=== PATIENT | male | born 1965 | race Caucasian/White ===

== ENCOUNTER 2017-08-06 21:10 | Emergency (ER) | payer OTHER, SELFPAY ==
[2017-08-06 21:10] VITALS: BP 183/122; PULSE 109; RESP 16; TEMP 36.5; O2SAT 94; BMI 22.8
--- NOTE | 2017-08-06 21:18 | ED.RN ---
NO OLD EKG'S IN MUSE
[2017-08-06 21:22] VITALS: O2SAT 97
--- NOTE | 2017-08-06 21:35 | EKG12_ITS ---
Test Reason : CP/SOB Blood Pressure : / mmHG Vent. Rate : 089 BPM Atrial Rate : 089 BPM P-R Int : 150 ms QRS Dur : 092 ms QT Int : 352 ms P-R-T Axes : 067 034 073 degrees QTc Int : 428 ms Normal sinus rhythm Septal MD, age undetermined, cannot be excluded Confirmed by FIOR BROWNE, BASSEM ([id number]), editor farm journal SHARON SOTO ([id number] on 08/10/2017 2:11:18 PM Referred By: MARY Confirmed By:BASSEM CHILDRESS MD
[2017-08-06] MEDS: Ipratropium/Albuterol Sulfate 3 ML AMPUL.NEB INHALATION (21:42)
[2017-08-06 21:43] VITALS: PULSE 99; RESP 16
[2017-08-06] MEDS: Albuterol 2.5 MG/3 ML VIAL.NEB. INHALATION ×2 (21:43)
[2017-08-06 21:45] LABS: Absolute Lymphocyte Count 2.64 X10^3/ul (0.83-4.51); Absolute Neutrophil Count 4.3 X10^3/uL (2.0-7.7); Basophil# 0.03 X10^3/uL; Basophil% 0.4 % (0-1); Eosinophil# 0.63 X10^3/uL; Eosinophils% 7.5 % (0-5); Hematocrit 47.1 % (40-54); Hemoglobin 16.3 g/dl (13.0-16.5); Lymphocyte # 2.64 X10^3/ul (4.0); Lymphocyte % 31.3 % (19-41); Mean Corp Hgb Conc 34.6 g/gl (32-36); Mean Corpuscular Hgb 32.3 pg (27.0-32.0); Mean Corpuscular Volume 93.5 fL (80-94); Mean Platelet Vol. 8.8 fl (6.2-12.0); Monocyte# 0.84 X10^3/uL; Neutrophil # 4.29 X10^3/uL (2.7-7.7); Neutrophil % 50.7 % (47-70); POSITIVE COUNT NO; POSITIVE DIFFERENTIAL NO; POSITIVE MORPHOLOGY NO; Platelet Count 165 K/mm3 (150-450); RBC Distribution Width CV 12.4 % (11.6-14.6); Red Blood Count 5.04 M/mm3 (4.6-6.2); White Blood Count 8.4 K/mm3 (4.4-11.0)
[2017-08-06 21:47] VITALS: BP 195/124; PULSE 113; RESP 14; O2SAT 98
[2017-08-06] MEDS: MethylPREDNISolone 125 MG/2 ML Vial IV (21:52)
[2017-08-06 21:55] LABS: Anion Gap 8 (5-15); BUN 4 mg/dL (7-18); BUN/Creat Ratio 4.2 RATIO (10-20); Calcium,Total 9.3 mg/dL (8.5-10.1); Chloride 103 mmol/L (98-107); Creatinine, Serum 0.96 mg/dL (0.70-1.30); EST Glomerular Filtration Rate 89 mL/min (>60); Est Glom Filt Rate - Afr Amer 107 mL/min (>60); Estimated Creatinine Clearance 100.33 ml/min; Glucose 85 mg/dL (74-106); Potassium 4.3 mmol/L (3.5-5.1); Sodium Level 136 mmol/L (136-145)
--- NOTE | 2017-08-06 22:20 | RAD_ITS ---
STUDY: X-RAY CHEST REASON FOR EXAM: Male, 51 years old. Difficulty breathing for 3 to 4 days TECHNIQUE: PA and lateral views of the chest. COMPARISON: None. FINDINGS: There is hyperinflation of the lungs consistent with chronic obstructive lung disease (COPD). There is no demonstrated pleural abnormality. Normal size heart. Normal mediastinum and jonny. Normal visualized pulmonary arteries. Normal visualized aortic arch and descending thoracic aorta. There is demineralization of the osseous structures. Normal visualized ribs, clavicles, and shoulders. There is no demonstrated abnormality of the visualized soft tissue structures of the upper abdomen. RAD/Chest PA and Lateral IMPRESSION: No airspace consolidation or pleural effusion. Hyperinflation could suggest chronic obstructive airway disease. Electronically Signed: Rowdy Puente MD at 22:49 EST , Service support ,
--- NOTE | 2017-08-06 23:04 | ED.VISSUMM ---
- ER Visit Summary Date of Service: 08/06/17 Chief Complaint: Shortness of breath History of Present Illness: The patient is a 51 M who presents with shortness of breath. This is been present for about 3-4 days. It is worsened with exertion. He complains of congestion rhinorrhea productive cough and wheezing. No chest pain. No diaphoresis chills sweats vomiting or diarrhea. No sick contacts. Physical Examination: Initial blood pressure 183/122 heart rate 109 respiratory rate 16 pulse ox 94% on 2 L nasal cannula Patient has severely diminished air exchange with inspiratory and expiratory wheezing no rales he is actually able to speak in full sentences he does not have retractions Heart is regular rhythm tachycardia Abdomen soft and nontender Extremities are nontender without edema 2+ bilateral radial pulses Alert Test Results: EKG shows normal sinus rhythm at a rate of 89. Two-view chest x-ray shows hyperinflation but no infiltrate or effusion. CBC and BMP are unremarkable. Emergency Department Course and Treatment: Patient was treated with IV Solu-Medrol and albuterol and Atrovent aerosols. On reevaluation he does have increased air exchange and reports improvement of symptoms. His heart rate at rest ranged from 100-110. With ambulatory pulse ox his heart rate went up to 120s and he did become dyspneic speaking in short sentences but he did not have hypoxia. He did maintain an oxygen saturation of 94%. I do believe given the patient's smoking history hyperinflation changes on chest x-ray wheezing and productive cough that he likely has undiagnosed COPD. I discussed hospital observation for IV steroids and aerosols. The patient does not want to stay. He would rather attempt outpatient management. We did have a discussion of risks and benefits. In regards to his blood pressure the patient states he does have a history of hypertension but is noncompliant with medications and that his blood pressure has been very high in the past. He was on lisinopril HCTZ but does not remember the dose. We will restart him on a low dose for now until he can follow-up with his primary care physician. He is willing to restart medications. He was given clear instructions that if he develops new or worsening symptoms any chest pain dizziness or worsening shortness of breath he should return to the emergency department immediately for reevaluation. All questions answered at bedside. Patient agreeable to plan. Discharged. Treatment Plan: [] Disposition: Discharge Impression: COPD exacerbation Uncontrolled hypertension This note was generated with Animated Speech dictation software. It may contain incorrect words, spelling, and punctuation that were not noted in review of the chart prior to signing ED Disposition - Plan for ED Patient: Chief Complaint: Shortness of Breath Referrals: Feliciano Sanz MD [Primary Care Provider] -
--- NOTE | 2017-08-06 23:05 | ED.RN ---
pt states he has hx of htn but does not take meds. discussed with pt the importance of taking bp meds. pt understands teaching. dr. coyle aware of teaching.
[2017-08-06 23:09] VITALS: BP 193/108; PULSE 111; RESP 20; O2SAT 93
--- NOTE | 2017-08-06 23:11 | ED.DCSUM_ITS ---
- ER Visit Summary Date of Service: 08/06/17 Chief Complaint: Shortness of breath History of Present Illness: The patient is a 51 M who presents with shortness of breath. This is been present for about 3-4 days. It is worsened with exertion. He complains of congestion rhinorrhea productive cough and wheezing. No chest pain. No diaphoresis chills sweats vomiting or diarrhea. No sick contacts. Physical Examination: Initial blood pressure 183/122 heart rate 109 respiratory rate 16 pulse ox 94% on 2 L nasal cannula Patient has severely diminished air exchange with inspiratory and expiratory wheezing no rales he is actually able to speak in full sentences he does not have retractions Heart is regular rhythm tachycardia Abdomen soft and nontender Extremities are nontender without edema 2+ bilateral radial pulses Alert Test Results: EKG shows normal sinus rhythm at a rate of 89. Two-view chest x- ray shows hyperinflation but no infiltrate or effusion. CBC and BMP are unremarkable. Emergency Department Course and Treatment: Patient was treated with IV Solu- Medrol and albuterol and Atrovent aerosols. On reevaluation he does have increased air exchange and reports improvement of symptoms. His heart rate at rest ranged from 100-110. With ambulatory pulse ox his heart rate went up to 120s and he did become dyspneic speaking in short sentences but he did not have hypoxia. He did maintain an oxygen saturation of 94%. I do believe given the patient's smoking history hyperinflation changes on chest x-ray wheezing and productive cough that he likely has undiagnosed COPD. I discussed hospital observation for IV steroids and aerosols. The patient does not want to stay. He would rather attempt outpatient management. We did have a discussion of risks and benefits. In regards to his blood pressure the patient states he does have a history of hypertension but is noncompliant with medications and that his blood pressure has been very high in the past. He was on lisinopril HCTZ but does not remember the dose. We will restart him on a low dose for now until he can follow-up with his primary care physician. He is willing to restart medications. He was given clear instructions that if he develops new or worsening symptoms any chest pain dizziness or worsening shortness of breath he should return to the emergency department immediately for reevaluation. All questions answered at bedside. Patient agreeable to plan. Discharged. Treatment Plan: [] Disposition: Discharge Impression: COPD exacerbation Uncontrolled hypertension This note was generated with Disconnect dictation software. It may contain incorrect words, spelling, and punctuation that were not noted in review of the chart prior to signing ED Disposition - Plan for ED Patient: Chief Complaint: Shortness of Breath Referrals: Feliciano Sanz MD [Primary Care Provider] -
--- NOTE | 2017-08-06 23:11 | ED.DEP ---
ED Disposition - Plan for ED Patient: Chief Complaint: Shortness of Breath Instructions: ED COPD Flare, ED Hypertension Conf Out Of Control Prescriptions: Albuterol Inhaler [Ventolin Hfa] 1 - 2 puff INHALATION Q4H PRN PRN #1 inhaler PRN Reason: Wheezing Azithromycin [Zithromax Z-Gilson] 250 mg PO UD #1 box Lisinopril/Hydrochlorothiazide [Zestoretic 10/12.5 Tablet] 1 tab PO DAILY #30 tab Prednisone [Deltasone] 60 mg PO DAILY #15 tab Referrals: Feliciano Sanz MD [Primary Care Provider] -
[2017-08-06 23:35] VITALS: RESP 20
== END 2017-08-06 23:25 | disposition home or self-care (01) ==
PROVIDERS: Emergency Provider Emergency Medicine; Family Provider Family Medicine; PCP Family Medicine
DX: J44.1 Chronic obstructive pulmonary disease with (acute) exacerbation (principal); I10 Essential (primary) hypertension; Z72.0 Tobacco use; Z91.14 Patient's other noncompliance with medication regimen
CPT/HCPCS: 71046; 80048; 85025; 93005; 94640; 99284; A4216

== ENCOUNTER → 2018-06-06 10:53 | Outpatient (CLI) | payer OTHER, SELFPAY ==
--- NOTE | 2018-06-06 11:00 | RAD_ITS ---
Left femur. CLINICAL HISTORY: Pain. PROCEDURE: 4 view. FINDINGS: There are no fractures, dislocations or any bone or joint disease. The surrounding soft tissues are normal Electronically Signed: Santana Naik MD at 4:46 EST Tel , Service support , RAD/Femur Min 2 Views
--- NOTE | 2018-06-06 11:00 | RAD_ITS ---
STUDY: X-RAY - LUMBAR SPINE REASON FOR EXAM: Male, 52 years old. Left leg pain TECHNIQUE: 5 view(s) of the lumbar spine were obtained. COMPARISON: None FINDINGS: Normal lumbar lordosis. There is no substantial scoliosis. There is a normal alignment of the vertebrae. Normal vertebral bodies and endplates. Normal disc space heights. Calcific atherosclerotic changes of aorta RAD/L/S Spine Min 4 Views IMPRESSION: Normal x-ray examination of the lumbar spine. No fractures. No disc disease. Calcific atherosclerotic changes of aorta Electronically Signed: Santana Naik MD at 4:45 EST Tel , Service support ,
[2018-06-06 12:13] LABS: Erythrocyte Sedimentation Rate 17 mm/hr (0-20)
[2018-06-06 12:15] LABS: Absolute Lymphocyte Count 1.64 X10^3/ul (0.83-4.51); Absolute Neutrophil Count 1.9 X10^3/uL (2.0-7.7); Basophil# 0.02 X10^3/uL; Basophil% 0.5 % (0-1); Eosinophil# 0.31 X10^3/uL; Eosinophils% 7.2 % (0-5); Hematocrit 40.5 % (40-54); Hemoglobin 13.7 g/dl (13.0-16.5); Lymphocyte # 1.64 X10^3/ul (4.0); Lymphocyte % 38.2 % (19-41); Mean Corp Hgb Conc 33.8 g/gl (32-36); Mean Corpuscular Hgb 32.1 pg (27.0-32.0); Mean Corpuscular Volume 94.8 fL (80-94); Mean Platelet Vol. 8.9 fl (6.2-12.0); Monocyte# 0.43 X10^3/uL; Neutrophil # 1.87 X10^3/uL (2.7-7.7); Neutrophil % 43.6 % (47-70); Platelet Count 211 K/mm3 (150-450); RBC Distribution Width CV 11.9 % (11.6-14.6); RBC Distribution Width SD 40.6 fl (35.1-43.9); Red Blood Count 4.27 M/mm3 (4.6-6.2); White Blood Count 4.3 K/mm3 (4.4-11.0)
[2018-06-06 12:16] LABS: POSITIVE COUNT NO; POSITIVE DIFFERENTIAL NO; POSITIVE MORPHOLOGY NO
--- OUTSIDE RECORDS SUMMARY | 2018-09-07 19:25 | XMS RPT_ITS ---
:1965 Author Organization OHIP Care Team Providers Name Role Phone Demario Sanz Attending Unavailable Demario Sanz Referring Unavailable Demario Sanz Primary Care Unavailable Demario Sanz Primary Care Unavailable Cezar Calderon Attending Unavailable PROBLEMS PROBLEMS DATE TYPE CONDITION / CODE ATTENDING STATUS SOURCE 06/06/2018 Unknown R29.898 - Other [place]ov[place], Active [place] [facility] involving the [facility] musculoskeletal Repository system / R29.898(ICD-10) 10/23/2017 Unknown R06.02 - Shortness Cezar Calderon Active [place] of breath / Community R06.02(ICD-10) Hospital Repository PROCEDURES PROCEDURES No Procedure Records FoundRESULTS RESULTS ERYTHROCYTE SED RATE Collected: 06/06/2018 Status: F Source: [place] 11:03 AM [facility] REPOSITORY TYPE CODE TESTS RESULT OUT OF RANGE REFERENCE UNITS LAB L102.0000 0-20 mm/hr Normal SED RATE 17 Performed By: #### L101.9900, L100.0100 #### [facility] [address] [place], [place], [address] CBC W/DIFF, AUTOMATED Collected: 06/06/2018 Status: F Source: [place] 11:03 AM [facility] REPOSITORY TYPE CODE TESTS RESULT OUT OF RANGE REFERENCE UNITS LAB L100.1000 4.4-11.0 K/mm3 Low WBC 4.3 LAB L100.1200 4.6-6.2 M/mm3 Low RBC 4.27 LAB L100.1300 13.0-16.5 g/dl Normal HGB 13.7 LAB L100.1400 40-54 % Normal HCT 40.5 LAB L100.1500 80-94 fL High MCV 94.8 LAB L100.1600 27.0-32.0 pg High MCH 32.1 LAB L100.1700 32-36 g/gl Normal MCHC 33.8 LAB L100.1810 11.6-14.6 % Normal RDW CV 11.9 LAB L100.1820 35.1-43.9 fl Normal RDW SD 40.6 LAB L100.1900 150-450 K/mm3 Normal PLT 211 LAB L100.2000 6.2-12.0 fl Normal MPV 8.9 LAB L100.2100 47-70 % Low NEUT% 43.6 LAB L100.2200 19-41 % Normal LY% 38.2 LAB L100.2300 0-10 % Normal MONO% 10.0 LAB L100.2400 0-5 % High EO% 7.2 LAB L100.2500 0-1 % Normal BASO% 0.5 LAB L100.2550 0.0-0.9 % Normal IM GRAN % 0.500 Result Comment: IG% - Immature Granulocytes (promyelocytes, myelocytes and metamyelocytes) > 1% indicates that a LEFT SHIFT is Present. LAB L100.2620 2.0-7.7 X10 3/uL Low Absolute Neut 1.9 LAB L100.2720 0.83-4.51 X10 3/ul Normal Absolute Lymph 1.64 Performed By: #### L101.9900, L100.0100 #### [facility] [address] [facility] [place], [address] L/S SPINE MIN 4 Observed: 06/06/2018 Status: F Source: [place] VIEWS 11:01 AM [facility] REPOSITORY [facility] Imaging Services [address] [place] [address] L/S Spine Min 4 Views MR#: [id number] Acct: [id number] Name: JAX ROGERS Rep #: [id number] : 1965 M 52 From: Santana Naik MD PCP: Demario Sanz MD Status: REG CLI Study: L/S Spine Min 4 Views Date of Exam: 06/06/18 Exam# [id number] Ordering Dr: Feliciano Sanz MD STUDY: X-RAY - LUMBAR SPINE REASON FOR EXAM: Male, 52 years old. Left leg pain TECHNIQUE: 5 view(s) of the lumbar spine were obtained. COMPARISON: None FINDINGS: Normal lumbar lordosis. There is no substantial scoliosis. There is a normal alignment of the vertebrae. Normal vertebral bodies and endplates. Normal disc space heights. Calcific atherosclerotic changes of aorta RAD/L/S Spine Min 4 Views IMPRESSION: Normal x-ray examination of the lumbar spine. No fractures. No disc disease. Calcific atherosclerotic changes of aorta Electronically Signed: Santana Naik MD at 4:45 EST Tel , Service support , CC: Demario Sanz MD Adoption Specialist: Signed FEMUR MIN 2 VIEWS Observed: 06/06/2018 Status: F Source: [place] 11:01 AM [facility] Imaging Services [address] [place] [address] Femur Min 2 Views MR#: [id number] Acct: [id number] Name: JAX ROGERS Rep #: [id number] : 1965 M 52 From: Santana Naik MD PCP: Demario Sanz MD Status: REG CLI Study: Femur Min 2 Views Date of Exam: 06/06/18 Exam# [id number] Ordering Dr: Feliciano Sanz MD Left femur. CLINICAL HISTORY: Pain. PROCEDURE: 4 view. FINDINGS: There are no fractures, dislocations or any bone or joint disease. The surrounding soft tissues are normal Electronically Signed: Santana Naik MD at 4:46 EST Tel , Service support , RAD/Femur Min 2 Views CC: Demario Sanz MD Adoption Specialist: Signed 12 LEAD ELECTROCARDIOGRAM Observed: 08/10/2017 Status: F Source: [place] 2:11 PM [facility] REPOSITORY [facility] Cardiovascular Services [address] [place] [address] 12 Lead EKG 08/06/174 MR#: [id number] Acct: [id number] Name: JAX ROGERS Rep #: [id number] : 1965 51 From: Evan Childress MD Attending Dr: Status: DEP ER Ordering Dr: Cezar Calderon MD Date: 08/06/17 Location: ED Sex: M C Admitted: Test Reason : CP/SOB Blood Pressure : / mmHG Vent. Rate : 089 BPM Atrial Rate : 089 BPM P-R Int : 150 ms QRS Dur : 092 ms QT Int : 352 ms P-R-T Axes : 067 034 073 degrees QTc Int : 428 ms Normal sinus rhythm Septal NE, age undetermined, cannot be excluded Confirmed by FIOR BROWNE, EVAN ([id number]), technical writer and editor SHARON SOTO ([id number]) on 08/10/2017 2:11:18 PM Referred By: MARY Confirmed By:EVAN CHILDRESS MD 08/10/17 1411 Date Evan Childress MD CC: Demario Sanz MD; Cezar Calderon MD Signed DISCHARGE INSTRUCTION Observed: 08/06/2017 Status: F Source: [place] 11:13 PM [facility] REPOSITORY [facility] Medical Records Department [address] [place] [address] Discharge Instruction 08/06/17 2311 MR#: [id number] Acct: [id number] Name: JAX ROGERS Rep #: [id number] : 1965 51 From: Cezar Calderon MD PCP: Demario Sanz MD Status: REG ER ED Disposition - Plan for ED Patient: Chief Complaint: Shortness of Breath Instructions: ED COPD Flare, ED Hypertension Conf Out Of Control Prescriptions: Albuterol Inhaler [Ventolin Hfa] 1 - 2 puff INHALATION Q4H PRN PRN #1 inhaler PRN Reason: Wheezing Azithromycin [Zithromax Z-Gilson] 250 mg PO UD #1 box Lisinopril/Hydrochlorothiazide [Zestoretic 10/12.5 Tablet] 1 tab PO DAILY #30 tab Prednisone [Deltasone] 60 mg PO DAILY #15 tab Referrals: Feliciano Sanz MD [Primary Care Provider] - What to do if you have Problems For any increased pain, shortness of breath, bleeding, nausea or vomiting, chest pain, or any unexpected problems, contact your Primary Care Provider. Call [facility] ([phone]) or report to the closest Emergency Room. Call 911 if necessary. 08/06/17 2313 <Electronically signed by Cezar Caldeorn MD> Date Cezar Calderon MD Cosigner Signature (If Indicated): Date CC: Demario Sanz MD EMERGENCY DEPARTMENT Observed: 08/06/2017 Status: F Source: [place] SUMMARY 11:11 PM [facility] REPOSITORY [facility] Medical Records Department [address] [place] [address] Emergency Department Summary 08/06/17 2304 MR#: [id number] Acct: [id number] Name: JAX ROGERS Rep #: [id number] : 1965 51 From: Cezar Calderon MD PCP: Demario Sanz MD Status: REG ER - ER Visit Summary Date of Service: 08/06/17 Chief Complaint: Shortness of breath History of Present Illness: The patient is a 51 M who presents with shortness of breath. This is been present for about 3-4 days. It is worsened with exertion. He complains of congestion rhinorrhea productive cough and wheezing. No chest pain. No diaphoresis chills sweats vomiting or diarrhea. No sick contacts. Physical Examination: Initial blood pressure 183/122 heart rate 109 respiratory rate 16 pulse ox 94% on 2 L nasal cannula Patient has severely diminished air exchange with inspiratory and expiratory wheezing no rales he is actually able to speak in full sentences he does not have retractions Heart is regular rhythm tachycardia Abdomen soft and nontender Extremities are nontender without edema 2+ bilateral radial pulses Alert Test Results: EKG shows normal sinus rhythm at a rate of 89. Two-view chest x-ray shows hyperinflation but no infiltrate or effusion. CBC and BMP are unremarkable. Emergency Department Course and Treatment: Patient was treated with IV Solu-Medrol and albuterol and Atrovent aerosols. On reevaluation he does have increased air exchange and reports improvement of symptoms. His heart rate at rest ranged from 100-110. With ambulatory pulse ox his heart rate went up to 120s and he did become dyspneic speaking in short sentences but he did not have hypoxia. He did maintain an oxygen saturation of 94%. I do believe given the patient's smoking history hyperinflation changes on chest x-ray wheezing and productive cough that he likely has undiagnosed COPD. I discussed hospital observation for IV steroids and aerosols. The patient does not want to stay. He would rather attempt outpatient management. We did have a discussion of risks and benefits. In regards to his blood pressure the patient states he does have a history of hypertension but is noncompliant with medications and that his blood pressure has been very high in the past. He was on lisinopril HCTZ but does not remember the dose. We will restart him on a low dose for now until he can follow-up with his primary care physician. He is willing to restart medications. He was given clear instructions that if he develops new or worsening symptoms any chest pain dizziness or worsening shortness of breath he should return to the emergency department immediately for reevaluation. All questions answered at bedside. Patient agreeable to plan. Discharged. Treatment Plan: [] Disposition: Discharge Impression: COPD exacerbation Uncontrolled hypertension This note was generated with [employer] software. It may contain incorrect words, spelling, and punctuation that were not noted in review of the chart prior to signing ED Disposition - Plan for ED Patient: Chief Complaint: Shortness of Breath Referrals: Feliciano Sanz MD [Primary Care Provider] - What to do if you have Problems For any increased pain, shortness of breath, bleeding, nausea or vomiting, chest pain, or any unexpected problems, contact your Primary Care Provider. Call [facility] ([phone]) or report to the closest Emergency Room. Call 911 if necessary. 08/06/17 2311 <Electronically signed by Cezar Calderon MD> Date Cezar Calderon MD Cosigner Signature (If Indicated): Date CC: Demario Sanz MD CHEST PA AND LATERAL Observed: 08/06/2017 Status: F Source: [place] 9:37 PM [facility] REPOSITORY [facility] Imaging Services [address] [place] [address] Chest PA and Lateral MR#: [id number] Acct: [id number] Name: JAX ROGERS Rep #: [id number] : 1965 M 51 From: Rowdy Puente MD PCP: Demario Sanz MD Status: REG ER Study: Chest PA and Lateral Date of Exam: 08/06/17 Exam# [id number] Ordering Dr: Cezar Calderon MD STUDY: X-RAY CHEST REASON FOR EXAM: Male, 51 years old. Difficulty breathing for 3 to 4 days TECHNIQUE: PA and lateral views of the chest. COMPARISON: None. FINDINGS: There is hyperinflation of the lungs consistent with chronic obstructive lung disease (COPD). There is no demonstrated pleural abnormality. Normal size heart. Normal mediastinum and jonny. Normal visualized pulmonary arteries. Normal visualized aortic arch and descending thoracic aorta. There is demineralization of the osseous structures. Normal visualized ribs, clavicles, and shoulders. There is no demonstrated abnormality of the visualized soft tissue structures of the upper abdomen. RAD/Chest PA and Lateral IMPRESSION: No airspace consolidation or pleural effusion. Hyperinflation could suggest chronic obstructive airway disease. Electronically Signed: Rowdy Puente MD at 22:49 EST , Service support , CC: Demario Sanz MD; Cezar Calderon MD Adoption Specialist: Signed CBC W/DIFF, AUTOMATED Collected: 08/06/2017 Status: F Source: [place] 9:25 PM [facility] REPOSITORY TYPE CODE TESTS RESULT OUT OF RANGE REFERENCE UNITS LAB L100.1000 4.4-11.0 K/mm3 Normal WBC 8.4 LAB L100.1200 4.6-6.2 M/mm3 Normal RBC 5.04 LAB L100.1300 13.0-16.5 g/dl Normal HGB 16.3 LAB L100.1400 40-54 % Normal HCT 47.1 LAB L100.1500 80-94 fL Normal MCV 93.5 LAB L100.1600 27.0-32.0 pg High MCH 32.3 LAB L100.1700 32-36 g/gl Normal MCHC 34.6 LAB L100.1810 11.6-14.6 % Normal RDW CV 12.4 LAB L100.1820 35.1-43.9 fl Normal RDW SD 42.0 LAB L100.1900 150-450 K/mm3 Normal PLT 165 LAB L100.2000 6.2-12.0 fl Normal MPV 8.8 LAB L100.2100 47-70 % Normal NEUT% 50.7 LAB L100.2200 19-41 % Normal LY% 31.3 LAB L100.2300 0-10 % Normal MONO% 10.0 LAB L100.2400 0-5 % High EO% 7.5 LAB L100.2500 0-1 % Normal BASO% 0.4 LAB L100.2550 0.0-0.9 % Normal IM GRAN % 0.100 Result Comment: IG% - Immature Granulocytes (promyelocytes, myelocytes and metamyelocytes) > 1% indicates that a LEFT SHIFT is Present. LAB L100.2620 2.0-7.7 X10 3/uL Normal Absolute Neut 4.3 LAB L100.2720 0.83-4.51 X10 3/ul Normal Absolute Lymph 2.64 Performed By: #### L100.0100 #### [facility] [address] [place], [place], [address] BASIC METABOLIC Collected: 08/06/2017 Status: F Source: [place] PROFILE ([facility]) 9:25 PM [facility] REPOSITORY TYPE CODE TESTS RESULT OUT OF RANGE REFERENCE UNITS LAB L501.0100 74-106 mg/dL Normal GLU 85 Result Comment: Please note revised GLUCOSE reference range effective 2017. LAB L501.1000 7-18 mg/dL Low BUN 4 LAB L501.1100 0.70-1.30 mg/dL Normal CREAT,SERUM 0.96 Result Comment: The validity of the calculated GFR AND GFRAA in patients over 70 years has not been determined. Clinical correlation is essential. LAB L501.1110 >60 mL/min Normal EST GFR 89 Result Comment: Non- GFR Calc LAB L501.1115 >60 mL/min Normal EST GFR - AA 107 Result Comment: GFR Calc LAB L501.1255 ml/min Normal Estimated CRCL 100.33 LAB L501.1300 10-20 RATIO Low BUN/CRE 4.2 LAB L501.2200 8.5-10 mg/dL .1 CA Normal 9.3 LAB L501.5300 136-14 mmol/L 5 NA Normal 136 LAB L501.5600 3.5-5. mmol/L 1 K Normal 4.3 LAB L501.5900 98-107 mmol/L CL Normal 103 LAB L501.6100 21.0-3 mmol/L 2.0 CO2 Normal 25.0 LAB L501.6200 5-15 GAP Normal 8 Performed By: #### L500.2500 #### [facility] [address] [place], [address] ALLERGIES ALLERGIES DATE TYPE / CODE NAME / CODE REACTION SEVERITY SOURCE 08/06/2017 Drug No Known Unknown [place] [facility] Allergy/4160 Allergies/F00 Hospital 39716(SNOMED [id number](RXNOR Repository CT) M) ENCOUNTERS ENCOUNTERS ADMIT/DISCHARGE ACCOUNT ADMITTING ENCOUNTER LOCATION SOURCE NUMBER CLASS 06/06/2018 [id number] Amb[place] [facility] ing:MTLAB Repository 08/06/2017/ [id number] Emergency [place] [facility] ing:ED Repository PAYERS PAYERS ENCOUNTER GUARANTOR PAYER SUBSCRIBER SOURCE 06/06/2018 JAX Simon Primary JAX Simon [place] [id number] MIMI Insurance:[employer] BEBOUTDOB: [place], [place] [facility] Number: [id number] Hospital 22842Rso: 330 [id number] Repository [phone] () Date:[id number] [address] [address]EX: 06/06/2018 Secondary Kelsie [place] Insurance:BE BeboutDOB: [facility] [id number] Hospital Number: Repository [id number] Date:2018-06-[address] [place] [address]VT: 06/06/2018 Tertiary NOT GIVENUNK [place] Insurance:SELF PAY [facility] Number: Effective Repository Date:2018-06-06 08/06/2017 JAX [id number] Primary JAX BEBOUTDOB: [place] MIMI RDWEST Insurance:[employer] [id number] [place] CAREPolicy Number: Hospital [address]Yqn: 330 [id number] Repository [phone] (HP) Date:[id number] [address] [address]EV: 08/06/2017 Secondary Kelsie [place] Insurance:BE BeboutDOB[facility] [id number] Hospital Number: Repository [id number] Date:2017-08-06 [address] [place] [address]EN: 08/06/2017 Tertiary NOT GIVENUNK [place] Insurance:SELF PAY [facility]: Effective Repository Date:2017-08-06
== END ==
PROVIDERS: Family Provider Family Medicine; PCP Family Medicine; Referring Provider Family Medicine; Visit Provider Family Medicine
DX: R29.898 Other symptoms and signs involving the musculoskeletal system (principal)
CPT/HCPCS: 36415; 72110; 73552; 85025; 85652

== ENCOUNTER → 2018-10-14 07:58 | Outpatient (CLI) | payer OTHER, SELFPAY ==
--- NOTE | 2018-10-14 08:30 | MRI_ITS ---
STUDY: MRI LUMBAR SPINE WITHOUT CONTRAST REASON FOR EXAM: Male, 52 years old. Left lateral radiculopathy for 6 months TECHNIQUE: Standardized fat and water weighted pulse sequences were obtained in the sagittal and axial planes. COMPARISON: None FINDINGS: There is normal alignment and curvature of the lumbosacral spine with no acute fractures or dislocations and no abnormal marrow infiltrative processes. The disc spaces are normal height and signal intensity in the conus medullaris terminates at L1 T12-L1: Normal endplates. Normal disc height, hydration and morphology. Normal bilateral facet joints. Normal central canal and bilateral lateral recesses. Normal bilateral intervertebral neural foramina. L1-2: Normal endplates. Normal disc height, hydration and morphology. Normal bilateral facet joints. Normal central canal and bilateral lateral recesses. Normal bilateral intervertebral neural foramina. L2-3: Normal endplates. Normal disc height, hydration and morphology. Normal bilateral facet joints. Normal central canal and bilateral lateral recesses. Normal bilateral intervertebral neural foramina. L3-4: Normal endplates. Normal disc height, hydration and morphology. Normal bilateral facet joints. Normal central canal and bilateral lateral recesses. Normal bilateral intervertebral neural foramina. L4-5: Normal endplates. Normal disc height, hydration and morphology. Normal bilateral facet joints. Normal central canal and bilateral lateral recesses. Normal bilateral intervertebral neural foramina. L5-S1: Normal endplates. Normal disc height, hydration and morphology. Normal bilateral facet joints. Normal central canal and bilateral lateral recesses. Normal bilateral intervertebral neural foramina. The aorta is normal. The visualized portions of kidneys are normal. MRI/Spine Lumbar (Routine) IMPRESSION: Normal unenhanced MR examination of the lumbar spine. No focal disc protrusion or extrusion and no central canal stenosis. Electronically Signed: Santana Naik MD at 7:41 EDT Tel , Service support ,
== END ==
PROVIDERS: Family Provider Family Medicine; PCP Family Medicine; Referring Provider Family Medicine; Visit Provider Family Medicine
DX: M54.10 Radiculopathy, site unspecified (principal)
CPT/HCPCS: 72148

== ENCOUNTER → 2018-11-08 06:20 | Outpatient (CLI) | payer OTHER, SELFPAY ==
--- NOTE | 2018-11-08 14:57 | NEURO ---
NCS and/or EMG Patient Report Ordering Doctor: Feliciano Sanz DATE OF SERVICE: 11/08/18 Gregor Nunez is a 52 year old male who presents with complaints of left lower extremity pain. Is most significant in the left hip and occasionally radiating down the left leg. Electrodiagnostic findings: Left peroneal motor nerve demonstrates normal distal latency, amplitude and conduction velocity. Normal left tibial motor response. Prolonged left tibial F wave is noted. Prolonged H reflex noted bilaterally. Prolonged left sural latency and left superficial peroneal latency. On needle EMG, all muscles tested in the left lower limb as well as the left lumbar paraspinal showed no evidence of denervation with normal motor unit action potentials. Electrodiagnostic impression: This is an abnormal study in the left lower limb. 1. There is a prolonged distal latency in both the left sural and super superficial peroneal sensory nerves. This is likely suggestive of a mild sensory neuropathy or possibly an early sensory polyneuropathy. However, it does not appear to correlate clinically with his main complaints. 2. No electrodiagnostic evidence noted for lumbosacral radiculopathy. If there are any further questions, please do not hesitate to contact me.
== END ==
PROVIDERS: Family Provider Family Medicine; PCP Family Medicine; Referring Provider Family Medicine; Visit Provider Family Medicine
DX: M54.10 Radiculopathy, site unspecified (principal)
CPT/HCPCS: 95886; 95910

== ENCOUNTER → 2018-12-27 09:42 | Outpatient (CLI) | payer OTHER, SELFPAY ==
--- NOTE | 2018-12-27 09:45 | RAD_ITS ---
STUDY: X-RAY - PELVIS AND LEFT HIP REASON FOR EXAM: Male, 53 years old. Pain TECHNIQUE: 3 views of the pelvis and hip. COMPARISON: None. FINDINGS: There is a non-specific bowel gas pattern. Normal visualized soft tissue structures. Normal bilateral iliac wings, sacroiliac joints and visualized sacrum. Normal bilateral superior and inferior pubic rami. Normal pubic symphysis. Normal bilateral ischial tuberosities. Mild subchondral cystic changes.. Normal acetabulum. Normal hip joint. RAD/HIP, UNI W/ Pelvis 2-3 Views IMPRESSION: Mild arthritic changes. No acute fracture or other significant bony pathology Electronically Signed: Nestor Denton MD at 20:27 EDT , Service support ,
== END ==
PROVIDERS: Family Provider Family Medicine; PCP Family Medicine; Referring Provider Family Medicine; Visit Provider Family Medicine
DX: M79.605 Pain in left leg (principal)
CPT/HCPCS: 73502

== ENCOUNTER → 2019-03-15 10:55 | Outpatient (CLI) | payer OTHER, SELFPAY ==
--- NOTE | 2019-03-15 11:33 | MRI_ITS ---
STUDY: MRI LEFT HIP REASON FOR EXAM: Left leg pain for 6 months. TECHNIQUE: Standardized fat and water weighted pulse sequences were obtained in all 3 orthogonal planes. COMPARISON: Radiographs 12/27/2018. FINDINGS: There is mild left hip arthrosis with mild chondral thinning (proton density sagittal image 9). There is a small left hip joint effusion (proton density sagittal images 7, 8). There is mild subchondral bone edema of the left supra-acetabular bone (inversion recovery coronal images 18-20), a stress phenomenon. There is a suspected occult tear of the left labrum with a paralabral cyst (inversion recovery coronal image 17). There is avascular necrosis of the left femoral head (T1 coronal images 18-22) with mild associated bone edema. Normal femoral neck and intratrochanteric region. There is avascular necrosis of the contralateral right femoral head (T1 coronal images 15-21. Normal gluteus minimus, medius and iliopsoas tendons and distal insertions. There is no trochanteric, iliopsoas or iliopectineal bursitis. Normal superior and inferior pubic rami. Normal pubic symphysis. Normal ischial tuberosity. Normal origin of the hamstring tendons. Normal visualized iliac wing, sacroiliac joint, and sacral ala. Normal visualized soft tissue structures of the pelvis. MRI/Lower Ext Joint Only (Routine) IMPRESSION: Avascular necrosis of the femoral heads bilaterally. Mild bone edema in the left supra-acetabular bone, a stress phenomenon. Mild left hip arthrosis. Left paralabral cyst and therefore suspected occult labral tear. Small left hip joint effusion. No demonstrated greater trochanteric bursitis. Electronically Signed: William Coffman MD at 13:07 EDT Tel , Service support ,
== END ==
PROVIDERS: Family Provider Family Medicine; PCP Family Medicine; Referring Provider Physician Assistant; Visit Provider Physician Assistant
DX: M70.62 Trochanteric bursitis, left hip (principal)
CPT/HCPCS: 73721

== ENCOUNTER 2019-04-01 18:02 | Emergency (ER) | payer OTHER, SELFPAY ==
[2019-04-01 18:03] VITALS: BP 149/105; PULSE 116; RESP 23; TEMP 36.6; O2SAT 100
[2019-04-01 18:05] VITALS: PULSE 122; RESP 12; RESP 24; O2SAT 100
[2019-04-01 18:10] VITALS: O2SAT 100
--- NOTE | 2019-04-01 18:39 | EKG12_ITS ---
Test Reason : DYSRHYTHMIA Blood Pressure : / mmHG Vent. Rate : 119 BPM Atrial Rate : 119 BPM P-R Int : 152 ms QRS Dur : 092 ms QT Int : 322 ms P-R-T Axes : 080 013 079 degrees QTc Int : 452 ms Sinus tachycardia Right atrial enlargement Inferior infarct , age undetermined Possible Anterolateral infarct , age undetermined Abnormal ECG Confirmed by FIOR BROWNE, BASSEM ([id number]), editor city SHARON SOTO ([id number]) on 04/04/2019 8:38:49 AM Referred By: ROSENDO Confirmed By:BASSEM CHILDRESS MD
--- NOTE | 2019-04-01 18:39 | RAD_ITS ---
STUDY: X-RAY CHEST REASON FOR EXAM: Male, 53 years old. COPD. Shortness of breath. TECHNIQUE: PA and lateral views of the chest. COMPARISON: August 06, 2017. FINDINGS: Cardiac silhouette unremarkable. Pulmonary vascularity unremarkable. Aorta minimally calcified. No new focal patchy airspace opacities. No pleural effusions. Hyperaeration. COPD/emphysema. Upper abdomen unremarkable. Osseous structures intact. No pneumothorax. RAD/Chest PA and Lateral IMPRESSION: No acute cardiopulmonary findings COPD/emphysema Electronically Signed: Krish Carreno DO at 19:06 EDT Tel , Service support ,
[2019-04-01] MEDS: predniSONE 20 MG Tablet 60 MG PO (18:56)
[2019-04-01 19:00] VITALS: PULSE 108; RESP 15
[2019-04-01] MEDS: Ipratropium/Albuterol Sulfate 3 ML AMPUL.NEB INHALATION (19:00)
[2019-04-01 19:08] LABS: Anion Gap 8 (5-15); BUN 5 mg/dL (7-18); BUN/Creat Ratio 4.7 RATIO (10-20); Calcium,Total 9.1 mg/dL (8.5-10.1); Chloride 92 mmol/L (98-107); Creatinine, Serum 1.06 mg/dL (0.70-1.30); EST Glomerular Filtration Rate 78 mL/min (>60); Est Glom Filt Rate - Afr Amer 95 mL/min (>60); Estimated Creatinine Clearance 78.01 ml/min; Glucose 126 mg/dL (74-106); Potassium 4.1 mmol/L (3.5-5.1); Sodium Level 129 mmol/L (136-145)
[2019-04-01 19:20] LABS: Allen Test POS; Base Excess -2 mmol/L (-2 to +2); Blood Gas Specimen Type ART; O2 Delivery Device Nasal Can; PO2 67 mmHG (75-100); SITE R Radial; SO2 94 % (95-99); Time Given 1905; Total Carbon Dioxide 23 mmol/L; pCO2 33.6 mmHg (35-45); pH 7.43 (7.35-7.45)
[2019-04-01 19:25] LABS: Absolute Lymphocyte Count 1.06 X10^3/uL (0.83-4.51); Absolute Neutrophil Count 10.5 X10^3/uL (2.0-7.7); Basophil# 0.04 X10^3/uL; Basophil% 0.3 % (0-1); Eosinophil# 0.66 X10^3/uL; Eosinophils% 5.2 % (0-5); Hemoglobin 13.3 g/dL (13.0-16.5); Lymphocyte # 1.06 X10^3/ul (4.0); Lymphocyte % 8.3 % (19-41); Mean Corpuscular Hgb 32.9 pg (27.0-32.0); Mean Corpuscular Volume 94.1 fL (80-94); Monocyte# 0.49 X10^3/uL; Monocyte% 3.8 % (0-10); NRBC Flagged by Analyzer 0 % (0-5); Neutrophil # 10.47 X10^3/uL (2.7-7.7); Neutrophil % 81.8 % (47-70); Platelet Count 146 K/mm3 (150-450); RBC Distribution Width CV 12.2 % (11.6-14.6); RBC Distribution Width SD 42.3 fl (35.1-43.9); Red Blood Count 4.04 M/mm3 (4.6-6.2); White Blood Count 12.8 K/mm3 (4.4-11.0)
[2019-04-01 20:27] VITALS: BP 117/91; PULSE 106; RESP 14; O2SAT 99
[2019-04-01 21:16] VITALS: BP 145/93; PULSE 113; RESP 19; O2SAT 98
--- NOTE | 2019-04-01 21:30 | ED.DCSUM_ITS ---
- ER Visit Summary Date of Service: 04/01/19 Chief Complaint: Shortness of breath History of Present Illness: The patient is a 53 M who presents with shortness of breath that is been getting worse over the past 3 days. Patient states it is worse with changes in weather. Patient states she is coughing up some jean sputum. Patient also admits to some runny nose. Patient denies any chest pain. Patient denies any fevers or chills. Patient does have a history of COPD and states this feels similar to prior exacerbations. Patient does admit to some vomiting after coughing. Patient denies any abdominal pain. Physical Examination: Vital signs are stable except for tachycardia of 116 and a mild tachypnea of 23. Patient is afebrile. Patient is in no acute distress. Oral mucosa is pink and moist. Neck is supple. Trachea is midline. There is no JVD noted. Heart was regular rate and rhythm. Lungs were diminished bilaterally. There are few scattered rhonchi. There is good respiratory effort noted. There are no retractions noted. Abdomen is soft and nontender. Cranial nerves II through XII are intact. There are no focal motor or sensory deficits noted. Test Results: EKG shows sinus tachycardia with a rate of 119. There is some right atrial enlargement. There is an old inferior infarct. This was unchanged compared to previous EKG dated 08/06/2017. Arterial blood gas showed a pH of 7.425 with a PCO2 of 36, PO2 of 67, bicarb of 22, and oxygen saturation of 94% on 2 L nasal cannula. Chest x-ray shows COPD but no acute process. CBC showed a mild leukocytosis of 12.8. Sodium was slightly low at 129 and chloride was 92. Troponin was less than 0.015. Emergency Department Course and Treatment: Patient initially was on CPAP here in the emergency department. Patient was improving after this. Patient was weaned to 2 L nasal cannula. Patient was given DuoNeb aerosol here. Patient was given prednisone. Patient was weaned off of his oxygen. Patient was resting comfortably on room air. Patient had a room air pulse oximeter of 95% on reevaluation. Patient states he feels better and wants to go home. Patient was given a prescription for prednisone. Patient was also given a prescription for albuterol nebulizer aerosols. Patient was instructed to follow-up with his primary care physician in 3 to 5 days. Patient was instructed return if worse in any way. Patient understood and was agreeable with the plan. All questions were answered. Disposition: Discharge home Impression: COPD exacerbation This note was generated with [employer] dictation software. It may contain incorrect words, spelling, and punctuation that were not noted in review of the chart prior to signing ED Disposition - Plan for ED Patient: Disposition: Home or Assisted Living Diagnosis: COPD exacerbation Instructions: Copd Flare Prescriptions: predniSONE tablet 60 mg PO DAILY #15 tab Prescription Printed Albuterol Aerosols [Ventolin Aerosols] 2.5 mg INHALATION Q4H PRN #25 vial Prescription Printed Referrals: Feliciano Sanz MD [Primary Care Provider] - 3-5 Days
[2019-04-01 22:44] LABS: Reflex Lactate? Y
== END 2019-04-01 21:48 | disposition home or self-care (01) ==
PROVIDERS: Emergency Provider Emergency Medicine; Family Provider Family Medicine; PCP Family Medicine
DX: J44.1 Chronic obstructive pulmonary disease with (acute) exacerbation (principal); I25.2 Old myocardial infarction; Z79.899 Other long term (current) drug therapy
CPT/HCPCS: 36600; 71046; 80048; 82803; 83605; 84484; 85025; 93005; 94002; 94640; 99285; A4216

== ENCOUNTER → 2019-04-10 08:22 | Outpatient (CLI) | payer OTHER, SELFPAY ==
[2019-04-10 09:08] LABS: Absolute Lymphocyte Count 1.24 X10^3/uL (0.83-4.51); Absolute Neutrophil Count 8.1 X10^3/uL (2.0-7.7); Basophil# 0.01 X10^3/uL; Basophil% 0.1 % (0-1); Eosinophil# 0.45 X10^3/uL; Eosinophils% 4.3 % (0-5); Hematocrit 35.9 % (40-54); Hemoglobin 12.2 g/dL (13.0-16.5); Lymphocyte # 1.24 X10^3/ul (4.0); Lymphocyte % 11.7 % (19-41); Mean Corpuscular Hgb 31.9 pg (27.0-32.0); Mean Corpuscular Volume 93.7 fL (80-94); Monocyte# 0.75 X10^3/uL; Monocyte% 7.1 % (0-10); NRBC Flagged by Analyzer 0 % (0-5); Neutrophil # 8.06 X10^3/uL (2.7-7.7); Neutrophil % 76.1 % (47-70); Platelet Count 178 K/mm3 (150-450); RBC Distribution Width CV 12.5 % (11.6-14.6); RBC Distribution Width SD 43.1 fl (35.1-43.9); Red Blood Count 3.83 M/mm3 (4.6-6.2); White Blood Count 10.6 K/mm3 (4.4-11.0)
== END ==
PROVIDERS: Family Provider Family Medicine; PCP Family Medicine; Referring Provider Specialist; Visit Provider Specialist
DX: M87.052 Idiopathic aseptic necrosis of left femur (principal)
CPT/HCPCS: 36415; 85025

== ENCOUNTER 2019-05-09 06:09 | Inpatient (IN) | payer OTHER, SELFPAY ==
--- NOTE | 2019-04-23 09:12 | HP.PCM_ITS ---
History and Physical History and Physical Patient Name: Gregor Nunez Jr : 1965 From: MARANDA ROWAN PA-C DATE OF SURGERY: 05/09/2019 SCHEDULED PROCEDURE: left total hip arthroplasty HISTORY OF PRESENT ILLNESS: Preoperative history and physical exam was performed on April 23, 2019. This is a 53-year-old male who has been having ongoing pain in his left hip for over one year. Patient states the pain can reach as high as a 10/10 with activity. Patient does have start up pain. Patient's pain is being constant, aching, sharp, sore. Pain is increased with going up and down stairs and bending over. Pain is in the left groin. Pain does wake him at night. He has difficult time with activities of daily living including bathing/showering and getting dressed. He has difficulty with putting on socks and shoes. Patient has tried conservative measures consisting of rest, heat, previous lateral corticosteroid injection into the hip with no relief in symptoms. He has been through physical therapy with no relief in symptoms. Patient has a medical history pertinent for alcohol use, hypertension, and asthma. Patient denies chest pain, shortness of breath, fevers chills, recent infections. We are obtaining surgical clearance from his primary care physician Dr. Briseno. After failing conservative measures and discussing treatment options with Dr. Chilo George, the patient does wish to proceed with a left total hip arthroplasty. REVIEW OF SYSTEMS: ROS: Const: Denies anorexia, anxiety, change in appetite, fever and weight change,hard of hearing, and vision problems. ENMT: Reports hearing loss. CV: Denies chest pain, heart murmur, irregular heartbeat and peripheral vascular disease. Resp: Denies asthma, cough, pneumonia, sleep apnea, shortness of breath, tuberculosis and wheezing. GI: Denies constipation, diarrhea, heartburn, nausea, bloody stools and vomiting, and difficulty swallowing. : Denies incontinence. Musculo: Reports leg swelling, trouble walking and weakness and limp. Skin: Denies Raynaud's, history of shingles and tattoo. Neuro: Reports numbness/tingling but denies ambulatory dysfunction, dizziness and tremor. Psych: Denies anxiety, depression, insomnia, mental illness and stress. Mathew/Lymph: Denies anemia, bleeding/bruising tendency and past transfusion. Reviewed, no changes. PAST MEDICAL HISTORY: Advance Care Plan: No Advance Directives Effective Date: 01/02/2019 PMH: Medical Problems: High Blood Pressure, Psoriasis, Asthma Accidents: Fracture - LEFT ANKLE Surgical Hx: LT Knee Arthroscopy Anesthesia Complications: None Assistive Devices: None Reviewed, no changes. 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 Personal Habits: Smoking: Patient is a current smoker, smokes every day.Cigarette Use: Currently smokes - 1 PACK/DAY FOR 20 YEARS.Smokeless Tobacco: Never Used Smokeless Tobacco.E-Cigarette Use: Never used.Alcohol: Currently consumes alcohol.Drug Use: Denies Use.Enjoy Exercising: Never Exercises. Reviewed, no changes. VITALS: Ht: 72 Wt: 145lb Wt k.772 BMI: 19.7 BP: 100/72 Pulse: 68 Resp: 16 T: 98.2 T: 36.8C ALLERGIES: No Known Drug Allergy MEDICATIONS: Albuterol Sulfate HFA 108 (90 Base) mcg/Act inhale two puffs four times daily as needed, Spiriva Respimat 2.5 mcg/Act inhale TWO PUFFS EVERY DAY, Lisinopril- Hydrochlorothiazide 20-25 mg take one tablet by mouth every day, Aleve 220 mg daily PRE-OP EXAM: General appearance:NORMAL Other: Eyes: Conjunctivae and lids: NORMAL Pupils: ERR Ears, Nose, Mouth, and Throat: NORMAL Other: Inspection of lips, teeth and gums: NORMAL Other: Neck: Examination of neck: no masses noted. Respiratory: Assessment of respiratory effort: NORMAL Other: Auscultation of lungs: clear to auscultation no wheezes, rhonchi or rales. Cardiovascular: Auscultation of heart: regular rate and rhythm, no murmurs, gallops or rubs. Gastrointestinal: Exam of abdomen: soft, nontender, nondistended bowel sounds present. PHYSICAL EXAMINATION: Patient does walk with an antalgic gait. Patient has tenderness to palpation along the lateral left hip. Range of motion: Flexion 90, internal rotation neutral, external rotation 30. Resisted range of motion: 4/5 left hip secondary to pain. Sensation intact to light touch. Neurovascularly intact. IMAGING STUDIES: X-rays were obtained at [facility] on April 23, 2019 including AP pelvis and AP left hip reveals severe avascular necrosis with subchondral collapse resulting in joint space narrowing with severe osteoarthritis and osteonecrosis of the left hip. No acute findings for fracture or dislocation. No lytic or blastic lesions. Previous MRI also reveals bilateral osteonecrosis with collapse on the left. IMPRESSION: 1. Left hip osteoarthritis with avascular necrosis 2. Chronic alcohol use 3. Hypertension 4. Asthma 5. Psoriasis PLAN: Dr. Chilo George did discuss and review with the patient all treatment options including surgical versus nonsurgical options. Patient does wish to proceed with the above-stated procedure. Potential risks, benefits, and complications of the procedure were discussed in detail including but not limited to , infection, nerve and blood vessel damage, persistent pain, numbness, tingling, paresthesias, blood clot, pulmonary embolism, and requirement for possible further surgery. The patient expressed full understanding and has no further questions for the doctor. Patient does agree to proceed with the above-stated procedure and has signed the surgery consent form. This dictation was created using voice recognition software. Phonetic and/or grammatical errors may exist. ___ I have re-examined the patient. There are no clinical changes since date of exam. ___ See progress notes for changes. ___ Dictated on admission Date: Time: Signature:
[2019-04-23 15:15] VITALS: BP 121/72; PULSE 109; RESP 18; TEMP 37; O2SAT 96
--- NOTE | 2019-04-23 15:44 | SDCEKG_ITS ---
Test Reason : Blood Pressure : / mmHG Vent. Rate : 100 BPM Atrial Rate : 100 BPM P-R Int : 148 ms QRS Dur : 090 ms QT Int : 352 ms P-R-T Axes : 076 052 079 degrees QTc Int : 454 ms Normal sinus rhythm Inferior infarct , age undetermined Cannot rule out Anteroseptal infarct , age undetermined Abnormal ECG Confirmed by WERNER BROWNE, LINNEA ([id number]), health editor SHARON SOTO ([id number]) on 04/24/2019 8:42:14 AM Referred By: Chilo George Confirmed By:LINNEA CALDERA MD
[2019-04-23 17:56] LABS: Prothrombin Time (Protime)PT. 13.3 SECONDS (11.7-14.9)
[2019-04-23 18:05] LABS: AST(SGOT) 13 U/L (15-37); Alanine Aminotransfer ALT/SGPT 12 U/L (16-61); Albumin, Serum 3.4 g/dL (3.2-5.0); Alkaline Phosphatase 80 U/L (45-117); Anion Gap 9 (5-15); BUN 6 mg/dL (7-18); BUN/Creat Ratio 6.7 RATIO (10-20); Bilirubin, Direct 0.13 mg/dL (0.00-0.30); Calcium,Total 9.5 mg/dL (8.5-10.1); Chloride 91 mmol/L (98-107); Creatinine, Serum 0.89 mg/dL (0.70-1.30); EST Glomerular Filtration Rate 95 mL/min (>60); Est Glom Filt Rate - Afr Amer 115 mL/min (>60); Estimated Creatinine Clearance 93.06 ml/min; Globulin 4.4 g/dL (2.2-4.2); Glucose 94 mg/dL (74-106); Potassium 3.4 mmol/L (3.5-5.1); Protein, Total 7.8 g/dL (6.4-8.2); Sodium Level 129 mmol/L (136-145)
[2019-04-30 12:04] LABS: Albumin, Serum 3.4 g/dL (3.2-5.0)
[2019-05-09] VITALS (15 sets, daily range): BP systolic 101–125; BP diastolic 76–97; PULSE 75–96; RESP 15–18; TEMP 36.1–37; O2SAT 98–100; BMI 19.8
--- NOTE | 2019-05-09 06:54 | RAD_ITS ---
STUDY: X-RAY - PELVIS AND LEFT HIP REASON FOR EXAM: Male, 53 years old. Left hip replacement. TECHNIQUE: 2 views of the pelvis and hip. COMPARISON: None. FINDINGS: The patient is status post left hip replacement. There is good alignment. Postoperative soft tissue changes. RAD/Hip Min 2 Views (Portable) IMPRESSION: Status post left hip replacement. There is good alignment. Postoperative soft tissue changes. Electronically Signed: Spencer Heck, at 10:36 EST , Service support ,
[2019-05-09] MEDS: Scopolamine 1mg/72hr Patch 1 PATCH TD (07:00)
[2019-05-09 07:16] LABS: Bedside Glucose 90 mg/dL (70-110)
[2019-05-09] MEDS: Gabapentin 600 MG Tablet PO (07:24)
[2019-05-09] MEDS: Celecoxib 200 MG Capsule 400 MG PO (07:24)
[2019-05-09] MEDS: Acetaminophen 500 MG Tablet 1000 MG PO (07:24)
[2019-05-09] MEDS: Magnesium Sulfate 4gm/100mL 4 GM/100 ML IV.SOLN. IV (07:24)
[2019-05-09] MEDS: Lactated Ringers 1,000 ML 999 ML IV (07:24)
[2019-05-09] MEDS: 0.9% Normal Saline 1,000 ML 999 ML IV (07:54)
[2019-05-09] MEDS: Cefazolin 2 GM in 0.9% Normal Saline 100 ML IV (07:58)
[2019-05-09 08:04] LABS: Potassium 3.7 mmol/L (3.5-5.1); Sodium Level 133 mmol/L (136-145)
--- NOTE | 2019-05-09 08:15 | HIP_PTH ---
PATIENT: JAX ROGERS Jr. LOC: MS3 U#:[id number] AGE/SX: 53/M ROOM: [facility] [place] RE05/09/[address]: Dr. Chilo George MD : 1965 BED: 1 DIS: 05/10/2019 SPEC #: [id number] RECD: 05/09/19 16:08 STATUS: ABDULLAHI REQ #: [id number] RODRIGO: 05/09/19 08:[address]: Chilo George DEPT: SURGICAL PATHOLOGY RECD BY: James Almanza ENTERED: 05/10/19 11:25 SP TYPE: TOTAL HIP OTHR DR: Dr. Demario Sanz MD Tissues: Hip, NOS Procedures: Decalcification bone/plaque Surgery Specimen Level IV HEADER OPERATION: ERAS, total hip anterior approach PRE-OP DIAGNOSIS: Left hip osteoarthritis with avascular necrosis TISSUE SUBMITTED: Left femoral head MICROSCOPIC DIAGNOSIS Left femoral head, total hip replacement/resection: Femoral head with a focal area of avascular necrosis and chronic inflammation. A piece of dense fibroconnective tissue and reactive synovial tissue. LEVI:koby 05/16/19 MICROSCOPIC DESCRIPTION Slides are reviewed. GROSS DESCRIPTION Received is one container designated left femoral head. The specimen consists of a land femoral head with portion of femoral neck. The femoral head measures 5.5 x 5.5 x 4.5 cm. Portion of femoral neck is not identified. The articular surface is smooth and shows focal areas of depression. Sections reveal a land-yellow wedge-shaped area underneath the cartilage measuring 3 x 1 cm, consistent with avascular necrosis. There is a piece of soft tissue attached to the resection margin of the femoral head which measures 3.5 x 1.5 x 0.4 cm. [employer] sections are submitted in two cassettes as follows: 1 - entire soft tissue, 2 & 3??femoral head after decalcification. / LEVI:koby 05/10/19 TC:5 CPT: 59039, 13430
--- NOTE | 2019-05-09 09:00 | RAD_ITS ---
HISTORY: Total anterior hip replacement. 3 views of the left hip. No comparison imaging. Findings: Left anterior hip prosthesis is present. It is a press-fit prosthesis. Alignment is anatomic.. No radiologist was in attendance. RAD/Hip 1 view with Pelvis IMPRESSION: Total hip prosthesis in near anatomic alignment. at 0316 Reported and signed by: Rigo Warren MD Electronically Signed: Rigo Warren MD at 3:15 EST Tel , Service support ,
--- NOTE | 2019-05-09 09:21 | OP.PCM_ITS ---
Report of Operation Date of Procedure: 05/09/19 Pre-Operative Diagnosis: Left hip avascular necrosis, secondary to chronic alcohol use Post-Operative Diagnosis: Left hip avascular necrosis, secondary to chronic alcohol use Surgery/Procedure Performed:: Left direct anterior total hip replacement, minimally invasive Description of Surgical Findings:: Stable hip with equal leg lengths, noted collapse of femoral head wind science and planning: Portia Castro Type of Anesthesia:: Spinal Anesthesiologist: Krish Sanders Special Medications: 2 g Ancef, 1 g TXA at incision, 1 g TXA closure, 10 mg Decadron, joint cocktail (5 mg Duramorph, 30 mL of 0.5% Ropivicaine, 1000 units of epinephrine, 30 mg of Toradol) Specimen's removed: Femoral head was sent for pathology Estimated Blood Loss (mL): 100 Fluids Replaced: 1500 mL crystalloid Description of Procedure: Components used: 1. Accolade 2 [place] femoral stem size 9 132? 2. [place] trident 2 acetabular shell size 56 mm 3. Steph X3 polyethylene F 4. [place] Biolox delta 36mm, -5mm femoral head Brief history operative indications: 53 yo M who failed conservative measures for their hip avascular necrosis. X- rays were consistent with osteoarthritis including joint space narrowing, and femoral head collapse. Total hip replacement was discussed with the patient with risks and benefits including but not limited to blood loss, DVTs, PEs, neurovascular damage, dislocation, general risks of anesthesia including loss of life. Patient demonstrated an understanding medical clearance is obtained the patient was consented for surgery. We also discussed the risk of alcohol use after surgery in conjunction with narcotics need for pain medications as well as concerns for Tylenol and liver cirrhosis with continued alcohol use. Procedure: On the date of procedure the patient's L hip was marked in the preoperative area. Patient was then taken back to the operating room where anesthesia assumed control of the C-spine and airway and administered anesthetic. Patient was transferred to the operating table and placed in the supine position. The hips were placed at the break of the bed and a sacral bump was placed. The L lower extremity was then prepped out in a sterile fashion using chlorhexidine while the surgeon scrubbed. The PA was vital in the positioning of the patient. Upon reentering the room the L lower extremity was draped in the standard orthopedic fashion and the incision was marked. A timeout was called and everyone agreed upon the side, the site, the procedure be performed, antibody given, and patient's identity. At this time incision was made through skin, subcutaneous tissue, and fat down to fascia. The fascia was then incised and the TFL was retracted laterally. A retractor was placed on the lateral border of the femoral neck. Attention was directed to the inferior portion of the approach and all crossing vessels were identified and appropriately coagulated. A retractor was then placed on the medial portion of the femoral neck. The anterior capsule was then cleared of all soft tissue and then H shaped capsulotomy was made. The retractors were then placed inside the capsule. The femoral neck was identified and a cleanup cut was made. At this time a power corkscrew was used to remove the femoral head. Attention was then turned toward the acetabulum where the soft tissues were appropriately retracted and the acetabulum was sequentially reamed to 56 mm. A 56 mm cup was then selected and impacted into place. Acetabular liner was impacted into place and locking mechanism was verified. The position of the acetabular cup was then verified under live fluoroscopy. Attention was then turned to the femur. Soft tissue releases on the medial and lateral femoral neck were appropriately done, the leg was externally rotated and lateralized. A Park retractor was placed medially and proximally to the greater trochanter this allowed appropriate visualization and exposure of the femoral canal. Rongeour was then used to remove excess lateral bone. A canal finder and entry broach were used to open the proximal canal. Once we verified we were down the femoral canal we subsequently broached up to a size 9 femur. The appropriate neck was placed in the previously selected head was trialed with a -5 mm neck. Traction was pulled and the hip was reduced with internal rotation. Once it was appropriately reduced and stability was checked. There was minimal shuck, equal leg lengths and appropriate stability with hyperextension and external rotation as well as with 90? flexion and internal rotation. Fluoroscopy was then also used to verify the position of the components and leg lengths using the contralateral side for comparison. The trial components were then dislocated the proximal femur was again exposed and the components were removed from the wound. The final components were verified and opened. The wound was copiously irrigated out with normal saline. The acetabulum was checked for any residual debris. The final components were placed and impacted. Traction and internal rotation were again used to reduce the hip. After adequate reduction the hip remained stable with appropriate leg lengths. The final components were once again checked with live fluoroscopy and were found to be satisfactory. The wound was then copiously irrigated with normal saline once more, and hemostasis was obtained. Closure was then done using #1 Vicryl runner to close the fascia. A 2-0 vicryl interuppted sutures were used to close the subcutaneous skin. A 3-0 Monocryl and Steri-Strips were used for final skin closure. A Silverlon dressing was placed. Patient was awakened by anesthesia and transferred to [facility]. Patient was then transferred to the PACU for recovery. Postoperative plan: Patient will get 24 hours postop antibiotics. Aspirin 81 mg twice daily for DVT prophylaxis. Patient will get in-house physical therapy and will be weight-bear as tolerated. Patient will follow up in office in 2 weeks for a wound check and x-rays. Grafts/Implants Used: [place] - Complications No intraoperative complications - Admit VTE Documentation VTE Present on Admission: No VTE Mechan Device Prophylaxis: SCD's, Thigh High LATOYA Hose VTE Pharm Prophylaxis ordered?: Yes
[2019-05-09] MEDS: Lactated Ringers 1,000 ML 125 ML IV ×2 (11:45→16:26)
[2019-05-09] MEDS: traMADol 50 MG Tablet PO ×2 (14:06→20:34)
[2019-05-09] MEDS: Famotidine 20 MG Tablet PO (14:06)
[2019-05-09] MEDS: Senna/Docusate Sodium 1 Tablet 2 TABLET PO ×2 (14:06→20:41)
[2019-05-09] MEDS: Escitalopram Oxalate 10 MG Tablet PO (14:07)
[2019-05-09] MEDS: Ensure Surgery 237 ML LIQUID PO ×2 (14:07→16:28)
[2019-05-09] MEDS: Aspirin 81 MG TAB.CHEW PO (16:21)
[2019-05-09] MEDS: Morphine 2 MG/ML Syringe IV ×2 (16:22→22:15)
[2019-05-09] MEDS: 0.9% Saline Lock 10 ML Syringe IV (16:22)
[2019-05-09] MEDS: Cefazolin 1 GM/50 ML BAG IV ×2 (16:22→23:52)
[2019-05-09] MEDS: Ipratropium 0.5 MG/2.5 ML SOLUTION INHALATION (18:33)
[2019-05-10 02:29] VITALS: BP 140/93; PULSE 85; RESP 18; TEMP 36.6; O2SAT 95
[2019-05-10 06:09] LABS: Hematocrit 28.5 % (40-54); Hemoglobin 9.7 g/dL (13.0-16.5); Mean Corpuscular Volume 91.1 fL (80-94); Platelet Count 222 K/mm3 (150-450); RBC Distribution Width CV 11.9 % (11.6-14.6); RBC Distribution Width SD 39.7 fl (35.1-43.9); Red Blood Count 3.13 M/mm3 (4.6-6.2)
[2019-05-10 06:28] LABS: Anion Gap 8 (5-15); BUN 15 mg/dL (7-18); BUN/Creat Ratio 15.8 RATIO (10-20); Calcium,Total 8.8 mg/dL (8.5-10.1); Chloride 100 mmol/L (98-107); Creatinine, Serum 0.95 mg/dL (0.70-1.30); EST Glomerular Filtration Rate 89 mL/min (>60); Est Glom Filt Rate - Afr Amer 107 mL/min (>60); Estimated Creatinine Clearance 86.01 ml/min; Glucose 101 mg/dL (74-106); Potassium 4.1 mmol/L (3.5-5.1); Sodium Level 131 mmol/L (136-145)
[2019-05-10] MEDS: traMADol 50 MG Tablet PO (07:13)
[2019-05-10] MEDS: Senna/Docusate Sodium 1 Tablet 2 TABLET PO (07:14)
[2019-05-10] MEDS: Aspirin 81 MG TAB.CHEW PO (07:14)
[2019-05-10] MEDS: hydroCHLOROthiazide 25 MG Tablet PO (07:15)
[2019-05-10] MEDS: Escitalopram Oxalate 10 MG Tablet PO (07:16)
[2019-05-10] MEDS: Famotidine 20 MG Tablet PO (07:17)
[2019-05-10] MEDS: Lisinopril 20 MG Tablet PO (07:17)
[2019-05-10 07:20] VITALS: BP 128/74; PULSE 84; RESP 16; TEMP 36.8; O2SAT 98
[2019-05-10] MEDS: Ensure Surgery 237 ML LIQUID PO ×2 (07:20→12:02)
--- NOTE | 2019-05-10 08:53 | PN.ORTHO_ITS ---
Subjective: The patient was sitting in bedside chair upon examination. Patient denies any chest pain, shortness of breath, dizziness, lightheadedness, nausea or vomiting, or calf pain. Pain is controlled on medications. No adverse overnight events. Overall patient is doing very well and wishes to go home today. Objective: Vital signs stable and afebrile. Patient is able to plantarflex and dorsiflex actively. Sensation is intact to light touch to saphenous, sural, superficial and deep peroneal, and tibial distribution. Dressing is clean dry and intact. Negative Homans bilaterally, negative signs and symptoms of DVT. - Physical Exam Vitals/I&O's: Vital Signs Temp Pulse Resp BP Pulse Ox 98.2 F 84 16 128/74 H 98 05/10/19 07:20 05/10/19 07:20 05/10/19 07:20 05/10/19 07:20 05/10/19 07:20 Oxygen Flow Rate (L/min) 2 Oxygen Delivery Method Room Air Weight: 66.1 kg Body Mass Index (BMI) 19.8 Intake and Output for Last 24 Hours 05/08/19 05/09/19 05/10/19 23:59 23:59 23:59 Intake Total 5074.59 / 6574.59 2550 / 2550 Output Total 0 / 500 1200 / 1200 Balance 5074.59 / 6074.59 1350 / 1350 General: Alert, Oriented x3, Cooperative, No apparent distress Laboratory Results 05/10/19 05:20: WBC 19.0 H, RBC 3.13 L, Hgb 9.7 L, Hct 28.5 L, MCV 91.1, MCH 31.0, MCHC 34.0, RDW Std Deviation 39.7, RDW Coeff of Jazzmine 11.9, Plt Count 222, MPV 9.0 05/10/19 05:20: Sodium 131 L, Potassium 4.1, Chloride 100, Carbon Dioxide 23.0, Anion Gap 8, BUN 15, Creatinine 0.95, Estim Creat Clear Calc 86.01, Est GFR (MDRD) Af Amer 107, Est GFR (MDRD) Non-Af 89, BUN/Creatinine Ratio 15.8, Glucose 101, Calcium 8.8 Current Medications Albuterol Sulfate (Ventolin Aerosols) 2.5 mg INHALATION Q4H PRN PRN PRN Reason: SOB &/OR WHEEZING [facility]ir[facility] ([facility], Baby) [facility] Last Admin: 05/10/19 07:14 Dose: 81 mg Documented by: Enteral Nutritional Formula (Ensure Surgery) 237 ml PO TIDCM [facility] Last Admin: 05/10/19 07:20 Dose: 237 ml Documented by: Escitalopram Oxalate (Lexapro) 10 mg PO DAILY [facility] Last Admin: 05/10/19 07:16 Dose: 10 mg Documented by: Famotidine (Pepcid) 20 mg PO DAILY [facility] Last Admin: 05/10/19 07:17 Dose: 20 mg Documented by: Hydrochlorothiazide (Hctz) 25 mg PO DAILY [facility] Last Admin: 05/10/19 07:15 Dose: 25 mg Documented by: Hydroxyzine Pamoate (Vistaril Pamoate Capsule) 25 mg PO DAILY PRN PRN PRN Reason: ANXIETY Insulin Human Lispro (Humalog Kwikpen (Bkc)) 1 - 6 unit SC Q4H PRN PRN; Protocol PRN Reason: BG>/= 180, SEE PROTOCOL Ipratropium Seneca (Atrovent) 0.5 mg INHALATION Q6HWA.RT [facility] Last Admin: 05/10/19 07:33 Dose: Not Given Documented by: Ketorolac Tromethamine (Toradol) 15 mg IV Q6H PRN PRN PRN Reason: Pain Score 1-5/10 Stop: 05/11/19 06:55 Lisinopril (Zestril) 20 mg PO DAILY [facility] Last Admin: 05/10/19 07:17 Dose: 20 mg Documented by: Meloxicam (Mobic) 7.5 mg PO BID [facility] Morphine Sulfate () 2 - 4 mg IV Q2H PRN PRN PRN Reason: Pain Score 4-10/10 Last Admin: 05/09/19 22:15 Dose: 4 mg Documented by: Morphine Sulfate () 2 - 4 mg IV Q2H PRN PRN PRN Reason: Pain Score 4-10/10 Ondansetron HCl (Zofran) 4 mg IV Q8H PRN PRN PRN Reason: NAUSEA Promethazine HCl (Phenergan) 12.5 mg IM Q6H PRN PRN; Protocol PRN Reason: NAUSEA/VOMITING Senna/Docusate Sodium (Senokot-S, Angela-Colace) 2 tablet PO BID [facility] Last Admin: 05/10/19 07:14 Dose: 2 tablet Documented by: Sodium Chloride () 10 - 40 ml IV UD PRN PRN Reason: SALINE FLUSH Last Admin: 05/09/19 16:22 Dose: 10 ml Documented by: Tramadol HCl (Ultram) 50 - 100 mg PO Q6H PRN PRN PRN Reason: Pain Score 4-10/10 Last Admin: 05/10/19 07:13 Dose: 100 mg Documented by: Medical Necessity - Tobacco Use Smoking Status: Former smoker Tobacco Use: Cigarettes Assessment/Plan All Active Problems Crush injury (Acute) Open fracture of tuft of distal phalanx of finger (Acute) 1. S/P left direct anterior total hip arthroplasty POD #1 2. Continue Pain Medications: Tylenol and tramadol 3. DVT Prophylaxis: Aspirin 81 mg twice daily for 4 weeks postoperatively 4. PT/OT: Weightbearing as tolerated 5. H & H: 9.7/28.5, asymptomatic 6. Reactive leukocytosis: Currently 19.0, afebrile. No acute signs of infection. Patient did receive Decadron intraoperatively 7. Encouraged Incentive Spirometry 8. Disposition: Orthopedically stable, plan will be for discharge home this afternoon after physical therapy. Prescriptions will be E scribed to [facility] pharmacy. Patient will follow-up per postop instructions. Patient does have outpatient physical therapy established.
--- NOTE | 2019-05-10 09:20 | PCM.DC.THR ---
Discharge Diet: No Restrictions Discharge Activity: May Not Drive - while taking narcotic pain medications. May shower in (days): 1 - Okay to shower if dressing is intact to skin. Turn dressing away from water Ice area for (Minutes): 20 - Every 1-2 hours while awake Weight Bearing Status: Weight bearing as tolerated Additional Activity Instructions:: Wear elastic stockings for 2 weeks. DO NOT use alcohol with narcotic pain medication. DO NOT make important decisions while taking narcotic medication. If you have problems with taking your medication (rash, itching, nausea, etc.) call the office at once. Call your doctor if your incision/area has: Increased Pain/ Swelling, Increased Redness, Foul Smelling Discharge Call your doctor if you observe: Fever of 101 or Higher Remove Dressing in (days):: 4 - Okay to remove dressing on May 14, 2019 Additional Instructions: Refer to orthopedic postop instructions Allergies/Adverse Reactions: Allergies No Known Allergies Allergy (Verified 05/09/19 07:15) Medications to take at Discharge Albuterol Aerosols [Ventolin Aerosols] 2.5 mg INHALATION Q4H PRN PRN 04/01/19 Escitalopram Oxalate 10 mg PO DAILY 04/01/19 Hydroxyzine HCl 25 mg PO DAILY PRN PRN 04/01/19 Albuterol IH (ProAir) [Proair Hfa] 2 puff INHALATION Q6H PRN PRN 04/23/19 Lisinopril/Hydrochlorothiazide [Lisinopril-Hctz 20-25 mg Tab] 1 ea PO DAILY 04/23/19 Umeclidinium Brm/Vilanterol Tr [Anoro Ellipta 62.5-25 Mcg INH] 1 spray PO DAILY 05/09/19 Aspirin [Aspirin, Baby] 81 mg PO BIDCM 30 Days #60 tab.chew 05/10/19 Famotidine [Pepcid] 20 mg PO DAILY #30 tab 05/10/19 Meloxicam [Mobic] 7.5 mg PO BID #60 tab 05/10/19 Senna/Docusate Sodium [Senokot-S] 2 tab PO BID #10 tab 05/10/19 traMADol [Ultram] 50 - 100 mg PO Q6H PRN PRN 7 Days #56 tablet 05/10/19 The following prescriptions were given: Aspirin [Aspirin, Baby] 81 mg PO BIDCM 30 Days #60 tab.chew Transmission Status: Pending to [facility] Meloxicam [Mobic] 7.5 mg PO BID #60 tab Transmission Status: Pending to [facility] Famotidine [Pepcid] 20 mg PO DAILY #30 tab Transmission Status: Pending to [facility] Senna/Docusate Sodium [Senokot-S] 2 tab PO BID #10 tab Transmission Status: Pending to [facility] traMADol [Ultram] 50 - 100 mg PO Q6H PRN PRN 7 Days #56 tablet PRN Reason: Pain Score 4-10/10 Transmission Status: Sent to [facility] Primary Care Physician: Feliciano Sanz MD [Primary Care Provider] - Test Results: Test results from this visit will be discussed in further detail at your follow-up appointment, if applicable. Please Follow Up With: [facility] When: 05/14/19 Please Follow Up With: Zachary Strong PA-C When: 05/23/19 @ 10:30
[2019-05-10] MEDS: Ketorolac 15 MG/ML Vial IV (10:49)
[2019-05-10] MEDS: 0.9% Saline Lock 10 ML Syringe IV (10:49)
--- NOTE | 2019-05-10 10:55 | CASEMGMT ---
RN CM Face to Face with patient for initial transition planning/care coordination assessment. RN CM introduced self and role at [facility]. Patient sitting, alert and oriented. Patient willing to participate in assessment and is able to answer all questions appropriately. Care providers, pharmacy, and demographics verified. Patient wishes to discharge home and is setup with [facility] for outpatient therapy. Patient states he has no further needs or concerns at this time. CM to follow for discharge planning needs that may arise. PCP: Yvon Specialists: Angie George Pharmacy: [facility] Insurance: [facility] [place] Prescription Benefit: yes Living Will/HPOA: none LNOK: Living Arrangements: Patient lives with in 1 story home with 5 steps and railing to enter the home. Patient is independent at home prior to surgery Transportation: DME/HHC: Patient has shower chair, raised toilet, cane, walker, grab bars, and nebulizer Disposition Plan: Patient to discharge home with outpatient therapy, family support, and follow-up plans in place. Socorro JASMINEN, RN, CM
[2019-05-10 11:16] VITALS: BP 118/74; PULSE 76; RESP 16; TEMP 36.4; O2SAT 98
== END 2019-05-10 13:30 | disposition home or self-care (01) | DRG 470 ==
LOC: ACINP 06:11 → MS3 05-10 08:06
PROVIDERS: Anesthesiology; Admitting Provider Specialist; Family Provider Family Medicine; PCP Family Medicine; Referring Provider Specialist; Visit Provider Specialist
PROC: 0SRB04A Replacement of Left Hip Joint with Ceramic on Polyethylene Synthetic Substitute, Uncemented, Open Approach (ICD-10-PCS; CPT 27284; principal; 2019-05-09 07:50)
DX: M87.852 Other osteonecrosis, left femur (principal); Z72.89 Other problems related to lifestyle; J45.909 Unspecified asthma, uncomplicated; I10 Essential (primary) hypertension; F17.210 Nicotine dependence, cigarettes, uncomplicated; L40.9 Psoriasis, unspecified; M16.12 Unilateral primary osteoarthritis, left hip
CPT/HCPCS: 36415; 73501; 73502; 76000; 80048; 80076; 82040; 82962; 84132; 84295; 85027; 85610; 85730; 87081; 88305; 88311; 93005; 94640; 97110; 97162; 97166; 97530; 97535; 99251; 99406; C1776; J7030; J7120; A4216; G0463

== ENCOUNTER 2019-05-31 14:00 | Outpatient (RCR) | payer OTHER, SELFPAY ==
[2019-05-09 12:11] VITALS: BMI 19.8
--- NOTE | 2019-06-05 08:06 | HP.PTEVAL_ITS ---
Patient's Visit Information JAX ROGERS Jr. is a 53 year old M referred to Physical Therapy by Zachary Strong PA-C with a diagnosis of Osteonecrosis of L femur. Date of Evaluation: 05/14/19 Physical Therapist: Marito Conner DPT - Visit Plan Frequency: 2-3x /Week Duration: 4-6 Weeks Plan: Start with ROM, isometrics. Progress gait and functional strengthening as tolerated. - Subjective Findings: Pt. is here today for his initial evaluation with diagnosis of L hip arthorplasty with anterior approach. Pt. was diagnosed with L femur avascular necrosis ultimately resulting in need for surgery. 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 Pt. arrives today with FWW and reports being in higher levels of pain. Pt. denies N/T in either LE. DOS 05/09/19. Pt. reports walking at home as tolerated, but not doing any exercises. PT. has been icing as prescribed. Pt. reports having 6/10 pain currently, taking pain medication as prescribed. Pt. is to follow up with physician in a few days. Pt. reports no fever, no chills, no breathing difficulies. pt. is hopeful to get back to work and has no pain with all work and recreational activities. - Pain L hip Pain Intensity (Out of 10): 6 Pain Intensity Range: 3, 8 - Objective POSTURE: Pt. has decent posture, slight increase in R sided wt. shift, sligth flexed posture in stance. PALPATION: Pt. has bandage over incision, but no redness around incision. Pt. is tender in this region, no pitting edema noted. NEURO: normal throughout BLEs. ROM: RLE- normal throughout. LLE- ankle normal througout, normal knee ROM, hip- flexion 100deg, abd 40deg, ext 5 deg, ER/IR not tested. MMT: RLE- 5/5 throughout; LLE- ankle/knee- 5/5 throughout; hip- flexion 3/5, abd 3/5, ext not testing, ER/IR not tested. GAIT: pt. ambulates with FWW with heavy use of uEs. Pt. reports increased tenderness during L stance phase and decreased hip extension during pre swing phase. STAIRS: step to pattern noted. with laoding RLE only. - Goals Goal 1:: Pt. to be I with HEP. Goal Time Frame: 4-6 Weeks Goal 2:: Pt. be have full ROM of L hip without increase in symptoms. Goal Time Frame: 4-6 Weeks Goal 3:: Pt. to have increased strength of LLE by 1/2 of all effected musculature. Goal Time Frame: 4-6 Weeks Goal 4:: Pt. to ambulate without AD withotu increase in symptoms, with normal pattern. Goal Time Frame: 4-6 Weeks Goal 5:: Pt. to resume all work and recreational activities without limitations. Goal Time Frame: 4-6 Weeks - Rehabilitation Potential Physical Therapy Diagnosis: Osteonecrosis of L femur with subsequent L DUNCAN. Pt. had a L DUNCAN with anterior apprioach. PT. is doing well, but has marked weakness, hypombility and difficulty with gait. Pt. would benefit from PT to address above limitations progressing back to all work and recreational activities without limitations. Rehabilitation Potential: Excellent - Anticipated Interventions Patient/Client Instruction: Educate patient on: Condition, Plan of Care, Risk Factors, Benefits of Fitness Program For the Purpose of:: To facilitate caregiver knowledge, To improve self management, To prevent re-injury, To improve ability to perform tasks related to life management, To improve tolerance to ADL's Therapeutic Exercise to Include: Strength training, Power training, Endurance training, Balance training, Coordination, Agility training, Body mechanics, Postural training, Flexibilty training, Gait and locomotor training, Passive ROM, Active ROM, Dynamic Lumbar Stabilization For the Purpose of:: To decrease pain, To decrease swelling/inflammation, To increase ROM, To improve nutrient delivery to tissue, To increase oxygenation perfusion, To improve muscle performance and motor function, To improve ability to perform ADL's, To improve gait and locomotor functions, To improve health of tissue, To decrease soft tissue restriction, To increase flexibility/ROM, To improve endurance Thank you for the opportunity to evaluate your patient. For Medicare and Medicare HMO plans, please review the plan of care and approve it. It will need to be FAXED BACK to us at [phone] for Medicare purposes. For Medicare only, by signing this I certify the plan of care. Please let me know if there are questions or concerns regarding this plan of care. Physician Signature: Date:
--- NOTE | 2019-10-09 09:47 | HP.PT.NRP ---
JAX ROGERS Jr. was seen in my office for initial evaluation on 05/14/19. The following Plan of Care was established for this patient: Initial Frequency: 2-3x /Week Initial Duration: 4-6 Weeks Patient/Client Instruction: Educate patient on: Condition, Plan of Care, Risk Factors, Benefits of Fitness Program For the Purpose of:: To facilitate caregiver knowledge, To improve self management, To prevent re-injury, To improve ability to perform tasks related to life management, To improve tolerance to ADL's Therapeutic Exercise to Include: Strength training, Power training, Endurance training, Balance training, Coordination, Agility training, Body mechanics, Postural training, Flexibilty training, Gait and locomotor training, Passive ROM, Active ROM, Dynamic Lumbar Stabilization For the Purpose of:: To decrease pain, To decrease swelling/inflammation, To increase ROM, To improve nutrient delivery to tissue, To increase oxygenation perfusion, To improve muscle performance and motor function, To improve ability to perform ADL's, To improve gait and locomotor functions, To improve health of tissue, To decrease soft tissue restriction, To increase flexibility/ROM, To improve endurance This patient was last seen in our office 05/31/19. Pertinent comments regarding their Physical therapy will appear below: Pt. was seen for 3 visits for his TKA. Pt. has not been back to PT, he was doing well, but has still not returned. Pt. will be DC from PT at this point in time. At this point I will be discontinuing this patient from physical therapy. I would be happy to see this patient again in the future if found appropriate by the physician. Thank you! Marito Conner, STEPAN
== END 2019-05-31 19:00 | disposition home or self-care (01) ==
LOC: PT 14:00
PROVIDERS: Family Provider Family Medicine; PCP Family Medicine; Referring Provider Physician Assistant Surgical; Visit Provider Physician Assistant Surgical
DX: M87.352 Other secondary osteonecrosis, left femur (principal)
CPT/HCPCS: 97110; 97161

== ENCOUNTER 2019-06-12 15:25 | Emergency (ER) | payer OTHER, SELFPAY ==
[2019-05-09 12:11] VITALS: BMI 19.8
[2019-06-12 15:27] VITALS: BP 168/101; PULSE 132; RESP 32; TEMP 36.6; O2SAT 93
--- NOTE | 2019-06-12 15:34 | EKG12_ITS ---
Test Reason : SOB Blood Pressure : / mmHG Vent. Rate : 109 BPM Atrial Rate : 109 BPM P-R Int : 168 ms QRS Dur : 098 ms QT Int : 342 ms P-R-T Axes : 084 075 087 degrees QTc Int : 460 ms Sinus tachycardia Right atrial enlargement Possible Anterolateral infarct , age undetermined Abnormal ECG Confirmed by VINEET BROWNE, MARILEE ([id number]), associate entertainment editor SHARON SOTO ([id number]) on 06/15/2019 10:23:51 AM Referred By: KRISTEN Confirmed By:IRENE MANLEY MD
--- NOTE | 2019-06-12 15:36 | ED.DCSUM_ITS ---
History of Present Illness Chief Complaint: Shortness of Breath Informant: Patient Onset: Yesterday Context: Gradual Onset Timing: Continuous Current Severity: Moderate Maximum Severity: Severe Narrative: The patient is a 53-year-old male with history of COPD who presents to the emergency department shortness of breath. Patient states yesterday, symptoms began gradually. He felt like he was having tightness with his breathing. He began to have cough with scant sputum. He states today, despite his treatments, he was still dyspneic. He denies any fevers or chills. He denies any chest pain. He states the last time he had to be on steroids for his breathing was greater than 3 months ago. He denies orthopnea or weight gain. He is not on oxygen at home. Prior similar symptoms: Yes Recent Illness/Hospitalization: No Past Medical History - Allergies and Home Meds Allergies/Adverse Reactions: Allergies No Known Allergies Allergy (Verified 06/12/19 15:30) Primary Care Physician: Feliciano Sanz MD [Primary Care Provider] - Prior records reviewed: Yes Past Medical History: - - COPD Surgical History: total knee arthroplasty Lives: With Family Smoking Status: Former smoker Review of Systems General: Denies: Chills, Fever, Sweats Eyes: Denies: Visual changes - bilaterally, Diplopia ENT: Denies: Rhinorrhea, Sore throat Cardiovascular: Denies: Chest pain, Palpitations Respiratory: Reports: Dyspnea, Cough. Denies: Dyspnea on exertion Gastrointestinal: Denies: Abdominal pain, Nausea, Vomiting, Diarrhea, Melena, Hematochezia Genitourinary: Denies: Dysuria, Hematuria, Frequency Musculoskeletal: Denies: Back pain, Extremity Pain Skin: Denies: Rash, Wounds Neurological: Denies: Headache, Weakness, Numbness Physical Exam Vital Signs/Narrative: Vital Signs Temp Pulse Resp BP Pulse Ox 06/12/19 15:27 98 F 132 H 32 H 168/101 H 93 Inital Vital Signs reviewed: Yes General: Well nourished, Well developed, No Acute Distress Head: Normocephalic, Atraumatic Eyes: Perrl, EOMI ENT: Moist mucous membranes, No rhinorrhea Neck: Supple, Nontender Cardiovascular: Regular rate, Regular rhythm, No murmurs Respiratory: No distress, Chest nontender, Wheezing, Diminished Abdomen: Soft, Nontender, Nondistended, Normal bowel sounds Back: Nontender, Normal Inspection Extremities: Nontender, No edema Skin: Normal color, No rash Neurological: Alert, Oriented x3, Cranial nerves II-XII grossly intact, Normal Strength, Normal Sensation Psychological: Normal affect, Normal Mood Diagnostic/Tx/Re-eval Chest X-Ray - ED: 2 View, Read by ED Physician, Normal, Heart, Lungs, Mediastinum - Medical Decision Making Clinical Impression(s) from Imaging Studies Chest X-Ray 06/12/19 16:08 IMPRESSION: Emphysema without pneumonia or atelectasis Electronically Signed: Gabriel Moreno MD at 16:22 EST Tel , Service support , Abnormal Lab Results 06/12/19 06/12/19 15:54 15:54 WBC 8.8 RBC 4.14 L Hgb 12.7 L Hct 37.7 L MCV 91.1 MCH 30.7 MCHC 33.7 RDW Std Deviation 46.2 H RDW Coeff of Jazzmine 13.7 Plt Count 198 MPV 8.4 Immature Gran % (Auto) 0.300 Neut % (Auto) 65.7 Lymph % (Auto) 16.8 L [place] % (Auto) 8.7 Eos % (Auto) 8.0 H Baso % (Auto) 0.5 Absolute Neuts (auto) 5.8 Absolute Lymphs (auto) 1.48 Nucleated RBC % 0 Sodium 133 L Potassium 4.0 Chloride 101 Carbon Dioxide 27.0 Anion Gap 5 BUN 9 Creatinine 1.04 Estim Creat Clear Calc 79.79 Est GFR (MDRD) Af Amer 97 Est GFR (MDRD) Non-Af 80 BUN/Creatinine Ratio 8.7 L Glucose 112 H Calcium 9.9 Troponin I < 0.015 The patient presents with cough, wheezing, and shortness of breath. He was mildly tachycardic on arrival. He was given steroids, nebulized breathing treatments, and fluids. He was quickly able to be weaned off of oxygen. He had marked improvement of his aeration and resolution of his tachypnea. Chest x-ray does not show focal infiltrative process. Labs are otherwise unremarkable. The patient is able to ambulate without tachypnea or hypoxia. At this point, I do feel that he is safe outpatient therapy. Impression 1. COPD exacerbation ED Disposition - Plan for ED Patient: Instructions: Copd Flare Prescriptions: Prednisone [Deltasone] 40 mg PO DAILY #10 tab Prescription Printed Doxycycline 100 mg PO BID #20 cap Prescription Printed Referrals: Feliciano Sanz MD [Primary Care Provider] -
[2019-06-12 15:40] VITALS: PULSE 115; RESP 20; O2SAT 98
[2019-06-12] MEDS: Ipratropium/Albuterol Sulfate 3 ML AMPUL.NEB INHALATION (15:40)
[2019-06-12 15:44] VITALS: BP 135/87; PULSE 117; RESP 14; O2SAT 97
[2019-06-12] MEDS: Albuterol 2.5 MG/3 ML VIAL.NEB. INHALATION ×2 (15:48)
[2019-06-12] MEDS: 0.9% Normal Saline 1,000 ML 150 ML IV (15:52)
[2019-06-12 15:55] VITALS: RESP 18; O2SAT 99
[2019-06-12 16:00] LABS: Absolute Lymphocyte Count 1.48 X10^3/uL (0.83-4.51); Absolute Neutrophil Count 5.8 X10^3/uL (2.0-7.7); Basophil# 0.04 X10^3/uL; Basophil% 0.5 % (0-1); Eosinophil# 0.71 X10^3/uL; Hematocrit 37.7 % (40-54); Hemoglobin 12.7 g/dL (13.0-16.5); Lymphocyte # 1.48 X10^3/ul (4.0); Lymphocyte % 16.8 % (19-41); Mean Corp Hgb Conc 33.7 g/dL (32-36); Mean Corpuscular Hgb 30.7 pg (27.0-32.0); Mean Corpuscular Volume 91.1 fL (80-94); Mean Platelet Vol. 8.4 fl (6.2-12.0); Monocyte# 0.77 X10^3/uL; Monocyte% 8.7 % (0-10); NRBC Flagged by Analyzer 0 % (0-5); Neutrophil % 65.7 % (47-70); Platelet Count 198 K/mm3 (150-450); RBC Distribution Width CV 13.7 % (11.6-14.6); RBC Distribution Width SD 46.2 fl (35.1-43.9); Red Blood Count 4.14 M/mm3 (4.6-6.2); White Blood Count 8.8 K/mm3 (4.4-11.0)
[2019-06-12] MEDS: MethylPREDNISolone 125 MG/2 ML Vial IV (16:00)
--- NOTE | 2019-06-12 16:08 | RAD_ITS ---
STUDY: X-RAY CHEST REASON FOR EXAM: Male, 53 years old. COPD flare up, SOB TECHNIQUE: PA and lateral views of the chest. COMPARISON: 04/01/2019 FINDINGS: There is hyperinflation of the lungs consistent with chronic obstructive lung disease (COPD). There is no demonstrated pleural abnormality. Normal size heart. Normal mediastinum and jonny. Normal visualized pulmonary arteries. Normal visualized aortic arch and descending thoracic aorta. Normal visualized thoracic spine. Normal visualized ribs, clavicles, and shoulders. There is no demonstrated abnormality of the visualized soft tissue structures of the upper abdomen. RAD/Chest PA and Lateral IMPRESSION: Emphysema without pneumonia or atelectasis Electronically Signed: Gabriel Moreno MD at 16:22 EST Tel , Service support ,
[2019-06-12 16:19] LABS: Anion Gap 5 (5-15); BUN 9 mg/dL (7-18); BUN/Creat Ratio 8.7 RATIO (10-20); Calcium,Total 9.9 mg/dL (8.5-10.1); Chloride 101 mmol/L (98-107); Creatinine, Serum 1.04 mg/dL (0.70-1.30); EST Glomerular Filtration Rate 80 mL/min (>60); Est Glom Filt Rate - Afr Amer 97 mL/min (>60); Estimated Creatinine Clearance 79.79 ml/min; Glucose 112 mg/dL (74-106); Sodium Level 133 mmol/L (136-145)
[2019-06-12 16:33] VITALS: BP 141/97; PULSE 98; RESP 22; O2SAT 96
[2019-06-12 16:55] VITALS: BP 127/87; PULSE 95; RESP 16; O2SAT 99
== END 2019-06-12 16:57 | disposition home or self-care (01) ==
LOC: ED 16:10
PROVIDERS: Emergency Provider Emergency Medicine; Family Provider Family Medicine; PCP Family Medicine
DX: J44.1 Chronic obstructive pulmonary disease with (acute) exacerbation (principal); Z87.891 Personal history of nicotine dependence
CPT/HCPCS: 71046; 80048; 84484; 85025; 93005; 94640; 96361; 96374; 99251; 99284; J7030; G0463

== ENCOUNTER 2019-09-07 17:50 | Emergency (ER) | payer OTHER, SELFPAY ==
[2019-09-07] VITALS (7 sets, daily range): BP systolic 126–162; BP diastolic 72–111; PULSE 89–122; RESP 20–25; TEMP 36.2–36.4; O2SAT 95–97; BMI 20.3
--- NOTE | 2019-09-07 18:11 | EKG12_ITS ---
Test Reason : SOB Blood Pressure : / mmHG Vent. Rate : 106 BPM Atrial Rate : 106 BPM P-R Int : 158 ms QRS Dur : 094 ms QT Int : 348 ms P-R-T Axes : 081 -49 082 degrees QTc Int : 462 ms Sinus tachycardia Possible Left atrial enlargement Low voltage QRS Left anterior fascicular block Inferior infarct , age undetermined Possible Anterolateral infarct , age undetermined Abnormal ECG Confirmed by WERNER BROWNE, LINNEA ([id number]), film and video editor SHARON SOTO ([id number]) on 09/10/2019 1:07:15 PM Referred By: MALGORZATA Confirmed By:LINNEA CALDERA MD
--- NOTE | 2019-09-07 18:12 | ED.VISSUMM ---
- ER Visit Summary Date of Service: 09/07/19 Chief Complaint: Shortness of breath History of Present Illness: The patient is a 53 M with a history of COPD who presents with shortness of breath that began earlier this morning. Patient states he has been using his home nebulizer machine and inhalers with minimal relief. Patient states he has never been admitted to the hospital for his COPD. Patient admits to a cough with some clear sputum. Patient denies any rhinorrhea or sore throat. Patient denies any fevers or chills. Patient denies any chest pain. Patient denies any nausea or vomiting. Patient denies any sick contacts. Patient denies any recent travel. Physical Examination: Vital signs are stable except for tachycardia of 122 and a tachypnea of 24. Patient is afebrile. Patient is in no acute distress. Oral mucosa is pink and moist. Neck is supple. Trachea is midline. There is no JVD. Heart was regular and tachycardic. Lungs showed diffuse expiratory and inspiratory wheezing. There is adequate respiratory effort. Abdomen is soft. Bowel sounds are normal. There is no tenderness. Cranial nerves II through XII are intact. There are no focal motor or sensory deficits noted. Extremities are intact. There is no calf tenderness or edema. Test Results: EKG showed sinus tachycardia with a rate of 106. There are nonspecific ST-T wave changes noted. This was unchanged compared to previous EKG dated 06/12/2019. PA and lateral chest x-ray was obtained. There are chronic changes but no acute infiltrate. This was interpreted by the radiologist and myself. CBC showed a mild leukocytosis of 12.6. Basic metabolic profile was essentially within normal limits. Troponin was normal. Lactate was normal. Flu swab was negative. Emergency Department Course and Treatment: Patient was given a DuoNeb aerosol here. Patient was started on prednisone. Patient is feeling better on reevaluation. Patient wants to go home. Patient was given a prescription for prednisone. Smoking cessation was discussed. Patient was instructed to follow-up with his primary care physician in 3 to 5 days. Patient understood and was agreeable with the plan. All questions were answered. Disposition: Discharge home Impression: COPD exacerbation This note was generated with [facility] dictation software. It may contain incorrect words, spelling, and punctuation that were not noted in review of the chart prior to signing ED Disposition - Plan for ED Patient: Disposition: Home or Assisted Living Diagnosis: COPD exacerbation Instructions: Copd Flare Prescriptions: Prednisone [Deltasone] 60 mg PO DAILY #12 tab Prescription Printed Referrals: Feliciano Sanz MD [Primary Care Provider] - 3-5 Days
[2019-09-07] MEDS: predniSONE 20 MG Tablet 60 MG PO (18:18)
[2019-09-07 18:34] LABS: Absolute Lymphocyte Count 2.47 X10^3/uL (0.83-4.51); Basophil# 0.06 X10^3/uL; Basophil% 0.5 % (0-1); Eosinophil# 0.99 X10^3/uL; Eosinophils% 7.9 % (0-5); Hemoglobin 14.7 g/dL (13.0-16.5); Lymphocyte # 2.47 X10^3/ul (4.0); Lymphocyte % 19.6 % (19-41); Mean Corp Hgb Conc 34.2 g/dL (32-36); Mean Corpuscular Volume 87.8 fL (80-94); Mean Platelet Vol. 8.5 fl (6.2-12.0); Monocyte# 0.99 X10^3/uL; Monocyte% 7.9 % (0-10); NRBC Flagged by Analyzer 0 % (0-5); Neutrophil # 8.01 X10^3/uL (2.7-7.7); Neutrophil % 63.6 % (47-70); Platelet Count 254 K/mm3 (150-450); RBC Distribution Width CV 12.1 % (11.6-14.6); RBC Distribution Width SD 38.9 fl (35.1-43.9); White Blood Count 12.6 K/mm3 (4.4-11.0)
[2019-09-07] MEDS: Ipratropium/Albuterol Sulfate 3 ML AMPUL.NEB INHALATION (18:45)
[2019-09-07 18:51] LABS: Anion Gap 4 (5-15); BUN 11 mg/dL (7-18); BUN/Creat Ratio 8.9 RATIO (10-20); Calcium,Total 9.7 mg/dL (8.5-10.1); Chloride 97 mmol/L (98-107); Creatinine, Serum 1.23 mg/dL (0.70-1.30); EST Glomerular Filtration Rate 66 mL/min (>60); Est Glom Filt Rate - Afr Amer 80 mL/min (>60); Estimated Creatinine Clearance 68.38 ml/min; Glucose 105 mg/dL (74-106); Potassium 4.1 mmol/L (3.5-5.1); Sodium Level 134 mmol/L (136-145)
[2019-09-07 18:52] LABS: Lactic Acid 1.4 mmol/L (0.4-1.9)
--- NOTE | 2019-09-07 19:05 | RAD_ITS ---
STUDY: X-RAY CHEST REASON FOR EXAM: Male, 53 years old. dry cough, dyspnea, Hx COPD TECHNIQUE: PA and lateral COMPARISON: June 12, 2019 FINDINGS: Lungs are hyperinflated and there is diffuse interstitial thickening with emphysematous changes.. There is blunting of the costophrenic angles possibly representing tiny effusions or pleural thickening. Normal size heart. Normal mediastinum and jonny. Normal visualized pulmonary arteries. Normal visualized aortic arch and descending thoracic aorta. Dorsal spine demonstrates degenerative change. Normal visualized ribs, clavicles, and shoulders. There is no demonstrated abnormality of the visualized soft tissue structures of the upper abdomen. No significant changes since prior study. RAD/Chest PA and Lateral IMPRESSION: COPD with bilateral pleural thickening although cannot exclude tiny pleural effusions Electronically Signed: Nestor Denton MD at 19:15 EDT , Service support ,
== END 2019-09-07 20:13 | disposition home or self-care (01) ==
PROVIDERS: Emergency Provider Emergency Medicine; PCP Family Medicine
DX: J44.1 Chronic obstructive pulmonary disease with (acute) exacerbation (principal); I10 Essential (primary) hypertension; F41.9 Anxiety disorder, unspecified; F17.210 Nicotine dependence, cigarettes, uncomplicated
CPT/HCPCS: 36415; 71046; 80048; 83605; 84484; 85025; 87040; 87804; 93005; 94640; 99285

== ENCOUNTER → 2019-12-03 12:46 | Outpatient (CLI) | payer OTHER, SELFPAY ==
[2019-11-06 10:04] VITALS: BMI 21.7
--- NOTE | 2019-12-04 13:12 | PFT ---
INTRODUCTION: The patient is a 53-year-old male that presents for pulmonary function studies secondary to a diagnosis of COPD. Respiratory therapy reports good patient effort. Bronchodilators were used during testing. INTERPRETATION: Forced expiration spirometry demonstrates the presence of a very severe large airways obstructive ventilatory defect. There was a significant response to aerosolized bronchodilators noted. Spirograms are of good quality and do not plateau indicating slow emptying of the lungs. Body plethysmography was performed and revealed an elevated TLC and RV, indicative of underlying hyperinflation and air trapping. Diffusing capacity by single breath CO is reduced at 60% of predicted. IMPRESSION: Partially reversible very severe large airways obstructive ventilatory defect with associated hyperinflation, air trapping and reduction in diffusing capacity.
== END ==
PROVIDERS: PCP Family Medicine; Referring Provider Internal Medicine Critical Care Medicine; Visit Provider Internal Medicine Critical Care Medicine
DX: J44.9 Chronic obstructive pulmonary disease, unspecified (principal); F17.210 Nicotine dependence, cigarettes, uncomplicated
CPT/HCPCS: 94060; 94726; 94729

== ENCOUNTER → 2019-12-05 13:46 | Outpatient (CLI) | payer OTHER, SELFPAY ==
[2019-11-06 10:04] VITALS: BMI 21.7
[2019-12-05 14:17] VITALS: PULSE 84; PULSE 86; PULSE 87; PULSE 89; PULSE 92; PULSE 97; PULSE 98; PULSE 99; O2SAT 94; O2SAT 95; O2SAT 96; O2SAT 97
--- NOTE | 2019-12-06 10:35 | PCM.PSN.6M ---
PSN 6 Minute Walk Test - 6 Minute Walk Test 6 Minute Walk Test: 6 Minute Walk Test PSN:6-Minute Walk Test Start: 12/05/19 14:17 Freq: Status: Active Protocol: RESP.6MINW Document 12/05/19 14:17 ANAYA (Rec: 12/05/19 14:19 ANAYA [id number]) 6 Minute Walk Test Date Performed 12/05/19 Time Performed 14:00 Height 6 ft Weight: 150 lb Weight in Pounds 150.[address]: Maxwell Jordan Assistive device used: None Pre-test Oxygen Delivery Method Room Air Pulse Ox (%) 96 Pulse Rate (60-100 beats/min) 84 Dyspnea Corry Scale (0-10) 0 Exertion Corry Scale (6-20) 6 1st minute Oxygen Delivery Method Room Air Pulse Ox (%) 97 Pulse Rate (60-100 beats/min) 87 2nd minute Oxygen Delivery Method Room Air Pulse Ox (%) 96 Pulse Rate (60-100 beats/min) 97 3rd minute Oxygen Delivery Method Room Air Pulse Ox (%) 95 Pulse Rate (60-100 beats/min) 89 4th minute Oxygen Delivery Method Room Air Pulse Ox (%) 94 Pulse Rate (60-100 beats/min) 99 5th minute Oxygen Delivery Method Room Air Pulse Ox (%) 94 Pulse Rate (60-100 beats/min) 98 6th minute Oxygen Delivery Method Room Air Pulse Ox (%) 97 Pulse Rate (60-100 beats/min) 92 Dyspnea Corry Scale (0-10) 1 Exertion Corry Scale (6-20) 11 Post-test Oxygen Delivery Method Room Air Pulse Ox (%) 96 Pulse Rate (60-100 beats/min) 86 Full Laps Walked 20 Partial Lap, Number of Tiles Walked 5 Total Distance Walked (ft) 1185 - Interpretation Interpretation: The patient ambulated 1185 feet over the course of 6 minutes beginning on room air without assistive devices or breaks. Pretesting oxygen saturation was noted to be 96% on room air. With ambulation, the amadeo oxygen saturation was 94%. There was no significant exertional oxygen desaturation. - Recommendations Recommendations: There is no indication for the use of supplemental oxygen at this time.
== END ==
PROVIDERS: PCP Family Medicine; Referring Provider Internal Medicine Critical Care Medicine; Visit Provider Internal Medicine Critical Care Medicine
DX: J44.9 Chronic obstructive pulmonary disease, unspecified (principal); F17.210 Nicotine dependence, cigarettes, uncomplicated
CPT/HCPCS: 94618

== ENCOUNTER 2020-02-22 19:06 | Emergency (ER) | payer OTHER, SELFPAY ==
[2020-01-14 13:47] VITALS: BMI 21.7
[2020-02-22 19:07] VITALS: BP 146/103; PULSE 117; RESP 20; RESP 26; TEMP 36.6; O2SAT 93; O2SAT 94; BMI 29.0
[2020-02-22 19:10] VITALS: BP 146/103; PULSE 117; RESP 20; TEMP 36.6; O2SAT 93
--- NOTE | 2020-02-22 19:18 | EKG12_ITS ---
Test Reason : SOB Blood Pressure : / mmHG Vent. Rate : 097 BPM Atrial Rate : 097 BPM P-R Int : 168 ms QRS Dur : 090 ms QT Int : 352 ms P-R-T Axes : 078 009 073 degrees QTc Int : 447 ms Normal sinus rhythm Inferior infarct (cited on or before 01-APR-2019) Cannot rule out Anteroseptal infarct (cited on or before 01-APR-2019) Abnormal ECG Confirmed by FIOR BROWNE, BASSEM ([id number]), technical writer and editor LUKASZ NICOLE ([id number]) on 02/27/2020 10:08:52 AM Referred By: KELLY Confirmed By:BASSEM CHILDRESS MD
[2020-02-22 19:19] VITALS: O2SAT 95
--- NOTE | 2020-02-22 19:19 | ED.DCSUM_ITS ---
History of Present Illness Chief Complaint: Shortness of Breath Detail of Chief Complaint: COPD flare Informant: Patient Onset: Days - 3 days Current Severity: Moderate Maximum Severity: Moderate Narrative: Patient presents secondary to COPD flare. He reports increasing shortness of breath of the last 3 days, but became much worse in the past 1 hour. He has been using his inhalers more than normal. He denies chest pain. He denies fever or chills. He has had very minimal cough. - Past Medical History (1) Anxiety Status: Chronic (2) COPD (chronic obstructive pulmonary disease) Status: Chronic (3) Hypertension Status: Chronic (4) H/O knee surgery Status: Resolved (5) H/O total hip arthroplasty Status: Resolved Past Medical History - Allergies and Home Meds Allergies/Adverse Reactions: Allergies No Known Allergies Allergy (Verified 02/22/20 19:17) Primary Care Physician: Feliciano Sanz MD [Primary Care Provider] - Prior records reviewed: Yes Surgical History: total knee arthroplasty Smoking Status: Current every day smoker Review of Systems General: Denies: Chills, Fever Eyes: Denies: Visual changes - bilaterally ENT: Denies: Bilateral ear pain Cardiovascular: Denies: Chest pain Respiratory: Reports: Dyspnea, Cough - Minimal cough Gastrointestinal: Denies: Abdominal pain, Nausea, Vomiting, Diarrhea Musculoskeletal: Denies: Extremity Pain Skin: Denies: Rash Neurological: Denies: Headache Hematologic: Denies: Easy bruising, Easy bleeding Allergy: Denies: Uticaria Physical Exam Vital Signs/Narrative: Vital Signs Temp Pulse Resp BP Pulse Ox 02/22/20 19:10 97.8 F 117 H 20 H 146/103 H 93 02/22/20 19:07 97.8 F 117 H 20 H 146/103 H 93 Inital Vital Signs reviewed: Yes General: Well nourished, Well developed ENT: Moist mucous membranes Neck: Supple Cardiovascular: Regular rate, Regular rhythm Respiratory: Wheezing - Expiratory wheezes throughout Abdomen: Soft, Nontender Back: Nontender Extremities: Nontender Skin: Normal color Neurological: Alert, Oriented x3 Psychological: Normal affect Diagnostic/Tx/Re-eval Chest X-Ray - ED: 1 View, Read by ED Physician, Chronic Changes - Hyperinflation. No infiltrate noted. 02/22/20 20:09 Chest 1 View (Portable) [RAD] Stat Laboratory Results 02/22/20 02/22/20 19:12 19:12 WBC 8.5 RBC 4.59 L Hgb 15.6 Hct 44.2 MCV 96.3 H MCH 34.0 H MCHC 35.3 RDW Std Deviation 45.4 H RDW Coeff of Jazzmine 12.9 Plt Count 235 MPV 8.6 Immature Gran % (Auto) 0.200 Neut % (Auto) 56.3 Lymph % (Auto) 24.3 [place] % (Auto) 10.3 H Eos % (Auto) 8.4 H Baso % (Auto) 0.5 Absolute Neuts (auto) 4.8 Absolute Lymphs (auto) 2.05 Nucleated RBC % 0 Sodium 138 Potassium 3.4 L Chloride 98 Carbon Dioxide 33.0 H Anion Gap 7 BUN 7 Creatinine 1.25 Estim Creat Clear Calc 75.88 Est GFR (MDRD) Af Amer 78 Est GFR (MDRD) Non-Af 64 BUN/Creatinine Ratio 5.6 L Glucose 97 Calcium 9.6 Troponin I < 0.015 - EKG Initial EKG Interpretation: Sinus Rhythm - Sinus at 97 with no acute ischemia. - Medical Decision Making Patient was given Solu-Medrol along with DuoNeb treatment followed by albuterol. On repeat evaluation he feels significantly improved. Lung sounds show minimal wheezing. Respiratory rate is normal. Patient's O2 sat on room air is 96%. Patient will be treated with prednisone as well as Zithromax at home. He will follow-up with his primary care physician or his office services associate, Dr. Jordan. He is given return instructions. ED Disposition - Plan for ED Patient: Disposition: Home or Assisted Living Diagnosis: COPD exacerbation Instructions: ED COPD Flare Prescriptions: Prednisone [Deltasone] 40 mg PO DAILY #10 tab Transmission Status: Pending to [facility] Azithromycin [Zithromax] 250 mg PO DAILY #4 tab Transmission Status: Pending to [facility] Referrals: Feliciano Sanz MD [Primary Care Provider] - 1 Week if not improving
[2020-02-22] MEDS: Ipratropium/Albuterol Sulfate 3 ML AMPUL.NEB INHALATION (19:24)
[2020-02-22] MEDS: MethylPREDNISolone 125 MG/2 ML Vial IV (19:24)
[2020-02-22] MEDS: Albuterol 2.5 MG/3 ML VIAL.NEB. INHALATION ×2 (19:24)
[2020-02-22 19:25] VITALS: PULSE 102; RESP 15
[2020-02-22 19:30] LABS: Absolute Lymphocyte Count 2.05 X10^3/uL (0.83-4.51); Absolute Neutrophil Count 4.8 X10^3/uL (2.0-7.7); Basophil# 0.04 X10^3/uL; Basophil% 0.5 % (0-1); Eosinophil# 0.71 X10^3/uL; Eosinophils% 8.4 % (0-5); Hematocrit 44.2 % (40-54); Hemoglobin 15.6 g/dL (13.0-16.5); Lymphocyte # 2.05 X10^3/ul (4.0); Lymphocyte % 24.3 % (19-41); Mean Corp Hgb Conc 35.3 g/dL (32-36); Mean Corpuscular Volume 96.3 fL (80-94); Mean Platelet Vol. 8.6 fl (6.2-12.0); Monocyte# 0.87 X10^3/uL; Monocyte% 10.3 % (0-10); NRBC Flagged by Analyzer 0 % (0-5); Neutrophil # 4.76 X10^3/uL (2.7-7.7); Neutrophil % 56.3 % (47-70); Platelet Count 235 K/mm3 (150-450); RBC Distribution Width CV 12.9 % (11.6-14.6); RBC Distribution Width SD 45.4 fl (35.1-43.9); Red Blood Count 4.59 M/mm3 (4.6-6.2); White Blood Count 8.5 K/mm3 (4.4-11.0)
[2020-02-22 19:45] LABS: Anion Gap 7 (5-15); BUN 7 mg/dL (7-18); BUN/Creat Ratio 5.6 RATIO (10-20); Calcium,Total 9.6 mg/dL (8.5-10.1); Chloride 98 mmol/L (98-107); Creatinine, Serum 1.25 mg/dL (0.70-1.30); EST Glomerular Filtration Rate 64 mL/min (>60); Est Glom Filt Rate - Afr Amer 78 mL/min (>60); Estimated Creatinine Clearance 75.88 ml/min; Glucose 97 mg/dL (74-106); Potassium 3.4 mmol/L (3.5-5.1); Sodium Level 138 mmol/L (136-145)
[2020-02-22 19:54] VITALS: BP 140/101; PULSE 104; RESP 18; TEMP 36.3; O2SAT 96
--- NOTE | 2020-02-22 20:09 | RAD_ITS ---
STUDY: X-RAY CHEST REASON FOR EXAM: Male, 54 years old. Shortness of breath TECHNIQUE: Frontal view of the chest COMPARISON: 09/07/19 FINDINGS: The lungs are hyperinflated, but clear. There are no pleural effusions. There is no pneumothorax. The heart is normal in size. The visualized osseous structures are within normal limits. RAD/Chest 1 View (Portable) IMPRESSION: No acute thoracic pathology. Electronically Signed: Chilo Chan, at 20:26 EDT Tel , Service support ,
[2020-02-22] MEDS: Azithromycin 250 MG Tablet 500 MG PO (20:36)
[2020-02-22 20:38] VITALS: BP 153/100; PULSE 99; RESP 17; O2SAT 96
== END 2020-02-22 20:39 | disposition home or self-care (01) ==
PROVIDERS: Emergency Provider Emergency Medicine; PCP Family Medicine
DX: J44.1 Chronic obstructive pulmonary disease with (acute) exacerbation (principal); F41.9 Anxiety disorder, unspecified; I10 Essential (primary) hypertension; F17.200 Nicotine dependence, unspecified, uncomplicated
CPT/HCPCS: 71045; 80048; 84484; 85025; 93005; 94640; 96374; 99285; A4216

== ENCOUNTER 2020-03-05 23:19 | Emergency (ER) | payer OTHER, SELFPAY ==
[2020-03-05 23:20] VITALS: BP 169/105; PULSE 121; RESP 26; TEMP 36.6; O2SAT 96; BMI 21.6
[2020-03-05 23:34] VITALS: O2SAT 96
[2020-03-05 23:37] VITALS: BP 142/100; PULSE 108; RESP 20; O2SAT 97
--- NOTE | 2020-03-05 23:37 | EKG12_ITS ---
Test Reason : SOB Blood Pressure : / mmHG Vent. Rate : 107 BPM Atrial Rate : 107 BPM P-R Int : 148 ms QRS Dur : 090 ms QT Int : 350 ms P-R-T Axes : 077 050 080 degrees QTc Int : 467 ms Sinus tachycardia Inferior infarct , age undetermined Cannot rule out Anterior infarct , age undetermined Abnormal ECG Confirmed by WERNER BROWNE, LINNEA ([id number]), editor farm journal RONALD POND ([id number]) on 03/10/2020 1:29:23 PM Referred By: RAMIRO Confirmed By:LINNEA CALDERA MD
--- NOTE | 2020-03-05 23:38 | ED.VIS.GEN ---
History of Present Illness Chief Complaint: Shortness of Breath Narrative: Patient is a 54-year-old male who presents with chief complaint of COPD flare. He has a history of COPD and is a smoker. He was recently seen in the emergency department and treated for COPD exacerbation with steroids and oral antibiotics. He did improve. He became acutely short of breath again about 3 hours ago. He states his chest feels tight. He denies recent illness otherwise such as fevers increased cough sore throat congestion rhinorrhea. No vomiting. No diarrhea. He denies history of coronary artery disease. Past Medical History - Allergies and Home Meds Allergies/Adverse Reactions: Allergies No Known Allergies Allergy (Verified 03/05/20 23:37) Primary Care Physician: Feliciano Sanz MD [Primary Care Provider] - Past Medical History: - - Hypertension, COPD Surgical History: total knee arthroplasty Smoking Status: Current every day smoker Review of Systems All systems negative except as indicated General: Denies: Fever Eyes: Denies: Visual changes - bilaterally ENT: Denies: Bilateral ear pain Cardiovascular: Denies: Chest pain Respiratory: Reports: Dyspnea, Cough. Denies: Sputum Gastrointestinal: Denies: Nausea, Vomiting Musculoskeletal: Denies: Myalgias, Arthralgias Skin: Denies: Rash Neurological: Denies: Headache Hematologic: Denies: Easy bruising Allergy: Denies: Uticaria Physical Exam Vital Signs/Narrative: Vital Signs Temp Pulse Resp BP Pulse Ox 03/05/20 23:37 108 H 20 H 142/100 H 97 03/05/20 23:20 97.9 F 121 H 26 H 169/105 H 96 General: Well nourished Head: Normocephalic Eyes: EOMI ENT: Moist mucous membranes Neck: Supple Cardiovascular: Regular rhythm, Tachycardia Respiratory: Wheezing, Diminished. Negative for: Rales Abdomen: Soft Skin: Normal color Neurological: Alert Psychological: Normal affect Diagnostic/Tx/Re-eval Impressions Chest X-Ray 03/06/20 00:00 IMPRESSION: Nonspecific hyperinflation of the lungs. Stable chest no visualized acute focal infiltrate. Electronically Signed: Shalonda Sadler MD at 0:44 EDT Tel , Service support , 03/06/20 00:00 Chest 1 View (Portable) [RAD] Stat Laboratory Results 03/05/20 03/05/20 23:42 23:42 WBC 14.1 H RBC 4.38 L Hgb 14.9 Hct 42.5 MCV 97.0 H MCH 34.0 H MCHC 35.1 RDW Std Deviation 44.4 H RDW Coeff of Jazzmine 12.3 Plt Count 163 MPV 8.2 Immature Gran % (Auto) 0.400 Neut % (Auto) 75.4 H Lymph % (Auto) 13.4 L [place] % (Auto) 5.8 Eos % (Auto) 4.8 Baso % (Auto) 0.2 Absolute Neuts (auto) 10.6 H Absolute Lymphs (auto) 1.88 Nucleated RBC % 0 Sodium 137 Potassium 3.4 L Chloride 101 Carbon Dioxide 29.0 Anion Gap 7 BUN 11 Creatinine 1.37 H Estim Creat Clear Calc 64.50 Est GFR (MDRD) Af Amer 70 Est GFR (MDRD) Non-Af 58 L BUN/Creatinine Ratio 8.0 L Glucose 112 H Calcium 9.2 - Medical Decision Making Labs and x-rays as above unremarkable. Patient does have a mild leukocytosis but was recently on steroids. He has no focal infiltrate. He was treated with IV Solu-Medrol as well as albuterol and Atrovent aerosols and is significantly improved on reevaluation. Heart rate is normal. He is in no distress. He does still have some scattered expiratory wheezing. We will treat with a steroid taper. Patient advised to follow-up with his ct scan tech. He understands to return for new or worsening symptoms. ED Disposition - Plan for ED Patient: Disposition: Home or Assisted Living Diagnosis: COPD exacerbation Instructions: ED COPD Flare Prescriptions: Prednisone 10 mg PO UD #33 tab Prescription Printed Referrals: Feliciano Sanz MD [Primary Care Provider] -
[2020-03-05] MEDS: Albuterol 2.5 MG/3 ML VIAL.NEB. INHALATION ×2 (23:45)
[2020-03-05] MEDS: Ipratropium/Albuterol Sulfate 3 ML AMPUL.NEB INHALATION (23:45)
[2020-03-05] MEDS: MethylPREDNISolone 125 MG/2 ML Vial IV (23:45)
[2020-03-05 23:49] VITALS: PULSE 118; RESP 20
[2020-03-05 23:55] LABS: Absolute Lymphocyte Count 1.88 X10^3/uL (0.83-4.51); Absolute Neutrophil Count 10.6 X10^3/uL (2.0-7.7); Basophil# 0.03 X10^3/uL; Basophil% 0.2 % (0-1); Eosinophil# 0.67 X10^3/uL; Eosinophils% 4.8 % (0-5); Hematocrit 42.5 % (40-54); Hemoglobin 14.9 g/dL (13.0-16.5); Lymphocyte # 1.88 X10^3/ul (4.0); Lymphocyte % 13.4 % (19-41); Mean Corp Hgb Conc 35.1 g/dL (32-36); Mean Platelet Vol. 8.2 fl (6.2-12.0); Monocyte# 0.82 X10^3/uL; Monocyte% 5.8 % (0-10); NRBC Flagged by Analyzer 0 % (0-5); Neutrophil # 10.62 X10^3/uL (2.7-7.7); Neutrophil % 75.4 % (47-70); Platelet Count 163 K/mm3 (150-450); RBC Distribution Width CV 12.3 % (11.6-14.6); RBC Distribution Width SD 44.4 fl (35.1-43.9); Red Blood Count 4.38 M/mm3 (4.6-6.2); White Blood Count 14.1 K/mm3 (4.4-11.0)
--- NOTE | 2020-03-06 | RAD_ITS ---
STUDY: X-RAY CHEST REASON FOR EXAM: Male, 54 years old. COPD FLARE UP PER PATIENT TECHNIQUE: Single AP portable view x2 of the chest. COMPARISON: February 22, 2020 chest x-ray FINDINGS: The lungs are hyperinflated. There is no visualized focal infiltrate. The lungs are clear and expanded. There is no demonstrated pleural abnormality. Normal size heart. Normal mediastinum and jonny. Normal visualized pulmonary arteries. Normal visualized aortic arch and descending thoracic aorta. Normal visualized thoracic spine. Normal visualized ribs, clavicles, and shoulders. There is no demonstrated abnormality of the visualized soft tissue structures of the upper abdomen. RAD/Chest 1 View (Portable) IMPRESSION: Nonspecific hyperinflation of the lungs. Stable chest no visualized acute focal infiltrate. Electronically Signed: Shalonda Sadler MD at 0:44 EDT Tel , Service support ,
[2020-03-06 00:19] LABS: Anion Gap 7 (5-15); BUN 11 mg/dL (7-18); Calcium,Total 9.2 mg/dL (8.5-10.1); Chloride 101 mmol/L (98-107); Creatinine, Serum 1.37 mg/dL (0.70-1.30); EST Glomerular Filtration Rate 58 mL/min (>60); Est Glom Filt Rate - Afr Amer 70 mL/min (>60); Glucose 112 mg/dL (74-106); Potassium 3.4 mmol/L (3.5-5.1); Sodium Level 137 mmol/L (136-145)
[2020-03-06 00:33] VITALS: PULSE 101; RESP 20; O2SAT 96
== END 2020-03-06 01:05 | disposition home or self-care (01) ==
PROVIDERS: Emergency Provider Emergency Medicine; PCP Family Medicine
DX: J44.1 Chronic obstructive pulmonary disease with (acute) exacerbation (principal); I10 Essential (primary) hypertension; F17.200 Nicotine dependence, unspecified, uncomplicated
CPT/HCPCS: 71045; 80048; 85025; 93005; 94640; 96374; 99283; A4216

== ENCOUNTER 2020-04-09 20:14 | Emergency (ER) | payer OTHER, SELFPAY ==
[2020-04-09 20:14] VITALS: BP 170/115; PULSE 131; RESP 20; TEMP 36.4; O2SAT 99; BMI 22.4
--- NOTE | 2020-04-09 20:38 | EKG12_ITS ---
Test Reason : SOB Blood Pressure : / mmHG Vent. Rate : 100 BPM Atrial Rate : 100 BPM P-R Int : 168 ms QRS Dur : 090 ms QT Int : 348 ms P-R-T Axes : 084 053 081 degrees QTc Int : 448 ms Normal sinus rhythm Biatrial enlargement Possible Inferior infarct , age undetermined Anteriolateral infarct, age undetermined Abnormal ECG Confirmed by FIOR BROWNE, BASSEM ([id number]), industrial editor RONALD POND ([id number]) on 04/14/2020 12:29:51 PM Referred By: TIP Confirmed By:BASSEM CHILDRESS MD
[2020-04-09] MEDS: Ipratropium/Albuterol Sulfate 3 ML AMPUL.NEB INHALATION (20:48)
[2020-04-09 20:49] LABS: Absolute Lymphocyte Count 1.78 X10^3/uL (0.83-4.51); Absolute Neutrophil Count 8.2 X10^3/uL (2.0-7.7); Basophil# 0.01 X10^3/uL; Basophil% 0.1 % (0-1); Eosinophil# 0.49 X10^3/uL; Eosinophils% 4.4 % (0-5); Lymphocyte # 1.78 X10^3/ul (4.0); Lymphocyte % 15.9 % (19-41); Mean Corp Hgb Conc 34.1 g/dL (32-36); Mean Corpuscular Hgb 33.3 pg (27.0-32.0); Mean Corpuscular Volume 97.6 fL (80-94); Mean Platelet Vol. 8.3 fl (6.2-12.0); Monocyte# 0.71 X10^3/uL; Monocyte% 6.3 % (0-10); NRBC Flagged by Analyzer 0 % (0-5); Neutrophil # 8.16 X10^3/uL (2.7-7.7); Neutrophil % 72.9 % (47-70); Platelet Count 155 K/mm3 (150-450); RBC Distribution Width CV 12.8 % (11.6-14.6); RBC Distribution Width SD 45.3 fl (35.1-43.9); White Blood Count 11.2 K/mm3 (4.4-11.0)
[2020-04-09 20:50] VITALS: PULSE 135; RESP 20
[2020-04-09 20:54] VITALS: BP 170/115; PULSE 131; RESP 20; TEMP 36.4; O2SAT 99
[2020-04-09 21:02] LABS: Anion Gap 8 (5-15); BUN 11 mg/dL (7-18); BUN/Creat Ratio 8.7 RATIO (10-20); Calcium,Total 9.4 mg/dL (8.5-10.1); Chloride 105 mmol/L (98-107); Creatinine, Serum 1.26 mg/dL (0.70-1.30); EST Glomerular Filtration Rate 64 mL/min (>60); Est Glom Filt Rate - Afr Amer 77 mL/min (>60); Estimated Creatinine Clearance 72.75 ml/min; Glucose 92 mg/dL (74-106); Potassium 3.6 mmol/L (3.5-5.1); Sodium Level 137 mmol/L (136-145)
--- NOTE | 2020-04-09 21:14 | RAD_ITS ---
STUDY: X-RAY CHEST REASON FOR EXAM: Male, 54 years old. SOB; HX OF COPD TECHNIQUE: 2 frontal views of the chest. COMPARISON: 03/06/2020 FINDINGS: Cardiac silhouette unremarkable. Pulmonary vascularity unremarkable. Aorta unremarkable. No focal airspace opacities. Possible small left effusion. Nodular density in the left perihilar lung likely represents a vessel seen on end. Upper abdomen unremarkable. Osseous structures intact. No pneumothorax. RAD/Chest 1 View (Portable) IMPRESSION: Possible small left effusion. No focal consolidation identified. Electronically Signed: Markus Harding, at 21:51 EDT Tel , Service support ,
[2020-04-09 21:17] LABS: BNP,B-Type NATRIURETIC PEPTIDE 13.5 pg/mL (0-100)
[2020-04-09] MEDS: MethylPREDNISolone 125 MG/2 ML Vial IV (21:19)
--- NOTE | 2020-04-09 21:38 | ED.VIS.GEN ---
History of Present Illness Chief Complaint: Shortness of Breath Narrative: Patient has a history of COPD, he presents with acute onset of shortness of breath over the past day. He has no cough or sputum production he has no fever or chills his symptoms are consistent to prior COPD. He has no abdominal pain or back pain no tearing sensation and no chest pain. No pleuritic component no lower extremity edema. Past Medical History - Allergies and Home Meds Allergies/Adverse Reactions: Allergies No Known Allergies Allergy (Verified 03/05/20 23:37) Primary Care Physician: Feliciano Sanz MD [Primary Care Provider] - Past Medical History: - - COPD Surgical History: total knee arthroplasty Smoking Status: Current every day smoker Review of Systems General: Denies: Fever ENT: Denies: Rhinorrhea, Sore throat Cardiovascular: Denies: Chest pain Respiratory: Reports: Dyspnea. Denies: Cough, Sputum Gastrointestinal: Denies: Abdominal pain, Nausea, Vomiting Genitourinary: Denies: Dysuria Musculoskeletal: Denies: Myalgias Skin: Denies: Rash, Abscess Neurological: Denies: Headache, Weakness Psych: Denies: Depression Physical Exam Vital Signs/Narrative: Vital Signs Temp Pulse Resp BP Pulse Ox 04/09/20 20:54 97.5 F L 131 H 20 H 170/115 H 99 04/09/20 20:50 135 H 20 H 04/09/20 20:14 97.5 F L 131 H 20 H 170/115 H 99 General: - - Patient appears relatively comfortable he does not appear in significant distress. ENT: Moist mucous membranes Neck: Supple Cardiovascular: Regular rate, Regular rhythm Respiratory: - - He does not have significant respiratory distress. He speaks in full sentences he has bilateral wheezing and somewhat prolonged expirations. Initially he was slightly tachypneic. Abdomen: Soft, Nontender Back: Nontender, Normal Inspection Extremities: Nontender Skin: Normal color Neurological: Alert, Normal Strength, Normal Sensation Diagnostic/Tx/Re-eval Chest X-Ray - ED: 1 View, Read by ED Physician, Normal, Heart, - - Hyperinflation consistent with COPD - Medical Decision Making Patient significantly improved after DuoNeb and Solu-Medrol. I will discharge him with prednisone for home. He is not hypoxic, his vitals have significantly improved although he is mildly tachycardic this is likely secondary to the nebulizer. ED Disposition - Plan for ED Patient: Disposition: Home or Assisted Living Diagnosis: COPD (chronic obstructive pulmonary disease) Instructions: ED COPD Flare Prescriptions: Prednisone [Deltasone] 60 mg PO DAILY #15 tab Prescription Printed Referrals: Feliciano Sanz MD [Primary Care Provider] - 3-5 Days
[2020-04-09 22:12] VITALS: BP 145/90; PULSE 111; RESP 20; O2SAT 95
== END 2020-04-09 22:12 | disposition home or self-care (01) ==
LOC: ED 21:56
PROVIDERS: Emergency Provider Emergency Medicine; PCP Family Medicine
DX: J44.9 Chronic obstructive pulmonary disease, unspecified (principal); F17.200 Nicotine dependence, unspecified, uncomplicated
CPT/HCPCS: 71045; 80048; 83880; 85025; 87635; 93005; 94640; 96374; 99284; A4216; U0003

== ENCOUNTER 2020-08-13 12:22 | Observation (INO) | payer OTHER, SELFPAY ==
[2020-07-28 15:38] LABS: Absolute Lymphocyte Count 1.94 X10^3/uL (0.83-4.51); Absolute Neutrophil Count 3.4 X10^3/uL (2.0-7.7); Basophil# 0.03 X10^3/uL; Basophil% 0.4 % (0-1); Eosinophil# 0.65 X10^3/uL; Eosinophils% 9.7 % (0-5); Hematocrit 40.3 % (40-54); Hemoglobin 13.3 g/dL (13.0-16.5); Lymphocyte # 1.94 X10^3/ul (4.0); Lymphocyte % 28.9 % (19-41); Mean Corpuscular Hgb 30.5 pg (27.0-32.0); Mean Corpuscular Volume 92.4 fL (80-94); Mean Platelet Vol. 9.6 fl (6.2-12.0); Monocyte# 0.69 X10^3/uL; Monocyte% 10.3 % (0-10); NRBC Flagged by Analyzer 0 % (0-5); Neutrophil # 3.38 X10^3/uL (2.7-7.7); Neutrophil % 50.4 % (47-70); Platelet Count 216 K/mm3 (150-450); RBC Distribution Width CV 12.3 % (11.6-14.6); RBC Distribution Width SD 41.9 fl (35.1-43.9); Red Blood Count 4.36 M/mm3 (4.6-6.2); White Blood Count 6.7 K/mm3 (4.4-11.0)
[2020-07-28 15:50] LABS: International Normalized Ratio 0.9; Partial Thromboplast Time 32.5 Seconds (24.1-36.2); Prothrombin Time (Protime)PT. 11.8 SECONDS (11.7-14.9)
[2020-07-28 16:07] LABS: Anion Gap 4 (5-15); BUN 19 mg/dL (7-18); BUN/Creat Ratio 17.9 RATIO (10-20); Calcium,Total 9.4 mg/dL (8.5-10.1); Chloride 107 mmol/L (98-107); Creatinine, Serum 1.06 mg/dL (0.70-1.30); EST Glomerular Filtration Rate 78 mL/min (>60); Est Glom Filt Rate - Afr Amer 94 mL/min (>60); Glucose 97 mg/dL (74-106); Potassium 4.2 mmol/L (3.5-5.1); Sodium Level 137 mmol/L (136-145)
--- NOTE | 2020-07-28 21:46 | PCM.HP.BLA ---
History and Physical History and Physical [facility] Patient Name: Gregor Nunez Jr : 1965 From: MARANDA ROWAN PA-C DATE OF SURGERY: 08/13/2020 SCHEDULED PROCEDURE: right total hip arthroplasty HISTORY OF PRESENT ILLNESS: Preoperative history and physical exam was performed on July 28, 2020. This is a 54-year-old male who has had ongoing pain in the right hip for over 6 months. Pain rates 7/10 with activities. Patient previously underwent a left total hip arthroplasty on May 09, 2019 and is doing well postoperatively. He states the left hip has been given him some trouble as he has been compensating. Pain is located in the right groin. Pain has been constant, aching, sharp, sore. Pain is increased with going up and down stairs, sitting. Patient has difficulty with bathing/showering, getting dressed, and shopping due to the hip pain. Patient has been using a cane and walker for ambulatory assistance. His pain progressively been getting worse. We are currently obtaining surgical clearance from her primary care physician. Primary care physician stated that he must see the muck operator. Patient states he sees pulmonology and which she has diagnosis per patient as as much as and COPD. He also has history of hypertension. Patient currently denies any chest pain, shortness of breath, fevers chills, or recent infections. After failing conservative measures and discussing treatment options with Dr. Chilo George, the patient does wish to proceed with a right total hip arthroplasty. REVIEW OF SYSTEMS: ROS: Const: Denies anorexia, anxiety, change in appetite, fever and weight change,hard of hearing, and vision problems. ENMT: Reports hearing loss. CV: Denies chest pain, heart murmur, irregular heartbeat and peripheral vascular disease. Resp: Denies asthma, cough, pneumonia, sleep apnea, shortness of breath, tuberculosis and wheezing. GI: Denies constipation, diarrhea, heartburn, nausea, bloody stools and vomiting, and difficulty swallowing. : Denies incontinence. Musculo: Reports leg swelling, trouble walking and weakness and limp. Skin: Denies Raynaud's, history of shingles and tattoo. Neuro: Reports numbness/tingling but denies ambulatory dysfunction, dizziness and tremor. Psych: Denies anxiety, depression, insomnia, mental illness and stress. Mathew/Lymph: Denies anemia, bleeding/bruising tendency and past transfusion. Reviewed, no changes. PAST MEDICAL HISTORY: Advance Care Plan: No Advance Directives Effective Date: 01/02/2019 PMH: Medical Problems: High Blood Pressure, Psoriasis, Asthma, Chornic Obstructive Pulmonary Disease (COPD) Accidents: Fracture - LEFT ANKLE Surgical Hx: LT Knee Arthroscopy LT THR - (05/09/2019) SAW @ [facility] Anesthesia Complications: None Assistive Devices: None Reviewed and updated. 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 Personal Habits: Tobacco Use: Patient is a current smoker, smokes every day.Cigarette Use: Currently smokes - 1 PACK/DAY FOR 20 YEARS.Smokeless Tobacco: Never Used Smokeless Tobacco.E-Cigarette Use: Never used.Alcohol: Currently consumes alcohol.Drug Use: Denies Use.Enjoy Exercising: Never Exercises. Reviewed, no changes. VITALS: Ht: 73 Wt: 164lb Wt k.390 BMI: 21.6 BP: 116/62 Pulse: 70 Resp: 16 T: 97.4 T: 36.3C ALLERGIES: No Known Drug Allergy MEDICATIONS: Albuterol Sulfate HFA 108 (90 Base) mcg/Act inhale two puffs four times daily as needed, Lisinopril-Hydrochlorothiazide 20-25 mg take one tablet by mouth every day, Amlodipine Besylate 5 mg 1po qday, Escitalopram Oxalate 10 mg 1po qday, Trelegy Ellipta 100-62.5-25 mcg/Inh prn, Hydroxyzine HCL 25 mg prn PRE-OP EXAM: General appearance:NORMAL Other: Eyes: Conjunctivae and lids: NORMAL Pupils: ERR Ears, Nose, Mouth, and Throat: NORMAL Other: Inspection of lips, teeth and gums: NORMAL Other: Neck: Examination of neck: no masses noted. Respiratory: Assessment of respiratory effort: NORMAL Other: Auscultation of lungs: clear to auscultation no wheezes, rhonchi or rales. Cardiovascular: Auscultation of heart: regular rate and rhythm, no murmurs, gallops or rubs. Exam of carotid arteries: NORMAL Other: Gastrointestinal: Exam of abdomen: soft, nontender, nondistended bowel sounds present. PHYSICAL EXAMINATION: Patient walks with a significant antalgic gait. Currently using a cane. Patient has tenderness to palpation along the right lateral hip. Range of motion: Flexion 90, internal rotation neutral, external rotation 20. Patient does have obligatory external rotation with flexion. Pain is increased with range of motion. Patient has 5 mm shorter right leg when compared to left leg. Sensation intact to light touch. IMAGING STUDIES: Previous x-rays of the right hip reveal joint space narrowing with subchondral fracturing and collapse consistent with avascular necrosis and associated osteoarthritis. IMPRESSION: 1. Right hip osteoarthritis with avascular necrosis 2. Presence of left total hip arthroplasty 3. Chronic obstructive pulmonary disease 4. Hypertension 5. Asthma 6. Alcohol use PLAN: Dr. Chilo George did discuss and review with the patient all treatment options including surgical versus nonsurgical options. Patient does wish to proceed with the above-stated procedure. Potential risks, benefits, and complications of the procedure were discussed in detail including but not limited to , infection, nerve and blood vessel damage, persistent pain, numbness, tingling, paresthesias, blood clot, pulmonary embolism, and requirement for possible further surgery. The patient expressed full understanding and has no further questions for the doctor. Patient does agree to proceed with the above-stated procedure and has signed the surgery consent form. We discussed the current risks associated with COVID 19. This does include the risk of exposure while in the hospital. Patient was reassured local hospitals have low infection rates and are taking all necessary precautions to avoid exposure to patients. In addition, we discussed strategies that can be used to help limit exposure including those that limit the patient's time in the hospital. Also using strategies to limit the patient's need for continued inpatient services after being discharged from the hospital. Patient was notified that we will need to comply with any screening or testing the hospital wishes to perform or that surgery may be delayed for any positive results. This dictation was created using voice recognition software. Phonetic and/or grammatical errors may exist. ___ I have re-examined the patient. There are no clinical changes since date of exam. ___ See progress notes for changes. ___ Dictated on admission Date: Time: Signature:
[2020-07-30 14:42] LABS: Magnesium 2.2 mg/dL (1.6-2.6)
[2020-07-31 08:42] VITALS: BMI 22.8
[2020-08-13] VITALS (16 sets, daily range): BP systolic 111–143; BP diastolic 64–99; PULSE 69–101; RESP 16–20; TEMP 36.8–37.3; O2SAT 94–100; BMI 22.0
--- NOTE | 2020-08-13 | HIP_PTH ---
PATIENT: JAX ROGERS Jr. LOC: 3 U#:[id number] AGE/SX: 54/M [place] [facility] [place]: Dr. Trinidad Arredondo MD : 1965 BED: 1 DIS: 08/14/2020 SPEC #: [id number] RECD: 08/13/20 14:39 STATUS: ABDULLAHI REQ #: [id number] RODRIGO: 08/13/20 00:[address]: Chilo George DEPT: SURGICAL PATHOLOGY RECD BY: Valeriy Palafox ENTERED: 08/14/20 07:32 SP TYPE: TOTAL HIP OTHR DR: MD Dr. aTno Camacho MD Dr. Nana Yaa Koram, MD Dr. Steven Widmer, MD Raymond Eshenaur, PA-C Tissues: Hip, NOS Procedures: Decalcification bone/plaque Surgery Specimen Level IV Comments: @ Ordering doctor for DEC edited from to DR.SWIDME Idris TUBBS at 08/14/20920 @ Ordering doctor for SUIV edited from to DR.SWIDME Steinberg by SULY at 08/14/20920 @ Submitting doctor edited from to DR.SWIDME Idris TUBBS at 08/14/20920 HEADER OPERATION: ERAS, total hip anterior approach PRE-OP DIAGNOSIS: Right hip osteoarthritis with avascular necrosis TISSUE SUBMITTED: Femoral head MICROSCOPIC DIAGNOSIS Femoral head, total hip replacement/resection: Femoral head with focal changes consistent with avascular necrosis. A fragment of fibroconnective tissue with mild chronic inflammation. LEVI:koby 08/20/2020 MICROSCOPIC DESCRIPTION Slides are reviewed. GROSS DESCRIPTION Received is one container labeled with the patient's name and designated femoral head. The specimen consists of a femoral head measuring 4.5 x 5 x 5 cm. The portion of femoral neck is not seen. A portion of soft tissue attached at the resection margin of the femoral head measures 3 x 2 x 0.5 cm. The articular surface is partially detached from the underlying bone. Sections reveal a wedge shaped land-light yellow area underneath the articular cartilage, consistent with avascular necrosis measuring 3 x 2 cm. Landscape Drafter sections are submitted in three cassettes as follows: 1 - soft tissue, 2 & 3 - bone after decalcification. / LEVI:koby 08/14/20 TC:5 CPT: 14036, 10364
[2020-08-13] MEDS: Lactated Ringers 1,000 ML 999 ML IV ×2 (10:56→13:45)
[2020-08-13] MEDS: Acetaminophen 500 MG Tablet 1000 MG PO ×2 (11:02→20:49)
[2020-08-13] MEDS: Gabapentin 600 MG Tablet PO (11:02)
[2020-08-13] MEDS: Celecoxib 200 MG Capsule 400 MG PO (11:02)
[2020-08-13] MEDS: Scopolamine 1mg/72hr Patch 1 PATCH TD (11:03)
[2020-08-13 11:31] LABS: Bedside Glucose 143 mg/dL (70-110)
[2020-08-13] MEDS: Lactated Ringers 1,000 ML 75 ML IV (11:54)
[2020-08-13] MEDS: Cefazolin 2 GM in 0.9% Normal Saline 100 ML IV (12:21)
--- NOTE | 2020-08-13 12:26 | OP.PCM_ITS ---
Report of Operation Date of Procedure: 08/13/20 Pre-Operative Diagnosis: Right hip avascular necrosis with secondary osteo arthritis Post-Operative Diagnosis: Right hip avascular necrosis with secondary osteoarthritis Surgery/Procedure Performed:: Right minimally invasive direct anterior hip replacement Description of Surgical Findings:: Stable hip with equal leg lengths stretch machine operator: Primitivo Strong Type of Anesthesia:: Spinal Anesthesiologist: Heladio Garcia Special Medications: 2 g Ancef, 1 g TXA at incision, 1 g TXA closure, 10 mg Deca dron, joint cocktail (5 mg Duramorph, 30 mL of 0.5% Ropivicaine, 1000 units of epinephrine, 30 mg of Toradol) Specimen's removed: Bony cuts Estimated Blood Loss (mL): 250 Fluids Replaced: 1000 mL crystalloid Description of Procedure: Components used: 1. Accolade 2 Steph femoral stem size 9 127? 2. [place] trident 2 acetabular shell size 56 mm 3. [place] X3 polyethylene F 4. Steph Biolox delta 36mm, -2.5 mm femoral head Brief history operative indications: 54 yo m who failed conservative measures for their hip osteoarthritis. X-rays were consistent with osteoarthritis including joint space narrowing, osteophyte formation and subchondral cysts. Total hip replacement was discussed with the patient with risks and benefits including but not limited to blood loss, DVTs, PEs, neurovascular damage, dislocation, general risks of anesthesia including loss of life. Patient demonstrated an understanding medical clearance is obtained the patient was consented for surgery. Procedure: On the date of procedure the patient's R hip was marked in the preoperative area. Patient was then taken back to the operating room where anesthesia assumed control of the C-spine and airway and administered anesthetic. Patient was transferred to the operating table and placed in the supine position. The hips were placed at the break of the bed and a sacral bump was placed. The R lower extremity was then prepped out in a sterile fashion using chlorhexidine while the surgeon scrubbed. The PA was vital in the positioning of the patient. Upon reentering the room the R lower extremity was draped in the standard orthopedic fashion and the incision was marked. A timeout was called and everyo ne agreed upon the side, the site, the procedure be performed, antibody given, and patient's identity. At this time incision was made through skin, subcutaneous tissue, and fat down to fascia. The fascia was then incised and the TFL was retracted laterally. A retractor was placed on the lateral border of the femoral neck. Attention was directed to the inferior portion of the approach and all crossing vessels were identified and appropriately coagulated. A retractor was then placed on the medial portion of the femoral neck. The anterior capsule was then cleared of all soft tissue and then H shaped capsulotomy was made. The retractors were then placed inside the capsule. The femoral neck was identified and a cleanup cut was made. At this time a power corkscrew was used to remove the femoral head. Attention was then turned toward the acetabulum where the soft tissues were appropriately retracted and the acetabulum was sequentially reamed to 56 mm. A 56 mm cup was then selected and impacted into place. Acetabular liner was impacted into place and locking mechanism was verified. The position of the acetabular cup was then verified under live fluoroscopy. Attention was then turned to the femur. Soft tissue releases on the medial and lateral femoral neck were appropriately done, the leg was externally rotated and lateralized. A Park retractor was placed medially and proximally to the greater trochanter this allowed appropriate visualization and exposure of the femoral canal. Rongeour was then used to remove excess lateral bone. A canal finder and entry broach were used to open the proximal canal. Once we verified we were down the femoral canal we subsequently broached up to a size 9 femur. The appropriate neck was placed in the previously selected head was trialed with a -2.5 mm neck. Traction was pulled and the hip was reduced with internal rotation. Once it was appropriately reduced and stability was checked. There was minimal shuck, equal leg lengths and appropriate stability with hyperextension and external rotation as well as with 90? flexion and internal rotation. Fluoroscopy was then also used to verify the position of the components and leg lengths using the contralateral side for comparison. The trial components were then dislocated the proximal femur was again exposed and the components were removed from the wound. The final components were verified and opened. The wound was copiously irrigated out with normal saline. The acetabulum was checked for any residual debris. The final components were placed and impacted. Traction and internal rotation were again used to reduce the hip. After adequate reduction the hip remained stable with appropriate leg lengths. The final components were once again checked with live fluoroscopy and were found to be satisfactory. The wound was then copiously irrigated with normal saline once more, and hemostasis was obtained. Closure was then done using #1 Vicryl runner to close the fascia. A 2-0 vicryl interuppted sutures were used to close the subcutaneous skin. A 3-0 Monocryl and Steri-Strips were used for final skin closure. A Silverlon dressing was placed. Patient was awakened by anesthesia and transferred to the [place] [facility]. Patient was then transferred to the PACU for recovery. Postoperative plan: Patient will get 24 hours postop antibiotics. Patient will get in-house physical therapy and will be weight-bear as tolerated. Patient will follow up in office in 2 weeks for a wound check and x-rays. Aspirin 81 mg twice daily. During the course of the procedure the physician rail project engineer (PE) played a vital role. Their intimate knowledge of my steps in the procedure aided in safe and expedient completion of the procedure. The PE played a vital rolls in posit ioning particularly in obtaining the appropriate positioning of the sacral bump. The PE was also vital in the retraction of soft tissues during the exposure and especially the femoral work as this is a vital part of the procedure to prevent complications and fractures. The PE was also vital and protecting soft tissues during times of bony cuts and reaming. He also played a vital role in closure with my direct supervision. The PE was also important during reduction and dislocation of the joint and trials intraoperatively. - Complications No intraoperative complications - Admit VTE Documentation VTE Present on Admission: No VTE Mechan Device Prophylaxis: SCD's, Thigh High LATOYA Hose VTE Pharm Prophylaxis ordered?: Yes
[2020-08-13] MEDS: dexAMETHasone 10 MG/ML Vial IV (12:45)
--- NOTE | 2020-08-13 13:09 | RAD_ITS ---
STUDY: X-RAY - PELVIS AND RIGHT HIP REASON FOR EXAM: Male, 54 years old. PAIN TECHNIQUE: 5 intraoperative views of the pelvis and hip. COMPARISON: None. FINDINGS: The initial image demonstrates bilateral hip prostheses. Subsequent images demonstrate a right total hip. The prosthetic components articulate normally with each other. There is no loosening of the underlying bone or evidence of osseous fracture. RAD/Hip 1 view with Pelvis IMPRESSION: Intraoperative images of a right hip replacement. Electronically Signed: Viraj Gilbert DO at 21:58 EST Tel [phone], Service support ,
--- NOTE | 2020-08-13 14:16 | RAD_ITS ---
STUDY: X-RAY - PELVIS AND RIGHT HIP REASON FOR EXAM: Postop right hip arthroplasty. TECHNIQUE: 2 views of the pelvis and hip. COMPARISON: Radiographs 05/09/2019. FINDINGS: There is postoperative gas in the soft tissues. There is vascular calcification. Normal bilateral superior and inferior pubic rami. Normal pubic symphysis. Normal bilateral ischial tuberosities. There is a right hip arthroplasty without evidence of complication. RAD/Hip Min 2 Views (Portable) IMPRESSION: Uncomplicated right hip arthroplasty. Electronically Signed: William Coffman MD at 15:04 EST Tel , Service support ,
[2020-08-13] MEDS: Lactated Ringers 1,000 ML 125 ML IV (14:59)
[2020-08-13] MEDS: oxyCODONE 5 MG Tablet PO ×2 (16:48→20:49)
[2020-08-13] MEDS: Ensure Surgery 237 ML LIQUID PO (18:08)
--- NOTE | 2020-08-13 19:32 | PCM.CONS.GEN ---
Problem List (1) Status post right hip replacement Status: Acute (2) Depression Status: Chronic (3) Smoking greater than 25 pack years Status: Chronic (4) Hypertension Status: Chronic (5) COPD (chronic obstructive pulmonary disease) Status: Chronic Qualifiers: COPD type: unspecified COPD Qualified Code(s): J44.9 - Chronic obstructive pulmonary disease, unspecified Reason for Consult Date of Consultation: 08/13/20 Reason for Consultation: Postoperative medical management. History of Present Illness: The patient is a 54 year old M with past medical history as mentioned above underwent elective right hip replacement today and I am seeing this patient in consultation for postoperative medical management. Currently, patient complained of right hip pain, around 4-5 out of 10 in severity, getting better, not radiating and no aggravating or relieving factors. He denies any other complaints. He had a history of hypertension which has been under control on lisinopril/HCTZ. He had a history of COPD, never been on home oxygen, has been on inhalers and he still smokes. He had a history of depression and he has been on escitalopram. Preoperative routine blood work that was done on July 28, 2020 reviewed and was unremarkable. Currently, patient is on IV cefazolin for perioperative prophylaxis, on IV morphine and OxyIR as needed for pain. Past Medical History Past Medical History (Chronic Problems): Chronic Problems (Last Updated 08/13/20 @ 19:[address] Tano Jacobo MD) Depression (Chronic) Smoking greater than 25 pack years (Chronic) H/O total hip arthroplasty (Chronic) Hypertension (Chronic) COPD (chronic obstructive pulmonary disease) (Chronic) Medical History: Medical History (Last Updated 08/13/20 @ 19:[address] Tano Jacobo MD) Hypertension (Chronic) I10 COPD (chronic obstructive pulmonary disease) (Chronic) J44.9 Erectile dysfunction (Inactive) N52.9 Allergies No Known Allergies Allergy (Verified 08/04/20 11:25) Home Medications: Ambulatory Orders Medication Instructions Recorded Escitalopram Oxalate 10 mg PO DAILY 04/01/19 Hydroxyzine HCl 25 mg PO DAILY PRN PRN 04/01/19 Albuterol IH (ProAir) [Proair Hfa] 2 puff INHALATION Q6H PRN PRN 04/23/19 Lisinopril/Hydrochlorothiazide 1 tab PO DAILY 04/23/19 [Lisinopril-Hctz 20-25 mg Tab] fluticasone fur. 100 mcg-umeclid 1 inh INHALATION DAILY #60 ea 06/25/20 62.5 mcg-vilant 25 mcg inhalat.powder albuterol sulfate 2.5 mg INHALATION Q4H PRN PRN #180 07/15/20 ml Surgical History: Surgical History (Last Updated 08/13/20 @ 19:[address] Tano Jacobo MD) H/O total hip arthroplasty (Chronic) Z96.649 H/O knee surgery (Inactive) Z98.890 Surgical History: total knee arthroplasty Psychiatric History: Depression Lives: Spouse/ Significant Other Smoking Status: Current every day smoker Tobacco Use: Cigarettes Alcohol: None Drugs: None - *Family History Maternal History Items: No pertinent history Paternal History Items: No pertinent history Review of Systems Constitutional: Denies: Anorexia, Chills, Fever, Weakness Eyes: Denies: Blurred vision, Double vision, Drainage, Redness HEENT: Denies: Difficulty Hearing, Ear Pain, Eye Pain, Nasal Congestion, Post Nasal Drip, Sore Throat Cardiovascular: Denies: Chest Pain, Chest Pressure, Edema, Heaviness, Light Headedness, Palpitations, Syncope Respiratory: Denies: Cough, Pleuritic Pain, Shortness of Breath, Sputum production, Wheezing Gastrointestinal: Denies: Abdominal Pain, Constipation, Diarrhea, Nausea, Vomiting Genitourinary: Denies: Dysuria, Frequency, Hematuria Musculoskeletal: Reports: Joint Pain. Denies: Arm Pain, Back Pain, Foot Pain Skin: Denies: Dryness, Rash Neurological: Denies: Balance problems, Double vision, Change in Speech, Slurred speech, Confusion, Headaches, Numbness Psychiatric: Reports: Depression. Denies: Anxiety Endocrine: Denies: Change in Body Habitus, Polydipsia, Polyuria - Physical Exam Vitals/I&O's: Vital Signs Temp Pulse Resp BP Pulse Ox 98.3 F 74 18 128/64 H 98 08/13/20 17:55 08/13/20 17:55 08/13/20 17:55 08/13/20 17:55 08/13/20 17:55 Oxygen Flow Rate (L/min) 6 Oxygen Delivery Method Room Air Weight: 162 lb 7.691 oz Body Mass Index (BMI) 22.0 Intake and Output for Last 24 Hours 08/11/20 08/12/20 08/13/20 23:59 23:59 23:59 Intake Total 4084.5 / 4084.5 Balance 4084.5 / 4084.5 General: Alert, Oriented x3, Cooperative, No apparent distress HEENT: Atraumatic, PERRLA, EOMI, Normocephalic Oral: Moist Mucosa, No Gingival or Mucosal Lesions/ Ulcerations Neck: Supple, No JVD, Negative Carotid Bruits, Trachea Midline, Thyroid Normal Size and Texture Lungs: Clear to auscultation, Normal air movement, No rhonchi, No wheeze, No rales Cardiovascular: Regular rate, Regular Rhythm, Normal S1, Normal S2, PMI Normal Abdomen: Bowel Sounds Present, Soft, Non Tender, Non-Distended, No Hepato-splenomegaly Extremities: No clubbing, No cyanosis, No edema Skin: No rashes, No breakdown Lymphatic: No Cervical, Supraclavicular, or Inguinal Adenopathy Neurological: Cranial nerves II-XII grossly intact, Motor Exam 5/5 strength throughout Psych/Mental Status: Normal Affect, Appropriate, Alert and oriented to time, place, person, mood and affect Microbiology Past 72 Hours 08/12/20 11:05 Interface Orders SARS-CoV-2 Antigen (Rapid) - Final Laboratory Results 08/13/20 10:40: POC Glucose 143 H Clinical Impression(s) from Imaging Studies Hip X-Ray 08/13/20 14:16 IMPRESSION: Uncomplicated right hip arthroplasty. Electronically Signed: William Coffman MD at 15:04 EST Tel , Service support , Current Medications Acetaminophen (Acetaminophen 500 Mg Tablet) 1,000 mg PO Q8 [facility] Last Admin: 08/13/20 16:45 Dose: Not Given Documented by: Albuterol Sulfate (Albuterol 2.5 Mg/3 Ml Vial.Neb.) 2.5 mg INHALATION Q2H PRN PRN PRN Reason: SOB &/OR WHEEZING Aspirin (Aspirin 81 Mg Tab.Chew) 81 mg PO BIDCM [facility] Enteral Nutritional Formula (Ensure Surgery 237 Ml Liquid) 237 ml PO TIDCM [facility] Last Admin: 08/13/20 18:08 Dose: 237 ml Documented by: Famotidine (Famotidine 20 Mg Tablet) 20 mg PO DAILY [facility] Lactated Ringer's () 1,000 mls @ 125 mls/hr IV .Q8H [facility] Stop: 08/13/20 22:29 Last Admin: 08/13/20 14:59 Dose: 125 mls/hr Documented by: Lactated Ringer's () 1,000 mls @ 125 mls/hr IV .Q8H [facility] Cefazolin Sodium () 1 gm in 50 mls @ 150 mls/hr IV Q8H [facility] Stop: 08/14/20 04:49 Ketorolac Tromethamine (Ketorolac 15 Mg/Ml Vial) 15 mg IV Q6H PRN PRN PRN Reason: Pain Score 1-5 Stop: 08/15/20 12:23 Meloxicam (Meloxicam 7.5 Mg Tablet) 7.5 mg PO BID [facility] Morphine Sulfate (Morphine 2 Mg/Ml Syringe) 2 - 4 mg IV Q2H PRN PRN PRN Reason: Pain Score 4-10 Morphine Sulfate (Morphine 4 Mg/Ml Syringe) 2 - 4 mg IV Q2H PRN PRN PRN Reason: Pain Score 4-10 Ondansetron HCl (Ondansetron 4 Mg/2 Ml Vial) 4 mg IV Q8H PRN PRN PRN Reason: NAUSEA Oxycodone HCl (Oxycodone 5 Mg Tablet) 5 - 10 mg PO Q4H PRN PRN PRN Reason: Pain Score 4-10 Last Admin: 08/13/20 16:48 Dose: 10 mg Documented by: Promethazine HCl (Promethazine 25 Mg/Ml Syringe) 12.5 mg IM Q6H PRN PRN; Protocol PRN Reason: NAUSEA/VOMITING Senna/Docusate Sodium (Senna/Docusate Sodium 1 Tablet) 2 tablet PO BID [facility] Sodium Chloride (0.9% Saline Lock 10 Ml Syringe) 10 - 40 ml IV UD PRN PRN Reason: SALINE FLUSH Assessment/Plan All Active Problems (Last Updated 08/13/20 @ 19:[address] 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 Currently, patient is complaining of right hip pain but manageable. He is on IV morphine and OxyIR as needed for pain. Preop routine blood work reviewed, was unremarkable. He is on IV cefazolin for perioperative prophylaxis. Orthopedic surgery on the case. Plan to continue same treatment, CBC and BMP ordered for tomorrow. #2 hypertension: Blood pressure stable, resume HCTZ/lisinopril. #3 COPD: Currently, he is on room air, pulse ox is maintained. No complaints. Plan for albuterol as needed, DuoNeb every 6 hours. #4 depression: Continue escitalopram. #5 DVT prophylaxis: SCDs. This note was generated with [employer] dictation software. It may contain incorrect words, spelling, and punctuation that were not noted in checking the note before signing. Inpatient E&M: 29618 Init Hosp L2
[2020-08-13] MEDS: Cefazolin 1 GM/50 ML BAG IV (20:44)
[2020-08-13] MEDS: Senna/Docusate Sodium 1 Tablet 2 TABLET PO (20:49)
[2020-08-13] MEDS: Aspirin 81 MG TAB.CHEW PO (20:49)
[2020-08-13] MEDS: Lactated Ringers 1,000 ML 100 ML IV (21:04)
[2020-08-13] MEDS: Ipratropium/Albuterol Sulfate 3 ML AMPUL.NEB INHALATION (23:29)
[2020-08-14 03:02] VITALS: BP 129/85; PULSE 75; RESP 16; TEMP 36.6; O2SAT 94
[2020-08-14] MEDS: oxyCODONE 5 MG Tablet PO ×3 (03:02→12:31)
[2020-08-14] MEDS: Cefazolin 1 GM/50 ML BAG IV (05:05)
[2020-08-14] MEDS: Acetaminophen 500 MG Tablet 1000 MG PO (05:05)
[2020-08-14 05:19] LABS: Hematocrit 31.8 % (40-54); Hemoglobin 10.6 g/dL (13.0-16.5); Mean Corp Hgb Conc 33.3 g/dL (32-36); Mean Corpuscular Hgb 30.1 pg (27.0-32.0); Mean Corpuscular Volume 90.3 fL (80-94); Mean Platelet Vol. 9.7 fl (6.2-12.0); Platelet Count 178 K/mm3 (150-450); RBC Distribution Width CV 12.2 % (11.6-14.6); RBC Distribution Width SD 40.1 fl (35.1-43.9); Red Blood Count 3.52 M/mm3 (4.6-6.2); White Blood Count 16.3 K/mm3 (4.4-11.0)
[2020-08-14 05:38] LABS: Anion Gap 5 (5-15); BUN 21 mg/dL (7-18); BUN/Creat Ratio 17.9 RATIO (10-20); Calcium,Total 8.9 mg/dL (8.5-10.1); Chloride 103 mmol/L (98-107); Creatinine, Serum 1.17 mg/dL (0.70-1.30); EST Glomerular Filtration Rate 69 mL/min (>60); Est Glom Filt Rate - Afr Amer 84 mL/min (>60); Estimated Creatinine Clearance 76.99 ml/min; Glucose 123 mg/dL (74-106); Potassium 4.3 mmol/L (3.5-5.1); Sodium Level 133 mmol/L (136-145)
[2020-08-14] MEDS: 0.9% Saline Lock 10 ML Syringe IV (05:51)
--- NOTE | 2020-08-14 06:33 | PCM.PN.ORT ---
Patient Problems: Active and Suspected Problems (Last Updated 08/13/20 @ 19:[address] Tano Jacobo MD) Status post right hip replacement (Acute) Subjective: The patient was sitting in bed upon examination. Patient denies any chest pain, shortness of breath, dizziness, lightheadedness, nausea or vomiting, or calf pain. Pain is controlled on medications. No adverse overnight events. Overall patient states he is doing very well and the pain is significantly improved from prior to surgery. He has been up walking the halls and to the bathroom tolerating the right hip very well. Patient does wish to go home today. Objective: Vital signs stable and afebrile. Patient is able to plantarflex and dorsiflex actively. Sensation is intact to light touch to saphenous, sural, superficial and deep peroneal, and tibial distribution. Dressing is clean dry and intact. Negative Homans bilaterally, negative signs and symptoms of DVT. - Physical Exam Vitals/I&O's: Vital Signs Temp Pulse Resp BP Pulse Ox 97.9 F 75 16 129/85 H 94 08/14/20 03:02 08/14/20 03:02 08/14/20 03:02 08/14/20 03:02 08/14/20 03:02 Oxygen Flow Rate (L/min) 6 Oxygen Delivery Method Room Air Weight: 73.7 kg Body Mass Index (BMI) 22.0 Intake and Output for Last 24 Hours 08/12/20 08/13/20 08/14/20 23:59 23:59 23:59 Intake Total 5013.25 / 5013.25 1646.25 / 1646.25 Balance 5013.25 / 5013.25 1646.25 / 1646.25 General: Alert, Oriented x3, Cooperative, No apparent distress Microbiology Past 72 Hours 08/12/20 11:05 Interface Orders SARS-CoV-2 Antigen (Rapid) - Final Laboratory Results 08/13/20 10:40: POC Glucose 143 H 08/14/20 05:04: WBC 16.3 H, RBC 3.52 L, Hgb 10.6 L, Hct 31.8 L, MCV 90.3, MCH 30.1, MCHC 33.3, RDW Std Deviation 40.1, RDW Coeff of Jazzmine 12.2, Plt Count 178, MPV 9.7 08/14/20 05:04: Sodium 133 L, Potassium 4.3, Chloride 103, Carbon Dioxide 25.0, Anion Gap 5, BUN 21 H, Creatinine 1.17, Estim Creat Clear Calc 76.99, Est GFR (MDRD) Af Amer 84, Est GFR (MDRD) Non-Af 69, BUN/Creatinine Ratio 17.9, Glucose 123 H, Calcium 8.9 Current Medications Acetaminophen (Acetaminophen 500 Mg Tablet) 1,000 mg PO Q8 [facility] Last Admin: 08/14/20 05:05 Dose: 1,000 mg Documented by: Albuterol Sulfate (Albuterol 2.5 Mg/3 Ml Vial.Neb.) 2.5 mg INHALATION Q4H PRN PRN PRN Reason: SOB &/OR WHEEZING Albuterol/Ipratropium (Ipratropium/Albuterol Sulfate 3 Ml Ampul.Neb) 3 ml INHALATION Q6H.RT [facility] Last Admin: 08/13/20 23:29 Dose: 3 ml Documented by: Aspirin (Aspirin 81 Mg Tab.Chew) 81 mg PO BIDCM [facility] Last Admin: 08/13/20 20:49 Dose: 81 mg Documented by: Enteral Nutritional Formula (Ensure Surgery 237 Ml Liquid) 237 ml PO TIDCM [facility] Last Admin: 08/13/20 18:08 Dose: 237 ml Documented by: Escitalopram Oxalate (Escitalopram Oxalate 10 Mg Tablet) 10 mg PO DAILY [facility] Famotidine (Famotidine 20 Mg Tablet) 20 mg PO DAILY [facility] Hydrochlorothiazide (Hydrochlorothiazide 25 Mg Tablet) 25 mg PO DAILY [facility] Ketorolac Tromethamine (Ketorolac 15 Mg/Ml Vial) 15 mg IV Q6H PRN PRN PRN Reason: Pain Score 1-5 Stop: 08/15/20 12:23 Lisinopril (Lisinopril 20 Mg Tablet) 20 mg PO DAILY [facility] Meloxicam (Meloxicam 7.5 Mg Tablet) 7.5 mg PO BID [facility] Morphine Sulfate (Morphine 2 Mg/Ml Syringe) 2 - 4 mg IV Q2H PRN PRN PRN Reason: Pain Score 4-10 Morphine Sulfate (Morphine 4 Mg/Ml Syringe) 2 - 4 mg IV Q2H PRN PRN PRN Reason: Pain Score 4-10 Ondansetron HCl (Ondansetron 4 Mg/2 Ml Vial) 4 mg IV Q8H PRN PRN PRN Reason: NAUSEA Oxycodone HCl (Oxycodone 5 Mg Tablet) 5 - 10 mg PO Q4H PRN PRN PRN Reason: Pain Score 4-10 Last Admin: 08/14/20 03:02 Dose: 10 mg Documented by: Promethazine HCl (Promethazine 25 Mg/Ml Syringe) 12.5 mg IM Q6H PRN PRN; Protocol PRN Reason: NAUSEA/VOMITING Senna/Docusate Sodium (Senna/Docusate Sodium 1 Tablet) 2 tablet PO BID [facility] Last Admin: 08/13/20 20:49 Dose: 2 tablet Documented by: Sodium Chloride (0.9% Saline Lock 10 Ml Syringe) 10 - 40 ml IV UD PRN PRN Reason: SALINE FLUSH Last Admin: 08/14/20 05:51 Dose: 10 ml Documented by: Medical Necessity - Tobacco Use Smoking Status: Current every day smoker Tobacco Use: Cigarettes Assessment/Plan All Active Problems (Last Updated 08/13/20 @ 19:[address] Tano Jacobo MD) Status post right hip replacement (Acute) 1. S/P right direct anterior total hip arthroplasty POD #1 2. Continue Pain Medications: Tylenol, meloxicam, oxycodone. I did discuss with the patient potential for serotonin syndrome with his antidepressant. He did voice understanding and will monitor for any of those symptoms. We also discussed no alcohol with Tylenol and oxycodone 3. DVT Prophylaxis: Take 81 mg aspirin twice daily for 4 weeks postoperatively for DVT prophylaxis 4. PT/OT: Weightbearing as tolerated 5. H & H: 10.6/31.8, asymptomatic. Postoperative anemia secondary to acute blood loss from surgery without any intra operative complications. 6. Reactive leukocytosis: Currently 16.3, afebrile. Patient did receive Decadron intraoperatively 7. Continue postoperative medical management per medicine 8. Encouraged Incentive Spirometry 9. Disposition: Plan will be for probable discharge home today as long as patient tolerates therapy and pain is controlled. Prescriptions will be E scribed to [facility]. Patient will follow-up per postop instructions. Patient does have outpatient physical therapy established. Also discussed driving restrictions for 6 weeks postoperatively. I have reviewed the [place] Automated Rx Reporting System (OARRS) report for this patient for refill pattern and other prescriber involvement as part of the appropriate surveillance for the provision of acute and chronic controlled medications. The report was requested and reviewed on the date of this entry and was considered in the prescribing process.
--- NOTE | 2020-08-14 06:39 | DCINST_ITS ---
Discharge Diet: No Restrictions Discharge Activity: May Not Drive - while taking narcotic pain medications. May shower in (days): 1 - Dressing must be intact to skin. Turn dressing away from water Ice area for (Minutes): 20 - Every 1-2 hours while awake Weight Bearing Status: Weight bearing as tolerated Elevate: Operative Extremity Additional Activity Instructions:: Wear elastic stockings for 2 weeks. DO NOT use alcohol with narcotic pain medication. DO NOT make important decisions while taking narcotic medication. If you have problems with taking your medication (rash, itching, nausea, etc.) call the office at once. Call your doctor if your incision/area has: Increased Pain/ Swelling, Increased Redness, Foul Smelling Discharge Call your doctor if you observe: Fever of 101 or Higher Remove Dressing in (days):: 4 - Okay to remove dressing on August 18, 2020 Additional Instructions: Follow [facility] Post-op Instructions. Once postoperative dressing has been removed only use gentle soap and water over the incision. Do not use any ointments, Neosporin, salves, alcohol pads over the incision for 6 weeks postoperatively. Do not submerge underwater for 6 weeks postoperatively. No driving until 6 weeks postoperatively and must be off all narcotics and able to walk 100 feet without the use of cane or walker. When taking oxycodone and your escitalopram, look out for symptoms for serotonin syndrome including: Confusion, hallucinations, seizures, extreme changes in blood pressure, increased heart rate, fevers, excessive sweating, muscle spasms or stiffness, tremors, incoordination, nausea/vomiting, or diarrhea. If experiencing these please contact our office or your primary care office immediately. Must avoid alcohol use with Tylenol and oxycodone. Allergies/Adverse Reactions: Allergies No Known Allergies Allergy (Verified 08/04/20 11:25) Medications to take at Discharge Escitalopram Oxalate 10 mg PO DAILY 04/01/19 Hydroxyzine HCl 25 mg PO DAILY PRN PRN 04/01/19 Albuterol IH (ProAir) [Proair Hfa] 2 puff INHALATION Q6H PRN PRN 04/23/19 Lisinopril/Hydrochlorothiazide [Lisinopril-Hctz 20-25 mg Tab] 1 tab PO DAILY 04/23/19 fluticasone fur. 100 mcg-umeclid 62.5 mcg-vilant 25 mcg inhalat.powder 1 inh INHALATION DAILY #60 ea 06/25/20 albuterol sulfate 2.5 mg INHALATION Q4H PRN PRN #180 ml 07/15/20 Acetaminophen [Tylenol] 1,000 mg PO Q8 #100 tab 08/14/20 Aspirin [Aspirin, Baby] 81 mg PO BIDCM #60 tab 08/14/20 Famotidine [Pepcid] 20 mg PO DAILY #30 tab 08/14/20 Meloxicam [Mobic] 7.5 mg PO BID #60 tab 08/14/20 Oxycodone [Oxyir] 5 - 10 mg PO Q4H PRN PRN 5 Days #60 tablet 08/14/20 Senna/Docusate Sodium [Senokot-S] 2 tab PO BID #14 tab 08/14/20 The following prescriptions were given: Aspirin [Aspirin, Baby] 81 mg PO BIDCM #60 tab Transmission Status: Pending to [facility] Meloxicam [Mobic] 7.5 mg PO BID #60 tab Transmission Status: Pending to [facility] Oxycodone [Oxyir] 5 - 10 mg PO Q4H PRN PRN 5 Days #60 tablet PRN Reason: Pain Score 4-10 Transmission Status: Sent to [facility] Famotidine [Pepcid] 20 mg PO DAILY #30 tab Transmission Status: Pending to [facility] Senna/Docusate Sodium [Senokot-S] 2 tab PO BID #14 tab Transmission Status: Pending to [facility] Acetaminophen [Tylenol] 1,000 mg PO Q8 #100 tab Transmission Status: Pending to [facility] Primary Care Physician: Feliciano Sanz MD [Primary Care Provider] - Test Results: Test results from this visit will be discussed in further detail at your follow- up appointment, if applicable. Please Follow Up With: Physical Therapy @ [facility] When: 08/18/20 @ 2:00 pm Please Follow Up With: Primitivo Strong PA-C When: 08/27/20 @ 10:00 am
[2020-08-14 07:12] VITALS: PULSE 82; RESP 20
[2020-08-14] MEDS: Ipratropium/Albuterol Sulfate 3 ML AMPUL.NEB INHALATION (07:12)
[2020-08-14 08:00] VITALS: BP 100/65; PULSE 76; RESP 18; TEMP 36.7; O2SAT 95
[2020-08-14] MEDS: Ensure Surgery 237 ML LIQUID PO (08:10)
[2020-08-14] MEDS: Aspirin 81 MG TAB.CHEW PO (08:11)
[2020-08-14] MEDS: Senna/Docusate Sodium 1 Tablet 2 TABLET PO (08:11)
[2020-08-14] MEDS: Famotidine 20 MG Tablet PO (08:11)
[2020-08-14] MEDS: Escitalopram Oxalate 10 MG Tablet PO (08:16)
--- NOTE | 2020-08-14 09:40 | CASEMGMT ---
LUNA MILIAN Face to Face with patient for initial transition planning/care coordination assessment. RN MAICOL introduced self and role at [facility]. Patient sitting up in the chair, alert and oriented. Patient willing to participate in assessment and is able to answer all questions appropriately. Care providers, pharmacy, and demographics verified. Patient wishes to discharge home, denies need for home health at this time. Patient states he has no further needs or concerns at this time. CM to follow for discharge planning needs that may arise. PCP: Yvon Specialists: robin George Pharmacy: [facility] Retail Insurance: [facility] [employer] Prescription Benefit: yes Living Will/HPOA: no, no LNOK: Living Arrangements: Patient liveswith in a single story home with 4 steps to enter with rail. Patient reports he was independent at home. Transportation: DME/HHC: Patient states he has a raised toilet seat, walker, carpet cutter and a garden tub with a seat. Denies further DME. He has not previously had HHC. Disposition Plan: Patient to [place] home with outpatient therapy at [facility], family support and follow up plans in place.
[2020-08-14] MEDS: hydroCHLOROthiazide 25 MG Tablet PO (10:16)
[2020-08-14] MEDS: Lisinopril 20 MG Tablet PO (10:17)
--- NOTE | 2020-08-14 11:21 | PCM.PN.HOSP ---
Patient Problems: Active and Suspected Problems (Last Updated 08/13/20 @ 19:[address] Tano Jacobo MD) Status post right hip replacement (Acute) Subjective: Patient seen and examined. He has no complaints today and pain is well controlled. Hospitalist service was consulted for medical management. Today's postop day 1 for right hip replacement. He has remained hemodynamically stable Vitals/I&O's: Vital Signs Temp Pulse Resp BP Pulse Ox 98.1 F 76 18 100/65 95 08/14/20 08:00 08/14/20 08:00 08/14/20 08:00 08/14/20 08:00 08/14/20 08:00 Oxygen Flow Rate (L/min) 6 Oxygen Delivery Method Room Air Weight: 162 lb 7.691 oz Body Mass Index (BMI) 22.0 Intake and Output for Last 24 Hours 08/12/20 08/13/20 08/14/20 23:59 23:59 23:59 Intake Total 5013.25 / 5013.25 1646.25 / 1646.25 Balance 5013.25 / 5013.25 1646.25 / 1646.25 General: Alert, Oriented x3, Cooperative, No apparent distress HEENT: Atraumatic, PERRLA, EOMI, Normocephalic Oral: Moist Mucosa Neck: Supple, No JVD, Negative Carotid Bruits Lungs: Clear to auscultation, Normal air movement, No rhonchi, No wheeze, No rales Cardiovascular: Regular rate, Regular Rhythm, Normal S1, Normal S2, No murmurs Abdomen: Bowel Sounds Present, Soft, Non Tender Extremities: No edema, Capillary Refill Less than 3 Seconds Skin: No rashes, No breakdown Musculoskeletal: No Tenderness to Palpation of Joints or Extremities Lymphatic: No Cervical, Supraclavicular, or Inguinal Adenopathy Neurological: Cranial nerves II-XII grossly intact, Neuro grossly intact, Motor Exam 5/5 strength throughout Psych/Mental Status: Normal Affect, Appropriate, Alert and oriented to time, place, person, mood and affect Microbiology Past 72 Hours 08/12/20 11:05 Interface Orders SARS-CoV-2 Antigen (Rapid) - Final Laboratory Results 08/13/20 10:40: POC Glucose 143 H 08/14/20 05:04: WBC 16.3 H, RBC 3.52 L, Hgb 10.6 L, Hct 31.8 L, MCV 90.3, MCH 30.1, MCHC 33.3, RDW Std Deviation 40.1, RDW Coeff of Jazzmine 12.2, Plt Count 178, MPV 9.7 08/14/20 05:04: Sodium 133 L, Potassium 4.3, Chloride 103, Carbon Dioxide 25.0, Anion Gap 5, BUN 21 H, Creatinine 1.17, Estim Creat Clear Calc 76.99, Est GFR (MDRD) Af Amer 84, Est GFR (MDRD) Non-Af 69, BUN/Creatinine Ratio 17.9, Glucose 123 H, Calcium 8.9 Diagnostic Data Hip/Pelvis X-Ray 08/13/20 13:09 IMPRESSION: Intraoperative images of a right hip replacement. Electronically Signed: Viraj Gilbert DO at 21:58 EST Tel [phone], Service support , Hip X-Ray 08/13/20 14:16 IMPRESSION: Uncomplicated right hip arthroplasty. Electronically Signed: William Coffman MD at 15:04 EST Tel , Service support , Current Medications Acetaminophen (Acetaminophen 500 Mg Tablet) 1,000 mg PO Q8 [facility] Last Admin: 08/14/20 05:05 Dose: 1,000 mg Documented by: Albuterol Sulfate (Albuterol 2.5 Mg/3 Ml Vial.Neb.) 2.5 mg INHALATION Q4H PRN PRN PRN Reason: SOB &/OR WHEEZING Albuterol/Ipratropium (Ipratropium/Albuterol Sulfate 3 Ml Ampul.Neb) 3 ml INHALATION Q6H.RT [facility] Last Admin: 08/14/20 07:12 Dose: 3 ml Documented by: Aspirin (Aspirin 81 Mg Tab.Chew) 81 mg PO BIDCM [facility] Last Admin: 08/14/20 08:11 Dose: 81 mg Documented by: Enteral Nutritional Formula (Ensure Surgery 237 Ml Liquid) 237 ml PO TIDCM [facility] Last Admin: 08/14/20 08:10 Dose: 237 ml Documented by: Escitalopram Oxalate (Escitalopram Oxalate 10 Mg Tablet) 10 mg PO DAILY [facility] Last Admin: 08/14/20 08:16 Dose: 10 mg Documented by: Famotidine (Famotidine 20 Mg Tablet) 20 mg PO DAILY [facility] Last Admin: 08/14/20 08:11 Dose: 20 mg Documented by: Hydrochlorothiazide (Hydrochlorothiazide 25 Mg Tablet) 25 mg PO DAILY [facility] Last Admin: 08/14/20 10:16 Dose: 25 mg Documented by: Ketorolac Tromethamine (Ketorolac 15 Mg/Ml Vial) 15 mg IV Q6H PRN PRN PRN Reason: Pain Score 1-5 Stop: 08/15/20 12:23 Lisinopril (Lisinopril 20 Mg Tablet) 20 mg PO DAILY [facility] Last Admin: 08/14/20 10:17 Dose: 20 mg Documented by: Meloxicam (Meloxicam 7.5 Mg Tablet) 7.5 mg PO BID [facility] Morphine Sulfate (Morphine 2 Mg/Ml Syringe) 2 - 4 mg IV Q2H PRN PRN PRN Reason: Pain Score 4-10 Morphine Sulfate (Morphine 4 Mg/Ml Syringe) 2 - 4 mg IV Q2H PRN PRN PRN Reason: Pain Score 4-10 Ondansetron HCl (Ondansetron 4 Mg/2 Ml Vial) 4 mg IV Q8H PRN PRN PRN Reason: NAUSEA Oxycodone HCl (Oxycodone 5 Mg Tablet) 5 - 10 mg PO Q4H PRN PRN PRN Reason: Pain Score 4-10 Last Admin: 08/14/20 08:10 Dose: 10 mg Documented by: Promethazine HCl (Promethazine 25 Mg/Ml Syringe) 12.5 mg IM Q6H PRN PRN; Protocol PRN Reason: NAUSEA/VOMITING Senna/Docusate Sodium (Senna/Docusate Sodium 1 Tablet) 2 tablet PO BID [facility] Last Admin: 08/14/20 08:11 Dose: 2 tablet Documented by: Sodium Chloride (0.9% Saline Lock 10 Ml Syringe) 10 - 40 ml IV UD PRN PRN Reason: SALINE FLUSH Last Admin: 08/14/20 05:51 Dose: 10 ml Documented by: STROKE Vital Signs/Narrative: Vital Signs Temp Pulse Resp BP Pulse Ox 08/14/20 08:00 98.1 F 76 18 100/65 95 Medical Necessity - Tobacco Use Smoking Status: Current every day smoker Tobacco Use: Cigarettes Assessment/Plan All Active Problems (Last Updated 08/13/20 @ 19:[address] Tano Jacobo MD) Status post right hip replacement (Acute) #Right hip avascular necrosis and osteoarthritis s/p right anterior hip replacement today is POD 1 pain is well controlled. on IV cefazolin for prophylaxis orthopedic surgery on board incentive spirometry pain meds as per orthopedics #Hypertension: on HCTZ and lisinopril #COPD: not in exacerbation. On room air. Breathing treatment prn #Depression: on escitalopram DVT prophylaxis: as per orthopedics primary team OBSV E&M: [id number] Subsequent observation care L2
--- NOTE | 2020-08-14 12:00 | PHA.DC.MC ---
Pharmacy Service has performed discharge medication reconciliation and counseling for this patient. The patient was counseled on the following discharge medications and changes in medications for homegoing were reviewed. 1. TYLENOL 2. ASPIRIN 3. PEPCID 4. MOBIC 5. OXYCODONE 2. SENNA/DOCUSATE The Reason for Use, instructions for use, and potential side effects were reviewed for all new medications. The patient's questions regarding all of their medications were answered. The patient was able to verbally demonstrate an understanding of their discharge medications. Home Medications Escitalopram Oxalate 10 mg PO DAILY 04/01/19 Hydroxyzine HCl 25 mg PO DAILY PRN PRN 04/01/19 Albuterol IH (ProAir) [Proair Hfa] 2 puff INHALATION Q6H PRN PRN 04/23/19 Lisinopril/Hydrochlorothiazide [Lisinopril-Hctz 20-25 mg Tab] 1 tab PO DAILY 04/23/19 fluticasone fur. 100 mcg-umeclid 62.5 mcg-vilant 25 mcg inhalat.powder 1 inh INHALATION DAILY #60 ea 06/25/20 albuterol sulfate 2.5 mg INHALATION Q4H PRN PRN #180 ml 07/15/20 Acetaminophen [Tylenol] 1,000 mg PO Q8 #100 tab 08/14/20 Aspirin [Aspirin, Baby] 81 mg PO BIDCM #60 tab 08/14/20 Famotidine [Pepcid] 20 mg PO DAILY #30 tab 08/14/20 Meloxicam [Mobic] 7.5 mg PO BID #60 tab 08/14/20 Oxycodone [Oxyir] 5 - 10 mg PO Q4H PRN PRN 5 Days #60 tab 08/14/20 Senna/Docusate Sodium [Senokot-S] 2 tab PO BID #14 tab 08/14/20 The patient's discharge medication list was reviewed for discrepancies and discrepancies were resolved.
[2020-08-14 12:45] VITALS: BP 118/71; PULSE 64; RESP 18; TEMP 36.7; O2SAT 95
== END 2020-08-14 13:40 | disposition home or self-care (01) ==
LOC: SDC 15:03 → MS3 15:03
PROVIDERS: Anesthesiology; Admitting Provider Specialist; PCP Family Medicine; Referring Provider Specialist; Visit Provider Student in an Organized Health Care Education/Training Program
PROC: (CPT 27284; principal; 2020-08-13 12:00)
DX: M87.88 Other osteonecrosis, other site (principal); M16.7 Other unilateral secondary osteoarthritis of hip; Z20.828 Contact with and (suspected) exposure to other viral communicable diseases; J44.9 Chronic obstructive pulmonary disease, unspecified; I10 Essential (primary) hypertension; F17.210 Nicotine dependence, cigarettes, uncomplicated; Z79.899 Other long term (current) drug therapy; F41.9 Anxiety disorder, unspecified; F32.9 Major depressive disorder, single episode, unspecified
CPT/HCPCS: 01214; 27130; 36415; 73501; 73502; 76000; 80048; 82962; 83735; 85025; 85027; 85610; 85730; 87081; 87426; 88305; 88311; 94640; 96361; 96365; 96366; 97110; 97162; 97166; 97530; 97535; 99218; 99251; C1776; C9803; J7120; A4216; G0378; G0379; G0463; J2405

== ENCOUNTER 2020-09-09 12:30 | Outpatient (RCR) | payer OTHER, SELFPAY ==
[2020-08-13 11:08] VITALS: BMI 22.0
--- NOTE | 2020-08-19 09:15 | HP.PTEVAL ---
Patient's Visit Information JAX ROGERS Jr. is a 54 year old M referred to Physical Therapy by Zachary Strong PA-C with a diagnosis of R DUNCAN with anterior approach DOS: 08/13/20. Date of Evaluation: 08/18/20 Physical Therapist: Marito Conner DPT - Visit Plan Frequency: 2-3x /Week Duration: 4-6 Weeks Plan: Start with ROM, gait progression, progressing to functional strengthening as tolerated. May use ice and vaso if needed. - Subjective Pt. is here today for his initial evaluation with diagnosis of R DUNCAN with anterior approach. Pt. reports having avascular necrosis and had to have both hips replaced. He had is L hip replaced last year. DOS: 08/13/20. Pt. reports being sore, but overall doing well. He reports decreased pain with walking, difficulty with sitting and sit<>standing. He reports some soreness with sleeping as well. He denies N/T. He does have bandage on his R hip still, he was unaware of when to remove. 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 He has been doing light exercises at home including heel slides and ankle pumps. He is walking frequently in his house as well. He is hopeful to reduce his pain, increase ROM and get back to work without limitations. - Pain R hip Pain Intensity (Out of 10): 7 Pain Intensity Range: 5, 9 - Objective POSTURE: Pt. uses walker for stability and to off load R LE. Pt. has slight reduced WBing through RLE. Slight flexed posture noted. PALPATION: Pt. has aquacel bandage in place. Redness noted, but expected. NO signs of infection. Marked swelling in hip and thigh, non pitting. NEURO: Pt. has normal 2+ DTR of R achilles and patella. Pt. is able to rise on heels and toes without issues. ROM: LLE: knee and ankle full without issues. Hip- flexion 110deg, abd 45deg, ext 15deg, ER/IR not testing. RLE- ankle and knee full motion no pain. Active hip flexion (heel slide)- 75deg, passive flexion 80deg (soreness noted), abd 15deg, extension/ER/IR not testing. MMT: LLE- 5/5 throughout. RLE- ankle 5/5 througout; knee- 5/5 throughout; hip- fleixon 3/5, abd 3-/5, ext 3-/5. GAIT: Pt. ambulates with FWW with heavy use during R stance phase. He has limited R hip extension during R pre swing. Pt. has trunk rotation and slight circumduiction during swing phase. Methodical with his motion. STAIRS: Step to pattern with loading LLE only 2 HR. - Goals Goal 1:: LTG: Pt. to be I with HEP for LE strengthening and stability exercises. Goal Time Frame: 4-6 Weeks Goal 2:: STG: Pt. to sleep throughout the night with decreased symptoms allowing for improved quality of life. Goal Time Frame: 2-4 Weeks Goal 3:: LTG: Pt. to have increased AROM of R hip to 90-100deg of flexion, 40deg of abd, ext to 10deg. Goal Time Frame: 4-6 Weeks Goal 4:: LTG: Pt. to have increased RLE strength to 4+/5 throughout. Goal Time Frame: 4-6 Weeks Goal 5:: LTG: Pt. to ambulate with out AD unlimited distances with 0-2/10 pain in R hip. Goal Time Frame: 4-6 Weeks Goal 6:: LTG: Pt. to negotiate 1 flight of steps with 1 HR with reciprocal pattern with 0-2/10 pain in R hip. Goal Time Frame: 4-6 Weeks - Rehabilitation Potential Physical Therapy Diagnosis: Pt. has signs and symptoms consistent with R DUNCAN with anterior approach. He has subsequent hypomobility, weakness, difficulty with gait/stairs and increased pain. Pt. would benefit from PT to address above limiations progressing back to all work and recreational activities without limitations. Rehabilitation Potential: Excellent - Anticipated Interventions Patient/Client Instruction: Educate patient on: Condition, Plan of Care, Risk Factors, Benefits of Fitness Program For the Purpose of:: To facilitate caregiver knowledge, To improve self management, To prevent re-injury, To improve ability to perform tasks related to life management, To improve tolerance to ADL's Therapeutic Exercise to Include: Strength training, Power training, Endurance training, Body mechanics, Postural training, Flexibilty training, Gait and locomotor training, Passive ROM, Active ROM For the Purpose of:: To decrease pain, To decrease swelling/inflammation, To increase ROM, To improve nutrient delivery to tissue, To improve muscle performance and motor function, To improve gait and locomotor functions, To improve health of tissue, To decrease soft tissue restriction, To increase flexibility/ROM, To improve balance Manual Therapy Techniques to Include: Passive ROM, Soft tissue mobilization For the Purpose of:: To decrease pain, To decrease swelling/inflammation, To increase ROM, To improve nutrient delivery to tissue, To increase oxygenation perfusion, To improve muscle performance and motor function, To improve gait and locomotor functions, To improve health of tissue, To decrease soft tissue restriction, To increase flexibility/ROM IF ES: Yes Cryotherapy (ice pack, ice massage): Yes Vasopneumatic device: Yes For the Purpose of:: To decrease pain, To decrease swelling/inflammation, To increase ROM, To improve health of tissue, To decrease soft tissue restriction Thank you for the opportunity to evaluate your patient. For Medicare and Medicare HMO plans, please review the plan of care and approve it. It will need to be FAXED BACK to us at [phone] for Medicare purposes. For Medicare only, by signing this I certify the plan of care. Please let me know if there are questions or concerns regarding this plan of care. Physician Signature: Date:
--- NOTE | 2020-11-24 14:27 | HP.PT.NRP ---
JAX Aurora ROGERS Jr. was seen in my office for initial evaluation on 08/18/20. The following Plan of Care was established for this patient: Initial Frequency: 2-3x /Week Initial Duration: 4-6 Weeks Patient/Client Instruction: Educate patient on: Condition, Plan of Care, Risk Factors, Benefits of Fitness Program For the Purpose of:: To facilitate caregiver knowledge, To improve self management, To prevent re-injury, To improve ability to perform tasks related to life management, To improve tolerance to ADL's Therapeutic Exercise to Include: Strength training, Power training, Endurance training, Body mechanics, Postural training, Flexibilty training, Gait and locomotor training, Passive ROM, Active ROM For the Purpose of:: To decrease pain, To decrease swelling/inflammation, To increase ROM, To improve nutrient delivery to tissue, To improve muscle performance and motor function, To improve gait and locomotor functions, To improve health of tissue, To decrease soft tissue restriction, To increase flexibility/ROM, To improve balance Manual Therapy Techniques to Include: Passive ROM, Soft tissue mobilization For the Purpose of:: To decrease pain, To decrease swelling/inflammation, To increase ROM, To improve nutrient delivery to tissue, To increase oxygenation perfusion, To improve muscle performance and motor function, To improve gait and locomotor functions, To improve health of tissue, To decrease soft tissue restriction, To increase flexibility/ROM IF ES: Yes Cryotherapy (ice pack, ice massage): Yes Vasopneumatic device: Yes For the Purpose of:: To decrease pain, To decrease swelling/inflammation, To increase ROM, To improve health of tissue, To decrease soft tissue restriction This patient was last seen in our office 09/09/20. Pertinent comments regarding their Physical therapy will appear below: Pt. was seen in PT for his L hip arthroplasty. He was improving, but called to cancel all of his appointments and reported he was returning to work. Pt. was not been seen in several months and will be formally DC at this point in time. At this point I will be discontinuing this patient from physical therapy. I would be happy to see this patient again in the future if found appropriate by the physician. Thank you! Marito Conner, STEPAN
== END 2020-09-09 19:00 | disposition home or self-care (01) ==
LOC: PT 12:30
PROVIDERS: PCP Family Medicine; Referring Provider Physician Assistant Surgical; Visit Provider Physician Assistant Surgical
DX: M16.7 Other unilateral secondary osteoarthritis of hip (principal)
CPT/HCPCS: 97110; 97161

== ENCOUNTER 2020-09-10 21:36 | Emergency (ER) | payer OTHER, SELFPAY ==
[2020-08-13 11:08] VITALS: BMI 22.0
[2020-09-10 21:36] VITALS: BP 155/96; PULSE 113; RESP 24; TEMP 36.9; O2SAT 96; BMI 21.5
--- NOTE | 2020-09-10 21:45 | EKG12_ITS ---
Test Reason : DYSRHYTHMIA Blood Pressure : / mmHG Vent. Rate : 100 BPM Atrial Rate : 100 BPM P-R Int : 152 ms QRS Dur : 092 ms QT Int : 348 ms P-R-T Axes : 061 062 080 degrees QTc Int : 448 ms Normal sinus rhythm Normal ECG Confirmed by VINEET BROWNE, MARILEE ([id number]), make up editor RONALD POND ([id number]) on 09/12/2020 9:30:59 AM Referred By: ROSENDO Confirmed By:IRENE MANLEY MD
--- NOTE | 2020-09-10 21:46 | ED.VISSUMM ---
- ER Visit Summary Date of Service: 09/10/20 Chief Complaint: [Shortness of breath] History of Present Illness: The patient is a 54 M [presents to the emergency department with complaint of shortness of breath that started about an hour and a half ago. Patient states that he feels like his COPD is flared up again. Patient states this happens about every 3 months. Patient denies any recent illness leading up to this. He denies fever or cough. He denies chest pain. Patient states that he did have a right hip surgery 4 weeks ago. Patient has history of hypertension, depression, and COPD.] Patient states that he used his inhaler at home but did not get much relief. Physical Examination: [HEENT-PERRLA, EOMI. Cranial nerves II through XII grossly intact. TMs clear. Mucous membranes moist. No adenopathy. Cardiovascular-regular rate and rhythm without murmur or ectopy Lungs-good aeration bilaterally. Patient does have expiratory wheezes noted bilaterally. Mild tachypnea. No accessory muscle use or retractions. Abdomen-normoactive bowel sounds, soft, nontender, no rebound or rigidity, no peritoneal signs. Extremities-intact ?4, normal range of motion, normal pulses, atraumatic. No edema] Test Results: [EKG obtained on arrival shows sinus rhythm with a ventricular rate of 100 bpm with no acute ST segment changes noted. CBC with differential showed a white count of 11.3, hemoglobin 11.9, hematocrit 36, platelet 205. Chemistries normal. Troponin was less than 0.015. Chest x-ray 1 view obtained interpreted by myself as hyperinflation consistent with COPD without evidence of infiltrate or any other acute disease process. Radiology in agreement. D-dimer ordered and pending] Emergency Department Course and Treatment: [IV line established on arrival. Patient placed on a environmental monitoring technician. Patient given Solu-Medrol 125 mg IV. Patient was given DuoNeb aerosol as well as albuterol aerosols. Repeat examination reveals that he has significantly diminished wheezing and he is breathing easily and unlabored tachypnea is resolved.] Treatment Plan: [Care of patient turned over to evening physician awaiting D-dimer result in which case if negative can be discharged to home with prescription for prednisone. If D-dimer is elevated will need CTA to rule out PE given his recent surgery.] Disposition: [Pending] Impression: [COPD exacerbation] This note was generated with [employer] dictation software. It may contain incorrect words, spelling, and punctuation that were not noted in review of the chart prior to signing ED Disposition - Plan for ED Patient: Referrals: Feliciano Sanz MD [Primary Care Provider] -
[2020-09-10 21:56] VITALS: PULSE 109; RESP 16; O2SAT 96
[2020-09-10] MEDS: Albuterol 2.5 MG/3 ML VIAL.NEB. INHALATION ×3 (21:56)
[2020-09-10] MEDS: Ipratropium/Albuterol Sulfate 3 ML AMPUL.NEB INHALATION (21:56)
[2020-09-10] MEDS: 0.9% Normal Saline 1,000 ML 150 ML IV (22:27)
[2020-09-10] MEDS: MethylPREDNISolone 125 MG/2 ML Vial IV (22:27)
[2020-09-10 22:38] LABS: Absolute Lymphocyte Count 2.63 X10^3/uL (0.83-4.51); Absolute Neutrophil Count 6.9 X10^3/uL (2.0-7.7); Basophil# 0.05 X10^3/uL; Basophil% 0.4 % (0-1); Eosinophil# 0.89 X10^3/uL; Eosinophils% 7.9 % (0-5); Hematocrit 35.7 % (40-54); Hemoglobin 11.9 g/dL (13.0-16.5); Lymphocyte # 2.63 X10^3/ul (4.0); Lymphocyte % 23.3 % (19-41); Mean Corp Hgb Conc 33.3 g/dL (32-36); Mean Corpuscular Volume 87.1 fL (80-94); Mean Platelet Vol. 9.1 fl (6.2-12.0); Monocyte# 0.84 X10^3/uL; Monocyte% 7.4 % (0-10); NRBC Flagged by Analyzer 0 % (0-5); Neutrophil # 6.86 X10^3/uL (2.7-7.7); Neutrophil % 60.8 % (47-70); Platelet Count 205 K/mm3 (150-450); RBC Distribution Width CV 13.1 % (11.6-14.6); RBC Distribution Width SD 41.1 fl (35.1-43.9); White Blood Count 11.3 K/mm3 (4.4-11.0)
--- NOTE | 2020-09-10 22:41 | CPS ---
x3 Albuterol given to pt. in ER as well
--- NOTE | 2020-09-10 22:55 | RAD_ITS ---
STUDY: X-RAY CHEST REASON FOR EXAM: Male, 54 years old. dyspnea TECHNIQUE: AP portable chest. COMPARISON: April 09, 2020. September 07, 2019. FINDINGS: Lungs are hyperinflated. No focal infiltrates or effusions. No pneumothorax. Normal size heart. Normal mediastinum and jonny. Normal visualized pulmonary arteries. Normal visualized aortic arch and descending thoracic aorta. Normal visualized thoracic spine. Normal visualized ribs, clavicles, and shoulders. There is no demonstrated abnormality of the visualized soft tissue structures of the upper abdomen. RAD/Chest 1 View (Portable) IMPRESSION: Stable chest, no acute cardiopulmonary disease. COPD. Electronically Signed: Ashish Valenzuela MD at 23:14 EDT , Service support ,
[2020-09-10 22:58] LABS: Anion Gap 4 (5-15); BUN 11 mg/dL (7-18); BUN/Creat Ratio 10.3 RATIO (10-20); Calcium,Total 9.4 mg/dL (8.5-10.1); Chloride 104 mmol/L (98-107); Creatinine, Serum 1.07 mg/dL (0.70-1.30); EST Glomerular Filtration Rate 77 mL/min (>60); Est Glom Filt Rate - Afr Amer 93 mL/min (>60); Estimated Creatinine Clearance 82.24 ml/min; Glucose 94 mg/dL (74-106); Potassium 3.6 mmol/L (3.5-5.1); Sodium Level 136 mmol/L (136-145)
--- NOTE | 2020-09-10 23:21 | DCINST.ED_ITS ---
ED Disposition - Plan for ED Patient: Instructions: ED COPD Flare Prescriptions: Prednisone [Deltasone] 20 mg PO BID #10 tablet Transmission Status: Pending to [facility] Referrals: Feliciano Sanz MD [Primary Care Provider] - 3-5 Days
[2020-09-10 23:54] LABS: D-Dimer Quantitative (DVT/PE) 1.51 FEU/ug/m (0.27-0.49)
--- NOTE | 2020-09-11 00:05 | CT_ITS ---
STUDY: CTA CHEST REASON FOR EXAM: Male, 54 years old. elevated d dimer RADIATION DOSAGE (If Supplied By Facility): CTDIvol = ( 7.97 ) mGy, DLP = ( 324.31 ) mGycm TECHNIQUE: The examination was performed with the intravenous administration of IV 75mL Isovue-370. Post-processing of the angiographic images was performed, with multiplanar reformation and 3D reconstruction. Individualized dose optimization techniques were used for this CT. COMPARISON: Chest x-ray September 10, 2020. FINDINGS: Normal enhancement of the main pulmonary artery and right and left pulmonary arteries. Normal enhancement of the bilateral peripheral pulmonary arteries. There is no demonstrated pulmonary embolism. Normal thoracic aorta and visualized great vessels. There is no demonstrated aortic dissection. Normal heart and pericardium. Normal mediastinum. Normal hilar regions. Normal visualized trachea and bronchi. The lungs are hyperinflated with emphysematous changes. No focal infiltrates or effusions. No pneumothorax. Normal chest wall structures. Normal osseous structures. Normal visualized upper abdomen. CT/CTA Chest W/WO Contrast IMPRESSION: No pulmonary embolus or thoracic aortic dissection. COPD. Electronically Signed: Ashish Valenzuela MD at 1:23 EDT , Service support ,
[2020-09-11 00:44] VITALS: BP 114/73; PULSE 108; RESP 18; O2SAT 97
== END 2020-09-11 01:52 | disposition home or self-care (01) ==
LOC: ED 23:13
PROVIDERS: Emergency Provider Emergency Medicine; PCP Family Medicine
DX: J44.1 Chronic obstructive pulmonary disease with (acute) exacerbation (principal); I10 Essential (primary) hypertension; F32.9 Major depressive disorder, single episode, unspecified
CPT/HCPCS: 71045; 71275; 80048; 84484; 85025; 85379; 93005; 94640; 96361; 96374; 99251; 99284; J7030; Q9967; A4216; G0463

== ENCOUNTER → 2020-09-15 11:34 | Outpatient (CLI) | payer OTHER, SELFPAY ==
[2020-09-10 21:36] VITALS: BMI 21.5
[2020-09-15 14:56] LABS: Absolute Lymphocyte Count 3.44 X10^3/uL (0.83-4.51); Absolute Neutrophil Count 8.7 X10^3/uL (2.0-7.7); Basophil# 0.03 X10^3/uL; Basophil% 0.2 % (0-1); Eosinophil# 0.26 X10^3/uL; Eosinophils% 1.9 % (0-5); Hematocrit 40.1 % (40-54); Hemoglobin 12.6 g/dL (13.0-16.5); Lymphocyte # 3.44 X10^3/ul (4.0); Lymphocyte % 25.3 % (19-41); Mean Corp Hgb Conc 31.4 g/dL (32-36); Mean Corpuscular Volume 92.2 fL (80-94); Mean Platelet Vol. 9.6 fl (6.2-12.0); Monocyte# 1.02 X10^3/uL; Monocyte% 7.5 % (0-10); NRBC Flagged by Analyzer 0 % (0-5); Neutrophil # 8.74 X10^3/uL (2.7-7.7); Neutrophil % 64.2 % (47-70); Platelet Count 244 K/mm3 (150-450); RBC Distribution Width CV 13.2 % (11.6-14.6); RBC Distribution Width SD 44.7 fl (35.1-43.9); Red Blood Count 4.35 M/mm3 (4.6-6.2); White Blood Count 13.6 K/mm3 (4.4-11.0)
[2020-09-15 15:35] LABS: ALB/GLOB Ratio 1.1 RATIO (0.9-2.4); AST(SGOT) 8 U/L (15-37); Alanine Aminotransfer ALT/SGPT 15 U/L (16-61); Albumin, Serum 3.9 g/dL (3.2-5.0); Alkaline Phosphatase 87 U/L (45-117); Anion Gap 8 (5-15); BUN 15 mg/dL (7-18); BUN/Creat Ratio 14.3 RATIO (10-20); Calcium,Total 9.2 mg/dL (8.5-10.1); Chloride 105 mmol/L (98-107); Creatinine, Serum 1.05 mg/dL (0.70-1.30); EST Glomerular Filtration Rate 79 mL/min (>60); Est Glom Filt Rate - Afr Amer 95 mL/min (>60); Globulin 3.5 g/dL (2.2-4.2); Glucose 88 mg/dL (74-106); Potassium 3.5 mmol/L (3.5-5.1); Protein, Total 7.4 g/dL (6.4-8.2); Sodium Level 137 mmol/L (136-145)
[2020-09-20 03:07] LABS: HEPATITIS B SURFACE AG Negative (Negative); Hepatitis A AB, Total Negative (Negative); Hepatitis A IgM Antibody Negative (Negative); Hepatitis B Core AB IgM Negative (Negative); Hepatitis B Core Ab Total Negative (Negative); Hepatitis C Ab <0.1 s/co ratio (0.0-0.9); QNTFERON TB Mitogen Value > 10.00 IU/mL (.); QNTFERON TB Nil Value 0.01 IU/mL (.); QNTFERON TB1+ Ag Value 0.01 IU/mL (.); QNTFERON TB2+ Ag Value 0 IU/mL (.)
[2020-09-20 07:50] LABS: Hep B Surface Antibodies Non Reactive (.); QNTIFERON TB Positive Criteria Negative (Negative)
== END ==
PROVIDERS: PCP Family Medicine; Referring Provider Family Medicine; Visit Provider Dermatology Pediatric Dermatology
DX: L40.0 Psoriasis vulgaris (principal); L40.8 Other psoriasis
CPT/HCPCS: 36415; 80053; 85025; 86480; 86704; 86705; 86706; 86708; 86709; 86803; 87340

== ENCOUNTER 2020-10-11 23:01 | Emergency (ER) | payer OTHER, SELFPAY ==
[2020-09-30 14:13] VITALS: BMI 21.4
[2020-10-11 23:02] VITALS: BP 160/100; PULSE 89; RESP 22; TEMP 36.4; O2SAT 98; BMI 22.0
--- NOTE | 2020-10-11 23:02 | RAD_ITS ---
STUDY: X-RAY CHEST REASON FOR EXAM: Male, 54 years old. sob TECHNIQUE: Single AP portable view of the chest. COMPARISON: 09/10/2020. FINDINGS: There is hyperinflation of the lungs consistent with chronic obstructive lung disease (COPD). No infiltrates or effusions. There is no demonstrated pleural abnormality. Normal size heart. Normal mediastinum and jonny. Normal visualized pulmonary arteries. Normal visualized aortic arch and descending thoracic aorta. Normal visualized thoracic spine. Normal visualized ribs, clavicles, and shoulders. There is no demonstrated abnormality of the visualized soft tissue structures of the upper abdomen. RAD/Chest 1 View (Portable) IMPRESSION: There are findings consistent with COPD. There is no evidence of acute chest disease. Electronically Signed: Arnie Rios MD at 23:37 EDT , Service support ,
--- NOTE | 2020-10-11 23:02 | EKG12_ITS ---
Test Reason : SOB Blood Pressure : / mmHG Vent. Rate : 083 BPM Atrial Rate : 083 BPM P-R Int : 168 ms QRS Dur : 096 ms QT Int : 390 ms P-R-T Axes : 074 075 076 degrees QTc Int : 458 ms Normal sinus rhythm Poor R wave progression Anteroseptal AR, age undetermined, cannot be excluded Confirmed by FIOR BROWNE, BASSEM ([id number]), editor continuity and script RONALD POND ([id number]) on 10/15/2020 8:47:57 AM Referred By: KRISTEN Confirmed By:BASSEM CHILDRESS MD
--- NOTE | 2020-10-11 23:05 | ED.DCSUM_ITS ---
History of Present Illness Chief Complaint: Shortness of Breath Informant: Patient Onset: Days Context: Gradual Onset Timing: Intermittent Current Severity: Moderate Maximum Severity: Moderate Narrative: Patient is a 54-year-old male with medical history significant for COPD not on oxygen at home who presents to the emergency department cough and shortness of breath. Patient states over the past 3 days, he had worsening shortness of breath. He states that he has been coughing with some scant sputum. He denies any chest pain. He states tonight, he was having a significant flare and felt like he cannot catch his breath. He tried 5 nebulizer treatments with little improvement. Squad was called. On squad arrival, the patient was 89% on room air. He was placed on 10 L nonrebreather. IV was established. He was given 125 of Solu-Medrol. On arrival here, he states that he is actually starting to feel improved. He denies any chest pain. He denies orthopnea. He denies any fevers or chills. Prior similar symptoms: No Recent Illness/Hospitalization: No Past Medical History - Allergies and Home Meds Allergies/Adverse Reactions: Allergies No Known Allergies Allergy (Verified 10/11/20 23:05) Primary Care Physician: Feliciano Sanz MD [Primary Care Provider] - Prior records reviewed: Yes Past Medical History: - - COPD, hypertension Surgical History: total knee arthroplasty Smoking Status: Current every day smoker - Family History Maternal Family History: Reports: No pertinent history Paternal Family History: Reports: No pertinent history Review of Systems General: Denies: Chills, Fever, Sweats Eyes: Denies: Visual changes - bilaterally, Diplopia ENT: Denies: Rhinorrhea, Sore throat Cardiovascular: Denies: Chest pain, Palpitations Respiratory: Reports: Dyspnea, Cough. Denies: Dyspnea on exertion Gastrointestinal: Denies: Abdominal pain, Nausea, Vomiting, Diarrhea, Melena, Hematochezia Genitourinary: Denies: Dysuria, Hematuria, Frequency Musculoskeletal: Denies: Back pain, Extremity Pain Skin: Denies: Rash, Wounds Neurological: Denies: Headache, Weakness, Numbness Physical Exam Vital Signs/Narrative: Vital Signs Temp Pulse Resp BP Pulse Ox 10/11/20 23:02 97.6 F L 89 22 H 160/100 H 98 Inital Vital Signs reviewed: Yes General: Well nourished, Well developed, No Acute Distress Head: Normocephalic, Atraumatic Eyes: Perrl, EOMI ENT: Moist mucous membranes, No rhinorrhea Neck: Supple, Nontender Cardiovascular: Regular rate, Regular rhythm, No murmurs Respiratory: No distress, Chest nontender, Wheezing, Diminished, Decreased Air Movement Abdomen: Soft, Nontender, Nondistended, Normal bowel sounds Back: Nontender, Normal Inspection Extremities: Nontender, No edema Skin: Normal color, No rash Neurological: Alert, Oriented x3, Cranial nerves II-XII grossly intact, Normal Strength, Normal Sensation Psychological: Normal affect, Normal Mood Diagnostic/Tx/Re-eval Chest X-Ray - ED: 1 View, Read by ED Physician, Normal, Heart, Mediastinum, Bony Structures, Chronic Changes Clinical Impression(s) from Imaging Studies Chest X-Ray 10/11/20 23:02 IMPRESSION: There are findings consistent with COPD. There is no evidence of acute chest disease. Electronically Signed: Arnie Rios MD at 23:37 EDT , Service support , Abnormal Lab Results 10/11/20 10/11/20 10/11/20 23:06 23:06 23:06 WBC 12.4 H RBC 4.74 Hgb 13.0 Hct 41.8 MCV 88.2 MCH 27.4 MCHC 31.1 L RDW Std Deviation 43.8 RDW Coeff of Jazzmine 13.5 Plt Count 255 MPV 9.1 Immature Gran % (Auto) 0.900 Neut % (Auto) 67.1 Lymph % (Auto) 22.0 Nuckolls % (Auto) 5.9 Eos % (Auto) 3.8 Baso % (Auto) 0.3 Absolute Neuts (auto) 8.3 H Absolute Lymphs (auto) 2.73 Nucleated RBC % 0 Sodium 140 Potassium 3.8 Chloride 107 Carbon Dioxide 29.0 Anion Gap 4 L BUN 12 Creatinine 1.20 Estim Creat Clear Calc 75.06 Est GFR (MDRD) Af Amer 82 Est GFR (MDRD) Non-Af 67 BUN/Creatinine Ratio 10.0 Glucose 103 Calcium 9.3 Troponin I < 0.015 B-Natriuretic Peptide 16.0 COVID-19 (AMBIKA) 04/24/21 23:10 WBC RBC Hgb Hct MCV MCH MCHC RDW Std Deviation RDW Coeff of Jazzmine Plt Count MPV Immature Gran % (Auto) Neut % (Auto) Lymph % (Auto) Nuckolls % (Auto) Eos % (Auto) Baso % (Auto) Absolute Neuts (auto) Absolute Lymphs (auto) Nucleated RBC % Sodium Potassium Chloride Carbon Dioxide Anion Gap BUN Creatinine Estim Creat Clear Calc Est GFR (MDRD) Af Amer Est GFR (MDRD) Non-Af BUN/Creatinine Ratio Glucose Calcium Troponin I B-Natriuretic Peptide COVID-19 (AMBIKA) Cancelled - Rhythm Strip Rhythm Strip: Sinus Rhythm Rate: 80 Ectopy: None - EKG Initial EKG Interpretation: Sinus Rhythm, No Acute Injury Pattern Prior: Unchanged - Medical Decision Making Patient presents with cough and shortness of breath. He does have significant history of COPD but is not on oxygen at home. He does continue to smoke. He did receive treatments in route along with IV steroids. On evaluation, he is feeling improved. The patient was transitioned from nonrebreather down to 2 L. He was given a DuoNeb treatment and is resting comfortably. Chest x-ray reviewed by myself and the radiologist demonstrates findings consistent with COPD. There is no focal infiltrative process. There is no evidence of volume overload. Screening labs are unremarkable. EKG was obtained which was sinus rhythm without evidence of acute ischemia. After an hour, the patient was totally off oxygen. He was able to ambulate through the emergency department without tachypnea or hypoxia. At this point, I do feel it is safe for outpatient therapy. He will be continued on steroids and doxycycline. He will be discharged home. Impression 1. COPD exacerbation ED Disposition - Plan for ED Patient: Instructions: ED COPD Flare Prescriptions: Prednisone [Deltasone] 60 mg PO DAILY #15 tablet Prescription Printed Doxycycline 100 mg PO BID #20 capsule Prescription Printed Referrals: Feliciano Sanz MD [Primary Care Provider] -
[2020-10-11 23:08] VITALS: O2SAT 97
[2020-10-11] MEDS: 0.9% Normal Saline 1,000 ML 150 ML IV (23:11)
[2020-10-11] MEDS: Ipratropium/Albuterol Sulfate 3 ML AMPUL.NEB INHALATION (23:11)
[2020-10-11 23:13] VITALS: PULSE 92; RESP 14
[2020-10-11 23:26] LABS: Absolute Lymphocyte Count 2.73 X10^3/uL (0.83-4.51); Absolute Neutrophil Count 8.3 X10^3/uL (2.0-7.7); Basophil# 0.04 X10^3/uL; Basophil% 0.3 % (0-1); Eosinophil# 0.47 X10^3/uL; Eosinophils% 3.8 % (0-5); Hematocrit 41.8 % (40-54); Lymphocyte # 2.73 X10^3/ul (0.83-4.51); Mean Corp Hgb Conc 31.1 g/dL (32-36); Mean Corpuscular Hgb 27.4 pg (27.0-32.0); Mean Corpuscular Volume 88.2 fL (80-94); Mean Platelet Vol. 9.1 fl (6.2-12.0); Monocyte# 0.73 X10^3/uL; Monocyte% 5.9 % (0-10); NRBC Flagged by Analyzer 0 % (0-5); Neutrophil # 8.32 X10^3/uL (2.7-7.7); Neutrophil % 67.1 % (47-70); Platelet Count 255 K/mm3 (150-450); RBC Distribution Width CV 13.5 % (11.6-14.6); RBC Distribution Width SD 43.8 fl (35.1-43.9); Red Blood Count 4.74 M/mm3 (4.6-6.2); White Blood Count 12.4 K/mm3 (4.4-11.0)
[2020-10-11 23:34] LABS: Anion Gap 4 (5-15); BUN 12 mg/dL (7-18); Calcium,Total 9.3 mg/dL (8.5-10.1); Chloride 107 mmol/L (98-107); EST Glomerular Filtration Rate 67 mL/min (>60); Est Glom Filt Rate - Afr Amer 82 mL/min (>60); Estimated Creatinine Clearance 75.06 ml/min; Glucose 103 mg/dL (74-106); Potassium 3.8 mmol/L (3.5-5.1); Sodium Level 140 mmol/L (136-145)
[2020-10-11 23:58] VITALS: BP 144/94; PULSE 92; RESP 18; O2SAT 95; O2SAT 97
[2020-10-12] MEDS: Doxycycline 100 MG CAPSULE PO (00:06)
== END 2020-10-12 00:09 | disposition home or self-care (01) ==
LOC: ED 23:22
PROVIDERS: Emergency Provider Emergency Medicine; PCP Family Medicine
DX: J44.1 Chronic obstructive pulmonary disease with (acute) exacerbation (principal); I10 Essential (primary) hypertension; F17.200 Nicotine dependence, unspecified, uncomplicated
CPT/HCPCS: 71045; 80048; 83880; 84484; 85025; 87426; 87635; 93005; 94640; 96360; 99285; J7030; A4216; U0002

== ENCOUNTER 2020-11-10 22:32 | Emergency (ER) | payer OTHER, SELFPAY ==
[2020-11-10 22:32] VITALS: O2SAT 95
[2020-11-10 22:33] VITALS: TEMP 36.6; O2SAT 85; BMI 25.8
[2020-11-10 22:37] VITALS: O2SAT 95
[2020-11-10 22:43] VITALS: O2SAT 92; O2SAT 93
--- NOTE | 2020-11-10 22:43 | EKG12_ITS ---
Test Reason : SOB Blood Pressure : / mmHG Vent. Rate : 084 BPM Atrial Rate : 084 BPM P-R Int : 166 ms QRS Dur : 096 ms QT Int : 378 ms P-R-T Axes : 076 065 073 degrees QTc Int : 446 ms Normal sinus rhythm Septal AR, age undetermined, cannot be excluded Confirmed by FIOR BROWNE, BASSEM ([id number]), film and video editor RONALD POND ([id number]) on 11/12/2020 9:45:16 AM Referred By: TIP Confirmed By:BASSEM CHILDRESS MD
[2020-11-10 23:03] VITALS: PULSE 95; RESP 19
[2020-11-10] MEDS: MethylPREDNISolone 125 MG/2 ML Vial IV (23:03)
[2020-11-10] MEDS: Ipratropium/Albuterol Sulfate 3 ML AMPUL.NEB INHALATION (23:03)
[2020-11-10] MEDS: Albuterol 2.5 MG/3 ML VIAL.NEB. INHALATION ×3 (23:07)
--- NOTE | 2020-11-10 23:17 | EDS_ITS ---
HPI History of Present Illness Chief Complaint: Shortness of Breath Narrative Narrative: Patient presents to the emergency department with shortness of breath. He has a history of COPD and he feels like it is acting up. He has no fever chills cough or congestion. He has no chest pain. He has no back pain or tearing sensation he has no lower extremity edema or calf pain he has no DVT or PE risk factors. He has a cough which is mildly productive. [facility] Medical History (Updated 11/10/20 @ 23:[address] Evan Rivers MD) COPD (chronic obstructive pulmonary disease) Erectile dysfunction Hypertension Home Medications escitalopram oxalate 10 mg PO DAILY 04/01/19 [History Last Taken 06/12/19] albuterol sulfate 2 puff INHALATION Q6H PRN PRN 04/23/19 [History Last Taken 06/12/19] acetaminophen 1,000 mg PO Q8 #100 tab 08/14/20 [Rx Last Taken Unknown] albuterol sulfate 2.5 mg INHALATION Q4H PRN PRN #180 ml 09/30/20 [Rx Last Taken Unknown] fluticasone fur. 100 mcg-umeclid 62.5 mcg-vilant 25 mcg inhalat.powder 1 inh INHALATION DAILY #60 ea 09/30/20 [Rx Last Taken Unknown] amlodipine 10 mg PO DAILY 11/10/20 [History Last Taken Unknown] lisinopril 20 mg PO DAILY 11/10/20 [History Last Taken Unknown] Allergy/AdvReac Type Severity Reaction Status Date / Time No Known Allergies Allergy Verified 10/11/20 23:05 Surgical History H/O knee surgery H/O total hip arthroplasty Social History (Updated 10/01/20 @ 05:[address] Maxwell Jordan, DO) Smoking Status: Current every day smoker tobacco type: cigarettes Tobacco: How many years used: 30 ROS ROS ED ROS Narrative Past medical history: Reviewed, includes COPD, depression, history of total hip arthroplasty Medications: Reviewed Social history: Noncontributory Review of systems: All systems negative except as indicated General: No fever Eyes: No visual changes ENT: No upper airway congestion, normal voice Neck: No neck pain Cardiovascular: No chest pain Respiratory: Shortness of breath as in HPI Gastrointestinal: No abdominal pain, nausea vomiting or diarrhea Genitourinary: No dysuria Musculoskeletal: Denies myalgias no difficulty with ambulation Skin: No rash Neurological: No memory loss, confusion or any focal weakness Psych: No recent behavioral changes Hematologic: No easy bleeding or easy bruising EXAM Physical Exam Narrative Exam Narrative: Physical exam General: Patient is tachypneic appears in some distress he appears chronically ill Head: Normocephalic, Atraumatic Eyes: Conjunctiva not pale ENT: Moist mucous membranes Neck: Supple, Nontender, No lymphadenopathy Cardiovascular: Regular rate, Regular rhythm Respiratory: Diminished breath sounds, he is speaking in 3-4 word sentences he is on a 2 L nasal cannula. He was 85% on room air but now is 95% on nasal cannula. Abdomen: Soft, Nontender, Nondistended Back: Nontender, Normal Inspection. Negative for: CVA tenderness Extremities: Nontender, No edema Skin: Normal color, No rash Neurological: Alert, Normal Strength, Normal Sensation Psychological: Normal affect Const Vital Signs: 11/10/20 22:32 11/10/20 22:33 11/10/20 22:37 Temperature 97.8 F Temperature Source Temporal Pulse Rate Respiratory Rate Respiratory Effort Short of Breath Respiratory Pattern Tachypnea Blood Pressure Blood Pressure Mean Pulse Ox 95 85 Oxygen Delivery Method Nasal Cannula Room Air Nasal Cannula Oxygen Flow Rate (L/min) 2 2 11/10/20 22:43 11/10/20 23:03 11/10/20 23:32 Temperature Temperature Source Pulse Rate 95 105 H Respiratory Rate 19 H 18 Respiratory Effort Respiratory Pattern Tachypnea Blood Pressure 148/94 H Blood Pressure Mean 112 Pulse Ox 93 99 Oxygen Delivery Method Nasal Cannula Nasal Cannula Oxygen Flow Rate (L/min) 2 2 [facility] Lab Data Lab results narrative: Patient tells me he did improve but he is still short of breath as I am walking into the room and tachypneic. He wanted to go home so I ambulated him around the emergency department he felt quite short of breath and now wants to be admitted. He was hypoxic at room air at 85%. I did place him on oxygen. Because of his cough that has changed I will put him on antibiotics. Labs: Laboratory Results - last 24 hr 11/10/20 11/10/20 23:05 23:05 WBC 9.3 RBC 4.67 Hgb 12.9 L Hct 39.2 L MCV 83.9 MCH 27.6 MCHC 32.9 RDW Std Deviation 40.8 RDW Coeff of Jazzmine 13.3 Plt Count 247 MPV 9.1 Immature Gran % (Auto) 1.100 H Neut % (Auto) 66.8 Lymph % (Auto) 20.7 Elbert % (Auto) 6.7 Eos % (Auto) 4.4 Baso % (Auto) 0.3 Absolute Neuts (auto) 6.2 Absolute Lymphs (auto) 1.93 Nucleated RBC % 0 Sodium 137 Potassium 3.6 Chloride 108 H Carbon Dioxide 23.0 Anion Gap 6 BUN 11 Creatinine 1.11 Estim Creat Clear Calc 77.85 Est GFR (MDRD) Af Amer 89 Est GFR (MDRD) Non-Af 74 BUN/Creatinine Ratio 9.9 L Glucose 121 H Calcium 9.2 Total Bilirubin 0.30 AST 10 L ALT 13 L Alkaline Phosphatase 89 Troponin I < 0.015 Total Protein 7.6 Albumin 3.7 Globulin 3.9 Albumin/Globulin Ratio 0.9 Discharge Plan Triage Chief Complaint: Shortness of Breath ED Provider: Evan Rivers Dx/Rx/DC Orders Clinical Impression: COPD (chronic obstructive pulmonary disease) Prescriptions: No Action mxhbznytjpg-sfyixdoke-oqygrcva 100-62.5-25 mcg blister with device 1 inh INHALATION DAILY Qty: 60 RF: 6 albuterol sulfate 2.5 mg /3 mL (0.083 %) solution for nebulization 2.5 mg INHALATION Q4H PRN PRN (Reason: Sob &/Or Wheezing) Qty: 180 RF: 3 escitalopram oxalate 10 MG tablet 10 mg PO DAILY RF: 0 albuterol sulfate 1 PUFF inhaler 2 puff INHALATION Q6H PRN PRN (Reason: copd) RF: 0 acetaminophen 500 MG tablet 1,000 mg PO Q8 Qty: 100 RF: 0 lisinopril 20 mg Tablet 20 mg PO DAILY RF: 0 amlodipine 10 mg Tablet 10 mg PO DAILY RF: 0 Primary Care Provider: Feliciano Sanz Referrals: Feliciano Sanz MD [Primary Care Provider] - Disposition Disposition: Acute Care [facility]
--- NOTE | 2020-11-10 23:21 | RAD_ITS ---
HISTORY: sob EXAMINATION/TECHNIQUE: XR Chest 1 View: 1 view COMPARISON: 10/11/20 FINDINGS: LINES/DEVICES: None. LUNGS: Minimal blunting of the left costophrenic angle. No consolidations or infiltrates. MEDIASTINUM AND CARDIOVASCULAR STRUCTURES: Cardiac silhouette not enlarged. Prominence of the central pulmonary arteries again noted. BONES AND SOFT TISSUES: No acute bony abnormalities. RAD/Chest 1 View (Portable) IMPRESSION: Pleural thickening versus small left pleural effusion. No acute consolidative process. COPD. at 0007 Reported and signed by: Ashish Wheeler MD Electronically Signed: Ashish Wheeler MD at 0:06 EDT Tel , Service support ,
[2020-11-10 23:32] VITALS: BP 148/94; PULSE 105; RESP 18; O2SAT 99
[2020-11-10 23:33] LABS: Absolute Lymphocyte Count 1.93 X10^3/uL (0.83-4.51); Absolute Neutrophil Count 6.2 X10^3/uL (2.0-7.7); Basophil# 0.03 X10^3/uL; Basophil% 0.3 % (0-1); Eosinophil# 0.41 X10^3/uL; Eosinophils% 4.4 % (0-5); Hematocrit 39.2 % (40-54); Hemoglobin 12.9 g/dL (13.0-16.5); Lymphocyte # 1.93 X10^3/ul (0.83-4.51); Lymphocyte % 20.7 % (19-41); Mean Corp Hgb Conc 32.9 g/dL (32-36); Mean Corpuscular Hgb 27.6 pg (27.0-32.0); Mean Corpuscular Volume 83.9 fL (80-94); Mean Platelet Vol. 9.1 fl (6.2-12.0); Monocyte# 0.63 X10^3/uL; Monocyte% 6.7 % (0-10); NRBC Flagged by Analyzer 0 % (0-5); Neutrophil # 6.24 X10^3/uL (2.7-7.7); Neutrophil % 66.8 % (47-70); Platelet Count 247 K/mm3 (150-450); RBC Distribution Width CV 13.3 % (11.6-14.6); RBC Distribution Width SD 40.8 fl (35.1-43.9); Red Blood Count 4.67 M/mm3 (4.6-6.2); White Blood Count 9.3 K/mm3 (4.4-11.0)
[2020-11-10 23:44] LABS: ALB/GLOB Ratio 0.9 RATIO (0.9-2.4); AST(SGOT) 10 U/L (15-37); Alanine Aminotransfer ALT/SGPT 13 U/L (16-61); Albumin, Serum 3.7 g/dL (3.2-5.0); Alkaline Phosphatase 89 U/L (45-117); Anion Gap 6 (5-15); BUN 11 mg/dL (7-18); BUN/Creat Ratio 9.9 RATIO (10-20); Calcium,Total 9.2 mg/dL (8.5-10.1); Chloride 108 mmol/L (98-107); Creatinine, Serum 1.11 mg/dL (0.70-1.30); EST Glomerular Filtration Rate 74 mL/min (>60); Est Glom Filt Rate - Afr Amer 89 mL/min (>60); Estimated Creatinine Clearance 77.85 ml/min; Globulin 3.9 g/dL (2.2-4.2); Glucose 121 mg/dL (74-106); Potassium 3.6 mmol/L (3.5-5.1); Protein, Total 7.6 g/dL (6.4-8.2); Sodium Level 137 mmol/L (136-145)
[2020-11-10] MEDS: Ceftriaxone 1 GM/50 ML BAG IV (23:52)
[2020-11-11] VITALS: BP 184/88; PULSE 93; RESP 18; O2SAT 95
[2020-11-11 00:02] LABS: BNP,B-Type NATRIURETIC PEPTIDE 15.9 pg/mL (0-100)
[2020-11-11] MEDS: predniSONE 20 MG Tablet 40 MG PO (00:14)
--- NOTE | 2020-11-11 00:29 | ED.RN ---
spoke with [facility], they are not able to set up home o2 at this time unless the patient is covid positive
--- NOTE | 2020-11-11 00:48 | ED.RN ---
[facility] called they will set up home oxygen upon discharge
[2020-11-11 01:00] VITALS: BP 153/87; PULSE 97; RESP 18; O2SAT 96
[2020-11-11 02:12] VITALS: BP 175/100; PULSE 108; RESP 20; O2SAT 98
== END 2020-11-11 02:13 | disposition home or self-care (01) ==
PROVIDERS: Emergency Provider Emergency Medicine; PCP Family Medicine
DX: J44.9 Chronic obstructive pulmonary disease, unspecified (principal); F17.210 Nicotine dependence, cigarettes, uncomplicated; I10 Essential (primary) hypertension; Z79.899 Other long term (current) drug therapy
CPT/HCPCS: 71045; 80053; 83880; 84484; 85025; 87426; 93005; 94640; 96365; 96367; 96375; 99283; J7050; A4216

== ENCOUNTER 2020-11-30 13:40 | Observation (INO) | payer OTHER, SELFPAY ==
[2020-11-30] VITALS (11 sets, daily range): BP systolic 128–184; BP diastolic 75–119; PULSE 81–107; RESP 12–28; TEMP 36.6–37.2; O2SAT 89–99; BMI 21.7; BMI 21.2
--- NOTE | 2020-11-30 13:48 | EKG12_ITS ---
Test Reason : SOB Blood Pressure : / mmHG Vent. Rate : 086 BPM Atrial Rate : 086 BPM P-R Int : 160 ms QRS Dur : 088 ms QT Int : 370 ms P-R-T Axes : 070 045 078 degrees QTc Int : 442 ms Normal sinus rhythm Septal infarct , age undetermined Abnormal ECG Confirmed by WERNER BROWNE, LINNEA ([id number]), proposal editor RONALD POND ([id number]) on 12/04/2020 9:29:34 AM Referred By: JAMAAL Confirmed By:LINNEA CALDERA MD
--- NOTE | 2020-11-30 13:49 | ED.VIS.DYS ---
HPI History of Present Illness Chief Complaint: Shortness of Breath Informant: patient Onset/Context/Timing Onset: Days Context: gradual Timing: Continuous Quality: Positive for Dyspnea on exertion and Wheezing; Negative for Orthopnea and PND Current Severity: Moderate Maximum Severity: Severe Worsened by: Exertion and Coughing Relieved by: Nothing Associated Symptoms cough; Negative for rhinorrhea, post nasal drip, ear pain, fever, sore throat, subjective, chills, sweats, clear sputum, white sputum, yellow sputum, green sputum or other Chest Pain: Positive for None Narrative Narrative: Patient is a 54-year-old male who presents with shortness of breath and wheezing the past couple of days. He has minimal cough. He states he occasionally will cough something up. The cough and occasional sputum production is not abnormal. He continues to smoke. He denies fever or chills. Denies headache. He denies visual, ocular auditory symptoms. He denies rhinorrhea, congestion or postnasal drainage. No sore throat. He denies loss of taste or smell. He denies chest pain. He states he is only able to walk 5 feet before having significant difficulty. He states normally he can walk without difficulty. He denies history of VTE. Denies leg pain, swelling discoloration. He has been on prednisone the last 3 to 6 months. He denies GI symptoms. He denies history of diabetes. PE Risk Factors: Negative for Cancer, OCP + Smoking + > 35, Prior DVT or PE, Recent immobilization and Recent travel Prior similar symptoms: Yes (COPD exacerbation) Recent Illness/Hospitalization: No [facility] Medical History (Updated 11/30/20 @ 15:[address] Pablo Capps MD) COPD (chronic obstructive pulmonary disease) Erectile dysfunction Hypertension Home Medications escitalopram oxalate 10 mg PO DAILY 04/01/19 [History Last Taken 06/12/19] albuterol sulfate 2 puff INHALATION Q6H PRN PRN 04/23/19 [History Last Taken 06/12/19] albuterol sulfate 2.5 mg INHALATION Q4H PRN PRN #180 ml 09/30/20 [Rx Last Taken Unknown] fluticasone fur. 100 mcg-umeclid 62.5 mcg-vilant 25 mcg inhalat.powder 1 inh INHALATION DAILY #60 ea 09/30/20 [Rx Last Taken Unknown] amlodipine 5 mg PO DAILY 11/10/20 [History Last Taken Unknown] lisinopril 25 mg PO DAILY 11/10/20 [History Last Taken Unknown] Allergy/AdvReac Type Severity Reaction Status Date / Time No Known Allergies Allergy Verified 11/30/20 13:41 Surgical History H/O knee surgery H/O total hip arthroplasty Social History (Updated 11/30/20 @ 13:[address] Pablo Capps MD) household members: spouse Smoking Status: Current every day smoker tobacco type: cigarettes Tobacco: How many years used: 30 alcohol intake: former substance use type: does not use ROS ROS ED Constitutional Constitutional ED: Denies chills, fever(s), sweats or weight loss Eyes Eyes: Denies blurry vision or change in vision ENT ENT ED: Denies ear pain, rhinorrhea or sore throat Cardiovascular Cardiovascular: Denies chest pain, orthopnea, palpitations, paroxysmal nocturnal dyspnea or racing heartbeat Respiratory/Chest Respiratory/Chest: Reports cough, dyspnea and dyspnea on exertion; Denies orthopnea or paroxysmal nocturnal dyspnea Gastrointestinal Gastrointestinal: Denies abdominal pain, constipation, diarrhea, melena, nausea or vomiting Genitourinary Genitourinary ED: Denies dysuria, hematuria or urinary frequency Musculoskeletal Musculoskeletal: Denies arthralgias, back pain, myalgias or neck pain Integumentary Denies rash Neurologic Neurologic: Denies headache(s) or weakness Endocrine Endocrinology: Denies polydipsia, polyphagia or polyuria Hematologic/Lymphatic Hematologic/Lymphatic: Denies easy bleeding or easy bruising EXAM Physical Exam Const Vital Signs: 11/30/20 13:42 11/30/20 13:43 11/30/20 13:46 Temperature 98.9 F 98.9 F Temperature Source Temporal Temporal Pulse Rate 100 100 Respiratory Rate 22 H 12 Respiratory Effort Non-Labored Short of Breath Accessory Muscle Use Respiratory Depth Deep Blood Pressure 143/89 H 140/92 H Blood Pressure Mean 107 108 Pulse Ox 89 96 Oxygen Delivery Method Room Air Nasal Cannula Nasal Cannula Oxygen Flow Rate (L/min) 4 4 11/30/20 14:29 11/30/20 14:43 Temperature 98.7 F Temperature Source Temporal Pulse Rate 93 90 Respiratory Rate 18 20 H Respiratory Effort Respiratory Depth Blood Pressure 140/87 H Blood Pressure Mean 104 Pulse Ox 99 Oxygen Delivery Method Nasal Cannula Oxygen Flow Rate (L/min) Positive well nourished and well developed General Appearance ED: well developed and other Patient appears in mild respiratory distress. HEENT Reports TM's clear and moist mucous membranes HEENT Narrative: Ears normal. Nares patent. Posterior pharynx unremarkable. Tympanic Membrane ED: Yes TM's clear Eyes PERRL and EOMs intact bilaterally General Eye ED: Negative for pale conjunctiva or scleral icterus Neck no lymphadenopathy, supple, no meningeal signs and no JVD Neck Narrative: Trachea is midline. There is no inspiratory or expiratory stridor. Resp No normal respiratory effort and No clear to auscultation bilaterally Auscultation: wheezes expiratory wheezes, inspiratory wheezes and throughout and diminished lung sounds Cardio regular rhythm, S1 normal heart sound, S2 normal heart sound and no murmurs Rate: tachycardic GI non-tender, non-distended and no masses Auscultation: normoactive bowel sounds Palpation: soft Back/Spine normal to inspection Extremity normal to inspection Extremity Narrative: There is no asymmetry, swelling, discoloration, leg vein distention, palpable cords or tenderness along the distribution of the deep venous system. General Extremety ED: Negative for edema or tenderness General Extremity: Negative for edema Neuro oriented x3 and CN's II-XII intact bilaterally Sensorium / Orientation: alert Motor Exam: strength 5/5 throughout Psych mental status grossly normal Skin no wounds Lesions: no lesions Rashes: no rashes MDM MDM MDM Narrative Medical decision making narrative: Patient's vitals are remarkable for hypoxia, tachycardia and apnea. Since patient was on prednisone the last 3 to 6 months he received 125 mg Solu-Medrol. He also was treated with DuoNeb and albuterol aerosol treatments. Chest x-ray was obtained to evaluate for infiltrate/pneumonia. EKG G was obtained since monitor reveals a wide-complex tachycardia. This may represent a bundle branch block. Patient was reassessed at 1545. He still has expiratory wheezing. He is presently on 4 L of oxygen by nasal cannula. Since he is still wheezing and requiring oxygen hospitalist has been paged for admission. Lab Data Labs: Laboratory Results - last 24 hr 11/30/20 11/30/20 14:00 14:00 WBC 6.4 RBC 4.92 Hgb 13.6 Hct 40.7 MCV 82.7 MCH 27.6 MCHC 33.4 RDW Std Deviation 40.4 RDW Coeff of Jazzmine 13.5 Plt Count 254 MPV 8.5 Immature Gran % (Auto) 0.200 Neut % (Auto) 66.9 Lymph % (Auto) 19.1 [place] % (Auto) 7.7 Eos % (Auto) 5.8 H Baso % (Auto) 0.3 Absolute Neuts (auto) 4.3 Absolute Lymphs (auto) 1.21 Nucleated RBC % 0 Sodium 137 Potassium 3.7 Chloride 104 Carbon Dioxide 26.0 Anion Gap 7 BUN 15 Creatinine 1.17 Estim Creat Clear Calc 75.74 Est GFR (MDRD) Af Amer 84 Est GFR (MDRD) Non-Af 69 BUN/Creatinine Ratio 12.8 Glucose 104 Calcium 9.4 Radiography Chest X-Ray - ED: 1 View, Read by ED Physician (X-ray interpreted by me at 1543.), Heart, Mediastinum, Bony Structures, No Acute Disease and Chronic Changes (Hyper aeration with flattening of the diaphragm. There is no evidence of infiltrate or pneumothorax.) Discharge Plan Dx/Rx/DC Orders Clinical Impression: COPD (chronic obstructive pulmonary disease), Hypoxia Disposition Disposition: Acute Care Hospital [facility]
[2020-11-30] MEDS: MethylPREDNISolone 125 MG/2 ML Vial IV (14:02)
[2020-11-30 14:11] LABS: Absolute Lymphocyte Count 1.21 X10^3/uL (0.83-4.51); Absolute Neutrophil Count 4.3 X10^3/uL (2.0-7.7); Basophil# 0.02 X10^3/uL; Basophil% 0.3 % (0-1); Eosinophil# 0.37 X10^3/uL; Eosinophils% 5.8 % (0-5); Hematocrit 40.7 % (40-54); Hemoglobin 13.6 g/dL (13.0-16.5); Lymphocyte # 1.21 X10^3/ul (0.83-4.51); Lymphocyte % 19.1 % (19-41); Mean Corp Hgb Conc 33.4 g/dL (32-36); Mean Corpuscular Hgb 27.6 pg (27.0-32.0); Mean Corpuscular Volume 82.7 fL (80-94); Mean Platelet Vol. 8.5 fl (6.2-12.0); Monocyte# 0.49 X10^3/uL; Monocyte% 7.7 % (0-10); NRBC Flagged by Analyzer 0 % (0-5); Neutrophil # 4.25 X10^3/uL (2.7-7.7); Neutrophil % 66.9 % (47-70); Platelet Count 254 K/mm3 (150-450); RBC Distribution Width CV 13.5 % (11.6-14.6); RBC Distribution Width SD 40.4 fl (35.1-43.9); Red Blood Count 4.92 M/mm3 (4.6-6.2); White Blood Count 6.4 K/mm3 (4.4-11.0)
[2020-11-30 14:24] LABS: Anion Gap 7 (5-15); BUN 15 mg/dL (7-18); BUN/Creat Ratio 12.8 RATIO (10-20); Calcium,Total 9.4 mg/dL (8.5-10.1); Chloride 104 mmol/L (98-107); Creatinine, Serum 1.17 mg/dL (0.70-1.30); EST Glomerular Filtration Rate 69 mL/min (>60); Est Glom Filt Rate - Afr Amer 84 mL/min (>60); Estimated Creatinine Clearance 75.74 ml/min; Glucose 104 mg/dL (74-106); Potassium 3.7 mmol/L (3.5-5.1); Sodium Level 137 mmol/L (136-145)
[2020-11-30] MEDS: Ipratropium/Albuterol Sulfate 3 ML AMPUL.NEB INHALATION ×2 (14:29→23:44)
[2020-11-30] MEDS: Albuterol 2.5 MG/3 ML VIAL.NEB. INHALATION ×3 (14:29)
--- NOTE | 2020-11-30 15:35 | RAD_ITS ---
STUDY: X-RAY CHEST REASON FOR EXAM: Male, 54 years old. Dyspnea, wheezing, hypoxia TECHNIQUE: 1 view COMPARISON: 11/10/2020 and 10/11/2020 FINDINGS: Cardiomediastinal silhouette is unremarkable. Chronic pleuroparenchymal changes are noted at the costophrenic angles. Lungs are hyperinflated but otherwise clear The trachea is midline. There is no pneumothorax. The bones are grossly intact. RAD/Chest 1 View (Portable) IMPRESSION: COPD. No acute cardiopulmonary process. Electronically Signed: Harshad Ram MD at 16:08 EDT Tel , Service support ,
--- NOTE | 2020-11-30 16:34 | PCM.HP.STD ---
Documented by User: Barry MOYER 11/30/20 16:56 HPI - General General Date of Admission: 11/30/20 HPI Narrative Patient is a 54-year-old male who presents to the ED at [facility] on 11/30/2020 with a chief complaint of shortness of breath secondary to COPD exacerbation. Patient reports that this morning he awoke and was short of breath, and now is consistently short of breath with and without exertion. Patient is on 2 L of oxygen at home, as well as albuterol aerosols and Trelegy Ellipta, to which his shortness of breath is not amenable. Patient endorses his normal amount of clear white sputum. Patient denies any chest pain, palpitations, hemoptysis, purulent sputum production, lower extremity swelling or pain, fevers, chills, nausea vomiting diarrhea. Denies any urinary symptoms or problems with defecation. Patient reports that he is fully vaccinated for COVID-19, received an unknown 2 dose series. Patient endorses a an ongoing [id number] history of smoking. Denies drinking or any other prescription drug abuse. Lives with his at home and identifies no concerns in regards to his activities of daily living. Past medical history is significant for chronic obstructive pulmonary disease, tobacco abuse as above and HTN. Vital signs are stable and patient is afebrile. Currently satting 98% on 4 L via nasal cannula. Chest x-ray obtained in the ED demonstrated chronic emphysematous changes of the lungs to include bilaterally enlarged lungs, no acute cardiopulmonary process noted. EKG obtained in the ED was normal sinus rhythm with no ST or T wave abnormalities. CBC and BMP are unremarkable. In the ED patient was treated with Ventolin, DuoNeb and methylprednisolone. Patient will be placed on MS 3 for medical observation. [facility] Medical History (Updated 11/30/20 @ 16:51 by Barry MOYER) COPD (chronic obstructive pulmonary disease) Erectile dysfunction Hypertension Home Medications escitalopram oxalate 10 mg PO DAILY 04/01/19 [History Last Taken 06/12/19] albuterol sulfate 2 puff INHALATION Q6H PRN PRN 04/23/19 [History Last Taken 06/12/19] albuterol sulfate 2.5 mg INHALATION Q4H PRN PRN #180 ml 09/30/20 [Rx Last Taken Unknown] fluticasone fur. 100 mcg-umeclid 62.5 mcg-vilant 25 mcg inhalat.powder 1 inh INHALATION DAILY #60 ea 09/30/20 [Rx Last Taken Unknown] amlodipine 5 mg PO DAILY 11/10/20 [History Last Taken Unknown] hydroxyzine pamoate 25 mg PO BID PRN 11/30/20 [History Last Taken Unknown] lisinopril-hydrochlorothiazide 1 tab PO DAILY 11/30/20 [History Last Taken Unknown] Allergy/AdvReac Type Severity Reaction Status Date / Time No Known Allergies Allergy Verified 11/30/20 13:41 Surgical History H/O knee surgery H/O total hip arthroplasty Social History (Updated 11/30/20 @ 13:[address] Pablo Capps MD) household members: spouse Smoking Status: Current every day smoker tobacco type: cigarettes Tobacco: How many years used: 30 alcohol intake: former substance use type: does not use ROS Constitutional Constitutional: Denies anorexia, change in weight, chills, fatigue, fever(s), malaise, night sweats, weakness or other Eyes Eyes: Denies blurry vision, change in eye color, change in vision, discharge from eye(s), double vision, erythema, eye pain, loss of vision or other ENT HEENT: Denies abnormal hearing, dysphagia, ear pain, epistaxis, headache(s), hearing loss, nasal congestion, nasal discharge, post nasal drip, sinus pressure, sore throat or other Cardiovascular Cardiovascular: Denies chest pain, claudication, dyspnea on exertion, edema, lightheadedness, orthopnea, palpitations, paroxysmal nocturnal dyspnea, rapid heart rate, syncope or other Respiratory/Chest Respiratory/Chest: Reports dyspnea, shortness of breath at rest and shortness of breath with exertion; Denies cough, excessive phlegm production, hemoptysis, productive cough, wheezing or other Gastrointestinal Gastrointestinal: Denies abdominal pain, coffee ground emesis, constipation, diarrhea, dyspepsia, hematemesis, hematochezia, loose stools, melena, nausea, vomiting or other Genitourinary Genitourinary: Denies burning urination, difficulty urinating, dysuria, hematuria, nocturia, urinary frequency, urinary hesitancy, urinary incontinence, urinary urgency or other Musculoskeletal Musculoskeletal: Denies arthralgias, back pain, joint pain, joint stiffness, joint swelling, myalgias, neck pain or other Neurologic Neurologic: Denies abnormal gait, abnormal speech, confusion, disequilibrium, dizziness, focal weakness, headache(s), numbness, paresthesias, seizure-like activity, seizures, syncope, tingling, tremor(s) or other Psychiatric Psychiatric: Denies anxiety, depression, homicidal ideation, suicidal ideation or other Endocrine Endocrinology: Denies change in body appearance, cold intolerance, excessive sweating, heat intolerance, polydipsia, polyuria or other Hematologic/Lymphatic Hematologic/Lymphatic: Denies anemia, easy bleeding, easy bruising, lymphadenopathy or other Allergic/Immunologic Allergic/Immunologic: Denies rhinitis, hives, eczemia, asthma or other Vital Signs Vital Signs Vital Signs: 11/30/20 13:42 11/30/20 13:43 11/30/20 13:46 Temperature 98.9 F 98.9 F Temperature Source Temporal Temporal Pulse Rate 100 100 Respiratory Rate 22 H 12 Respiratory Effort Non-Labored Short of Breath Accessory Muscle Use Respiratory Depth Deep Blood Pressure 143/89 H 140/92 H Blood Pressure Mean 107 108 Pulse Ox 89 96 Oxygen Delivery Method Room Air Nasal Cannula Nasal Cannula Oxygen Flow Rate (L/min) 4 4 11/30/20 14:29 11/30/20 14:43 11/30/20 16:12 Temperature 98.7 F Temperature Source Temporal Pulse Rate 93 90 100 Respiratory Rate 18 20 H 15 Respiratory Effort Respiratory Depth Blood Pressure 140/87 H 144/82 H Blood Pressure Mean 104 102 Pulse Ox 99 98 Oxygen Delivery Method Nasal Cannula Nasal Cannula Oxygen Flow Rate (L/min) 11/30/20 16:15 Temperature 97.9 F Temperature Source Oral Pulse Rate 100 Respiratory Rate 15 Respiratory Effort Respiratory Depth Blood Pressure 144/82 H Blood Pressure Mean 102 Pulse Ox 98 Oxygen Delivery Method Nasal Cannula Oxygen Flow Rate (L/min) 4 Weight Weight: 159 lb 13.362 oz Body Mass Index (BMI) 21.7 Physical Exam Const alert and oriented x3 General Appearance: cooperative HEENT normocephalic, head/scalp atraumatic and hearing grossly normal bilaterally Eyes PERRL, EOMs intact bilaterally and conjunctivae normal Neck no lymphadenopathy, supple and no JVD Resp normal respiratory effort and no retractions Auscultation: wheezes and diminished lung sounds Cardio regular rate, regular rhythm, no murmurs and no JVD GI normal to inspection, nondistended, normoactive bowel sounds, soft to palpation and non-tender Extremity normal to inspection, full ROM and no clubbing, cyanosis or edema Skin no rashes or lesions noted, no wounds and skin turgor normal Neuro CN's II-XII intact bilaterally Psych affect normal Results Lab / Micro Data Result Diagrams: 11/30/20 14:00 11/30/20 14:00 Labs: Laboratory Results - last 24 hr 11/30/20 11/30/20 14:00 14:00 WBC 6.4 RBC 4.92 Hgb 13.6 Hct 40.7 MCV 82.7 MCH 27.6 MCHC 33.4 RDW Std Deviation 40.4 RDW Coeff of Jazzmine 13.5 Plt Count 254 MPV 8.5 Immature Gran % (Auto) 0.200 Neut % (Auto) 66.9 Lymph % (Auto) 19.1 [place] % (Auto) 7.7 Eos % (Auto) 5.8 H Baso % (Auto) 0.3 Absolute Neuts (auto) 4.3 Absolute Lymphs (auto) 1.21 Nucleated RBC % 0 Sodium 137 Potassium 3.7 Chloride 104 Carbon Dioxide 26.0 Anion Gap 7 BUN 15 Creatinine 1.17 Estim Creat Clear Calc 75.74 Est GFR (MDRD) Af Amer 84 Est GFR (MDRD) Non-Af 69 BUN/Creatinine Ratio 12.8 Glucose 104 Calcium 9.4 Radiology Impression Chest X-Ray 11/30/20 15:35 IMPRESSION: COPD. No acute cardiopulmonary process. Electronically Signed: Harshad Ram MD at 16:08 EDT Tel , Service support , Assessment & Plan Assessment/Plan (1) COPD (chronic obstructive pulmonary disease): QUALIFIERS: COPD type: unspecified COPD Qualified Code(s): J44.9 - Chronic obstructive pulmonary disease, unspecified (2) Hypertension: (3) Smoking greater than 25 pack years: (4) Depression: (5) COPD exacerbation: (6) Shortness of breath: PLAN: Patient is a 54-year-old male who presents to the ED at [facility] on 11/30/2020 with a chief complaint of nonexertional shortness of breath. Patient will be placed on 2 MS 3 for medical observation stabilization due to shortness of breath secondary to COPD exacerbation. 1) Shortness of breath secondary to COPD exacerbation Patient endorses a 1 day history of shortness of breath that began this morning and is nonexertional. Patient has had several COPD exacerbations in the past and feels that this is consistent with previous episodes. Chest x-ray demonstrates emphysematous changes to include bilaterally enlarged lungs, no acute cardiopulmonary process noted. Vital signs stable and patient is afebrile. Currently satting 98% on 4 L via nasal cannula. Goal of observation is to return patient to baseline level of function with appropriate oxygen saturations on home oxygen prescription. Patient is fully vaccinated for COVID-19. We will not initiate antibiotics, as there is a low suspicion for infection at this time. Plan; placed on MS 3 for medical observation, Ventolin aerosols ordered, duo nebs ordered, continue Trelegy Ellipta, methylprednisolone initiated, O2 per protocol. 2) Tobacco abuse Patient endorses a 30-year pack history of smoking cigarettes. Plan; cessation counseled, NicoDerm patch ordered. 3) Hypertension Stable, continue amlodipine and lisinopril 4) depression Continue Lexapro. DVT prophylaxis -low risk, not indicated Patient seen by Barry Barboza PA-C, under the supervision of Dr. Florence Documented by User: Dr. Paula Florence DO 11/30/20 17:53 HPI - General General Date of Admission: 11/30/20 HPI Narrative The patient was seen with JOÃO Toledo. I agree with the above and the following is representation of my independent history and physical examination. Mr. Solange Nunez is a 54-year-old male with a significant history of COPD who presented to the emergency department at [facility] on 11/30/2020 complaining of increased shortness of breath. Upon presentation he states that it feels exactly like all his COPD flares feel and he usually does well with nebulizers and steroids. The emergency department he was given nebulizers and given 125 mg of IV Solu-Medrol x1 dose. Upon my evaluation he states that he is already feeling somewhat better. He has been wearing 2 L of nasal cannula at home that was initiated approximately 3 weeks ago. He does have frequent admissions/ED visits for COPD exacerbations. He is still a smoker. Initially in the emergency department he required 2 L nasal cannula but his sats did improved to 98 to 99% with this. His vital signs were otherwise normal. His CBC is unremarkable. A D-dimer was obtained and was elevated at 3.78. A CTA of his chest is pending. A BMP was performed and was unremarkable as well. His EKG showed no acute ST-T wave changes consistent with ischemia. A chest x-ray showed no acute pulmonary processes. He will be admitted for COPD exacerbation. [facility] Medical History (Updated 11/30/20 @ 16:51 by Barry MOYER) COPD (chronic obstructive pulmonary disease) Erectile dysfunction Hypertension Home Medications escitalopram oxalate 10 mg PO DAILY 04/01/19 [History Last Taken 06/12/19] albuterol sulfate 2 puff INHALATION Q6H PRN PRN 04/23/19 [History Last Taken 06/12/19] albuterol sulfate 2.5 mg INHALATION Q4H PRN PRN #180 ml 09/30/20 [Rx Last Taken Unknown] fluticasone fur. 100 mcg-umeclid 62.5 mcg-vilant 25 mcg inhalat.powder 1 inh INHALATION DAILY #60 ea 09/30/20 [Rx Last Taken Unknown] amlodipine 5 mg PO DAILY 11/10/20 [History Last Taken Unknown] hydroxyzine pamoate 25 mg PO BID PRN 11/30/20 [History Last Taken Unknown] lisinopril-hydrochlorothiazide 1 tab PO DAILY 11/30/20 [History Last Taken Unknown] Allergy/AdvReac Type Severity Reaction Status Date / Time No Known Allergies Allergy Verified 11/30/20 13:41 Surgical History H/O knee surgery H/O total hip arthroplasty Social History (Updated 11/30/20 @ 13:[address] Pablo Capps MD) household members: spouse Smoking Status: Current every day smoker tobacco type: cigarettes Tobacco: How many years used: 30 alcohol intake: former substance use type: does not use Physical Exam Const alert, oriented x3, no apparent distress, average body habitus and well nourished; Negative for healthy appearing Constitutional Narrative: Middle-aged white male who appears older than stated age, sitting up in bed, appears comfortable, no signs of acute respiratory distress General Appearance: cooperative; Negative for uncooperative Orientation / Consciousness: Negative for confused, disoriented or lethargic HEENT normocephalic, head/scalp atraumatic, hearing grossly normal bilaterally, moist oral mucous membranes and oropharynx normal HEENT Narrative: Mallampati 2, fair dentition, no thrush Mouth: oral and palatal mucosa normal Eyes PERRL, EOMs intact bilaterally and conjunctivae normal Neck no lymphadenopathy, supple, no JVD and no carotid bruits Resp normal respiratory effort, no retractions and no use of accessory muscles Resp Narrative: Diffusely diminished, few scattered wheezes Auscultation: wheezes; Negative for crackles, rales or rhonchi Cardio regular rate, regular rhythm, S1 normal heart sound, S2 normal heart sound, no murmurs, no rub, no gallops and no clicks GI normal to inspection, nondistended, normoactive bowel sounds, non-tender and non-distended; Negative for hepatosplenomegaly Auscultation: Negative for hyperactive bowel sounds or hypoactive bowel sounds Palpation: Negative for tender, guarding or hernia Extremity normal to inspection, full ROM and no clubbing, cyanosis or edema Peripheral Pulses: Yes pulses 2+ throughout Skin no rashes or lesions noted, no wounds, skin turgor normal, no jaundice, no petechiae and no mottling Neuro oriented x3, CN's II-XII intact bilaterally, moves all extremities and no focal motor deficits Sensorium / Orientation: awake, alert, oriented to person, oriented to place and oriented to time Speech: speech normal Psych affect normal Psych Narrative: Very pleasant, calm Results Lab / Micro Data Attestation: I reviewed the patient's lab results. Result Diagrams: 11/30/20 14:00 11/30/20 14:00 Assessment & Plan Assessment/Plan (1) COPD exacerbation: PLAN: Assessment: Acute on chronic hypoxic respiratory insufficiency secondary to acute exacerbation of COPD D-dimer elevation Hypertension Depression Right hip avascular necrosis Tobacco abuse-ongoing Plan: -CTA chest to rule out PE -If positive start Eliquis 10 mg twice daily x7 days then 5 mg twice daily indefinitely -Scheduled Solu-Medrol -Pulmonary toilet -Continue home medications for blood pressure -Continue home medications for depression -Encouraged tobacco cessation -Patient is currently dependent on 2 L nasal cannula at home at baseline Charges/Coding Visit Charges Inpatient E&M: 66334 Init Hosp L3
[2020-11-30 17:26] LABS: D-Dimer Quantitative (DVT/PE) 3.78 FEU/ug/m (0.27-0.49)
--- NOTE | 2020-11-30 17:27 | ED.RN ---
lab called with d-dimer 3.78. Dr. Baird informed of same. order for d-dimer is admission order.
--- NOTE | 2020-11-30 17:44 | CT_ITS ---
STUDY: CTA CHEST REASON FOR EXAM: Male, 54 years old. hypoxia RADIATION DOSAGE (If Supplied By Facility): CTDIvol = ( 4.87 ) mGy, DLP = ( 212.59 ) mGycm TECHNIQUE: The examination was performed with the intravenous administration of IV 100mL Isovue-370. Post-processing of the angiographic images was performed, with multiplanar reformation and 3D reconstruction. Individualized dose optimization techniques were used for this CT. COMPARISON: CTA 09/11/2020 FINDINGS: Normal enhancement of the main pulmonary artery and right and left pulmonary arteries. Normal enhancement of the bilateral peripheral pulmonary arteries. There is no demonstrated pulmonary embolism. Normal thoracic aorta and visualized great vessels. There is no demonstrated aortic dissection. Normal heart and pericardium. Normal mediastinum. Normal hilar regions. Central, cylindrical bronchiectasis. There are multiple areas of bronchial opacification involving the bilateral upper lobes and lower lobe with mild degree of bronchial wall thickening. Mild subpleural/parenchymal fibrotic changes of the upper lungs. No airspace consolidation. Normal pleura. Normal chest wall structures. Normal osseous structures. Normal visualized upper abdomen. CT/CTA Chest W/WO Contrast IMPRESSION: 1. No central or segmental pulmonary embolism. 2. Bronchiectasis with bilateral upper lobe and lower lobe bronchial wall thickening endobronchial fluid/secretions (new) suggesting bronchitis. Electronically Signed: Rowdy Puente MD ([place]) at 18:57 EDT , Service support ,
--- NOTE | 2020-11-30 17:45 | NURSING ---
dwight sent to ER charge nurse asking if there will be an order for CT chest with Ddimer results.
[2020-11-30] MEDS: hydrOXYzine PAM 25 MG Capsule PO (20:00)
[2020-11-30] MEDS: 0.9% Saline Lock 10 ML Syringe IV (22:26)
[2020-12-01] VITALS (8 sets, daily range): BP systolic 126–128; BP diastolic 74–88; PULSE 74–95; RESP 16–20; TEMP 36.4–37; O2SAT 93–96
[2020-12-01] MEDS: Ipratropium/Albuterol Sulfate 3 ML AMPUL.NEB INHALATION ×2 (03:21→07:17)
[2020-12-01 05:28] LABS: Absolute Lymphocyte Count 0.39 X10^3/uL (0.83-4.51); Hemoglobin 12.5 g/dL (13.0-16.5); Lymphocyte # 0.39 X10^3/ul (0.83-4.51); Mean Corp Hgb Conc 33.8 g/dL (32-36); Mean Corpuscular Hgb 27.7 pg (27.0-32.0); Mean Platelet Vol. 8.9 fl (6.2-12.0); Monocyte% 2.8 % (0-10); NRBC Flagged by Analyzer 0 % (0-5); Neutrophil # 3.04 X10^3/uL (2.7-7.7); Neutrophil % 85.9 % (47-70); POSITIVE DIFFERENTIAL YES; Platelet Count 236 K/mm3 (150-450); RBC Distribution Width CV 13.7 % (11.6-14.6); RBC Distribution Width SD 40.6 fl (35.1-43.9); Red Blood Count 4.51 M/mm3 (4.6-6.2); White Blood Count 3.5 K/mm3 (4.4-11.0)
[2020-12-01 05:33] LABS: Differential Indicated SCAN CRITERIA MET
[2020-12-01 05:51] LABS: Anion Gap 8 (5-15); BUN 20 mg/dL (7-18); BUN/Creat Ratio 18.9 RATIO (10-20); Calcium,Total 9.4 mg/dL (8.5-10.1); Chloride 104 mmol/L (98-107); Creatinine, Serum 1.06 mg/dL (0.70-1.30); EST Glomerular Filtration Rate 78 mL/min (>60); Est Glom Filt Rate - Afr Amer 94 mL/min (>60); Estimated Creatinine Clearance 81.87 ml/min; Glucose 140 mg/dL (74-106); Potassium 4.1 mmol/L (3.5-5.1); Sodium Level 135 mmol/L (136-145)
--- NOTE | 2020-12-01 07:47 | PN.HOSP_ITS ---
Objective Data Objective Data Vital Signs: Vital Signs Temp Pulse Resp BP Pulse Ox 97.9 F 92 20 H 128/74 H 94 12/01/20 03:39 12/01/20 03:39 12/01/20 03:39 12/01/20 03:39 12/01/20 03:39 Oxygen Flow Rate (L/min) 3 Oxygen Delivery Method Nasal Cannula Weight: 71 kg Body Mass Index (BMI) 21.2 Lab / Micro Data Result Diagrams: 12/01/20 05:10 12/01/20 05:10 Labs: Laboratory Results - last 24 hr 11/30/20 11/30/20 11/30/20 14:00 14:00 17:05 WBC 6.4 RBC 4.92 Hgb 13.6 Hct 40.7 MCV 82.7 MCH 27.6 MCHC 33.4 RDW Std Deviation 40.4 RDW Coeff of Jazzmine 13.5 Plt Count 254 MPV 8.5 Immature Gran % (Auto) 0.200 Neut % (Auto) 66.9 Lymph % (Auto) 19.1 [place] % (Auto) 7.7 Eos % (Auto) 5.8 H Baso % (Auto) 0.3 Absolute Neuts (auto) 4.3 Absolute Lymphs (auto) 1.21 Nucleated RBC % 0 Diff Path Review D-Dimer Quant (PE/DVT) 3.78 H* Sodium 137 Potassium 3.7 Chloride 104 Carbon Dioxide 26.0 Anion Gap 7 BUN 15 Creatinine 1.17 Estim Creat Clear Calc 75.74 Est GFR (MDRD) Af Amer 84 Est GFR (MDRD) Non-Af 69 BUN/Creatinine Ratio 12.8 Glucose 104 Calcium 9.4 12/01/20 12/01/20 05:10 05:10 WBC 3.5 L RBC 4.51 L Hgb 12.5 L Hct 37.0 L MCV 82.0 MCH 27.7 MCHC 33.8 RDW Std Deviation 40.6 RDW Coeff of Jazzmine 13.7 Plt Count 236 MPV 8.9 Immature Gran % (Auto) 0.300 Neut % (Auto) 85.9 H Lymph % (Auto) 11.0 L [place] % (Auto) 2.8 Eos % (Auto) 0.0 Baso % (Auto) 0.0 Absolute Neuts (auto) 3.0 Absolute Lymphs (auto) 0.39 L Nucleated RBC % 0 Diff Path Review May foll D-Dimer Quant (PE/DVT) Sodium 135 L Potassium 4.1 Chloride 104 Carbon Dioxide 23.0 Anion Gap 8 BUN 20 H Creatinine 1.06 Estim Creat Clear Calc 81.87 Est GFR (MDRD) Af Amer 94 Est GFR (MDRD) Non-Af 78 BUN/Creatinine Ratio 18.9 Glucose 140 H Calcium 9.4 Micro: Microbiology 11/30/20 16:16 Mucosa - Nasopharyngeal SARS-CoV-2 Antigen (Rapid) - Final Radiography Diagnostic Testing: Radiology Impression Chest X-Ray 11/30/20 15:35 IMPRESSION: COPD. No acute cardiopulmonary process. Electronically Signed: Harshad Ram MD at 16:08 EDT Tel , Service support , Chest CTA 11/30/20 17:44 IMPRESSION: 1. No central or segmental pulmonary embolism. 2. Bronchiectasis with bilateral upper lobe and lower lobe bronchial wall thickening endobronchial fluid/secretions (new) suggesting bronchitis. Electronically Signed: Rowdy Puente MD ([place]) at 18:57 EDT , Service support , Physical Exam Narrative GENERAL: cooperative HEENT: Atraumatic; EYES; Anicteric, Normal Conjunctiva NECK; supple, normal thyroid, RESPIRATORY: Diminished to auscultation CARDIOVASCULAR: Regular S1 S2, GI: soft, normoactive bowel sounds, : No Renal angle tenderness; EXTREMITIES: No edema, no clubbing, MUSCULOSKELETAL: no muscle waisting NEURO: Awake; no lateralizing signs. SKIN: No Rash PSYCH; Flat affect Assessment & Plan Assessment/Plan (1) COPD exacerbation: PLAN: Assessment: Acute on chronic hypoxic respiratory insufficiency secondary to acute exacerbation of COPD D-dimer elevation Hypertension Depression Right hip avascular necrosis Tobacco abuse-ongoing Plan: -CTA chest to rule out PE -If positive start Eliquis 10 mg twice daily x7 days then 5 mg twice daily indefinitely -Scheduled Solu-Medrol -Pulmonary toilet -Continue home medications for blood pressure -Continue home medications for depression -Encouraged tobacco cessation -Patient is currently dependent on 2 L nasal cannula at home at baseline
--- NOTE | 2020-12-01 08:31 | PCM.DC.SUM ---
Providers Date of Admission: 11/30/20 Primary Care Physician: Dr. Feliciano Sanz MD Reason For Visit: COPD EXACERBATION Diagnosis Discharge Diagnosis (1) COPD exacerbation: Status: Chronic Code(s): J44.1 - Chronic obstructive pulmonary disease with (acute) exacerbation Medications at Discharge Home Medications escitalopram oxalate 10 mg PO DAILY 04/01/19 albuterol sulfate 2 puff INHALATION Q6H PRN PRN 04/23/19 albuterol sulfate 2.5 mg INHALATION Q4H PRN PRN #180 ml 09/30/20 fluticasone fur. 100 mcg-umeclid 62.5 mcg-vilant 25 mcg inhalat.powder 1 inh INHALATION DAILY #60 ea 09/30/20 amlodipine 5 mg PO DAILY 11/10/20 hydroxyzine pamoate 25 mg PO BID PRN 11/30/20 lisinopril-hydrochlorothiazide 1 tab PO DAILY 11/30/20 azithromycin [Zithromax TRI-ANISH] 500 mg PO DAILY #3 tab 12/01/20 prednisone 20 mg PO BID #10 tab 12/01/20 Hospital Course Summary of Care Provided Minutes Spent on Discharge: 35 Hospital Course: Patient is a 54-year-old gentleman with history of COPD admitted with progressive shortness of breath COPD with acute exacerbation ?Admitted to a monitored bed managed with bronchodilator treatment systemic steroid. Patient condition did improve discharged home the day after his admission Hypertension - Blood pressure controlled, home medications continued with dose adjustment as needed Tobacco dependence - Counseled on cessation, offered nicotine patch for tobacco cravings Physical Exam Narrative GENERAL: cooperative HEENT: Atraumatic; EYES; Anicteric, Normal Conjunctiva NECK; supple, normal thyroid, RESPIRATORY: Diminished to auscultation CARDIOVASCULAR: Regular S1 S2, GI: soft, normoactive bowel sounds, : No Renal angle tenderness; EXTREMITIES: No edema, no clubbing, MUSCULOSKELETAL: no muscle waisting NEURO: Awake; no lateralizing signs. SKIN: No Rash PSYCH; Flat affect Weight / BMI Weight Weight: 71 kg Body Mass Index (BMI) 21.2 ABG / Lab / Microbiology Data Result Diagrams: 12/01/20 05:10 12/01/20 05:10 Laboratory: Laboratory Results - last 24 hr 11/30/20 11/30/20 11/30/20 14:00 14:00 17:05 WBC 6.4 RBC 4.92 Hgb 13.6 Hct 40.7 MCV 82.7 MCH 27.6 MCHC 33.4 RDW Std Deviation 40.4 RDW Coeff of Jazzmine 13.5 Plt Count 254 MPV 8.5 Immature Gran % (Auto) 0.200 Neut % (Auto) 66.9 Lymph % (Auto) 19.1 [place] % (Auto) 7.7 Eos % (Auto) 5.8 H Baso % (Auto) 0.3 Absolute Neuts (auto) 4.3 Absolute Lymphs (auto) 1.21 Nucleated RBC % 0 Diff Path Review D-Dimer Quant (PE/DVT) 3.78 H* Sodium 137 Potassium 3.7 Chloride 104 Carbon Dioxide 26.0 Anion Gap 7 BUN 15 Creatinine 1.17 Estim Creat Clear Calc 75.74 Est GFR (MDRD) Af Amer 84 Est GFR (MDRD) Non-Af 69 BUN/Creatinine Ratio 12.8 Glucose 104 Calcium 9.4 12/01/20 12/01/20 05:10 05:10 WBC 3.5 L RBC 4.51 L Hgb 12.5 L Hct 37.0 L MCV 82.0 MCH 27.7 MCHC 33.8 RDW Std Deviation 40.6 RDW Coeff of Jazzmine 13.7 Plt Count 236 MPV 8.9 Immature Gran % (Auto) 0.300 Neut % (Auto) 85.9 H Lymph % (Auto) 11.0 L [place] % (Auto) 2.8 Eos % (Auto) 0.0 Baso % (Auto) 0.0 Absolute Neuts (auto) 3.0 Absolute Lymphs (auto) 0.39 L Nucleated RBC % 0 Diff Path Review May foll D-Dimer Quant (PE/DVT) Sodium 135 L Potassium 4.1 Chloride 104 Carbon Dioxide 23.0 Anion Gap 8 BUN 20 H Creatinine 1.06 Estim Creat Clear Calc 81.87 Est GFR (MDRD) Af Amer 94 Est GFR (MDRD) Non-Af 78 BUN/Creatinine Ratio 18.9 Glucose 140 H Calcium 9.4 Microbiology: Microbiology 11/30/20 16:16 SARS-CoV-2 Antigen (Rapid) - Final Mucosa - Nasopharyngeal Microbiology 11/30/20 16:16 Mucosa - Nasopharyngeal SARS-CoV-2 Antigen (Rapid) - Final Radiography Diagnostic Testing: Radiology Impression Chest X-Ray 11/30/20 15:35 IMPRESSION: COPD. No acute cardiopulmonary process. Electronically Signed: Harshad Ram MD at 16:08 EDT Tel , Service support , Chest CTA 11/30/20 17:44 IMPRESSION: 1. No central or segmental pulmonary embolism. 2. Bronchiectasis with bilateral upper lobe and lower lobe bronchial wall thickening endobronchial fluid/secretions (new) suggesting bronchitis. Electronically Signed: Rowdy Puente MD ([place]) at 18:57 EDT , Service support , D/C Instructions Discharge Diet: No restrictions Discharge Activity: Return to Normal Activity Call your doctor if you observe: Fever of 101 or Higher, Shortness of breath, Fainting spells and Chest pain Meaningful Use Info Meaningful Use Diagnoses (Choose all that apply): None applicable Discharge Plan Admission Admit Date/Time: 11/30/20 16:25 Primary Reason for Your Visit: COPD Attending Provider: Bird hBandari Primary Care Provider: Feliciano Sanz Discharge Orders/Prescriptions Prescriptions: New prednisone 20 mg tablet 20 mg PO BID Qty: 10 RF: 0 azithromycin [Zithromax TRI-ANISH] 500 mg tablet 500 mg PO DAILY Qty: 3 RF: 0 Continued hgglgnfberb-stkrfcvqn-gusmcmnc 100-62.5-25 mcg blister with device 1 inh INHALATION DAILY Qty: 60 RF: 6 albuterol sulfate 2.5 mg /3 mL (0.083 %) solution for nebulization 2.5 mg INHALATION Q4H PRN PRN (Reason: Sob &/Or Wheezing) Qty: 180 RF: 3 escitalopram oxalate 10 MG tablet 10 mg PO DAILY RF: 0 albuterol sulfate 1 PUFF inhaler 2 puff INHALATION Q6H PRN PRN (Reason: copd) RF: 0 amlodipine 10 mg Tablet 5 mg PO DAILY RF: 0 lisinopril-hydrochlorothiazide 20-25 mg Tablet 1 tab PO DAILY RF: 0 hydroxyzine pamoate 25 mg Capsule 25 mg PO BID PRN (Reason: Anxiety) RF: 0 Referrals / Follow Up: Feliciano Sanz MD [Primary Care Provider] - In 1 Week Disposition Disposition (needs filled in before D/C Order can be placed): Home, self care Charges/Coding Visit Charges OBSV E&M: 12036 Observation care discharge
[2020-12-01] MEDS: Escitalopram Oxalate 10 MG Tablet PO (09:24)
[2020-12-01] MEDS: amLODIPine 5 MG Tablet PO (09:24)
[2020-12-01] MEDS: Lisinopril 20 MG Tablet PO (09:30)
[2020-12-01] MEDS: hydroCHLOROthiazide 25 MG Tablet PO (09:58)
[2020-12-01 13:58] LABS: Pathologist Review Reviewed
== END 2020-12-01 10:50 | disposition home or self-care (01) ==
LOC: ED 15:58 → MS3 16:33
PROVIDERS: Physician Assistant; Admitting Provider Internal Medicine; Emergency Provider Emergency Medicine; PCP Family Medicine; Visit Provider Internal Medicine
DX: J44.1 Chronic obstructive pulmonary disease with (acute) exacerbation (principal); I10 Essential (primary) hypertension; F17.210 Nicotine dependence, cigarettes, uncomplicated; F32.9 Major depressive disorder, single episode, unspecified; Z79.899 Other long term (current) drug therapy; Z79.51 Long term (current) use of inhaled steroids
CPT/HCPCS: 36415; 71045; 71275; 80048; 85025; 85379; 87426; 93005; 94640; 96374; 96376; 99218; 99251; 99285; 99406; Q9967; A4216; G0378; G0463

== ENCOUNTER 2020-12-28 16:09 | Emergency (ER) | payer OTHER, SELFPAY ==
[2020-11-30 19:46] VITALS: BMI 21.2
[2020-12-28 16:09] VITALS: BP 190/107; PULSE 111; RESP 20; TEMP 36.7; O2SAT 88; BMI 22.1
[2020-12-28 16:16] VITALS: PULSE 108; RESP 23; O2SAT 92; O2SAT 93
--- NOTE | 2020-12-28 16:18 | EKG12_ITS ---
Test Reason : SOB Blood Pressure : / mmHG Vent. Rate : 103 BPM Atrial Rate : 103 BPM P-R Int : 164 ms QRS Dur : 086 ms QT Int : 352 ms P-R-T Axes : 081 031 082 degrees QTc Int : 461 ms Sinus tachycardia Right atrial enlargement Inferior infarct , age undetermined Anterior infarct , age undetermined Abnormal ECG Confirmed by FIOR BROWNE, BASESM ([id number]), editor publications RONALD POND ([id number]) on 12/31/2020 9:19:16 AM Referred By: SNEHA Confirmed By:BASSEM CHILDRESS MD
--- NOTE | 2020-12-28 16:19 | ED.VIS.DYS ---
HPI History of Present Illness Chief Complaint: Shortness of Breath Detail of Chief Complaint: Shortness of breath that started this morning. Informant: patient Narrative Narrative: Patient presents with shortness of breath started this morning. Patient states that he believes is related to the temperature change. He has minimal cough. At times cough is productive and bringing up clear sputum. He said no fever. Patient has had his Covid vaccine both doses. He denies recent travel or surgery. He denies chest pain. PFSH PFSH Medical History Anxiety COPD (chronic obstructive pulmonary disease) Erectile dysfunction Hypertension On home oxygen therapy Smoker Home Medications escitalopram oxalate 10 mg PO DAILY 04/01/19 [History Last Taken 06/12/19] albuterol sulfate 2.5 mg INHALATION Q4H PRN PRN #180 ml 09/30/20 [Rx Last Taken Unknown] fluticasone fur. 100 mcg-umeclid 62.5 mcg-vilant 25 mcg inhalat.powder 1 inh INHALATION DAILY #60 ea 09/30/20 [Rx Last Taken Unknown] amlodipine 5 mg PO DAILY 11/10/20 [History Last Taken Unknown] hydroxyzine pamoate 25 mg PO BID PRN 11/30/20 [History Last Taken Unknown] lisinopril-hydrochlorothiazide 1 tab PO DAILY 11/30/20 [History Last Taken Unknown] prednisone 20 mg PO BID #10 tab 12/28/20 [Rx Last Taken Unknown] Allergy/AdvReac Type Severity Reaction Status Date / Time No Known Allergies Allergy Verified 12/28/20 16:11 Surgical History H/O knee surgery H/O total hip arthroplasty Social History (Updated 11/30/20 @ 13:[address] Pablo Capps MD) household members: spouse Smoking Status: Heavy Smoker (>10/day) Tobacco: How many years used: 30 alcohol intake: former substance use type: does not use ROS ROS ED Constitutional Constitutional ED: Reports systems reviewed and no addt'l complaints, except as documented; Denies body ache(s), change in weight or chills Eyes Eyes: Denies acute decrease in peripheral vision, change in vision, double vision or loss of vision ENT ENT ED: Reports none; Denies ear pain, lip swelling, loss taste/smell, neck pain, otalgia or sore throat Cardiovascular Cardiovascular: Reports none; Denies abdominal pain, chest pain with activity, leg edema, lightheadedness, palpitations, rapid heart rate or syncope Respiratory/Chest Respiratory/Chest: Reports none, cough and dyspnea; Denies change in mental status, dry cough, hemoptysis, shortness of breath at rest or shortness of breath with exertion Gastrointestinal Gastrointestinal: Reports none; Denies abdominal pain, change in stool character, diarrhea, hematemesis, hematochezia, melena, rectal bleeding or vomiting Genitourinary Genitourinary ED: Reports none; Denies abdominal discomfort, anuria, dysuria, genital pain or polyuria Musculoskeletal Musculoskeletal: Reports none; Denies arthralgias, back pain, difficulty walking, extremity pain, muscle weakness or myalgias Integumentary Reports none; Denies abscess or rash Neurologic Neurologic: Reports none; Denies abnormal gait, confusion, focal weakness, frequent falls, headache(s), loss of vision, numbness, paresthesias, radicular pain, vertigo or weakness Psychiatric Psychiatric: Reports systems reviewed and no addt'l complaints, except as documented and none; Denies behavioral changes, confusion, difficulty concentrating, hallucinations, suicidal ideation, tactile hallucinations or visual hallucinations Endocrine Endocrinology: Denies none, cold intolerance, excessive sweating, fatigue or heat intolerance Hematologic/Lymphatic Hematologic/Lymphatic: Reports none; Denies anemia, easy bleeding or easy bruising Allergic/Immunologic Allergic/Immunologic ED: Denies as per HPI, none, lip swelling, mouth swelling, throat swelling, tongue swelling or hives EXAM Physical Exam Const Vital Signs: 12/28/20 16:09 12/28/20 16:16 12/28/20 16:48 Temperature 98.1 F Temperature Source Temporal Pulse Rate 111 H 108 H 99 Respiratory Rate 20 H 23 H 15 Respiratory Effort Short of Breath Accessory Muscle Use Pursed Lip Short of Breath Labored Accessory Muscle Use Respiratory Depth Shallow Respiratory Pattern Irregular Blood Pressure 190/107 H Blood Pressure Mean 134 Pulse Ox 88 93 94 Oxygen Delivery Method Room Air Nasal Cannula Nasal Cannula Oxygen Flow Rate (L/min) 3 3 Fraction of Inspired Oxygen (FIO2) 100 12/28/20 17:24 Temperature Temperature Source Pulse Rate 97 Respiratory Rate 17 Respiratory Effort Respiratory Depth Respiratory Pattern Blood Pressure 153/95 H Blood Pressure Mean 114 Pulse Ox 98 Oxygen Delivery Method Room Air Oxygen Flow Rate (L/min) Fraction of Inspired Oxygen (FIO2) Positive well nourished and well developed General Appearance ED: well developed and NAD HEENT Reports TM's clear and moist mucous membranes normocephalic and atraumatic; Negative for trauma or tenderness Tympanic Membrane ED: Yes TM's clear Eyes PERRL and EOMs intact bilaterally General Eye ED: Negative for pale conjunctiva or scleral icterus Neck no lymphadenopathy, supple and no JVD General: Negative for tenderness Chest Wall inspection of chest normal and palpation of chest normal Chest: Negative for tenderness Resp normal respiratory effort and clear to auscultation bilaterally Resp Narrative: Patient with mild tachypnea and mild conversational dyspnea. No accessory muscle use or retractions. Effort and Inspection: Negative for respiratory distress or pain with movement Auscultation: rhonchi, wheezes and diminished lung sounds Cardio regular rate, regular rhythm, S1 normal heart sound, S2 normal heart sound and no murmurs Peripheral Pulses: pulses 2+ throughout GI normal to inspection, nondistended, normoactive bowel sounds, soft to palpation, non-tender, non-distended and no masses Back/Spine no CVA tenderness and no thoracic nor lumbar tenderness Extremity normal to inspection General Extremety ED: Negative for edema General Extremity: Negative for edema Neuro oriented x3, CN's II-XII intact bilaterally, no sensory deficits noted and gait normal Sensorium / Orientation: awake, alert, oriented to person, oriented to place and oriented to time Motor Exam: strength 5/5 throughout and strength abnormal Psych mental status grossly normal Skin no rashes or lesions noted and no wounds MDM MDM MDM Narrative Medical decision making narrative: Patient felt markedly improved after aerosols and Solu-Medrol in the emergency department. At this point his work-up is otherwise unremarkable and his chest x-ray was unremarkable. Patient will be discharged home with instructions to return if increasing shortness of breath or condition should worsen anyway. Patient has aerosols at home and has home O2 as needed as well. Lab Data Attestation: I reviewed the patient's lab results. Labs: Laboratory Results - last 24 hr 12/28/20 12/28/20 16:30 16:30 WBC 7.4 RBC 5.01 Hgb 13.7 Hct 41.9 MCV 83.6 MCH 27.3 MCHC 32.7 RDW Std Deviation 41.3 RDW Coeff of Jazzmine 13.6 Plt Count 274 MPV 9.0 Immature Gran % (Auto) 0.100 Neut % (Auto) 49.0 Lymph % (Auto) 32.0 [place] % (Auto) 8.5 Eos % (Auto) 10.0 H Baso % (Auto) 0.4 Absolute Neuts (auto) 3.6 Absolute Lymphs (auto) 2.37 Nucleated RBC % 0 Sodium 138 Potassium 3.8 Chloride 105 Carbon Dioxide 26.0 Anion Gap 7 BUN 13 Creatinine 1.16 Estim Creat Clear Calc 77.08 Est GFR (MDRD) Af Amer 85 Est GFR (MDRD) Non-Af 70 BUN/Creatinine Ratio 11.2 Glucose 96 Calcium 9.4 Radiography Chest X-Ray - ED: 1 View Diagnostic Testing: Radiology Impression Chest X-Ray 12/28/20 16:32 IMPRESSION: No acute radiographic abnormalities. COPD. Electronically Signed: Demario Soto MD at 17:20 EDT Tel , Service support , 1 view chest x-ray interpreted by myself as hyperinflation and evidence of COPD without acute cardiopulmonary process. Radiology was in agreement. EKG Initial EKG: Comments: Sinus rhythm with ventricular rate of 103 bpm with old anterior and inferior infarct noted. When compared with prior EKG from November 30, 2020 no significant changes noted. Discharge Plan Triage Chief Complaint: Shortness of Breath ED Provider: Luis Sneed Dx/Rx/DC Orders Clinical Impression: Acute exacerbation of chronic obstructive pulmonary disease Instructions: ED COPD Flare Prescriptions: New prednisone 20 mg tablet 20 mg PO BID Qty: 10 RF: 0 No Action gihgwtmomww-zqqemizhh-pfspvaya 100-62.5-25 mcg blister with device 1 inh INHALATION DAILY Qty: 60 RF: 6 albuterol sulfate 2.5 mg /3 mL (0.083 %) solution for nebulization 2.5 mg INHALATION Q4H PRN PRN (Reason: Sob &/Or Wheezing) Qty: 180 RF: 3 escitalopram oxalate 10 MG tablet 10 mg PO DAILY RF: 0 amlodipine 10 mg Tablet 5 mg PO DAILY RF: 0 lisinopril-hydrochlorothiazide 20-25 mg Tablet 1 tab PO DAILY RF: 0 hydroxyzine pamoate 25 mg Capsule 25 mg PO BID PRN (Reason: Anxiety) RF: 0 Primary Care Provider: Feliciano Sanz Referrals: Feliciano Sanz MD [Primary Care Provider] - 3-5 Days Disposition Disposition: Home, Self Care
[2020-12-28] MEDS: MethylPREDNISolone 125 MG/2 ML Vial IV (16:29)
--- NOTE | 2020-12-28 16:32 | RAD_ITS ---
INDICATION: dyspnea EXAMINATION/TECHNIQUE: X-RAY - XR Chest 1 View COMPARISON: 11/30/2020. FINDINGS: Hyperinflated lungs. Biapical pleural scarring. The cardiomediastinal silhouette is unremarkable. No pleural effusion or pneumothorax. No acute osseous abnormalities. RAD/Chest 1 View (Portable) IMPRESSION: No acute radiographic abnormalities. COPD. Electronically Signed: Demario Soto MD at 17:20 EDT Tel , Service support ,
[2020-12-28] MEDS: Albuterol 2.5 MG/3 ML VIAL.NEB. INHALATION (16:47)
[2020-12-28] MEDS: Ipratropium/Albuterol Sulfate 3 ML AMPUL.NEB INHALATION (16:47)
[2020-12-28 16:48] VITALS: PULSE 99; RESP 15; O2SAT 94
[2020-12-28 17:23] LABS: Absolute Lymphocyte Count 2.37 X10^3/uL (0.83-4.51); Absolute Neutrophil Count 3.6 X10^3/uL (2.0-7.7); Basophil# 0.03 X10^3/uL; Basophil% 0.4 % (0-1); Eosinophil# 0.74 X10^3/uL; Hematocrit 41.9 % (40-54); Hemoglobin 13.7 g/dL (13.0-16.5); Lymphocyte # 2.37 X10^3/ul (0.83-4.51); Mean Corp Hgb Conc 32.7 g/dL (32-36); Mean Corpuscular Hgb 27.3 pg (27.0-32.0); Mean Corpuscular Volume 83.6 fL (80-94); Monocyte# 0.63 X10^3/uL; Monocyte% 8.5 % (0-10); NRBC Flagged by Analyzer 0 % (0-5); Neutrophil # 3.62 X10^3/uL (2.7-7.7); Platelet Count 274 K/mm3 (150-450); RBC Distribution Width CV 13.6 % (11.6-14.6); RBC Distribution Width SD 41.3 fl (35.1-43.9); Red Blood Count 5.01 M/mm3 (4.6-6.2); White Blood Count 7.4 K/mm3 (4.4-11.0)
[2020-12-28 17:24] VITALS: BP 153/95; PULSE 97; RESP 17; O2SAT 98
[2020-12-28 17:30] LABS: Anion Gap 7 (5-15); BUN 13 mg/dL (7-18); BUN/Creat Ratio 11.2 RATIO (10-20); Calcium,Total 9.4 mg/dL (8.5-10.1); Chloride 105 mmol/L (98-107); Creatinine, Serum 1.16 mg/dL (0.70-1.30); EST Glomerular Filtration Rate 70 mL/min (>60); Est Glom Filt Rate - Afr Amer 85 mL/min (>60); Estimated Creatinine Clearance 77.08 ml/min; Glucose 96 mg/dL (74-106); Potassium 3.8 mmol/L (3.5-5.1); Sodium Level 138 mmol/L (136-145)
[2020-12-28 17:53] VITALS: BP 169/110; PULSE 95; RESP 17; O2SAT 95
== END 2020-12-28 17:54 | disposition home or self-care (01) ==
PROVIDERS: Emergency Provider Emergency Medicine; PCP Family Medicine
DX: J44.1 Chronic obstructive pulmonary disease with (acute) exacerbation (principal); F17.200 Nicotine dependence, unspecified, uncomplicated; I10 Essential (primary) hypertension; Z79.52 Long term (current) use of systemic steroids; Z79.899 Other long term (current) drug therapy
CPT/HCPCS: 71045; 80048; 85025; 93005; 94640; 96374; 99251; 99284; G0463

== ENCOUNTER 2021-02-02 04:38 | Emergency (ER) | payer OTHER, SELFPAY ==
[2021-02-02 04:38] VITALS: BP 160/109; BP 165/113; PULSE 101; RESP 24; TEMP 36.4; O2SAT 92; BMI 21.8
--- NOTE | 2021-02-02 04:47 | ED.VIS.DYS ---
HPI History of Present Illness Chief Complaint: Shortness of Breath Narrative Narrative: 55-year-old male with history of tobacco abuse as well as COPD presenting with wheezing and shortness of breath. Patient states that about 6 PM last evening he started to feel short of breath and was able to get it under control with breathing treatments. He denies any chest pain. He states he went to sleep and woke up with increasing wheezing and shortness of breath. Patient admits to smoking a half a pack to pack of cigarettes per day. He does wear oxygen as needed at home but does not wear this 24 hours a day. Patient has had his COVID-19 vaccination. He has not had fever, chills, body aches, change in taste or smell. PFSH PFSH Medical History Anxiety COPD (chronic obstructive pulmonary disease) Erectile dysfunction Hypertension On home oxygen therapy Smoker Home Medications escitalopram oxalate 10 mg PO DAILY 04/01/19 [History Last Taken 06/12/19] albuterol sulfate 2.5 mg INHALATION Q4H PRN PRN #180 ml 09/30/20 [Rx Last Taken Unknown] amlodipine 5 mg PO DAILY 11/10/20 [History Last Taken Unknown] hydroxyzine pamoate 25 mg PO BID PRN 11/30/20 [History Last Taken Unknown] lisinopril-hydrochlorothiazide 1 tab PO DAILY 11/30/20 [History Last Taken Unknown] prednisone 50 mg PO DAILY 5 Days #25 tab 02/02/21 [Rx Last Taken Unknown] Allergy/AdvReac Type Severity Reaction Status Date / Time No Known Allergies Allergy Verified 02/02/21 04:41 Surgical History H/O knee surgery H/O total hip arthroplasty Social History household members: spouse Smoking Status: Heavy Smoker (>10/day) Tobacco: How many years used: 30 alcohol intake: former substance use type: does not use ROS ROS ED Constitutional Constitutional ED: Denies chills or fever(s) Eyes Eyes: Denies blurry vision or diplopia ENT ENT ED: Denies rhinorrhea or sore throat Cardiovascular Cardiovascular: Denies chest pain or palpitations Respiratory/Chest Respiratory/Chest: Reports dyspnea and dyspnea on exertion Gastrointestinal Gastrointestinal: Denies abdominal pain or nausea Genitourinary Genitourinary ED: Denies dysuria or hematuria Musculoskeletal Musculoskeletal: Denies arthralgias or myalgias Integumentary Denies abscess or rash Neurologic Neurologic: Denies headache(s) or paresthesias Psychiatric Psychiatric: Denies anxiety or depression EXAM Physical Exam Const Vital Signs: 02/02/21 04:38 02/02/21 05:08 02/02/21 06:26 Temperature 97.6 F L Temperature Source Temporal Pulse Rate 101 H 95 80 Respiratory Rate 24 H 21 H 17 Respiratory Pattern Tachypnea Blood Pressure 160/109 H 148/88 H Blood Pressure Mean 126 Pulse Ox 92 95 Oxygen Delivery Method Room Air Positive well nourished General Appearance ED: NAD HEENT Reports moist mucous membranes atraumatic Eyes EOMs intact bilaterally Resp Auscultation: wheezes scattered wheezes Cardio regular rhythm Rate: tachycardic Extremity normal to inspection General Extremety ED: Negative for edema General Extremity: Negative for edema Neuro oriented x3, CN's II-XII intact bilaterally and no sensory deficits noted Sensorium / Orientation: alert Motor Exam: strength 5/5 throughout Psych mental status grossly normal Thought Process: normal thought process Skin Lesions: no lesions Rashes: no rashes MDM MDM MDM Narrative Medical decision making narrative: Patient presenting with concern for COPD exacerbation. He has no viral symptoms. Patient given Solu-Medrol and breathing treatments and feels improved. Chest x-ray on my interpretation shows no acute cardiopulmonary process. Patient will be placed on a burst of prednisone for home. He will follow up with Dr. Jordan to ensure resolution. Patient has home albuterol. He is given return precautions. Impression: 1. COPD exacerbation Radiography Diagnostic Testing: Radiology Impression Chest X-Ray 02/02/21 04:50 IMPRESSION: COPD. No evidence for acute cardiopulmonary pathology. Electronically Signed: Alexander Jennings MD at 5:45 EDT , Service support , Discharge Plan Triage Chief Complaint: Shortness of Breath ED Provider: Sathish Carrillo Dx/Rx/DC Orders Instructions: ED COPD Flare Prescriptions: New prednisone 10 mg tablet 50 mg PO DAILY 5 Days Qty: 25 RF: 0 No Action albuterol sulfate 2.5 mg /3 mL (0.083 %) solution for nebulization 2.5 mg INHALATION Q4H PRN PRN (Reason: Sob &/Or Wheezing) Qty: 180 RF: 3 escitalopram oxalate 10 MG tablet 10 mg PO DAILY RF: 0 amlodipine 10 mg Tablet 5 mg PO DAILY RF: 0 lisinopril-hydrochlorothiazide 20-25 mg Tablet 1 tab PO DAILY RF: 0 hydroxyzine pamoate 25 mg Capsule 25 mg PO BID PRN (Reason: Anxiety) RF: 0 Primary Care Provider: Feliciano Sanz Referrals: Feliciano Sanz MD [Primary Care Provider] - Disposition Disposition: Home, Self Care Discharge Date/Time: 02/02/21 06:26
[2021-02-02] MEDS: MethylPREDNISolone 125 MG/2 ML Vial IV (04:49)
--- NOTE | 2021-02-02 04:50 | RAD_ITS ---
STUDY: X-RAY CHEST REASON FOR EXAM: Male, 55 years old. dyspnea TECHNIQUE: 2 AP portable views of the chest were obtained. COMPARISON: 12/28/2020. FINDINGS: The lungs are hyperexpanded, suggesting COPD. There are no confluent pulmonary infiltrates. There is no demonstrated pleural abnormality. Normal size heart. Normal mediastinum and jonny. Normal visualized aortic arch and descending thoracic aorta. There are no demonstrated acute fractures or destructive bone lesions. There is no demonstrated abnormality of the visualized soft tissue structures of the upper abdomen. RAD/Chest 1 View (Portable) IMPRESSION: COPD. No evidence for acute cardiopulmonary pathology. Electronically Signed: Alexander Jennings MD at 5:45 EDT , Service support ,
[2021-02-02] MEDS: Albuterol 2.5 MG/3 ML VIAL.NEB. INHALATION (05:05)
[2021-02-02] MEDS: Ipratropium/Albuterol Sulfate 3 ML AMPUL.NEB INHALATION (05:06)
[2021-02-02 05:08] VITALS: PULSE 95; RESP 21
[2021-02-02 06:26] VITALS: BP 148/88; PULSE 80; RESP 17; O2SAT 95
== END 2021-02-02 06:26 | disposition home or self-care (01) ==
PROVIDERS: Emergency Provider Student in an Organized Health Care Education/Training Program; PCP Family Medicine
DX: J44.1 Chronic obstructive pulmonary disease with (acute) exacerbation (principal); F41.9 Anxiety disorder, unspecified; I10 Essential (primary) hypertension; Z99.81 Dependence on supplemental oxygen; F17.210 Nicotine dependence, cigarettes, uncomplicated; Z79.52 Long term (current) use of systemic steroids
CPT/HCPCS: 71045; 94640; 96374; 99282; A4216

== ENCOUNTER 2021-02-16 22:16 | Emergency (ER) | payer OTHER, SELFPAY ==
[2021-02-16 22:17] VITALS: BP 172/121; PULSE 97; RESP 22; TEMP 36.2; O2SAT 95; BMI 22.4
[2021-02-16 23:32] VITALS: BP 175/100; PULSE 82; RESP 20; O2SAT 97
--- NOTE | 2021-02-17 00:24 | EX.ED.DYSGE1 ---
HPI History of Present Illness Chief Complaint: Shortness of Breath Informant: patient Narrative Narrative: 55-year-old male with a history of COPD currently under care of Dr. Jordan from pulmonology presents the emergency department with concerns for COPD flare. Patient states that when he woke up this morning he felt tightness in his chest. By approximately 2030 hrs. he was feeling wheezing. He took several albuterol aerosols at home and came to the emergency department. He states that since being in the waiting room he started to feel better. He denies any significant change in cough. No fevers. No rhinorrhea. He states that typically whenever the weather changes is when he develops a COPD flare. He states that last time he was on prednisone was about 1 month ago. He states he has flares approximately PFSH PFSH Medical History Anxiety COPD (chronic obstructive pulmonary disease) Erectile dysfunction Hypertension On home oxygen therapy Smoker Home Medications escitalopram oxalate 10 mg PO DAILY 04/01/19 [History Last Taken 06/12/19] albuterol sulfate 2.5 mg INHALATION Q4H PRN PRN #180 ml 09/30/20 [Rx Last Taken Unknown] amlodipine 5 mg PO DAILY 11/10/20 [History Last Taken Unknown] hydroxyzine pamoate 25 mg PO BID PRN 11/30/20 [History Last Taken Unknown] lisinopril-hydrochlorothiazide 1 tab PO DAILY 11/30/20 [History Last Taken Unknown] prednisone 50 mg PO DAILY 5 Days #25 tab 02/02/21 [Rx Last Taken Unknown] prednisone 60 mg PO DAILY #12 tablet 02/17/21 [Rx Last Taken Unknown] Allergy/AdvReac Type Severity Reaction Status Date / Time No Known Allergies Allergy Verified 02/16/21 22:18 Surgical History H/O knee surgery H/O total hip arthroplasty Social History household members: spouse Smoking Status: Heavy Smoker (>10/day) Tobacco: How many years used: 30 alcohol intake: former substance use type: does not use ROS ROS ED Constitutional Constitutional ED: Denies chills or weight loss Eyes Eyes: Denies change in vision or diplopia ENT ENT ED: Denies ear pain, rhinorrhea or sore throat Cardiovascular Cardiovascular: Denies chest pain, orthopnea, palpitations or racing heartbeat Respiratory/Chest Respiratory/Chest: Reports cough, dyspnea and dyspnea on exertion; Denies orthopnea Gastrointestinal Gastrointestinal: Denies abdominal pain, diarrhea, nausea or vomiting Genitourinary Genitourinary ED: Denies dysuria, hematuria or urinary frequency Musculoskeletal Musculoskeletal: Denies arthralgias or myalgias Integumentary Denies abscess or rash Neurologic Neurologic: Denies headache(s) or weakness Psychiatric Psychiatric: Denies anxiety, depression, suicidal ideation or suicidal thoughts Endocrine Endocrinology: Denies polydipsia, polyphagia or polyuria Allergic/Immunologic Allergic/Immunologic ED: Denies mouth swelling, tongue swelling or urticaria EXAM Physical Exam Const Vital Signs: 02/16/21 22:17 02/16/21 23:32 02/16/21 23:33 Temperature 97.2 F L Temperature Source Temporal Pulse Rate 97 82 Respiratory Rate 22 H 20 H Respiratory Effort Short of Breath Respiratory Pattern Tachypnea Blood Pressure 172/121 H 175/100 H Blood Pressure Mean 138 125 Pulse Ox 95 97 Oxygen Delivery Method Room Air Room Air Positive well nourished and well developed General Appearance ED: well developed HEENT Reports normocephalic, head/scalp atraumatic and moist mucous membranes Eyes PERRL and EOMs intact bilaterally Neck no lymphadenopathy, supple and no JVD Resp normal respiratory effort and clear to auscultation bilaterally Cardio regular rate, regular rhythm and no murmurs GI normal to inspection, nondistended, normoactive bowel sounds and non-tender Palpation: soft Back/Spine no CVA tenderness and normal ROM Extremity normal to inspection General Extremety ED: Negative for edema General Extremity: Negative for edema Neuro oriented x3 and CN's II-XII intact bilaterally Sensorium / Orientation: alert Motor Exam: strength 5/5 throughout Psych mental status grossly normal Mood & Affect: Negative for depressed or tearful Skin no rashes or lesions noted and no wounds MDM MDM MDM Narrative Medical decision making narrative: The patient is satting 98% on room air. His lung sounds are clear. I am going to give him a dose of prednisone here. He has albuterol nebulizers at home which she will be taking every 4 hours. I will also write him for burst dose of prednisone for the next 4 days. Return if worsening or concerns Discharge Plan Triage Chief Complaint: Shortness of Breath ED Provider: Syed Corbin Dx/Rx/DC Orders Clinical Impression: COPD exacerbation Instructions: ED COPD Flare Prescriptions: New prednisone 20 MG tablet 60 mg PO DAILY Qty: 12 RF: 0 No Action albuterol sulfate 2.5 mg /3 mL (0.083 %) solution for nebulization 2.5 mg INHALATION Q4H PRN PRN (Reason: Sob &/Or Wheezing) Qty: 180 RF: 3 escitalopram oxalate 10 MG tablet 10 mg PO DAILY RF: 0 amlodipine 10 mg Tablet 5 mg PO DAILY RF: 0 lisinopril-hydrochlorothiazide 20-25 mg Tablet 1 tab PO DAILY RF: 0 hydroxyzine pamoate 25 mg Capsule 25 mg PO BID PRN (Reason: Anxiety) RF: 0 prednisone 10 mg tablet 50 mg PO DAILY 5 Days Qty: 25 RF: 0 Primary Care Provider: Feliciano Sanz Referrals: Feliciano Sanz MD [Primary Care Provider] - As Needed Disposition Disposition: Home, Self Care
[2021-02-17] MEDS: predniSONE 20 MG Tablet 60 MG PO (00:49)
[2021-02-17 00:50] VITALS: BP 184/91; PULSE 84; RESP 18; O2SAT 97
== END 2021-02-17 00:50 | disposition home or self-care (01) ==
LOC: ED 02-17 00:44
PROVIDERS: Emergency Provider Emergency Medicine; PCP Family Medicine
DX: J44.1 Chronic obstructive pulmonary disease with (acute) exacerbation (principal); I10 Essential (primary) hypertension; Z99.81 Dependence on supplemental oxygen; F17.200 Nicotine dependence, unspecified, uncomplicated; F41.9 Anxiety disorder, unspecified; Z79.52 Long term (current) use of systemic steroids
CPT/HCPCS: 99283

== ENCOUNTER 2021-03-01 22:33 | Emergency (ER) | payer OTHER, SELFPAY ==
--- NOTE | 2021-03-01 01:20 | RAD_ITS ---
EXAM: XR Chest, 1 View CLINICAL INDICATION: 55 years old, Male; sob, COPD TECHNIQUE: Frontal view of the chest. This report was created using [employer] report generation technology. COMPARISON: None. FINDINGS: Lungs and pleural spaces: Hyperinflation suggesting emphysema. Blunting of the LEFT costophrenic angle may be due to a small amount of fluid or pleural thickening. No pneumothorax. Heart: Unremarkable. Cardiac silhouette not enlarged. Mediastinum: Central airways and mediastinal contour are unremarkable. Bones/joints: Unremarkable. Soft tissues: Unremarkable. RAD/Chest 1 View (Portable) IMPRESSION: Hyperinflation suggesting emphysema. ASSESSMENT: ABNORMAL report - There are abnormal findings in this report which may be related or unrelated to the reason for the exam. Electronically Signed: Barry Whitman MD at 2:36 EDT Tel , Service support ,
[2021-03-01 22:34] VITALS: BP 161/95; PULSE 114; RESP 24; TEMP 36.4; O2SAT 95; BMI 22.2
[2021-03-01 23:27] VITALS: O2SAT 93
[2021-03-01 23:30] VITALS: O2SAT 93
[2021-03-01 23:34] VITALS: BP 151/88; PULSE 107; RESP 21; TEMP 36.9; O2SAT 94
[2021-03-01] MEDS: predniSONE 20 MG Tablet 60 MG PO (23:54)
[2021-03-01 23:55] VITALS: PULSE 101; RESP 20; RESP 21; O2SAT 94
[2021-03-01] MEDS: Ipratropium/Albuterol Sulfate 3 ML AMPUL.NEB INHALATION (23:55)
[2021-03-01] MEDS: Albuterol 2.5 MG/3 ML VIAL.NEB. INHALATION (23:55)
--- NOTE | 2021-03-01 23:55 | ED.RN ---
nebulizer solutions pulled and given to respiratory while this nurse giving oral pred, RT is giving to pt
--- NOTE | 2021-03-01 23:58 | EDS_ITS ---
HPI <Dr. Poli Skinner MD - Last Filed: 03/04/21 07:00> History of Present Illness Chief Complaint: Shortness of Breath Informant: patient Narrative Narrative: Patient states he is having a flare of his COPD. He did get the Covid vaccine earlier this year. He states he has no fevers or chills. He has a cough but is not bringing up sputum that is any different than normal. He has no chest pain. No leg swelling. No hemoptysis. He states the last couple days he has been needing to use his nebulizer more. He is not actually using it frequently, but when he uses it it seems to be more wheezing prior. Today it seems to not be working as well. He states when this happens he usually comes in, gets breathing treatments and steroids and that helps. He has home oxygen but he does not use it. He does have it available if needed though. He has an O2 sat measurement that he can watch on his finger. Its been staying in the mid to low 90s. Nothing specifically makes his symptoms worse. Nebulizer helps but does not resolve it. He is still smoking was counseled on the need to quit. Patient states that he has a flare of his COPD about every month. He normally responds very well to prednisone. PFSH <Dr. Poli Skinner MD - Last Filed: 03/04/21 07:00> [facility] Medical History Anxiety COPD (chronic obstructive pulmonary disease) Erectile dysfunction Hypertension On home oxygen therapy Smoker Home Medications escitalopram oxalate 10 mg PO DAILY 04/01/19 [History Last Taken 06/12/19] albuterol sulfate 2.5 mg INHALATION Q4H PRN PRN #180 ml 09/30/20 [Rx Last Taken Unknown] amlodipine 5 mg PO DAILY 11/10/20 [History Last Taken Unknown] hydroxyzine pamoate 25 mg PO BID PRN 11/30/20 [History Last Taken Unknown] lisinopril-hydrochlorothiazide 1 tab PO DAILY 11/30/20 [History Last Taken Unknown] [id number] [Trelegy Ellipta] 1 inh INHALATION DAILY 03/01/21 [History Last Taken Unknown] prednisone 60 mg PO DAILY #15 tab 03/02/21 [Rx Last Taken Unknown] Allergy/AdvReac Type Severity Reaction Status Date / Time No Known Allergies Allergy Verified 03/01/21 22:36 Surgical History H/O knee surgery H/O total hip arthroplasty Social History household members: spouse Smoking Status: Current every day smoker tobacco type: cigarettes Tobacco: How many years used: 30 alcohol intake: former substance use type: does not use ROS <Dr. Poli Skinner MD - Last Filed: 03/04/21 07:00> ROS ED Constitutional Constitutional ED: Denies chills or fever(s) Eyes Eyes: Denies change in vision ENT ENT ED: Denies rhinorrhea or sore throat Cardiovascular Cardiovascular: Denies chest pain, palpitations or racing heartbeat Respiratory/Chest Respiratory/Chest: Reports cough and dyspnea; Denies sputum Gastrointestinal Gastrointestinal: Denies diarrhea, nausea or vomiting Musculoskeletal Musculoskeletal: Denies back pain or neck pain Integumentary Denies rash Neurologic Neurologic: Denies headache(s), paresthesias or weakness Endocrine Endocrinology: Denies polydipsia or polyuria Hematologic/Lymphatic Hematologic/Lymphatic: Denies easy bleeding or easy bruising Allergic/Immunologic Allergic/Immunologic ED: Denies mouth swelling or urticaria EXAM <Dr. oPli Skinner MD - Last Filed: 03/04/21 07:00> Physical Exam Const Vital Signs: 03/01/21 22:34 03/01/21 23:30 03/01/21 23:34 Temperature 97.6 F L 98.4 F Temperature Source Temporal Oral Pulse Rate 114 H 107 H Respiratory Rate 24 H 21 H Respiratory Effort Short of Breath Labored Respiratory Depth Respiratory Pattern Blood Pressure 161/95 H 151/88 H Blood Pressure Mean 117 109 Pulse Ox 95 94 Oxygen Delivery Method Room Air Room Air Room Air 03/01/21 23:55 03/02/21 01:36 03/02/21 01:51 Temperature Temperature Source Pulse Rate 101 H 90 96 Respiratory Rate 21 H 23 H 97 H Respiratory Effort Short of Breath Respiratory Depth Normal Respiratory Pattern Tachypnea Blood Pressure 124/89 H 134/84 H Blood Pressure Mean 100 100 Pulse Ox 94 94 96 Oxygen Delivery Method Room Air Room Air Room Air 03/02/21 03:17 Temperature Temperature Source Pulse Rate 93 Respiratory Rate 18 Respiratory Effort Respiratory Depth Respiratory Pattern Blood Pressure 146/92 H Blood Pressure Mean 110 Pulse Ox 94 Oxygen Delivery Method Room Air Positive well nourished and well developed Constitutional Narrative: Patient sitting quietly on the bed. He has an O2 sat on his finger that is reading 95%. He looks actually comfortable. He does not look toxic. He does not look like he has Covid. General Appearance ED: well developed and NAD HEENT atraumatic Eyes General Eye ED: Negative for pale conjunctiva or scleral icterus Neck no JVD Resp normal respiratory effort Resp Narrative: Patient does have some diffuse expiratory wheezing. No pain with a deep breath. Auscultation: wheezes; Negative for rales or rhonchi Cardio regular rate Rate: tachycardic GI non-tender and non-distended Palpation: soft Back/Spine normal to inspection Extremity normal to inspection Extremity Narrative: No edema, cords, asymmetry, tenderness along the deep venous system. General Extremety ED: Negative for edema or tenderness General Extremity: Negative for edema Neuro oriented x3 Neuro Narrative: Patient is not sleepy or lethargic in any way. Sensorium / Orientation: alert Psych mental status grossly normal Skin Lesions: no lesions Rashes: no rashes <Junior Panda MD - Last Filed: 03/02/21 07:01> Physical Exam Const Vital Signs: 03/01/21 22:34 03/01/21 23:30 03/01/21 23:34 Temperature 97.6 F L 98.4 F Temperature Source Temporal Oral Pulse Rate 114 H 107 H Respiratory Rate 24 H 21 H Respiratory Effort Short of Breath Labored Respiratory Depth Respiratory Pattern Blood Pressure 161/95 H 151/88 H Blood Pressure Mean 117 109 Pulse Ox 95 94 Oxygen Delivery Method Room Air Room Air Room Air 03/01/21 23:55 03/02/21 01:36 03/02/21 01:51 Temperature Temperature Source Pulse Rate 101 H 90 96 Respiratory Rate 21 H 23 H 97 H Respiratory Effort Short of Breath Respiratory Depth Normal Respiratory Pattern Tachypnea Blood Pressure 124/89 H 134/84 H Blood Pressure Mean 100 100 Pulse Ox 94 94 96 Oxygen Delivery Method Room Air Room Air Room Air 03/02/21 03:17 Temperature Temperature Source Pulse Rate 93 Respiratory Rate 18 Respiratory Effort Respiratory Depth Respiratory Pattern Blood Pressure 146/92 H Blood Pressure Mean 110 Pulse Ox 94 Oxygen Delivery Method Room Air MDM <Dr. Poli Skinner MD - Last Filed: 03/04/21 07:00> MDM Radiography Diagnostic Testing: Radiology Impression Chest X-Ray 03/01/21 01:20 IMPRESSION: Hyperinflation suggesting emphysema. ASSESSMENT: ABNORMAL report - There are abnormal findings in this report which may be related or unrelated to the reason for the exam. Electronically Signed: Barry Whitman MD at 2:36 EDT Tel , Service support , <Junior Panda MD - Last Filed: 03/02/21 07:01> [facility] MDM Narrative Medical decision making narrative: Dr. Panda: Patient endorsed to me by Dr. Skinner to check the chest x-ray on this patient having COPD exacerbation. Chest x-ray shows emphysematous changes. Upon repeat examination, he is moving a good amount of air and resting comfortably after his aerosols. He will be discharged as planned with a prescription for his steroids, and will continue to use his inhalers at home. Disposition is discharged home in stable condition. Radiography Diagnostic Testing: Radiology Impression Chest X-Ray 03/01/21 01:20 IMPRESSION: Hyperinflation suggesting emphysema. ASSESSMENT: ABNORMAL report - There are abnormal findings in this report which may be related or unrelated to the reason for the exam. Electronically Signed: Barry Whitman MD at 2:36 EDT Tel , Service support , Discharge Plan Triage Chief Complaint: Shortness of Breath ED Provider: Poli Skinner Dx/Rx/DC Orders Clinical Impression: COPD (chronic obstructive pulmonary disease) Instructions: ED COPD Flare Prescriptions: New prednisone 20 MG tablet 60 mg PO DAILY Qty: 15 RF: 0 No Action albuterol sulfate 2.5 mg /3 mL (0.083 %) solution for nebulization 2.5 mg INHALATION Q4H PRN PRN (Reason: Sob &/Or Wheezing) Qty: 180 RF: 3 escitalopram oxalate 10 MG tablet 10 mg PO DAILY RF: 0 amlodipine 10 mg Tablet 5 mg PO DAILY RF: 0 lisinopril-hydrochlorothiazide 20-25 mg Tablet 1 tab PO DAILY RF: 0 hydroxyzine pamoate 25 mg Capsule 25 mg PO BID PRN (Reason: Anxiety) RF: 0 Trelegy Ellipta 100-62.5-25 mcg Blister With Device 1 inh INHALATION DAILY RF: 0 Primary Care Provider: Feliciano Sanz Referrals: Feliciano Sanz MD [Primary Care Provider] - 1-2 Days if not improving Disposition Disposition: Home, Self Care Discharge Date/Time: 03/02/21 03:29
--- NOTE | 2021-03-02 00:44 | CPS ---
An Albuterol given to pt. as well in ED
[2021-03-02 01:36] VITALS: BP 124/89; PULSE 90; RESP 23; O2SAT 94
[2021-03-02 01:51] VITALS: BP 134/84; PULSE 96; RESP 97; O2SAT 96
[2021-03-02 03:17] VITALS: BP 146/92; PULSE 93; RESP 18; O2SAT 94
== END 2021-03-02 03:29 | disposition home or self-care (01) ==
LOC: ED 03-02 00:54
PROVIDERS: Emergency Provider Emergency Medicine; PCP Family Medicine
DX: J44.9 Chronic obstructive pulmonary disease, unspecified (principal); F17.210 Nicotine dependence, cigarettes, uncomplicated; I10 Essential (primary) hypertension; F41.9 Anxiety disorder, unspecified; Z99.81 Dependence on supplemental oxygen; Z79.52 Long term (current) use of systemic steroids
CPT/HCPCS: 71045; 94640; 99251; 99285; A4216; G0463

== ENCOUNTER → 2021-03-30 14:39 | Outpatient (CLI) | payer OTHER, SELFPAY ==
[2021-03-30 14:54] LABS: Absolute Lymphocyte Count 2.03 X10^3/uL (0.83-4.51); Absolute Neutrophil Count 3.7 X10^3/uL (2.0-7.7); Basophil# 0.02 X10^3/uL; Basophil% 0.3 % (0-1); Eosinophil# 0.22 X10^3/uL; Eosinophils% 3.3 % (0-5); Hematocrit 43.6 % (40-54); Hemoglobin 13.9 g/dL (13.0-16.5); Lymphocyte # 2.03 X10^3/ul (0.83-4.51); Lymphocyte % 30.8 % (19-41); Mean Corp Hgb Conc 31.9 g/dL (32-36); Mean Corpuscular Hgb 27.7 pg (27.0-32.0); Mean Corpuscular Volume 86.9 fL (80-94); Mean Platelet Vol. 8.7 fl (6.2-12.0); Monocyte# 0.63 X10^3/uL; Monocyte% 9.6 % (0-10); NRBC Flagged by Analyzer 0 % (0-5); Neutrophil # 3.67 X10^3/uL (2.7-7.7); Neutrophil % 55.7 % (47-70); Platelet Count 219 K/mm3 (150-450); RBC Distribution Width CV 13.4 % (11.6-14.6); RBC Distribution Width SD 42.5 fl (35.1-43.9); Red Blood Count 5.02 M/mm3 (4.6-6.2); White Blood Count 6.6 K/mm3 (4.4-11.0)
[2021-04-04 00:06] LABS: Alternaria tenuis <0.10 kU/L (Class 0); Ash, White <0.10 kU/L (Class 0); Aspergillus fumigatus <0.10 kU/L (Class 0); Aspirgillus flavus Negative (Neg:<1:1); Aspirgillus fumigatus Negative (Neg:<1:1); Aspirgillus niger Negative (Neg:<1:1); Bermuda Grass <0.10 kU/L (Class 0); Birch <0.10 kU/L (Class 0); Black Walnut <0.10 kU/L (Class 0); Cat Hair / Dander,Stand <0.10 kU/L (Class 0); Cedar, Mountain <0.10 kU/L (Class 0); Cladosporium herbarum <0.10 kU/L (Class 0); Cockroach, American <0.10 kU/L (Class 0); Cottonwood <0.10 kU/L (Class 0); Cytoplasmic Ab (C-ANCA) <1:20 titer (Neg:<1:20); D farinae Mite <0.10 kU/L (Class 0); D pteronyssinus <0.10 kU/L (Class 0); Dog Epithelia <0.10 kU/L (Class 0); Elm, American White <0.10 kU/L (Class 0); Immunoglobulin E 103 IU/mL (6-495); Maple/Box Elder <0.10 kU/L (Class 0); Mulberry, White <0.10 kU/L (Class 0); Oak, White <0.10 kU/L (Class 0); Pecan <0.10 kU/L (Class 0); Penicillium Notatum <0.10 kU/L (Class 0); Pigweed, Rough <0.10 kU/L (Class 0); Ragweed, Short/Common <0.10 kU/L (Class 0); Russian Thistle <0.10 kU/L (Class 0); Sheep Sorrel <0.10 kU/L (Class 0); Sycamore, American <0.10 kU/L (Class 0); Timothy Grass <0.10 kU/L (Class 0)
[2021-04-04 08:03] LABS: Immunoglobulin E 115 IU/mL (6-495); Mouse Urine <0.10 kU/L (Class 0); Perinuclear Ab (P-ANCA) <1:20 titer (Neg:<1:20)
== END ==
PROVIDERS: PCP Family Medicine; Referring Provider Internal Medicine Critical Care Medicine; Visit Provider Internal Medicine Critical Care Medicine
DX: J44.9 Chronic obstructive pulmonary disease, unspecified (principal)
CPT/HCPCS: 36415; 82785; 85025; 86003; 86256; 86606

== ENCOUNTER 2021-04-05 00:03 | Emergency (ER) | payer OTHER, SELFPAY ==
[2021-04-05 00:04] VITALS: BP 161/100; PULSE 112; RESP 30; TEMP 36.4; O2SAT 94; BMI 22.4
[2021-04-05 00:05] VITALS: BP 161/100; PULSE 112; RESP 30; TEMP 36.4; O2SAT 94
[2021-04-05 00:11] VITALS: O2SAT 98
[2021-04-05 00:36] VITALS: PULSE 102; RESP 20
[2021-04-05] MEDS: Albuterol 2.5 MG/3 ML VIAL.NEB. INHALATION (00:36)
[2021-04-05] MEDS: Ipratropium/Albuterol Sulfate 3 ML AMPUL.NEB INHALATION (00:36)
[2021-04-05] MEDS: Doxycycline 100 MG CAPSULE PO (00:37)
[2021-04-05] MEDS: predniSONE 20 MG Tablet 60 MG PO (00:37)
--- NOTE | 2021-04-05 01:59 | ED.VIS.DYS ---
HPI History of Present Illness Chief Complaint: Shortness of Breath Narrative Narrative: 55-year-old male presenting with shortness of breath. He is a smoker and has COPD and asthma. Patient states that he has been wheezing for a couple of days. He has home albuterol but this is not helping. He states he was recently on steroids which did improve him. He denies any fever, chills, new cough, chest pain. Patient states he feels otherwise well. He does note that he has a small area of erythema on the left distal tibia. He denies any trauma. He states that is somewhat tender to palpation. He has no history of MRSA or skin infections. PFSH PFSH Medical History Anxiety COPD (chronic obstructive pulmonary disease) Erectile dysfunction Hypertension On home oxygen therapy Smoker Home Medications escitalopram oxalate 10 mg PO DAILY 04/01/19 [History Last Taken 06/12/19] albuterol sulfate 2.5 mg INHALATION Q4H PRN PRN #180 ml 09/30/20 [Rx Last Taken Unknown] amlodipine 5 mg PO DAILY 11/10/20 [History Last Taken Unknown] hydroxyzine pamoate 25 mg PO BID PRN 11/30/20 [History Last Taken Unknown] lisinopril-hydrochlorothiazide 1 tab PO DAILY 11/30/20 [History Last Taken Unknown] [id number] [Trelegy Ellipta] 1 inh INHALATION DAILY 03/01/21 [History Last Taken Unknown] prednisone 60 mg PO DAILY #15 tab 03/02/21 [Rx Last Taken Unknown] doxycycline monohydrate 100 mg PO BID #14 capsule 04/05/21 [Rx Last Taken Unknown] prednisone 50 mg PO DAILY 5 Days #25 tab 04/05/21 [Rx Last Taken Unknown] Allergy/AdvReac Type Severity Reaction Status Date / Time No Known Allergies Allergy Verified 03/01/21 22:36 Surgical History H/O knee surgery H/O total hip arthroplasty Social History household members: spouse Smoking Status: Current every day smoker tobacco type: cigarettes Tobacco: How many years used: 30 alcohol intake: former substance use type: does not use ROS ROS ED Constitutional Constitutional ED: Denies chills or fever(s) Eyes Eyes: Denies blurry vision or diplopia ENT ENT ED: Denies rhinorrhea or sore throat Cardiovascular Cardiovascular: Denies chest pain or palpitations Respiratory/Chest Respiratory/Chest: Reports cough and dyspnea Gastrointestinal Gastrointestinal: Denies abdominal pain or nausea Genitourinary Genitourinary ED: Denies dysuria or hematuria Musculoskeletal Musculoskeletal: Denies arthralgias, myalgias or neck pain Integumentary Reports rash Neurologic Neurologic: Denies headache(s) or paresthesias EXAM Physical Exam Const Vital Signs: 04/05/21 00:04 04/05/21 00:05 04/05/21 00:11 Temperature 97.6 F L 97.6 F L Temperature Source Temporal Temporal Pulse Rate 112 H 112 H Respiratory Rate 30 H 30 H Respiratory Effort Short of Breath Pursed Lip Respiratory Depth Shallow Respiratory Pattern Tachypnea Blood Pressure 161/100 H 161/100 H Blood Pressure Mean 120 120 Pulse Ox 94 94 Oxygen Delivery Method Room Air Room Air Room Air 04/05/21 00:36 Temperature Temperature Source Pulse Rate 102 H Respiratory Rate 20 H Respiratory Effort Respiratory Depth Respiratory Pattern Normal Blood Pressure Blood Pressure Mean Pulse Ox Oxygen Delivery Method Positive well nourished General Appearance ED: NAD HEENT Reports moist mucous membranes atraumatic Eyes PERRL and EOMs intact bilaterally Resp Effort and Inspection: able to speak in complete sentences and symmetric chest movement; Negative for retractions or uses accessory muscles Auscultation: wheezes throughout Cardio regular rhythm Rate: tachycardic Neuro oriented x3 and CN's II-XII intact bilaterally Sensorium / Orientation: alert Psych mental status grossly normal Thought Process: normal thought process Skin Skin Narrative: 4 x 4 area of erythema on the left distal tibia anteriorly. There is also some creased warmth. There is no crepitance. MDM MDM MDM Narrative Medical decision making narrative: Patient presenting with exacerbation of COPD and wheezing. He is given prednisone and breathing treatments and he feels much better. Patient has a small rash on the distal left tibia which is consistent with a mild cellulitis. Patient will be put on doxycycline for his rash which will also cover him for a COPD exacerbation. He is given a prednisone burst for home. He will monitor his rash to ensure resolution. Impression: 1. COPD exacerbation 2. Cellulitis Discharge Plan Triage Chief Complaint: Shortness of Breath ED Provider: Sathish Carrillo Dx/Rx/DC Orders Instructions: ED COPD Flare Prescriptions: New prednisone 10 mg tablet 50 mg PO DAILY 5 Days Qty: 25 RF: 0 doxycycline monohydrate 100 mg capsule 100 mg PO BID Qty: 14 RF: 0 No Action albuterol sulfate 2.5 mg /3 mL (0.083 %) solution for nebulization 2.5 mg INHALATION Q4H PRN PRN (Reason: Sob &/Or Wheezing) Qty: 180 RF: 3 escitalopram oxalate 10 MG tablet 10 mg PO DAILY RF: 0 amlodipine 10 mg Tablet 5 mg PO DAILY RF: 0 lisinopril-hydrochlorothiazide 20-25 mg Tablet 1 tab PO DAILY RF: 0 hydroxyzine pamoate 25 mg Capsule 25 mg PO BID PRN (Reason: Anxiety) RF: 0 Trelegy Ellipta 100-62.5-25 mcg Blister With Device 1 inh INHALATION DAILY RF: 0 prednisone 20 MG tablet 60 mg PO DAILY Qty: 15 RF: 0 Primary Care Provider: Feliciano Sanz Referrals: Feliciano Sanz MD [Primary Care Provider] - Disposition Disposition: Home, Self Care
[2021-04-05 02:49] VITALS: BP 151/88; PULSE 76; RESP 16; O2SAT 96
== END 2021-04-05 02:49 | disposition home or self-care (01) ==
PROVIDERS: Emergency Provider Student in an Organized Health Care Education/Training Program; PCP Family Medicine
DX: J44.1 Chronic obstructive pulmonary disease with (acute) exacerbation (principal); L03.90 Cellulitis, unspecified; F41.9 Anxiety disorder, unspecified; I10 Essential (primary) hypertension; F17.210 Nicotine dependence, cigarettes, uncomplicated; Z79.52 Long term (current) use of systemic steroids
CPT/HCPCS: 94640; 99284

== ENCOUNTER 2021-04-30 23:55 | Emergency (ER) | payer OTHER, SELFPAY ==
[2021-04-30 23:56] VITALS: BP 160/102; PULSE 111; RESP 24; TEMP 36.3; O2SAT 95; BMI 22.3
--- NOTE | 2021-05-01 00:09 | EKG12_ITS ---
Test Reason : SOB Blood Pressure : / mmHG Vent. Rate : 099 BPM Atrial Rate : 099 BPM P-R Int : 182 ms QRS Dur : 094 ms QT Int : 360 ms P-R-T Axes : 071 046 075 degrees QTc Int : 462 ms Normal sinus rhythm Anteroseptal NE, age undetermined, cannot be excluded Confirmed by FIOR BROWNE, BASSEM ([id number]), assignment editor RONALD POND ([id number]) on 05/04/2021 10:30:15 AM Referred By: MILAGROS Confirmed By:BASSEM CHILDRESS MD
--- NOTE | 2021-05-01 00:11 | EX.ED.DYSGE1 ---
HPI History of Present Illness Chief Complaint: Shortness of Breath Informant: patient Narrative Narrative: Patient presents with exacerbation of COPD. He states it really started building up today. He called his physician about a dose of prednisone but it was recommended he use his inhalers more. He has been doing this today and they help but his wheezing comes back sooner than normal. No change in sputum or cough. No fevers. No myalgias. No chest pain. He has had his Covid shots and his influenza shot. He is awaiting his Covid booster. He states if he could have gotten prednisone he does not think he would have come to the emergency department. He does still have all his other medicines inhalers and meds for his nebulizer at home. PFSH PFS Medical History Anxiety COPD (chronic obstructive pulmonary disease) Erectile dysfunction Hypertension On home oxygen therapy Smoker Home Medications escitalopram oxalate 10 mg PO DAILY 04/01/19 [History Last Taken 06/12/19] albuterol sulfate 2.5 mg INHALATION Q4H PRN PRN #180 ml 09/30/20 [Rx Last Taken Unknown] amlodipine 5 mg PO DAILY 11/10/20 [History Last Taken Unknown] hydroxyzine pamoate 25 mg PO BID PRN 11/30/20 [History Last Taken Unknown] lisinopril-hydrochlorothiazide 1 tab PO DAILY 11/30/20 [History Last Taken Unknown] doxycycline monohydrate 100 mg PO BID #14 capsule 04/05/21 [Rx Last Taken Unknown] fluticasone fur. 200 mcg-umeclid 62.5 mcg-vilant 25 mcg inhalat.powder 1 inh INHALATION DAILY #60 ea 04/30/21 [Rx Last Taken Unknown] prednisone 60 mg PO DAILY #15 tab 05/01/21 [Rx Last Taken Unknown] Allergy/AdvReac Type Severity Reaction Status Date / Time No Known Allergies Allergy Verified 05/01/21 00:01 Surgical History H/O knee surgery H/O total hip arthroplasty Social History household members: spouse Smoking Status: Current every day smoker tobacco type: cigarettes Tobacco: How many years used: 30 alcohol intake: former substance use type: does not use ROS ROS ED Constitutional Constitutional ED: Denies chills or fever(s) Eyes Eyes: Denies blurry vision ENT ENT ED: Denies rhinorrhea or sore throat Cardiovascular Cardiovascular: Denies chest pain, orthopnea or racing heartbeat Respiratory/Chest Respiratory/Chest: Reports cough and dyspnea; Denies orthopnea or sputum Gastrointestinal Gastrointestinal: Denies abdominal pain, nausea or vomiting Musculoskeletal Musculoskeletal: Denies myalgias Integumentary Denies rash Neurologic Neurologic: Denies paresthesias or weakness Psychiatric Psychiatric: Reports anxiety Endocrine Endocrinology: Denies polydipsia or polyuria Allergic/Immunologic Allergic/Immunologic ED: Denies mouth swelling or tongue swelling EXAM Physical Exam Const Vital Signs: 04/30/21 23:56 05/01/21 00:18 05/01/21 00:24 Temperature 97.4 F L Temperature Source Temporal Pulse Rate 111 H 98 97 Respiratory Rate 24 H 24 H 22 H Respiratory Effort Blood Pressure 160/102 H Blood Pressure Mean 121 Pulse Ox 95 Oxygen Delivery Method Room Air 05/01/21 00:31 Temperature 97.4 F L Temperature Source Temporal Pulse Rate 111 H Respiratory Rate 24 H Respiratory Effort Short of Breath Blood Pressure 160/102 H Blood Pressure Mean 121 Pulse Ox 95 Oxygen Delivery Method Room Air Positive well nourished and well developed General Appearance ED: well developed and NAD; Negative for cyanotic, diaphoretic or pallor HEENT Negative for trauma or tenderness Eyes General Eye ED: Negative for pale conjunctiva Neck No no JVD Chest Wall Chest Narrative: Slight increased AP diameter relative to lateral. Resp Resp Narrative: Increased respiratory rate and effort. He still carries on a conversation but slightly shortened. He does have diffuse expiratory wheezing. No rhonchi. No rales. No pain with deep breath. Auscultation: wheezes Cardio regular rhythm GI normal to inspection, nondistended, normoactive bowel sounds and non-tender Palpation: soft Back/Spine no CVA tenderness Extremity General Extremety ED: Negative for edema or tenderness General Extremity: Negative for edema Neuro oriented x3 Sensorium / Orientation: alert; Negative for lethargic or stuporous Psych mental status grossly normal Skin no rashes or lesions noted General Skin Exam: Negative for jaundice or pallor MDM MDM MDM Narrative Medical decision making narrative: Patient's chest x-ray shows no acute process. Patient is rechecked. His lungs are surprisingly clear. He feels well. He states he will do well on prednisone. He would like to go home. He has all of his meds available. I will write for the prednisone. We discussed reasons to return. Radiography Diagnostic Testing: Clinical Impression(s) from Imaging Studies Chest X-Ray 05/01/21 00:20 IMPRESSION: Normal x-ray examination of the chest. Electronically Signed: Checo Caldera DO at 0:35 EST Tel , Service support , Discharge Plan Triage Chief Complaint: Shortness of Breath ED Provider: Poli Skinner Dx/Rx/DC Orders Clinical Impression: COPD exacerbation Instructions: ED COPD Flare Prescriptions: New prednisone 20 MG tablet 60 mg PO DAILY Qty: 15 RF: 0 No Action albuterol sulfate 2.5 mg /3 mL (0.083 %) solution for nebulization 2.5 mg INHALATION Q4H PRN PRN (Reason: Sob &/Or Wheezing) Qty: 180 RF: 3 escitalopram oxalate 10 MG tablet 10 mg PO DAILY RF: 0 amlodipine 10 mg Tablet 5 mg PO DAILY RF: 0 lisinopril-hydrochlorothiazide 20-25 mg Tablet 1 tab PO DAILY RF: 0 hydroxyzine pamoate 25 mg Capsule 25 mg PO BID PRN (Reason: Anxiety) RF: 0 doxycycline monohydrate 100 mg capsule 100 mg PO BID Qty: 14 RF: 0 Trelegy Ellipta 200-62.5-25 mcg blister with device 1 inh inhalation DAILY Qty: 60 RF: 6 Primary Care Provider: Feliciano Sanz Referrals: Feliciano Sanz MD [Primary Care Provider] - 1-2 Days if not improving Disposition Disposition: Home, Self Care
[2021-05-01 00:18] VITALS: PULSE 98; RESP 24
[2021-05-01] MEDS: Ipratropium/Albuterol Sulfate 3 ML AMPUL.NEB INHALATION (00:18)
[2021-05-01] MEDS: Albuterol 2.5 MG/3 ML VIAL.NEB. INHALATION (00:18)
--- NOTE | 2021-05-01 00:20 | RAD_ITS ---
STUDY: X-RAY CHEST REASON FOR EXAM: Male, 55 years old. cough TECHNIQUE: Single AP portable view of the chest. COMPARISON: 03/02/2021 FINDINGS: The lungs are clear and expanded. There is no demonstrated pleural abnormality. Normal size heart. Normal mediastinum and jonny. Normal visualized pulmonary arteries. Normal visualized aortic arch and descending thoracic aorta. Normal visualized thoracic spine. Normal visualized ribs, clavicles, and shoulders. There is no demonstrated abnormality of the visualized soft tissue structures of the upper abdomen. RAD/Chest 1 View (Portable) IMPRESSION: Normal x-ray examination of the chest. Electronically Signed: Checo Caldera DO at 0:35 EST Tel , Service support ,
[2021-05-01 00:24] VITALS: PULSE 97; RESP 22
[2021-05-01 00:31] VITALS: BP 160/102; PULSE 111; RESP 24; TEMP 36.3; O2SAT 95
[2021-05-01] MEDS: predniSONE 20 MG Tablet 60 MG PO (00:31)
[2021-05-01 01:04] VITALS: BP 158/98; PULSE 90; RESP 18
== END 2021-05-01 01:04 | disposition home or self-care (01) ==
PROVIDERS: Emergency Provider Emergency Medicine; PCP Family Medicine
DX: J44.1 Chronic obstructive pulmonary disease with (acute) exacerbation (principal); F17.210 Nicotine dependence, cigarettes, uncomplicated; F41.9 Anxiety disorder, unspecified; I10 Essential (primary) hypertension; Z99.81 Dependence on supplemental oxygen
CPT/HCPCS: 71045; 93005; 94640; 99283

== ENCOUNTER 2021-10-24 02:21 | Emergency (ER) | payer OTHER, SELFPAY ==
[2021-10-24 02:22] VITALS: BP 197/107; PULSE 111; RESP 24; TEMP 36.2; O2SAT 96; BMI 23.4
[2021-10-24 02:28] VITALS: O2SAT 97
--- NOTE | 2021-10-24 02:32 | EX.ED.DYSGE1 ---
HPI History of Present Illness Chief Complaint: Shortness of Breath Informant: patient Onset/Context/Timing Onset: Days Context: Gradual Onset Current Severity: Moderate Maximum Severity: Moderate Narrative Narrative: Patient present secondary to shortness of breath of the past several days. He states his symptoms are consistent with his COPD flares. Shortness of breath got significantly worse of the last 30 minutes. He tried his aerosols at home without improvement. He denies chest pain. He has had mild cough with clear sputum. PFSH PFSH Medical History Anxiety Asthma-COPD overlap syndrome Erectile dysfunction Hypertension Psoriasis Smoker Home Medications escitalopram oxalate 10 mg PO DAILY 04/01/19 [History Last Taken 06/12/19] amlodipine 5 mg PO DAILY 11/10/20 [History Last Taken Unknown] hydroxyzine pamoate 25 mg PO BID PRN 11/30/20 [History Last Taken Unknown] lisinopril-hydrochlorothiazide 1 tab PO DAILY 11/30/20 [History Last Taken Unknown] doxycycline monohydrate 100 mg PO BID #14 capsule 04/05/21 [Rx Last Taken Unknown] fluticasone fur. 200 mcg-umeclid 62.5 mcg-vilant 25 mcg inhalat.powder 1 inh INHALATION DAILY #60 ea 04/30/21 [Rx Last Taken Unknown] prednisone 60 mg PO DAILY #15 tab 05/01/21 [Rx Last Taken Unknown] albuterol sulfate 2.5 mg INHALATION Q4H PRN PRN #180 ml 06/05/21 [Rx Last Taken Unknown] cetirizine 10 mg capsule 10 mg PO HS #30 cap 06/05/21 [Rx Last Taken Unknown] montelukast 10 mg tablet 10 mg PO QPM #30 tab 10/22/21 [Rx Last Taken Unknown] prednisone 60 mg PO DAILY #15 tab 10/24/21 [Rx Last Taken Unknown] Allergy/AdvReac Type Severity Reaction Status Date / Time No Known Allergies Allergy Verified 10/24/21 02:25 Surgical History H/O knee surgery H/O total hip arthroplasty Social History (Updated 10/24/21 @ 03:[address] Keshia Bajwa MD) household members: spouse Smoking Status: Current every day smoker tobacco type: cigarettes Tobacco: How many years used: 30 Smokeless tobacco user: other alcohol intake: former substance use type: does not use ROS ROS ED Constitutional Constitutional ED: Denies chills or fever(s) Eyes Eyes: Denies change in vision ENT ENT ED: Denies sore throat Cardiovascular Cardiovascular: Denies chest pain Respiratory/Chest Respiratory/Chest: Reports cough, dyspnea and sputum Gastrointestinal Gastrointestinal: Denies abdominal pain, nausea or vomiting Genitourinary Genitourinary ED: Denies dysuria Musculoskeletal Musculoskeletal: Denies back pain Integumentary Denies rash Neurologic Neurologic: Denies headache(s) or weakness Allergic/Immunologic Allergic/Immunologic ED: Denies urticaria EXAM Physical Exam Const Vital Signs: 10/24/21 02:22 10/24/21 02:28 10/24/21 02:41 Temperature 97.2 F L Temperature Source Temporal Pulse Rate 111 H 99 Respiratory Rate 24 H 18 Respiratory Effort Short of Breath Labored Respiratory Depth Deep Respiratory Pattern Tachypnea Normal Blood Pressure 197/107 H Blood Pressure Mean 137 Pulse Ox 96 Oxygen Delivery Method Room Air Room Air 10/24/21 03:40 Temperature Temperature Source Pulse Rate 90 Respiratory Rate 20 H Respiratory Effort Respiratory Depth Respiratory Pattern Blood Pressure 124/79 H Blood Pressure Mean 94 Pulse Ox 93 Oxygen Delivery Method Room Air Positive well nourished and well developed General Appearance ED: well developed HEENT Reports moist mucous membranes Eyes PERRL and EOMs intact bilaterally Neck supple Chest Wall inspection of chest normal and palpation of chest normal Resp Resp Narrative: Diminished breath sounds with wheezes and prolonged expiratory phase. Patient is able to speak 5-6 word sentences. Cardio regular rhythm Rate: tachycardic GI Palpation: soft Extremity normal to inspection General Extremety ED: Negative for edema General Extremity: Negative for edema Neuro oriented x3 Sensorium / Orientation: alert Psych mental status grossly normal Skin no rashes or lesions noted MDM MDM MDM Narrative Medical decision making narrative: Patient given Solu-Medrol along with DuoNeb and albuterol aerosols. Portable chest x-ray obtained. Radiography Chest X-Ray - ED: 1 View, Read by ED Physician and - (Hyperinflation. No focal infiltrate.) Diagnostic Testing: Clinical Impression(s) from Imaging Studies Chest X-Ray 10/24/21 03:12 IMPRESSION: Hyperinflation. Findings likely due to COPD. No pneumonia. Electronically Signed: Jude Damon MD at 3:47 EDT , Treatment and Re-Evaluation Narrative: On repeat evaluation patient reports feeling much improved. Lung sounds are clear with good air movement. He speaking full sentences without difficulty. He will be given prescription for prednisone burst. He still has albuterol at home to use. Return instructions provided. Discharge Plan Triage Chief Complaint: Shortness of Breath ED Provider: Kimberly Boland Dx/Rx/DC Orders Clinical Impression: COPD exacerbation Instructions: ED COPD Flare Prescriptions: New prednisone 20 mg tablet 60 mg PO DAILY Qty: 15 RF: 0 No Action albuterol sulfate 2.5 mg /3 mL (0.083 %) solution for nebulization 2.5 mg INHALATION Q4H PRN PRN (Reason: Sob &/Or Wheezing) Qty: 180 RF: 3 cetirizine 10 mg capsule 10 mg PO HS Qty: 30 RF: 3 escitalopram oxalate 10 MG tablet 10 mg PO DAILY RF: 0 amlodipine 10 mg Tablet 5 mg PO DAILY RF: 0 lisinopril-hydrochlorothiazide 20-25 mg Tablet 1 tab PO DAILY RF: 0 hydroxyzine pamoate 25 mg Capsule 25 mg PO BID PRN (Reason: Anxiety) RF: 0 doxycycline monohydrate 100 mg capsule 100 mg PO BID Qty: 14 RF: 0 prednisone 20 MG tablet 60 mg PO DAILY Qty: 15 RF: 0 Trelegy Ellipta 200-62.5-25 mcg blister with device 1 inh inhalation DAILY Qty: 60 RF: 6 montelukast 10 mg tablet 10 mg PO QPM Qty: 30 RF: 3 Primary Care Provider: Feliciano Sanz Referrals: Feliciano Sanz MD [Primary Care Provider] - Maxwell Jordan DO [STAFF PHYSICIAN] - 1 Week if not improving Disposition Disposition: Home, Self Care
[2021-10-24] MEDS: MethylPREDNISolone 125 MG/2 ML Vial IV (02:37)
[2021-10-24] MEDS: Ipratropium/Albuterol Sulfate 3 ML AMPUL.NEB INHALATION (02:40)
[2021-10-24 02:41] VITALS: PULSE 99; RESP 18
[2021-10-24] MEDS: Albuterol 2.5 MG/3 ML VIAL.NEB. INHALATION ×3 (03:01)
--- NOTE | 2021-10-24 03:12 | RAD_ITS ---
EXAM: XR CHEST, 1 VIEW CLINICAL INDICATION: sob TECHNIQUE: Frontal view of the chest. This report was created using [employer] report generation technology. COMPARISON: 05/01/2021. FINDINGS: LUNGS AND PLEURAL SPACES: Hyperinflation. No pneumothorax. No effusion. HEART: Unremarkable. Cardiac silhouette not enlarged. MEDIASTINUM: Central airways and mediastinal contour are unremarkable. BONES/JOINTS: Unremarkable. SOFT TISSUES: Unremarkable. RAD/Chest 1 View (Portable) IMPRESSION: Hyperinflation. Findings likely due to COPD. No pneumonia. Electronically Signed: Jude Damon MD at 3:47 EDT ,
[2021-10-24 03:40] VITALS: BP 124/79; PULSE 90; RESP 20; O2SAT 93
[2021-10-24 03:51] VITALS: BP 124/79; PULSE 90; RESP 22; O2SAT 93
--- NOTE | 2021-10-27 16:02 | CM.ED ---
ER RNCM DC F/u Call: ED Visit 10/24/21 for SOB, COPD Exacerbation. Prescribed Prednisone. Called patient's listed cell phone on demographics with no answer. VM did not identify correct identity and therefor no VM was left by this automatic typewriter inspector at this time. Belinda Nava RNCM
== END 2021-10-24 04:16 | disposition home or self-care (01) ==
PROVIDERS: Emergency Provider Emergency Medicine; PCP Family Medicine; Visit Provider Emergency Medicine
DX: J44.1 Chronic obstructive pulmonary disease with (acute) exacerbation (principal); F17.210 Nicotine dependence, cigarettes, uncomplicated; I10 Essential (primary) hypertension
CPT/HCPCS: 71045; 94640; 96374; 99283

== ENCOUNTER → 2022-01-12 | Outpatient (CLI) | payer OTHER, SELFPAY ==
--- NOTE | 2022-01-12 17:46 | CT_ITS ---
STUDY: LOW DOSE CT LUNG CANCER SCREENING REASON FOR EXAM: Male, 56 years old. Current smoker 1 PPD and gt; 20 years RADIATION DOSAGE (If Supplied By Facility): CTDIvol = ( 3.02 ) mGy, DLP = ( 114.75 ) mGycm TECHNIQUE: No contrast was administered. Low dose technique was utilized (average mAS-38 and kVp 120). 1.25 mm axial source images with a slice interval of 1.25-mm were reconstructed in lung windows. 2.5 mm axial source images with a slice interval of 2.5-mm were reconstructed in lung windows. 5.0 mm axial source images with a slice interval of 5.0-mm were reconstructed in soft tissue windows. COMPARISON: Comparison is made with prior examination dated 11/30/2020. NODULES: Stable 1 mm calcified nodule in the peripheral lateral aspect of the right upper lobe as seen on axial image #55. Stable 1.5 mm partially calcified nodule in the posterior aspect of the right upper lobe as seen on axial image #82. Stable partially calcified 2 mm nodule in the anterior aspect of the left lower lobe as seen on axial imaging of 105. Emphysema: Stable scarring at the lung apices. Endobronchial lesion: None Aorta: Atherosclerotic calcific plaques. CORONARY ARTERIES: Coronary artery calcification is seen. Heart: Unremarkable Pulmonary artery: Unremarkable Mediastinal nodes: Small mediastinal lymph nodes. Other chest and abdominal findings: CT/Low Dose CT Lung Screening IMPRESSION: Lung-RADS category 2 - Continue annual screening with LDCT in 12 months. IMPORTANT NOTES FOR USE: ACR Lung-RADS Version 1.1 Assessment Categories Release Date: 2018 Category: Coded 0-4 bases on nodule(s) with highest degree of suspicion. Negative screen is defined as categories 1 and 2; a positive screen is defined as categories 3 and 4. Category 3 and 4A nodules that are unchanged on interval CT should be coded as category 2, and individuals returned to screening in 12 months. Category 4X: Category 3 or 4 nodules with additional imaging findings that increase the suspicion of lung cancer, such as spiculation, GGN that doubles in size in 1 year, enlarged lymph notes, etc. Category Modifiers: S (significant finding unrelated to lung cancer) Electronically Signed: Spencer Heck MD at 13:17 EDT ,
== END | disposition home or self-care (01) ==
LOC: CT 17:43
PROVIDERS: PCP Family Medicine; Visit Provider Nurse Practitioner Acute Care
DX: F17.210 Nicotine dependence, cigarettes, uncomplicated (principal)
CPT/HCPCS: 71271

== ENCOUNTER 2022-03-05 21:06 | Emergency (ER) | payer OTHER, SELFPAY ==
[2022-03-05 21:07] VITALS: BP 214/113; PULSE 121; RESP 22; TEMP 36.6; O2SAT 95; BMI 23.0
--- NOTE | 2022-03-05 21:20 | EKG12_ITS ---
Test Reason : DYSRHYTHMIA Blood Pressure : / mmHG Vent. Rate : 087 BPM Atrial Rate : 087 BPM P-R Int : 174 ms QRS Dur : 104 ms QT Int : 378 ms P-R-T Axes : 080 026 075 degrees QTc Int : 454 ms Normal sinus rhythm Inferior infarct , age undetermined Abnormal ECG Confirmed by WERNER BROWNE, LINNEA ([id number]), order editor RONALD POND ([id number]) on 03/08/2022 11:01:23 AM Referred By: PL Confirmed By:LINNEA CALDERA MD
--- NOTE | 2022-03-05 21:21 | EDS_ITS ---
HPI History of Present Illness Chief Complaint: Shortness of Breath Informant: patient Narrative Narrative: Patient states he is having exacerbation of his COPD. He is still smoking. He has had COPD for years. He does have a nebulizer at home and meds. He does not recall being on prednisone. He states every time the weather changes he will get a flare. He started having some wheezing late yesterday and the wheezing got worse today. He states he just feels really tight this evening. He denies any chest pain at any time. He has been coughing a little bit more but no sputum production. No hemoptysis. No leg pain or swelling. Of note, he also has high blood pressure and has not taken his blood pressure meds at least today and maybe other days. PFSH PFSH Medical History Anxiety Asthma-COPD overlap syndrome Erectile dysfunction Hypertension Psoriasis Smoker Home Medications escitalopram oxalate 10 mg tablet 10 mg PO DAILY anxiety 04/01/19 [History Last Taken 06/12/19] amlodipine 10 mg tablet 5 mg PO DAILY 11/10/20 [History Last Taken Unknown] hydroxyzine pamoate 25 mg capsule 25 mg PO BID PRN Anxiety 11/30/20 [History Las t Taken Unknown] lisinopril 20 mg-hydrochlorothiazide 25 mg tablet 1 tab PO DAILY 11/30/20 [History Last Taken Unknown] fluticasone fur. 200 mcg-umeclid 62.5 mcg-vilant 25 mcg inhalat.powder (Trelegy Ellipta) 1 inh inhalation DAILY #60 ea 04/30/21 [Rx Last Taken Unknown] cetirizine 10 mg capsule 10 mg PO HS #30 caps 06/05/21 [Rx Last Taken Unknown] albuterol sulfate 2.5 mg/3 mL (0.083 %) solution for nebulization 2.5 mg (3 mL) inhalation Q4H PRN PRN Sob &/Or Wheezing #180 mL 12/17/21 [Rx Last Taken Unknown] montelukast 10 mg tablet 10 mg PO QPM #30 tabs 02/27/22 [Rx Last Taken Unknown] ipratropium bromide 0.02 % solution for inhalation 2.5 ml inhalation Q6H PRN shortness of breath or wheezing #75 mL 03/05/22 [Rx Last Taken Unknown] prednisone 20 mg tablet 60 mg PO DAILY #15 tabs 03/05/22 [Rx Last Taken Unknown] Allergy/AdvReac Type Severity Reaction Status Date / Time No Known Allergies Allergy Verified 03/05/22 21:08 Surgical History H/O knee surgery H/O total hip arthroplasty Social History household members: spouse Smoking Status: Current every day smoker tobacco type: cigarettes Tobacco: How many years used: 30 Smokeless tobacco user: other alcohol intake: former substance use type: does not use ROS ROS ED Constitutional Constitutional ED: Denies fever(s) or sweats Eyes Eyes: Denies change in vision ENT ENT ED: Denies rhinorrhea or sore throat Cardiovascular Cardiovascular: Denies chest pain, palpitations or racing heartbeat Respiratory/Chest Respiratory/Chest: Reports cough and dyspnea; Denies sputum Gastrointestinal Gastrointestinal: Denies abdominal pain, nausea or vomiting Genitourinary Genitourinary ED: Denies dysuria Musculoskeletal Musculoskeletal: Denies arthralgias or myalgias Integumentary Denies rash Neurologic Neurologic: Denies headache(s) Endocrine Endocrinology: Denies polydipsia or polyuria Hematologic/Lymphatic Hematologic/Lymphatic: Denies easy bleeding or easy bruising Allergic/Immunologic Allergic/Immunologic ED: Denies urticaria EXAM Physical Exam Const Vital Signs: 03/05/22 21:07 03/05/22 21:35 03/05/22 21:37 Temperature 97.9 F Temperature Source Temporal Pulse Rate 121 H 86 102 H Respiratory Rate 22 H 24 H 14 Respiratory Effort Respiratory Depth Respiratory Pattern Normal Blood Pressure 214/113 H 176/111 H Blood Pressure Mean 146 132 Pulse Ox 95 98 Oxygen Delivery Method Room Air Room Air 03/05/22 21:37 03/05/22 22:05 Temperature Temperature Source Pulse Rate 94 Respiratory Rate 18 17 Respiratory Effort Normal Short of Breath Respiratory Depth Normal Respiratory Pattern Normal Blood Pressure 160/103 H Blood Pressure Mean 122 Pulse Ox 96 97 Oxygen Delivery Method Room Air Room Air Positive well nourished and well developed Constitutional Narrative: Patient is sitting on the edge of the bed. He is leaning forward with his arms tight on his knees in a similar tripod type position. He can carry on a conversation but sentences are mildly shortened. He has audible wheezing. He is not at all sleepy or lethargic. General Appearance ED: well developed HEENT Reports moist mucous membranes Eyes General Eye ED: Negative for scleral icterus Neck no meningeal signs and no JVD Neck Narrative: No stridor Resp Resp Narrative: Increased respiratory effort. Decreased air motion and diffuse expiratory wheezes that are very tight at end expiration. No rhonchi or rales Auscultation: wheezes and diminished lung sounds; Negative for rales or rhonchi Cardio regular rhythm Rate: tachycardic GI non-tender and non-distended Palpation: soft Back/Spine no CVA tenderness Extremity normal to inspection Extremity Narrative: No edema cords tenderness or asymmetry. General Extremety ED: Negative for edema or tenderness General Extremity: Negative for edema Neuro oriented x3 Neuro Narrative: Patient is awake alert and oriented. No confusion. No lethargy. No clinical indication of CO2 retention. Psych mental status grossly normal Attitude: No agitated Mood & Affect: Negative for depressed or anxious Thought Process: normal thought process Skin no wounds MDM MDM MDM Narrative Medical decision making narrative: Patient CBC including white count hemoglobin platelets are normal. Electrolytes are normal other than mild elevation of the creatinine of 1.44. This can be followed up as an outpatient. Chest x-ray shows no acute process. I rechecked the patient. He is now laying back in bed. His heart rate is down to 88. His blood pressure is down to about 160/94. His breathing rate is down. His saturations are 97 to 98% on room air. He states he feels markedly better and would like to go home. His lungs sound much better. I barely get a wheeze at all now. I will start him on prednisone. He has albuterol for his nebulizer but I will write for some Atrovent. We explained expected course and reasons to return. Lab Data Attestation: I reviewed the patient's lab results. Labs: Laboratory Results - last 24 hr 03/05/22 03/05/22 21:20 21:20 WBC 9.2 RBC 5.00 Hgb 14.7 Hct 43.2 MCV 86.4 MCH 29.4 MCHC 34.0 RDW Std Deviation 41.7 RDW Coeff of Jazzmine 13.5 Plt Count 195 MPV 8.5 Immature Gran % (Auto) 0.200 Neut % (Auto) 58.4 Lymph % (Auto) 25.8 [place] % (Auto) 7.3 Eos % (Auto) 8.0 H Baso % (Auto) 0.3 Absolute Neuts (auto) 5.3 Absolute Lymphs (auto) 2.36 Nucleated RBC % 0 Sodium 141 Potassium 3.8 Chloride 104 Carbon Dioxide 28.0 Anion Gap 9 BUN 10 Creatinine 1.44 H Estim Creat Clear Calc 63.96 Est GFR (MDRD) Af Amer 66 Est GFR (MDRD) Non-Af 54 L BUN/Creatinine Ratio 6.9 L Glucose 104 Calcium 9.3 Radiography Diagnostic Testing: Clinical Impression(s) from Imaging Studies Chest X-Ray 03/05/22 21:41 IMPRESSION: Normal x-ray examination of the chest. Electronically Signed: Gabriel Moreno MD at 21:59 EDT , EKG Initial EKG: Comments: EKG done for dyspnea read by me shows sinus rhythm with overall rate of 87. No ventricular ectopy. Mild nonspecific changes but no sign of acute infarct or ischemia. DE interval, QRS duration and QTc normal. Discharge Plan Triage Chief Complaint: Shortness of Breath ED Provider: Poli Skinner Dx/Rx/DC Orders Clinical Impression: COPD exacerbation Instructions: ED COPD Flare Prescriptions: New prednisone 20 mg tablet 60 mg PO DAILY Qty: 15 0RF ipratropium bromide 0.02 % solution 2.5 ml inhalation Q6H PRN (Reason: shortness of breath or wheezing) Qty: 75 0RF No Action cetirizine 10 mg capsule 10 mg PO HS Qty: 30 3RF escitalopram oxalate 10 MG tablet 10 mg PO DAILY amlodipine 10 mg Tablet 5 mg PO DAILY lisinopril-hydrochlorothiazide 20-25 mg Tablet 1 tab PO DAILY hydroxyzine pamoate 25 mg Capsule 25 mg PO BID PRN (Reason: Anxiety) Trelegy Ellipta 200-62.5-25 mcg blister with device 1 inh inhalation DAILY Qty: 60 6RF albuterol sulfate 2.5 mg /3 mL (0.083 %) solution for nebulization 2.5 mg INHALATION Q4H PRN PRN (Reason: Sob &/Or Wheezing) Qty: 180 3RF montelukast 10 mg tablet 10 mg PO QPM Qty: 30 3RF Primary Care Provider: Feliciano Sanz Referrals: Feliciano Sanz MD [Primary Care Provider] - 3-5 Days if not improving Disposition Disposition: Home, Self Care
[2022-03-05] MEDS: MethylPREDNISolone 125 MG/2 ML Vial IV (21:26)
[2022-03-05] MEDS: amLODIPine 5 MG Tablet PO (21:33)
[2022-03-05 21:35] VITALS: BP 176/111; PULSE 86; RESP 24; O2SAT 98
[2022-03-05 21:37] VITALS: PULSE 102; RESP 14; RESP 18; O2SAT 96
[2022-03-05] MEDS: Ipratropium/Albuterol Sulfate 3 ML AMPUL.NEB INHALATION (21:37)
[2022-03-05] MEDS: Albuterol 2.5 MG/3 ML VIAL.NEB. INHALATION (21:37)
[2022-03-05 21:38] LABS: Absolute Lymphocyte Count 2.36 X10^3/uL (0.83-4.51); Absolute Neutrophil Count 5.3 X10^3/uL (2.0-7.7); Basophil# 0.03 X10^3/uL; Basophil% 0.3 % (0-1); Eosinophil# 0.73 X10^3/uL; Hematocrit 43.2 % (40-54); Hemoglobin 14.7 g/dL (13.0-16.5); Lymphocyte # 2.36 X10^3/ul (0.83-4.51); Lymphocyte % 25.8 % (19-41); Mean Corpuscular Hgb 29.4 pg (27.0-32.0); Mean Corpuscular Volume 86.4 fL (80-94); Mean Platelet Vol. 8.5 fl (6.2-12.0); Monocyte# 0.67 X10^3/uL; Monocyte% 7.3 % (0-10); NRBC Flagged by Analyzer 0 % (0-5); Neutrophil # 5.34 X10^3/uL (2.7-7.7); Neutrophil % 58.4 % (47-70); Platelet Count 195 K/mm3 (150-450); RBC Distribution Width CV 13.5 % (11.6-14.6); RBC Distribution Width SD 41.7 fl (35.1-43.9); White Blood Count 9.2 K/mm3 (4.4-11.0)
--- NOTE | 2022-03-05 21:41 | RAD_ITS ---
STUDY: X-RAY CHEST REASON FOR EXAM: Male, 56 years old. COPD TECHNIQUE: Single AP portable view of the chest. COMPARISON: 10/24/2021 FINDINGS: The lungs are clear and expanded. There is no demonstrated pleural abnormality. Normal size heart. Normal mediastinum and jonny. Normal visualized pulmonary arteries. Normal visualized aortic arch and descending thoracic aorta. Normal visualized thoracic spine. Normal visualized ribs, clavicles, and shoulders. There is no demonstrated abnormality of the visualized soft tissue structures of the upper abdomen. RAD/Chest 1 View (Portable) IMPRESSION: Normal x-ray examination of the chest. Electronically Signed: Gabriel Moreno MD at 21:59 EDT ,
--- NOTE | 2022-03-05 21:51 | CPS ---
x1 Albuterol given to pt. in ER as well
[2022-03-05 21:58] LABS: Anion Gap 9 (5-15); BUN 10 mg/dL (7-18); BUN/Creat Ratio 6.9 RATIO (10-20); Calcium,Total 9.3 mg/dL (8.5-10.1); Chloride 104 mmol/L (98-107); Creatinine, Serum 1.44 mg/dL (0.70-1.30); EST Glomerular Filtration Rate 54 mL/min (>60); Est Glom Filt Rate - Afr Amer 66 mL/min (>60); Estimated Creatinine Clearance 63.96 ml/min; Glucose 104 mg/dL (74-106); Potassium 3.8 mmol/L (3.5-5.1); Sodium Level 141 mmol/L (136-145)
[2022-03-05] MEDS: Lisinopril 20 MG Tablet PO (22:01)
[2022-03-05 22:05] VITALS: BP 160/103; PULSE 94; RESP 17; O2SAT 97
[2022-03-05] MEDS: predniSONE 20 MG Tablet 60 MG PO (22:19)
[2022-03-05 22:20] VITALS: BP 145/95; PULSE 96; RESP 18; O2SAT 96
== END 2022-03-05 22:21 | disposition home or self-care (01) ==
PROVIDERS: Emergency Provider Emergency Medicine; PCP Family Medicine; Visit Provider Emergency Medicine
DX: J44.1 Chronic obstructive pulmonary disease with (acute) exacerbation (principal); I10 Essential (primary) hypertension; F17.210 Nicotine dependence, cigarettes, uncomplicated
CPT/HCPCS: 71045; 80048; 85025; 93005; 94640; 99251; 99284; A4216; G0463

== ENCOUNTER → 2022-06-23 | Outpatient (CLI) | payer OTHER, SELFPAY ==
--- NOTE | 2022-06-23 08:45 | ART_ITS ---
Reason For Study: PVD Procedure A bilateral lower extremity continuous wave Doppler with analog waveform analysis,segmental pressures,and ankle brachial indexes with exercise. Walked PT on treadmill @ 1.7 MPH on a 5% incline for 2:30 min. AT 2 min. PT was having BLE pain & cramping. Cramping continued >5 min after getting off treadmill making acquiring pressures difficult. Left Segmental Pressures Left brachial= 93mmHg. Left thigh = 58mmHg. Left calf = 55mmHg. Left posterior tibial artery = 60mmHg. Left dorsalis pedis artery = 58mmHg. The left posterior tibial artery waveforms are monophasic. The left dorsalis pedis waveforms are monophasic. Right Segmental Pressures Right brachial= 94mmHg. Right thigh = 98mmHg. Right calf = 91mmHg. Right posterior tibial artery = 73mmHg. Right dorsalis pedis artery = 94mmHg. The right posterior tibial artery waveforms are biphasic. The right dorsalis pedis waveforms are triphasic. Indices The right resting ankle brachial index is 1.0. The right ankle brachial index by the posterior tibial artery is 0.78. The right ankle brachial index by the dorsalis pedis is 1.0. The right post exercise ankle brachial index is 0.72. The left resting ankle brachial index is 0.64. The left ankle brachial index by the posterior tibial artery is 0.64. The left ankle brachial index by the dorsalis pedis is 0.62. The left post exercise ankle brachial index is 0.79. VL/Lower Ext Art Exam w/ Exercise Interpretation Summary Biphasic and triphasic Doppler waveforms are noted at ankle level on the right. Monophasic Doppler waveforms are noted at ankle level on the left. Pulse-volume recordings appear satisfactory at low thigh, calf, and ankle levels bilaterally. The resting right ankle-brachial ind ex is normal. The resting left ankle-brachial index is moderately diminished. Following a period of exercise, ankle pressures and ankle-brachial indices diminish bilaterally. Based upon the resting component of this study, arterial flow appears normal at ankle level on the right, though there is evidence of angiosomal (regional) arterial occlusive dis ease. 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 The exercise component of this study appears to unmask additional arterial occlusive disease in the lo wer extremities which is not apparent in the resting phase of the study. Ordering Physician: Isai Cristina Referring Physician: ISAI CRISTINA MD Performed By: Maria Isabel Hsu RVT, [facility]
== END | disposition home or self-care (01) ==
PROVIDERS: PCP Family Medicine; Referring Provider Family Medicine; Visit Provider Family Medicine
DX: I73.9 Peripheral vascular disease, unspecified (principal)
CPT/HCPCS: 93924

== ENCOUNTER → 2022-06-25 | Outpatient (CLI) | payer OTHER, SELFPAY ==
[2022-06-25 15:07] LABS: Hematocrit 38.2 % (40-54); Hemoglobin 13.2 g/dL (13.0-16.5); Mean Corp Hgb Conc 34.6 g/dL (32-36); Mean Corpuscular Hgb 29.3 pg (27.0-32.0); Mean Corpuscular Volume 84.7 fL (80-94); Mean Platelet Vol. 9.3 fl (6.2-12.0); Platelet Count 175 K/mm3 (150-450); RBC Distribution Width CV 13.5 % (11.6-14.6); RBC Distribution Width SD 41.8 fl (35.1-43.9); Red Blood Count 4.51 M/mm3 (4.6-6.2); White Blood Count 4.1 K/mm3 (4.4-11.0)
[2022-06-25 15:42] LABS: Anion Gap 7 (5-15); BUN 19 mg/dL (7-18); BUN/Creat Ratio 12.8 RATIO (10-20); Calcium,Total 8.9 mg/dL (8.5-10.1); Chloride 100 mmol/L (98-107); Cholesterol 137 mg/dL (200); Creatinine, Serum 1.48 mg/dL (0.70-1.30); EST Glomerular Filtration Rate 53 mL/min (>60); Est Glom Filt Rate - Afr Amer 64 mL/min (>60); Glucose 90 mg/dL (74-106); High Density Lipoprotein 34 mg/dL; PSA,Total - Annual Screen 0.83 ng/mL (0.00-4.00); Potassium 3.7 mmol/L (3.5-5.1); Sodium Level 132 mmol/L (136-145); Triglycerides 144 mg/dL; Very Low Density Lipoprotein 29 mg/dL (5-40)
== END | disposition home or self-care (01) ==
LOC: MFPLAB 13:55
PROVIDERS: PCP Family Medicine; Visit Provider Family Medicine
DX: Z12.5 Encounter for screening for malignant neoplasm of prostate (principal); I73.9 Peripheral vascular disease, unspecified; I10 Essential (primary) hypertension
CPT/HCPCS: 36415; 80048; 80061; 84153; 85027; G0103

== ENCOUNTER → 2022-07-12 | Outpatient (CLI) | payer OTHER, SELFPAY ==
[2022-07-12 18:21] LABS: Anion Gap 7 (5-15); BUN 8 mg/dL (7-18); BUN/Creat Ratio 7.4 RATIO (10-20); Calcium,Total 8.5 mg/dL (8.5-10.1); Chloride 110 mmol/L (98-107); Creatinine, Serum 1.08 mg/dL (0.70-1.30); EST Glomerular Filtration Rate 76 mL/min (>60); Est Glom Filt Rate - Afr Amer 91 mL/min (>60); Glucose 104 mg/dL (74-106); Potassium 3.9 mmol/L (3.5-5.1); Sodium Level 140 mmol/L (136-145)
== END | disposition home or self-care (01) ==
LOC: MFPLAB 14:41
PROVIDERS: PCP Family Medicine; Visit Provider Family Medicine
DX: N28.9 Disorder of kidney and ureter, unspecified (principal)
CPT/HCPCS: 36415; 80048

== ENCOUNTER 2022-10-06 19:37 | Emergency (ER) | payer OTHER, SELFPAY ==
[2022-10-06] VITALS (16 sets, daily range): BP systolic 146–196; BP diastolic 84–109; PULSE 74–125; RESP 14–30; TEMP 36.1; O2SAT 90–98; BMI 24.5
--- NOTE | 2022-10-06 19:46 | EKG12_ITS ---
Test Reason : DYSRHYTHMIA Blood Pressure : / mmHG Vent. Rate : 090 BPM Atrial Rate : 090 BPM P-R Int : 176 ms QRS Dur : 098 ms QT Int : 362 ms P-R-T Axes : 074 065 073 degrees QTc Int : 442 ms Normal sinus rhythm Normal ECG Confirmed by WERNER BROWNE, LINNEA ([id number]), material expeditor ERIC LEDESMA ([id number]) on 10/08/2022 2:20:56 PM Referred By: HARSHA Confirmed By:LINNEA CALDERA MD
--- NOTE | 2022-10-06 20:15 | RAD_ITS ---
STUDY: X-RAY CHEST REASON FOR EXAM: Male, 56 years old. SOB TECHNIQUE: AP portable COMPARISON: March 05, 2022 FINDINGS: Lungs are hyperinflated but clear.. [Blunted left costophrenic sulcus sulcus possibly representing tiny pleural effusion versus pleural thickening Normal size heart. Normal mediastinum and jonny. Normal visualized pulmonary arteries. Normal visualized aortic arch and descending thoracic aorta. Normal visualized thoracic spine. Normal visualized ribs, clavicles, and shoulders. There is no demonstrated abnormality of the visualized soft tissue structures of the upper abdomen. RAD/Chest 1 View (Portable) IMPRESSION: COPD. Possible tiny left pleural effusion versus pleural thickening. Electronically Signed: Nestor Denton MD at 20:30 EDT ,
--- NOTE | 2022-10-06 20:28 | ED.VIS.DYS ---
HPI History of Present Illness Chief Complaint: Shortness of Breath Narrative Narrative: 56-year-old male with history of COPD/asthma overlap syndrome and a current everyday smoker presenting with shortness of breath. He is not having chest pain. He states this is been worse over the last couple of days but is worsening even here in the ER. Denies fever or chills. PFSH PFSH Medical History Anxiety Asthma-COPD overlap syndrome Erectile dysfunction Hypertension Psoriasis Smoker Home Medications escitalopram oxalate 10 mg tablet 10 mg PO DAILY anxiety 04/01/19 [History Last Taken 06/12/19] amlodipine 10 mg tablet 5 mg PO DAILY 11/10/20 [History Last Taken Unknown] hydroxyzine pamoate 25 mg capsule 25 mg PO BID PRN Anxiety 11/30/20 [History Last Taken Unknown] lisinopril 20 mg-hydrochlorothiazide 25 mg tablet 1 tab PO DAILY 11/30/20 [History Last Taken Unknown] albuterol sulfate 2.5 mg/3 mL (0.083 %) solution for nebulization 2.5 mg (3 mL) inhalation Q4H PRN PRN Sob &/Or Wheezing #180 mL 03/06/22 [Rx Last Taken Unknown] albuterol sulfate 90 mcg/actuation aerosol inhaler (ProAir HFA) 2 puff inhalation Q6H PRN shortness of breath or wheezing #18 grams 03/11/22 [Rx Last Taken Unknown] cetirizine 10 mg capsule 10 mg PO HS #90 caps 03/11/22 [Rx Last Taken Unknown] fluticasone fur. 200 mcg-umeclid 62.5 mcg-vilant 25 mcg inhalat.powder (Trelegy Ellipta) 1 inh inhalation DAILY #3 ea 03/11/22 [Rx Last Taken Unknown] montelukast 10 mg tablet 10 mg PO QPM #90 tabs 03/11/22 [Rx Last Taken Unknown] atorvastatin 80 mg tablet 80 mg PO DAILY #90 tabs 08/25/22 [Rx Last Taken Unknown] prednisone 50 mg tablet 50 mg PO DAILY #5 tabs 10/06/22 [Rx Last Taken Unknown] Allergy/AdvReac Type Severity Reaction Status Date / Time No Known Allergies Allergy Verified 10/06/22 19:37 Surgical History H/O knee surgery H/O total hip arthroplasty Social History household members: spouse Smoking Status: Current every day smoker tobacco type: cigarettes Tobacco: How many years used: 30 Smokeless tobacco user: other alcohol intake: former substance use type: does not use ROS ROS ED Constitutional Constitutional ED: Denies chills, fever(s) or sweats Eyes Eyes: Denies blurry vision or change in vision ENT ENT ED: Denies ear pain or sore throat Cardiovascular Cardiovascular: Denies chest pain, palpitations or racing heartbeat Respiratory/Chest Respiratory/Chest: Reports cough, dyspnea and dyspnea on exertion; Denies sputum Gastrointestinal Gastrointestinal: Denies abdominal pain, constipation, diarrhea, nausea or vomiting Genitourinary Genitourinary ED: Denies dysuria, hematuria or urinary frequency Musculoskeletal Musculoskeletal: Denies arthralgias, myalgias or neck pain Integumentary Denies abscess, Abrasions or rash Neurologic Neurologic: Denies headache(s), paresthesias or weakness Psychiatric Psychiatric: Denies anxiety, depression, suicidal ideation or suicidal thoughts Endocrine Endocrinology: Denies polydipsia or polyuria EXAM Physical Exam Const Vital Signs: 10/06/22 19:39 10/06/22 20:07 10/06/22 20:07 Temperature 97.0 F L Temperature Source Temporal Pulse Rate 125 H Respiratory Rate 30 H 15 Respiratory Effort Respiratory Depth Respiratory Pattern Blood Pressure 196/107 H Blood Pressure Mean 136 Pulse Ox 90 98 Oxygen Delivery Method Room Air Nasal Cannula Nasal Cannula Oxygen Flow Rate (L/min) 2 2 10/06/22 20:09 10/06/22 20:12 10/06/22 20:20 Temperature 97.0 F L Temperature Source Temporal Pulse Rate 93 94 Respiratory Rate 16 17 Respiratory Effort Normal Non-Labored Respiratory Depth Normal Respiratory Pattern Normal Blood Pressure 166/101 H 148/102 H Blood Pressure Mean 122 117 Pulse Ox 98 97 Oxygen Delivery Method Nasal Cannula Nasal Cannula Oxygen Flow Rate (L/min) 2 2 2 10/06/22 20:30 10/06/22 23:03 10/06/22 20:30 Temperature Temperature Source Pulse Rate 93 87 97 Respiratory Rate 18 14 Respiratory Effort Respiratory Depth Respiratory Pattern Normal Blood Pressure 148/102 H Blood Pressure Mean 113 Pulse Ox 95 97 Oxygen Delivery Method Room Air Oxygen Flow Rate (L/min) 10/06/22 20:45 10/06/22 21:00 10/06/22 21:15 Temperature Temperature Source Pulse Rate 91 99 90 Respiratory Rate 16 16 14 Respiratory Effort Respiratory Depth Respiratory Pattern Blood Pressure 159/98 H 168/109 H 154/95 H Blood Pressure Mean 115 123 113 Pulse Ox 98 96 92 Oxygen Delivery Method Oxygen Flow Rate (L/min) 10/06/22 21:30 10/06/22 21:45 10/06/22 22:00 Temperature Temperature Source Pulse Rate 88 87 90 Respiratory Rate 16 19 H 19 H Respiratory Effort Respiratory Depth Respiratory Pattern Blood Pressure 168/104 H 160/94 H 156/99 H Blood Pressure Mean 123 113 116 Pulse Ox 92 91 91 Oxygen Delivery Method Oxygen Flow Rate (L/min) 10/06/22 22:15 10/06/22 22:30 10/06/22 22:45 Temperature Temperature Source Pulse Rate 86 74 Respiratory Rate 14 25 H Respiratory Effort Respiratory Depth Respiratory Pattern Blood Pressure 172/84 H 160/97 H 146/87 H Blood Pressure Mean 112 113 105 Pulse Ox 93 91 Oxygen Delivery Method Oxygen Flow Rate (L/min) Positive well nourished General Appearance ED: NAD; Negative for pallor HEENT Reports dry mucous membranes Mouth ED: Yes dry mucous membranes Mouth: dry mucous membranes Eyes PERRL and EOMs intact bilaterally Resp normal respiratory effort and clear to auscultation bilaterally Auscultation: wheezes expiratory wheezes; Negative for rales or rhonchi Cardio regular rhythm Rate: tachycardic GI non-tender Neuro oriented x3 and CN's II-XII intact bilaterally Sensorium / Orientation: alert Psych mental status grossly normal Skin no wounds General Skin Exam: Negative for jaundice or pallor MDM MDM MDM Narrative Medical decision making narrative: Patient with shortness of breath asthma?COPD overlap syndrome. He states he smokes a pack a day. Patient also reports that the weather change from cold to warm usually will cause him to be short of breath. Denies chest pain. No fevers or chills. Patient given breathing treatments but he is wheezing on exam. Is also given Solu-Medrol 125 mg. He states that its been a long time since he had to have steroid treatment. Differential includes pneumonia, COPD exacerbation. CBC to assess white blood cell count, hemoglobin, platelets, differential. BMP to assess renal function, electrolytes, glucose, anion gap. High-sensitivity troponin, chest x-ray, EKG to assess cardiac etiology. Patient was tachycardic, tachypneic, hypoxic on arrival with a history of COPD. I do not believe he is septic. After breathing treatments at 9:04 PM the patient is feeling improved. His oxygen was turned off. So far he is maintaining O2 sats 98% and talking in full sentences. Chest x-ray my interpretation shows no infiltrates. Radiology interpreted this and agrees. Do state there might be a small pleural effusion versus pleural thickening. CBC shows white blood cell count of 10.7. Hemoglobin 14, hematocrit 41.7, platelets 194. Renal function electrolytes unremarkable. High-sensitivity troponin 6. Patient ambulated and maintained pulse ox of 93-97 ambulating. He feels improved. He is given a prednisone burst for home. He is counseled on smoking cessation. Return precautions discussed. Impression: 1. COPD exacerbation Lab Data Attestation: I reviewed the patient's lab results. Labs: Laboratory Results - last 24 hr 10/06/22 10/06/22 20:08 20:08 WBC 10.7 RBC 4.64 Hgb 14.0 Hct 41.7 MCV 89.9 MCH 30.2 MCHC 33.6 RDW Std Deviation 44.1 H RDW Coeff of Jazzmine 13.3 Plt Count 194 MPV 9.0 Immature Gran % (Auto) 0.400 Neut % (Auto) 63.5 Lymph % (Auto) 21.9 [place] % (Auto) 7.0 Eos % (Auto) 6.8 H Baso % (Auto) 0.4 Absolute Neuts (auto) 6.8 Absolute Lymphs (auto) 2.34 Nucleated RBC % 0 Sodium 138 Potassium 3.5 Chloride 108 H Carbon Dioxide 26.0 Anion Gap 4 L BUN 12 Creatinine 1.26 Estim Creat Clear Calc 73.56 Est GFR (MDRD) Af Amer 77 Est GFR (MDRD) Non-Af 63 BUN/Creatinine Ratio 9.5 L Glucose 98 Calcium 9.3 Troponin I High Sens 6 Radiography Diagnostic Testing: Clinical Impression(s) from Imaging Studies Chest X-Ray 10/06/22 20:15 IMPRESSION: COPD. Possible tiny left pleural effusion versus pleural thickening. Electronically Signed: Nestor Denton MD at 20:30 EDT , Discharge Plan Triage Chief Complaint: Shortness of Breath ED Provider: Sathish Carrillo Dx/Rx/DC Orders Instructions: ED COPD Flare Prescriptions: New prednisone 50 mg tablet 50 mg PO DAILY Qty: 5 0RF No Action cetirizine 10 mg capsule 10 mg PO HS Qty: 90 3RF albuterol sulfate [ProAir HFA] 90 mcg/actuation HFA aerosol inhaler 2 puff inhalation Q6H PRN (Reason: shortness of breath or wheezing) Qty: 18 6RF Trelegy Ellipta 200-62.5-25 mcg blister with device 1 inh inhalation DAILY Qty: 3 3RF montelukast 10 mg tablet 10 mg PO QPM Qty: 90 3RF atorvastatin 80 mg tablet 80 mg PO DAILY Qty: 90 3RF escitalopram oxalate 10 MG tablet 10 mg PO DAILY amlodipine 10 mg Tablet 5 mg PO DAILY lisinopril-hydrochlorothiazide 20-25 mg Tablet 1 tab PO DAILY hydroxyzine pamoate 25 mg Capsule 25 mg PO BID PRN (Reason: Anxiety) albuterol sulfate 2.5 mg /3 mL (0.083 %) solution for nebulization 2.5 mg INHALATION Q4H PRN PRN (Reason: Sob &/Or Wheezing) Qty: 180 3RF Primary Care Provider: Feliciano Sanz Referrals: Feliciano Sanz MD [Primary Care Provider] - Maxwell Jordan DO [Med Staff - Active Staff] - 3-5 Days Disposition Disposition: Home, Self Care
[2022-10-06] MEDS: Albuterol 2.5 MG/3 ML VIAL.NEB. INHALATION (20:30)
[2022-10-06] MEDS: Ipratropium/Albuterol Sulfate 3 ML AMPUL.NEB INHALATION (20:30)
[2022-10-06] MEDS: MethylPREDNISolone 125 MG/2 ML Vial IV (20:38)
[2022-10-06 20:47] LABS: Absolute Lymphocyte Count 2.34 X10^3/uL (0.83-4.51); Absolute Neutrophil Count 6.8 X10^3/uL (2.0-7.7); Basophil# 0.04 X10^3/uL; Basophil% 0.4 % (0-1); Eosinophil# 0.73 X10^3/uL; Eosinophils% 6.8 % (0-5); Hematocrit 41.7 % (40-54); Lymphocyte # 2.34 X10^3/ul (0.83-4.51); Lymphocyte % 21.9 % (19-41); Mean Corp Hgb Conc 33.6 g/dL (32-36); Mean Corpuscular Hgb 30.2 pg (27.0-32.0); Mean Corpuscular Volume 89.9 fL (80-94); Monocyte# 0.75 X10^3/uL; NRBC Flagged by Analyzer 0 % (0-5); Neutrophil # 6.78 X10^3/uL (2.7-7.7); Neutrophil % 63.5 % (47-70); Platelet Count 194 K/mm3 (150-450); RBC Distribution Width CV 13.3 % (11.6-14.6); RBC Distribution Width SD 44.1 fl (35.1-43.9); Red Blood Count 4.64 M/mm3 (4.6-6.2); White Blood Count 10.7 K/mm3 (4.4-11.0)
--- NOTE | 2022-10-06 20:49 | CPS ---
x1 Albuterol given to pt. in ER as well
[2022-10-06 21:04] LABS: Anion Gap 4 (5-15); BUN 12 mg/dL (7-18); BUN/Creat Ratio 9.5 RATIO (10-20); Calcium,Total 9.3 mg/dL (8.5-10.1); Chloride 108 mmol/L (98-107); Creatinine, Serum 1.26 mg/dL (0.70-1.30); EST Glomerular Filtration Rate 63 mL/min (>60); Est Glom Filt Rate - Afr Amer 77 mL/min (>60); Estimated Creatinine Clearance 73.56 ml/min; Glucose 98 mg/dL (74-106); Potassium 3.5 mmol/L (3.5-5.1); Sodium Level 138 mmol/L (136-145); Troponin-I HS 6 pg/mL (3.0-78.0)
== END 2022-10-06 23:36 | disposition home or self-care (01) ==
PROVIDERS: Emergency Provider Student in an Organized Health Care Education/Training Program; PCP Family Medicine; Visit Provider Student in an Organized Health Care Education/Training Program
DX: J44.1 Chronic obstructive pulmonary disease with (acute) exacerbation (principal); I10 Essential (primary) hypertension; F17.210 Nicotine dependence, cigarettes, uncomplicated; F41.9 Anxiety disorder, unspecified; Z79.899 Other long term (current) drug therapy; Z79.51 Long term (current) use of inhaled steroids
CPT/HCPCS: 71045; 80048; 84484; 85025; 87811; 93005; 94640; 94760; 96374; 99282; A4216

== ENCOUNTER 2022-11-20 09:49 | Emergency (ER) | payer OTHER, SELFPAY ==
[2022-11-20 09:49] VITALS: BP 137/99; PULSE 87; RESP 18; TEMP 35.7; O2SAT 97; BMI 24.3
--- NOTE | 2022-11-20 10:21 | ED.VIS.DYS ---
HPI History of Present Illness Chief Complaint: Shortness of Breath Informant: patient Narrative Narrative: Patient is a 56-year-old male with history of tobacco use and COPD presenting with concerns of COPD exacerbation. Patient continues to smoke cigarettes. He states the hot weather and the fluctuation from the 90s to the 50s is what triggered his COPD exacerbation. States been going on for a few days. He has been using's nebulizer inhaler 7-8 times a day over the past day or so. Has had a cough that is increased. He has had some clear mucus production. He is wheezing more. He denies any chest pain or fever. Denies any recent URI symptoms. Denies any swelling of his legs. States this feels like his typical COPD exacerbation. He states he was admitted once for observation but does not feel like he is at that point currently. PFSH PFSH Medical History Anxiety Asthma-COPD overlap syndrome Erectile dysfunction Hypertension Psoriasis Smoker Home Medications escitalopram oxalate 10 mg tablet 10 mg PO DAILY anxiety 04/01/19 [History Last Taken 06/12/19] amlodipine 10 mg tablet 5 mg PO DAILY 11/10/20 [History Last Taken Unknown] hydroxyzine pamoate 25 mg capsule 25 mg PO BID PRN Anxiety 11/30/20 [History Last Taken Unknown] lisinopril 20 mg-hydrochlorothiazide 25 mg tablet 1 tab PO DAILY 11/30/20 [History Last Taken Unknown] cetirizine 10 mg capsule 10 mg PO HS #90 caps 03/11/22 [Rx Last Taken Unknown] fluticasone fur. 200 mcg-umeclid 62.5 mcg-vilant 25 mcg inhalat.powder (Trelegy Ellipta) 1 inh inhalation DAILY #3 ea 03/11/22 [Rx Last Taken Unknown] montelukast 10 mg tablet 10 mg PO QPM #90 tabs 03/11/22 [Rx Last Taken Unknown] atorvastatin 80 mg tablet 80 mg PO DAILY #90 tabs 08/25/22 [Rx Last Taken Unknown] prednisone 50 mg tablet 50 mg PO DAILY #5 tabs 10/06/22 [Rx Last Taken Unknown] albuterol sulfate 2.5 mg/3 mL (0.083 %) solution for nebulization 2.5 mg (3 mL) inhalation Q4H PRN PRN Sob &/Or Wheezing #180 mL 10/21/22 [Rx Last Taken Unknown] albuterol sulfate 90 mcg/actuation aerosol inhaler (ProAir HFA) 2 puff inhalation Q6H PRN shortness of breath or wheezing #18 grams 10/21/22 [Rx Last Taken Unknown] azithromycin 250 mg tablet 250 mg PO DAILY #4 TABLETS 11/20/22 [Rx Last Taken Unknown] prednisone 20 mg tablet 40 mg PO DAILY #8 tabs 11/20/22 [Rx Last Taken Unknown] Allergy/AdvReac Type Severity Reaction Status Date / Time No Known Allergies Allergy Verified 10/06/22 19:37 Surgical History H/O knee surgery H/O total hip arthroplasty Social History household members: spouse Smoking Status: Current every day smoker tobacco type: cigarettes Tobacco: How many years used: 30 Smokeless tobacco user: other alcohol intake: former substance use type: does not use ROS ROS ED Constitutional Constitutional ED: Denies chills or fever(s) ENT ENT ED: Denies ear pain, rhinorrhea or sore throat Cardiovascular Cardiovascular: Denies chest pain or palpitations Respiratory/Chest Respiratory/Chest: Reports cough, dyspnea and dyspnea on exertion Gastrointestinal Gastrointestinal: Denies abdominal pain, nausea or vomiting Musculoskeletal Musculoskeletal: Denies arthralgias or myalgias Integumentary Denies rash Neurologic Neurologic: Denies headache(s) Hematologic/Lymphatic Hematologic/Lymphatic: Denies easy bleeding EXAM Physical Exam Const Vital Signs: 11/20/22 09:49 11/20/22 10:42 11/20/22 10:20 Temperature 96.2 F L Temperature Source Temporal Pulse Rate 87 75 Respiratory Rate 18 17 Respiratory Effort Normal Non-Labored Respiratory Depth Normal Respiratory Pattern Normal Normal Blood Pressure 137/99 H Blood Pressure Mean 111 Pulse Ox 97 Oxygen Delivery Method Room Air Room Air 11/20/22 10:49 Temperature Temperature Source Pulse Rate 73 Respiratory Rate 14 Respiratory Effort Respiratory Depth Respiratory Pattern Blood Pressure 157/105 H Blood Pressure Mean 122 Pulse Ox 99 Oxygen Delivery Method Room Air Positive well nourished and well developed General Appearance ED: well developed and NAD HEENT Reports moist mucous membranes Eyes PERRL and EOMs intact bilaterally Neck supple and no JVD Resp Resp Narrative: Pursed lip breathing. No conversational dyspnea present. No retractions appreciated. Auscultation: wheezes scattered wheezes and diminished lung sounds bilateral lower Cardio regular rate, regular rhythm and no murmurs GI non-tender and non-distended Extremity normal to inspection General Extremety ED: Negative for edema General Extremity: Negative for edema Neuro oriented x3 Motor Exam: Negative for general weakness Psych mental status grossly normal Skin no wounds MDM MDM MDM Narrative Medical decision making narrative: Patient's evaluated for increased shortness of breath, cough and concern for COPD exacerbation. Physical exam is consistent with a COPD exacerbation. You were given a DuoNeb. Patient is not hypoxic, tachypneic or tachycardic at this time. He is not have any prodrome of an infectious origin and suspects that the recent more extreme weather is what triggered him. I think this is quite probable. I do not think a chest x-ray is indicated as he has not had a fever, change in sputum color or other infectious symptoms. Will be given a DuoNeb's he does have tight breath sounds with scattered wheezing and started on prednisone. Patient is counseled that he might require return to the emergency room if his symptoms do not worsen. He states he does not need any refills of his albuterol or other aerosols. I will also start the patient on antibiotics due to his severe baseline COPD with increased shortness of breath and change in his cough/been production. Chart review from most recent pulmonology visit on 06/10/2022 shows that patient has stable asthma/COPD overlap syndrome and is managed on Trelegy. Patient reevaluated after DuoNeb. He states he is feeling better and he has improvement of his breath sounds. Is agreeable with plan of care and discharge. History & Record Review Additional record(s) reviewed:: Prior outpatient record Discharge Plan Triage Chief Complaint: Shortness of Breath ED Provider: Keyla Pinzon Dx/Rx/DC Orders Clinical Impression: COPD exacerbation, Shortness of breath Instructions: ED COPD Flare Prescriptions: New prednisone 20 mg tablet 40 mg PO DAILY Qty: 8 0RF azithromycin 250 mg tablet 250 mg PO DAILY Qty: 4 0RF No Action cetirizine 10 mg capsule 10 mg PO HS Qty: 90 3RF Trelegy Ellipta 200-62.5-25 mcg blister with device 1 inh inhalation DAILY Qty: 3 3RF montelukast 10 mg tablet 10 mg PO QPM Qty: 90 3RF atorvastatin 80 mg tablet 80 mg PO DAILY Qty: 90 3RF escitalopram oxalate 10 MG tablet 10 mg PO DAILY amlodipine 10 mg Tablet 5 mg PO DAILY lisinopril-hydrochlorothiazide 20-25 mg Tablet 1 tab PO DAILY hydroxyzine pamoate 25 mg Capsule 25 mg PO BID PRN (Reason: Anxiety) prednisone 50 mg tablet 50 mg PO DAILY Qty: 5 0RF albuterol sulfate 2.5 mg /3 mL (0.083 %) solution for nebulization 2.5 mg INHALATION Q4H PRN PRN (Reason: Sob &/Or Wheezing) Qty: 180 3RF albuterol sulfate [ProAir HFA] 90 mcg/actuation HFA aerosol inhaler 2 puff inhalation Q6H PRN (Reason: shortness of breath or wheezing) Qty: 18 6RF Primary Care Provider: Feliciano Sanz Referrals: Feliciano Sanz MD [Primary Care Provider] - Activity Restrictions/Additional Instructions: If your breathing gets worse please return to the emergency room. Please also follow-up with your automation specialist. Disposition Disposition: Home, Self Care
[2022-11-20] MEDS: Azithromycin 250 MG Tablet 500 MG PO (10:35)
[2022-11-20] MEDS: predniSONE 20 MG Tablet 60 MG PO (10:36)
[2022-11-20 10:42] VITALS: PULSE 75; RESP 17
[2022-11-20] MEDS: Ipratropium/Albuterol Sulfate 3 ML AMPUL.NEB INHALATION (10:42)
[2022-11-20 10:49] VITALS: BP 157/105; PULSE 73; RESP 14; O2SAT 99
== END 2022-11-20 11:19 | disposition home or self-care (01) ==
PROVIDERS: Emergency Provider Emergency Medicine; PCP Family Medicine; Visit Provider Emergency Medicine
DX: J44.1 Chronic obstructive pulmonary disease with (acute) exacerbation (principal); I10 Essential (primary) hypertension; F17.210 Nicotine dependence, cigarettes, uncomplicated; R06.02 Shortness of breath; F41.9 Anxiety disorder, unspecified; Z79.899 Other long term (current) drug therapy; Z79.51 Long term (current) use of inhaled steroids; Z96.649 Presence of unspecified artificial hip joint
CPT/HCPCS: 94640; 99283

== ENCOUNTER 2022-12-08 18:48 | Emergency (ER) | payer OTHER, SELFPAY ==
[2022-12-08 18:50] VITALS: BP 186/90; PULSE 109; RESP 25; TEMP 36.6; O2SAT 94; BMI 24.7
--- NOTE | 2022-12-08 18:57 | EDS_ITS ---
HPI History of Present Illness Chief Complaint: Shortness of Breath Detail of Chief Complaint: Shortness of breath Informant: patient Narrative Narrative: Patient presents to the emergency department complaint of feeling short of breath. Patient states that he woke up this morning and he had some wheezing. He only started feeling short of breath about an hour ago. He did use albuterol aerosols at home prior to coming in but continues to feel short of breath. He denies fever cough or recent illness. He denies chest pain. He denies recent travel or surgery. Patient does have history of COPD and thinks he is having an exacerbation of his COPD. PFSH PFSH Medical History Anxiety Asthma-COPD overlap syndrome Erectile dysfunction Hypertension Psoriasis Smoker Home Medications escitalopram oxalate 10 mg tablet 10 mg PO DAILY anxiety 04/01/19 [History Last Taken 06/12/19] amlodipine 10 mg tablet 5 mg PO DAILY 11/10/20 [History Last Taken Unknown] hydroxyzine pamoate 25 mg capsule 25 mg PO BID PRN Anxiety 11/30/20 [History Last Taken Unknown] lisinopril 20 mg-hydrochlorothiazide 25 mg tablet 1 tab PO DAILY 11/30/20 [History Last Taken Unknown] cetirizine 10 mg capsule 10 mg PO HS #90 caps 03/11/22 [Rx Last Taken Unknown] fluticasone fur. 200 mcg-umeclid 62.5 mcg-vilant 25 mcg inhalat.powder (Trelegy Ellipta) 1 inh inhalation DAILY #3 ea 03/11/22 [Rx Last Taken Unknown] montelukast 10 mg tablet 10 mg PO QPM #90 tabs 03/11/22 [Rx Last Taken Unknown] atorvastatin 80 mg tablet 80 mg PO DAILY #90 tabs 08/25/22 [Rx Last Taken Unknown] prednisone 50 mg tablet 50 mg PO DAILY #5 tabs 10/06/22 [Rx Last Taken Unknown] albuterol sulfate 2.5 mg/3 mL (0.083 %) solution for nebulization 2.5 mg (3 mL) inhalation Q4H PRN PRN Sob &/Or Wheezing #180 mL 10/21/22 [Rx Last Taken Unknown] albuterol sulfate 90 mcg/actuation aerosol inhaler (ProAir HFA) 2 puff inhalation Q6H PRN shortness of breath or wheezing #18 grams 10/21/22 [Rx Last Taken Unknown] azithromycin 250 mg tablet 250 mg PO DAILY #4 TABLETS 11/20/22 [Rx Last Taken Unknown] prednisone 20 mg tablet 40 mg PO DAILY #8 tabs 11/20/22 [Rx Last Taken Unknown] prednisone 20 mg tablet 20 mg PO BID #10 tabs 12/08/22 [Rx Last Taken Unknown] Allergy/AdvReac Type Severity Reaction Status Date / Time No Known Allergies Allergy Verified 12/08/22 18:50 Surgical History H/O knee surgery H/O total hip arthroplasty Social History household members: spouse Smoking Status: Current every day smoker tobacco type: cigarettes Tobacco: How many years used: 30 Smokeless tobacco user: other alcohol intake: former substance use type: does not use ROS ROS ED Review of Systems ROS Unobtainable: other Constitutional Constitutional ED: Reports lethargy; Denies chills, fever(s), sweats or weight loss Eyes Eyes: Denies blurry vision, change in vision or diplopia ENT ENT ED: Denies rhinorrhea or sore throat Cardiovascular Cardiovascular: Denies chest pain, orthopnea or racing heartbeat Respiratory/Chest Respiratory/Chest: Reports dyspnea and dyspnea on exertion; Denies cough, orthopnea or sputum Gastrointestinal Gastrointestinal: Denies abdominal pain, diarrhea, nausea or vomiting Genitourinary Genitourinary ED: Denies dysuria, hematuria or urinary frequency Musculoskeletal Musculoskeletal: Denies arthralgias, back pain, myalgias or neck pain Integumentary Denies abscess, Abrasions or rash Neurologic Neurologic: Denies headache(s) or weakness Psychiatric Psychiatric: Denies anxiety, depression or suicidal thoughts Endocrine Endocrinology: Denies polydipsia, polyphagia or polyuria Hematologic/Lymphatic Hematologic/Lymphatic: Denies easy bleeding, easy bruising or lymphadenopathy Allergic/Immunologic Allergic/Immunologic ED: Denies mouth swelling, tongue swelling or urticaria EXAM Physical Exam Const Vital Signs: 12/08/22 18:50 12/08/22 18:55 12/08/22 19:04 Temperature 98 F Temperature Source Temporal Pulse Rate 109 H 115 H Respiratory Rate 25 H 20 H Blood Pressure 186/90 H Blood Pressure Mean 122 Pulse Ox 94 Oxygen Delivery Method Room Air Room Air Positive well nourished and well developed General Appearance ED: well developed and NAD HEENT Reports TM's clear and moist mucous membranes normocephalic and atraumatic; Negative for trauma or tenderness Tympanic Membrane ED: Yes TM's clear Eyes PERRL and EOMs intact bilaterally General Eye ED: Negative for pale conjunctiva or scleral icterus Neck no lymphadenopathy, supple and no JVD General: Negative for tenderness Chest Wall inspection of chest normal and palpation of chest normal Chest: Negative for tenderness Resp normal respiratory effort and No clear to auscultation bilaterally Resp Narrative: Patient with diminished breath sounds bilaterally and faint expiratory wheezes bilaterally. He has mild tachypnea. No accessory muscle use or retractions. No significant conversational dyspnea. Effort and Inspection: Negative for respiratory distress or pain with movement Auscultation: Negative for rhonchi, wheezes or diminished lung sounds Cardio regular rhythm, S1 normal heart sound, S2 normal heart sound and no murmurs; Negative for regular rate Rate: tachycardic Peripheral Pulses: pulses 2+ throughout GI normal to inspection, nondistended, normoactive bowel sounds, soft to palpation, non-tender, non-distended and no masses Back/Spine no CVA tenderness and no thoracic nor lumbar tenderness Extremity normal to inspection General Extremety ED: Negative for edema General Extremity: Negative for edema Neuro oriented x3, CN's II-XII intact bilaterally, no sensory deficits noted and gait normal Sensorium / Orientation: awake, alert, oriented to person, oriented to place and oriented to time Motor Exam: strength 5/5 throughout and strength abnormal Psych mental status grossly normal Skin no rashes or lesions noted and no wounds MDM MDM MDM Narrative Medical decision making narrative: Patient presents with dyspnea consistent with exacerbation of his COPD. Patient's only been admitted 1 other time for COPD exacerbation. He has not had any fever or other infectious signs or symptoms. Patient had a chest x-ray that showed no evidence of infiltrate or acute disease process. He was given a DuoNeb aerosol followed by albuterol aerosols. After treatments felt markedly improved. Reevaluation at 1945 shows that he is resting comfortably and states that he feels significantly better. Minimal faint expiratory wheezes noted on exam. Patient will be started on prednisone and advised to follow-up with his primary care physician within next 3 to 5 days. He is advised to return if increasing shortness of breath or condition should worsen anyway. Radiography Diagnostic Testing: Clinical Impression(s) from Imaging Studies Chest X-Ray 12/08/22 19:03 IMPRESSION: Hyperinflation and pleural thickening at the left base or tiny effusion No acute cardiopulmonary pathology. Electronically Signed: Nestor Denton MD at 19:21 EDT Reading Location ID and State: [address] [place] [address] , Service support , 1 view chest x-ray obtained interpreted by myself as no evidence of infiltrate or acute disease process. Radiology in agreement. Discharge Plan Triage Chief Complaint: Shortness of Breath ED Provider: Luis Sneed Dx/Rx/DC Orders Clinical Impression: COPD exacerbation Instructions: ED COPD Flare Prescriptions: New prednisone 20 mg tablet 20 mg PO BID Qty: 10 0RF No Action cetirizine 10 mg capsule 10 mg PO HS Qty: 90 3RF Trelegy Ellipta 200-62.5-25 mcg blister with device 1 inh inhalation DAILY Qty: 3 3RF montelukast 10 mg tablet 10 mg PO QPM Qty: 90 3RF atorvastatin 80 mg tablet 80 mg PO DAILY Qty: 90 3RF escitalopram oxalate 10 MG tablet 10 mg PO DAILY amlodipine 10 mg Tablet 5 mg PO DAILY lisinopril-hydrochlorothiazide 20-25 mg Tablet 1 tab PO DAILY hydroxyzine pamoate 25 mg Capsule 25 mg PO BID PRN (Reason: Anxiety) prednisone 50 mg tablet 50 mg PO DAILY Qty: 5 0RF prednisone 20 mg tablet 40 mg PO DAILY Qty: 8 0RF azithromycin 250 mg tablet 250 mg PO DAILY Qty: 4 0RF albuterol sulfate 2.5 mg /3 mL (0.083 %) solution for nebulization 2.5 mg INHALATION Q4H PRN PRN (Reason: Sob &/Or Wheezing) Qty: 180 3RF albuterol sulfate [ProAir HFA] 90 mcg/actuation HFA aerosol inhaler 2 puff inhalation Q6H PRN (Reason: shortness of breath or wheezing) Qty: 18 6RF Primary Care Provider: Feliciano Sanz Referrals: Feliciano Sanz MD [Primary Care Provider] - 3-5 Days Disposition Disposition: Home, Self Care
[2022-12-08] MEDS: Ipratropium/Albuterol Sulfate 3 ML AMPUL.NEB INHALATION (19:03)
--- NOTE | 2022-12-08 19:03 | RAD_ITS ---
STUDY: X-RAY CHEST REASON FOR EXAM: Male, 57 years old. dyspnea TECHNIQUE: AP portable COMPARISON: October 06, 2022 FINDINGS: Lungs are hyperinflated but clear.. [Blunted left costophrenic sulcus consistent with tiny effusion or pleural thickening. Normal size heart. Normal mediastinum and jonny. Normal visualized pulmonary arteries. Normal visualized aortic arch and descending thoracic aorta. Normal visualized thoracic spine. Normal visualized ribs, clavicles, and shoulders. There is no demonstrated abnormality of the visualized soft tissue structures of the upper abdomen. No significant change since prior exam RAD/Chest 1 View (Portable) IMPRESSION: Hyperinflation and pleural thickening at the left base or tiny effusion No acute cardiopulmonary pathology. Electronically Signed: Nestor Denton MD at 19:21 EDT ,
[2022-12-08 19:04] VITALS: PULSE 115; RESP 20
[2022-12-08] MEDS: Albuterol 2.5 MG/3 ML VIAL.NEB. INHALATION ×2 (19:07)
[2022-12-08] MEDS: predniSONE 20 MG Tablet 60 MG PO (19:14)
== END 2022-12-08 20:15 | disposition home or self-care (01) ==
PROVIDERS: Emergency Provider Emergency Medicine; PCP Family Medicine; Visit Provider Emergency Medicine
DX: J44.1 Chronic obstructive pulmonary disease with (acute) exacerbation (principal); F17.210 Nicotine dependence, cigarettes, uncomplicated; I10 Essential (primary) hypertension; F41.9 Anxiety disorder, unspecified; Z79.899 Other long term (current) drug therapy; Z79.51 Long term (current) use of inhaled steroids
CPT/HCPCS: 71045; 94640; 99282

== ENCOUNTER 2023-01-07 01:46 | Emergency (ER) | payer OTHER, SELFPAY ==
[2023-01-07 01:47] VITALS: BP 189/116; PULSE 105; RESP 28; TEMP 36.5; O2SAT 91; BMI 26.2
--- NOTE | 2023-01-07 01:53 | EDS_ITS ---
HPI History of Present Illness Chief Complaint: Shortness of Breath Informant: patient Narrative Narrative: Patient presents saying his COPD feels like it is flared up over the last couple hours. Started gradually became worse, did nebulizer treatment at home which helped a little but not enough. Denies any chest discomfort or tightness, palpitations, near syncope, focal neurologic symptoms, fevers or chills. No recent changes in his cough or sputum, occasional clear sputum production no blood. Does not feel like he has been ill lately. Storm system went through tonight, which may have been the trigger, he states he often is triggered by fluctuating ambient temperatures; it has been hot lately. Denies any swelling in his legs. Sees Dr. Jordan with pulmonology as an outpatient. Not on home oxygen. PFSH PFSH Medical History Anxiety Asthma-COPD overlap syndrome Erectile dysfunction Hypertension Psoriasis Smoker Home Medications escitalopram oxalate 10 mg tablet 10 mg PO DAILY anxiety 04/01/19 [History Last Taken 06/12/19] amlodipine 10 mg tablet 5 mg PO DAILY 11/10/20 [History Last Taken Unknown] hydroxyzine pamoate 25 mg capsule 25 mg PO BID PRN Anxiety 11/30/20 [History Last Taken Unknown] lisinopril 20 mg-hydrochlorothiazide 25 mg tablet 1 tab PO DAILY 11/30/20 [History Last Taken Unknown] cetirizine 10 mg capsule 10 mg PO HS #90 caps 03/11/22 [Rx Last Taken Unknown] fluticasone fur. 200 mcg-umeclid 62.5 mcg-vilant 25 mcg inhalat.powder (Trelegy Ellipta) 1 inh inhalation DAILY #3 ea 03/11/22 [Rx Last Taken Unknown] montelukast 10 mg tablet 10 mg PO QPM #90 tabs 03/11/22 [Rx Last Taken Unknown] atorvastatin 80 mg tablet 80 mg PO DAILY #90 tabs 08/25/22 [Rx Last Taken Unknown] albuterol sulfate 2.5 mg/3 mL (0.083 %) solution for nebulization 2.5 mg (3 mL) inhalation Q4H PRN PRN Sob &/Or Wheezing #180 mL 10/21/22 [Rx Last Taken Unknown] albuterol sulfate 90 mcg/actuation aerosol inhaler (ProAir HFA) 2 puff i nhalation Q6H PRN shortness of breath or wheezing #18 grams 05/04/23 [Rx Last Taken Unknown] Allergy/AdvReac Type Severity Reaction Status Date / Time No Known Allergies Allergy Verified 12/08/22 18:50 Surgical History H/O knee surgery H/O total hip arthroplasty Social History household members: spouse Smoking Status: Current every day smoker tobacco type: cigarettes Tobacco: How many years used: 30 Smokeless tobacco user: other alcohol intake: former substance use type: does not use ROS ROS ED Constitutional Constitutional ED: Denies chills or fever(s) Eyes Eyes: Denies change in vision or diplopia ENT ENT ED: Denies rhinorrhea or sore throat Cardiovascular Cardiovascular: Denies chest pain or palpitations Respiratory/Chest Respiratory/Chest: Reports cough, dyspnea and wheezing Gastrointestinal Gastrointestinal: Denies abdominal pain, diarrhea, nausea or vomiting Genitourinary Genitourinary ED: Denies dysuria or hematuria Musculoskeletal Musculoskeletal: Denies back pain or neck pain Integumentary Denies abscess or rash Neurologic Neurologic: Denies headache(s), paresthesias or weakness Psychiatric Psychiatric: Denies anxiety or suicidal thoughts EXAM Physical Exam Const Vital Signs: 01/07/23 01:47 01/07/23 01:47 01/07/23 02:04 Temperature 97.7 F L Temperature Source Temporal Pulse Rate 105 H 96 Respiratory Rate 28 H 26 H Respiratory Effort Short of Breath Respiratory Pattern Tachypnea Blood Pressure 189/116 H Blood Pressure Mean 140 Pulse Ox 91 Oxygen Delivery Method Room Air Positive well nourished and well developed General Appearance ED: well developed and NAD HEENT Reports moist mucous membranes normocephalic and atraumatic Eyes PERRL and EOMs intact bilaterally Neck full ROM and supple Resp Resp Narrative: Severely diminished throughout. Otherwise lungs clear, symmetrically diminished, tachypneic, speaking in 7-10 word sentences. No accessory muscle use. Cardio regular rate, regular rhythm and no murmurs GI non-tender and non-distended Auscultation: normoactive bowel sounds Palpation: soft Back/Spine no CVA tenderness General Back: other FROM Extremity normal to inspection General Extremety ED: Negative for edema, pulses abnormal or tenderness General Extremity: Negative for edema or pulses abnormal Neuro oriented x3, CN's II-XII intact bilaterally and no sensory deficits noted Sensorium / Orientation: awake and alert Motor Exam: strength 5/5 throughout Psych mental status grossly normal Skin no rashes or lesions noted and no wounds MDM MDM MDM Narrative Medical decision making narrative: Patient was given a series of breathing treatments which really helped his breathing. On reexamination, he sounds better and moving air better. Offered another albuterol he declines. Satting 97% on room air. He was started on ster oids, he opted for Kenalog injection. He is not hypoxic, he is breathing better, obtained an EKG screening for cardiac abnormalities, it is normal my interpretation and obtained a 2 view chest x-ray, on my interpretation it is negative for pneumothorax, infiltrate; just shows chronic COPD hyperexpansion. Patient stable for discharge will place on prednisone no indication for antibiotics at this time since I do not think he has infectious etiology of his exacerbation. Rhythm Strip Rhythm Strip: Sinus Rhythm Rate: 95 Ectopy: None EKG Initial EKG: Attestation: I personally reviewed and interpreted this EKG as follows: Interpretation: Sinus Rhythm and No Acute Injury Pattern Comments: nml EKG Discharge Plan Triage Chief Complaint: Shortness of Breath ED Provider: Carlos Eduardo Kaplan Dx/Rx/DC Orders Clinical Impression: Acute exacerbation of COPD with asthma Instructions: ED COPD Flare Prescriptions: No Action cetirizine 10 mg capsule 10 mg PO HS Qty: 90 3RF Trelegy Ellipta 200-62.5-25 mcg blister with device 1 inh inhalation DAILY Qty: 3 3RF montelukast 10 mg tablet 10 mg PO QPM Qty: 90 3RF atorvastatin 80 mg tablet 80 mg PO DAILY Qty: 90 3RF escitalopram oxalate 10 MG tablet 10 mg PO DAILY amlodipine 10 mg Tablet 5 mg PO DAILY lisinopril-hydrochlorothiazide 20-25 mg Tablet 1 tab PO DAILY hydroxyzine pamoate 25 mg Capsule 25 mg PO BID PRN (Reason: Anxiety) albuterol sulfate 2.5 mg /3 mL (0.083 %) solution for nebulization 2.5 mg INHALATION Q4H PRN PRN (Reason: Sob &/Or Wheezing) Qty: 180 3RF albuterol sulfate [ProAir HFA] 90 mcg/actuation HFA aerosol inhaler 2 puff inhalation Q6H PRN (Reason: shortness of breath or wheezing) Qty: 18 6RF Primary Care Provider: Feliciano Sanz Referrals: Feliciano Sanz MD [Primary Care Provider] - Maxwell Jordan DO [Med Staff - Active Staff] - 3-5 Days if not improving
[2023-01-07 02:04] VITALS: PULSE 96; RESP 26
[2023-01-07] MEDS: Albuterol 2.5 MG/3 ML VIAL.NEB. INHALATION ×2 (02:04→02:28)
[2023-01-07] MEDS: Ipratropium/Albuterol Sulfate 3 ML AMPUL.NEB INHALATION (02:04)
--- NOTE | 2023-01-07 02:40 | RAD_ITS ---
EXAM: XR CHEST, 2 VIEWS CLINICAL INDICATION: copd, sob TECHNIQUE: Frontal and lateral views of the chest. COMPARISON: No relevant prior studies available. FINDINGS: LUNGS AND PLEURAL SPACES: Unremarkable. No consolidation or edema. No pneumothorax. No effusion. HEART: Unremarkable. Cardiac silhouette not enlarged. MEDIASTINUM: Central airways and mediastinal contour are unremarkable. BONES/JOINTS: Degenerative changes of the spine. SOFT TISSUES: Unremarkable. VASCULATURE: Atherosclerotic calcifications of the nonenlarged thoracic aortic arch. RAD/Chest PA and Lateral IMPRESSION: No acute disease. Electronically Signed: Darell Albert MD at 3:02 EDT ,
--- NOTE | 2023-01-07 02:49 | CPS ---
x2 Albuterol given to pt. in ER as well. Pt. stated that he will ask for third Albuterol if necessary.
[2023-01-07] MEDS: Triamcinolone Acetonide 40 MG/ML Vial IM (02:50)
[2023-01-07 02:59] VITALS: BP 153/99
== END 2023-01-07 02:59 | disposition home or self-care (01) ==
LOC: ED 02:23
PROVIDERS: Emergency Provider Emergency Medicine; PCP Family Medicine; Visit Provider Emergency Medicine
DX: J44.1 Chronic obstructive pulmonary disease with (acute) exacerbation (principal); J45.909 Unspecified asthma, uncomplicated; I10 Essential (primary) hypertension; F17.210 Nicotine dependence, cigarettes, uncomplicated
CPT/HCPCS: 71046; 93005; 94640; 99282

== ENCOUNTER → 2023-01-14 | Outpatient (CLI) | payer OTHER, SELFPAY ==
--- NOTE | 2023-01-14 13:58 | CT_ITS ---
STUDY: LOW DOSE CT LUNG CANCER SCREENING REASON FOR EXAM: Male, 57 years old. Smoker and gt; 25 pack years RADIATION DOSAGE (If Supplied By Facility): CTDIvol = ( 2.39 ) mGy, DLP = ( 83.99 ) mGycm TECHNIQUE: No contrast was administered. Low dose technique was utilized (average mAS-38 and kVp 120). 1.25 mm axial source images with a slice interval of 1.25-mm were reconstructed in lung windows. 2.5 mm axial source images with a slice interval of 2.5-mm were reconstructed in lung windows. 5.0 mm axial source images with a slice interval of 5.0-mm were reconstructed in soft tissue windows. COMPARISON: Comparison is made with prior study dated January 12, 2022. NODULES: Stable 1.3 cm irregular nodule in the left lung apex. This most likely represents scarring. Resultant mild scarring at the right lung apex. Stable 1 mm calcified nodule in the peripheral lateral aspect of the right upper lobe in keeping with calcified granulomata. Stable 1.5 mm partially calcified nodule in the posterior aspect of the right upper. This also evidence of a stable partially calcified 2 mm nodule in the anterior aspect of the left lower lobe. Emphysema: Emphysematous changes. Endobronchial lesion: None Aorta: Atherosclerotic SFA proximal to the aortic arch. CORONARY ARTERIES: Coronary artery calcification is seen. Heart: Unremarkable. Pulmonary artery: Unremarkable. Mediastinal nodes: Small mediastinal lymph nodes. Other chest and abdominal findings: CT/Low Dose CT Lung Screening IMPRESSION: Lung-RADS category 2 - Continue annual screening with LDCT in 12 months. IMPORTANT NOTES FOR USE: ACR Lung-RADS Version 1.1 Assessment Categories Release Date: 2018 Category: Coded 0-4 bases on nodule(s) with highest degree of suspicion. Negative screen is defined as categories 1 and 2; a positive screen is defined as categories 3 and 4. Category 3 and 4A nodules that are unchanged on interval CT should be coded as category 2, and individuals returned to screening in 12 months. Category 4X: Category 3 or 4 nodules with additional imaging findings that increase the suspicion of lung cancer, such as spiculation, GGN that doubles in size in 1 year, enlarged lymph notes, etc. Category Modifiers: S (significant finding unrelated to lung cancer) Electronically Signed: Spencer Heck MD at 15:10 EDT ,
== END | disposition home or self-care (01) ==
LOC: CT 13:52
PROVIDERS: PCP Family Medicine; Referring Provider Nurse Practitioner Acute Care; Visit Provider Nurse Practitioner Acute Care
DX: F17.210 Nicotine dependence, cigarettes, uncomplicated (principal)
CPT/HCPCS: 71271

== ENCOUNTER 2023-03-05 15:11 | Emergency (ER) | payer OTHER, SELFPAY ==
[2023-03-05 15:11] VITALS: BP 184/116; PULSE 110; RESP 22; TEMP 35.5; O2SAT 97; BMI 24.3
[2023-03-05 15:20] VITALS: BP 150/114; PULSE 107; RESP 24; O2SAT 95
--- NOTE | 2023-03-05 15:34 | RAD_ITS ---
STUDY: X-RAY CHEST REASON FOR EXAM: Male, 57 years old. Shortness of breath TECHNIQUE: PA and lateral views of the chest. COMPARISON: January 07, 2023 FINDINGS: There is hyperinflation of the lungs consistent with chronic obstructive lung disease (COPD). There is no demonstrated pleural abnormality. Normal size heart. Normal mediastinum and jonny. Normal visualized pulmonary arteries. Normal visualized aortic arch and descending thoracic aorta. There is mild degenerative change of the spine. Normal visualized ribs, clavicles, and shoulders. There is no demonstrated abnormality of the visualized soft tissue structures of the upper abdomen. RAD/Chest PA and Lateral IMPRESSION: COPD. No focal infiltrate or edema. Electronically Signed: Carlos Eduardo Gallegos MD at 16:01 EDT ,
[2023-03-05] MEDS: Albuterol 2.5 MG/3 ML VIAL.NEB. INHALATION ×3 (15:46)
[2023-03-05] MEDS: Ipratropium/Albuterol Sulfate 3 ML AMPUL.NEB INHALATION (15:46)
--- NOTE | 2023-03-05 15:48 | EDS_ITS ---
HPI <JOÃO Morales - Last Filed: 03/05/23 18:14> History of Present Illness Chief Complaint: Shortness of Breath Narrative Narrative: Patient presenting today due to a COPD exacerbation. He reports that his symptoms are consistent with previous COPD exacerbations and he reports, this is a mild one, not severe like the others. He reports that he woke up this morning feeling short of breath. This is normally triggered by changes in the weather such as drop in temperature which is what he is suspecting caused his exacerbation today, but he is not entirely sure. He reports that he does smoke about 1/2 pack/day. He denies any fever, chills, increased coughing, and chest pain. He denies any history of blood clots, recent surgeries or procedures, recent travel, and recent immobilization. PFSH <JOÃO Morales - Last Filed: 03/05/23 18:14> PFSH Medical History Anxiety Asthma-COPD overlap syndrome Erectile dysfunction Hypertension Psoriasis Smoker Home Medications escitalopram oxalate 10 mg tablet 10 mg PO DAILY anxiety 04/01/19 [History Last Taken 06/12/19] amlodipine 10 mg tablet 5 mg PO DAILY 11/10/20 [History Last Taken Unknown] hydroxyzine pamoate 25 mg capsule 25 mg PO BID PRN Anxiety 11/30/20 [History Last Taken Unknown] lisinopril 20 mg-hydrochlorothiazide 25 mg tablet 1 tab PO DAILY 11/30/20 [History Last Taken Unknown] cetirizine 10 mg capsule 10 mg PO HS #90 caps 03/11/22 [Rx Last Taken Unknown] fluticasone fur. 200 mcg-umeclid 62.5 mcg-vilant 25 mcg inhalat.powder (Trelegy Ellipta) 1 inh inhalation DAILY #3 ea 03/11/22 [Rx Last Taken Unknown] montelukast 10 mg tablet 10 mg PO QPM #90 tabs 03/11/22 [Rx Last Taken Unknown] atorvastatin 80 mg tablet 80 mg PO DAILY #90 tabs 08/25/22 [Rx Last Taken Unknown] albuterol sulfate 2.5 mg/3 mL (0.083 %) solution for nebulization 2.5 mg (3 mL) inhalation Q4H PRN PRN Sob &/Or Wheezing #180 mL 10/21/22 [Rx Last Taken Unkno wn] albuterol sulfate 90 mcg/actuation aerosol inhaler (ProAir HFA) 2 puff inhalation Q6H PRN shortness of breath or wheezing #18 grams 10/21/22 [Rx Last Taken Unknown] prednisone 50 mg tablet 50 mg PO DAILY 4 days #4 tabs 03/05/23 [Rx Last Taken Unknown] Allergy/AdvReac Type Severity Reaction Status Date / Time No Known Allergies Allergy Verified 03/05/23 15:12 Surgical History H/O knee surgery H/O total hip arthroplasty Social History household members: spouse Smoking Status: Current every day smoker tobacco type: cigarettes Tobacco: How many years used: 30 Smokeless tobacco user: other alcohol intake: former substance use type: does not use ROS <JOÃO Morales - Last Filed: 03/05/23 18:14> ROS ED Constitutional Constitutional ED: Denies chills or fever(s) Cardiovascular Cardiovascular: Denies chest pain Respiratory/Chest Respiratory/Chest: Reports dyspnea and dyspnea on exertion; Denies cough Gastrointestinal Gastrointestinal: Denies abdominal pain, nausea or vomiting Musculoskeletal Musculoskeletal: Denies arthralgias or myalgias Integumentary Denies rash Neurologic Neurologic: Denies weakness EXAM <JOÃO Morales - Last Filed: 03/05/23 18:14> Physical Exam Const Vital Signs: 03/05/23 15:11 03/05/23 15:18 03/05/23 15:20 Temperature 96 F L Temperature Source Temporal Pulse Rate 110 H 107 H Respiratory Rate 22 H 24 H Respiratory Effort Short of Breath Respiratory Pattern Blood Pressure 184/116 H 150/114 H Blood Pressure Mean 138 126 Pulse Ox 97 95 Oxygen Delivery Method Room Air Room Air 03/05/23 15:50 03/05/23 15:50 Temperature Temperature Source Pulse Rate 95 Respiratory Rate 15 Respiratory Effort Respiratory Pattern Normal Blood Pressure Blood Pressure Mean Pulse Ox 96 Oxygen Delivery Method Room Air Positive well nourished, well developed and no apparent distress General Appearance ED: well developed HEENT Reports normocephalic and head/scalp atraumatic Mouth ED: Yes moist mucous membranes normal Eyes PERRL and EOMs intact bilaterally Neck full ROM and supple Chest Wall inspection of chest normal Resp normal respiratory effort Resp Narrative: Expiratory wheezes in all bilateral lung mueller, tight lung sounds bilaterally. Cardio regular rate and regular rhythm GI soft to palpation, non-tender, non-distended and no masses Back/Spine normal ROM and normal to inspection Extremity normal to inspection and full ROM Neuro oriented x3, CN's II-XII intact bilaterally, moves all extremities, no focal motor deficits and no sensory deficits noted Sensorium / Orientation: awake and alert Psych mental status grossly normal and thought process normal Skin no rashes or lesions noted and no wounds <Dr. Syed Michaels MD - Last Filed: 03/05/23 20:27> Physical Exam Const Vital Signs: 03/05/23 15:11 03/05/23 15:18 03/05/23 15:20 Temperature 96 F L Temperature Source Temporal Pulse Rate 110 H 107 H Respiratory Rate 22 H 24 H Respiratory Effort Short of Breath Respiratory Pattern Blood Pressure 184/116 H 150/114 H Blood Pressure Mean 138 126 Pulse Ox 97 95 Oxygen Delivery Method Room Air Room Air 03/05/23 15:50 03/05/23 15:50 Temperature Temperature Source Pulse Rate 95 Respiratory Rate 15 Respiratory Effort Respiratory Pattern Normal Blood Pressure Blood Pressure Mean Pulse Ox 96 Oxygen Delivery Method Room Air MDM <JOÃO Morales - Last Filed: 03/05/23 18:14> [facility] Narrative Medical decision making narrative: Patient presenting due to a COPD exacerbation. He reports that his symptoms are consistent with previous COPD exacerbations. He woke up feeling short of breath this morning. He is not entirely sure what triggered this episode but thinks that it is due to recent weather change which normally causes this. He is well- appearing and nontoxic. His O2 saturation is 97% on room air. He will be given albuterol and DuoNeb breathing treatments. He will be started on prednisone. Chest x-ray will be obtained to rule out cardiopulmonary abnormality and infiltrate and is negative for any acute findings. On reexamination he reports improvement of his symptoms, he feels well enough to be discharged home. 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 Patient is comfortable with plan and has been given return instructions. At this time, I do not feel that antibiotics are indicated. Radiography X-Ray: Read by ED Physician and Read by Radiologist Diagnostic Testing: Clinical Impression(s) from Imaging Studies Chest X-Ray 03/05/23 15:34 IMPRESSION: COPD. No focal infiltrate or edema. Electronically Signed: Carlos Eduardo Gallegos MD at 16:01 EDT , <Dr. Syed Michaels MD - Last Filed: 03/05/23 20:27> MDM Radiography Diagnostic Testing: Clinical Impression(s) from Imaging Studies Chest X-Ray 03/05/23 15:34 IMPRESSION: COPD. No focal infiltrate or edema. Electronically Signed: Carlos Eduardo Gallegos MD at 16:01 EDT , Treatment and Re-Evaluation :: I saw the patient with the TOMY. I performed a [id number] evaluation. Patient reports increasing shortness of breath today. Cough. No fevers or chest pain. Feels like his prior COPD. No leg swelling or leg pain. No history of blood clots. Vital signs reviewed. Expiratory wheeze in all mueller. Heart regular. Calf soft and supple. Skin appears normal. Speaking in full sentences. Appears uncomfortable but not toxic or in distress. Chest x-ray showed COPD, no acute infiltrate or edema. This was interpreted by the radiologist and myself. Patient was treated with breathing treatments and steroids. On reevaluation, the patient is improved. No hypoxia. No distress. No indication for hospitalization. Will prescribe breathing treatments and steroids. Return for any new or worsening issues. Impression #1 COPD exacerbation Discharge Plan Triage Chief Complaint: Shortness of Breath ED Midlevel Provider: Arabella Powers ED Provider: Syed Michaels Dx/Rx/DC Orders Clinical Impression: COPD exacerbation Instructions: ED COPD Flare Prescriptions: New prednisone 50 mg tablet 50 mg PO DAILY 4 Days Qty: 4 0RF No Action cetirizine 10 mg capsule 10 mg PO HS Qty: 90 3RF Trelegy Ellipta 200-62.5-25 mcg blister with device 1 inh inhalation DAILY Qty: 3 3RF montelukast 10 mg tablet 10 mg PO QPM Qty: 90 3RF atorvastatin 80 mg tablet 80 mg PO DAILY Qty: 90 3RF escitalopram oxalate 10 MG tablet 10 mg PO DAILY amlodipine 10 mg Tablet 5 mg PO DAILY lisinopril-hydrochlorothiazide 20-25 mg Tablet 1 tab PO DAILY hydroxyzine pamoate 25 mg Capsule 25 mg PO BID PRN (Reason: Anxiety) albuterol sulfate 2.5 mg /3 mL (0.083 %) solution for nebulization 2.5 mg INHALATION Q4H PRN PRN (Reason: Sob &/Or Wheezing) Qty: 180 3RF albuterol sulfate [ProAir HFA] 90 mcg/actuation HFA aerosol inhaler 2 puff inhalation Q6H PRN (Reason: shortness of breath or wheezing) Qty: 18 6RF Primary Care Provider: Feliciano Sanz Referrals: Feliciano Sanz MD [Primary Care Provider] - 3-5 Days Activity Restrictions/Additional Instructions: Please follow-up with your honing machine try out setter, return for any worsening of your symptoms. Disposition Disposition: Home, Self Care Discharge Date/Time: 03/05/23 17:37
[2023-03-05 15:50] VITALS: PULSE 95; RESP 15; O2SAT 96
[2023-03-05] MEDS: predniSONE 20 MG Tablet 60 MG PO (16:59)
== END 2023-03-05 17:37 | disposition home or self-care (01) ==
PROVIDERS: Emergency Provider Emergency Medicine; PCP Family Medicine; Visit Provider Emergency Medicine
DX: J44.1 Chronic obstructive pulmonary disease with (acute) exacerbation (principal); I10 Essential (primary) hypertension; F17.210 Nicotine dependence, cigarettes, uncomplicated
CPT/HCPCS: 71046; 94640; 99283

== ENCOUNTER 2023-04-02 19:19 | Emergency (ER) | payer OTHER, SELFPAY ==
[2023-04-02 19:21] VITALS: BP 177/105; PULSE 112; RESP 30; TEMP 36.3; O2SAT 94; BMI 24.5
[2023-04-02 20:10] VITALS: O2SAT 93
--- NOTE | 2023-04-02 20:40 | EKG12_ITS ---
Test Reason : SOB Blood Pressure : / mmHG Vent. Rate : 081 BPM Atrial Rate : 081 BPM P-R Int : 170 ms QRS Dur : 094 ms QT Int : 366 ms P-R-T Axes : 070 035 076 degrees QTc Int : 425 ms Normal sinus rhythm Possible Inferior infarct , age undetermined Abnormal ECG Confirmed by WERNER BROWNE, LINNEA ([id number]), features editor LUKASZ NICOLE ([id number]) on 04/05/2023 7:35:59 AM Referred By: Sathish Carrillo Confirmed By:LINNEA CALDERA MD
--- NOTE | 2023-04-02 20:41 | ED.VIS.CHEST ---
HPI History of Present Illness Chief Complaint: Shortness of Breath Narrative Narrative: -year-old male with history of asthma/COPD overlap syndrome currently everyday smoker presenting with shortness of breath and chest tightness. He states that he has history of COPD although he does not usually have chest tightness with it. He states the chest tightness has been coming and going for a couple of days and it does not necessarily align with exertion. He can be at rest and have the chest pain. No fevers, chills. He has a chronic cough which is unchanged. No sputum production. Denies any history of cardiac disease. PFSH PFSH Medical History Anxiety Asthma-COPD overlap syndrome Erectile dysfunction Hypertension Psoriasis Smoker Home Medications escitalopram oxalate 10 mg tablet 10 mg PO DAILY anxiety 04/01/19 [History Last Taken 06/12/19] amlodipine 10 mg tablet 5 mg PO DAILY 11/10/20 [History Last Taken Unknown] hydroxyzine pamoate 25 mg capsule 25 mg PO BID PRN Anxiety 11/30/20 [History Last Taken Unknown] lisinopril 20 mg-hydrochlorothiazide 25 mg tablet 1 tab PO DAILY 11/30/20 [History Last Taken Unknown] cetirizine 10 mg capsule 10 mg PO HS #90 caps 03/11/22 [Rx Last Taken Unknown] fluticasone fur. 200 mcg-umeclid 62.5 mcg-vilant 25 mcg inhalat.powder (Trelegy Ellipta) 1 inh inhalation DAILY #3 ea 03/11/22 [Rx Last Taken Unknown] montelukast 10 mg tablet 10 mg PO QPM #90 tabs 03/11/22 [Rx Last Taken Unknown] atorvastatin 80 mg tablet 80 mg PO DAILY #90 tabs 08/25/22 [Rx Last Taken Unknown] prednisone 50 mg tablet 50 mg PO DAILY 4 days #4 tabs 03/05/23 [Rx Last Taken Unknown] albuterol sulfate 2.5 mg/3 mL (0.083 %) solution for nebulization 2.5 mg (3 mL) inhalation Q4H PRN PRN Sob &/Or Wheezing #180 mL 03/28/23 [Rx Last Taken Unknown] albuterol sulfate 90 mcg/actuation aerosol inhaler (ProAir HFA) 2 puff inhalation Q6H PRN shortness of breath or wheezing #18 grams 03/28/23 [Rx Last Taken Unknown] prednisone 50 mg tablet 50 mg PO DAILY 5 days #5 tabs 04/02/23 [Rx Last Taken Unknown] Allergy/AdvReac Type Severity Reaction Status Date / Time No Known Allergies Allergy Verified 04/02/23 19:20 Surgical History H/O knee surgery H/O total hip arthroplasty Social History household members: spouse Smoking Status: Current every day smoker tobacco type: cigarettes Tobacco: How many years used: 30 Smokeless tobacco user: other alcohol intake: former substance use type: does not use ROS ROS ED Constitutional Constitutional ED: Denies chills, fever(s) or sweats Eyes Eyes: Denies blurry vision or change in vision ENT ENT ED: Denies ear pain or sore throat Cardiovascular Cardiovascular: Reports chest pain; Denies palpitations or racing heartbeat Respiratory/Chest Respiratory/Chest: Reports cough, dyspnea and dyspnea on exertion; Denies sputum Gastrointestinal Gastrointestinal: Denies abdominal pain, constipation, diarrhea, nausea or vomiting Genitourinary Genitourinary ED: Denies dysuria, hematuria or urinary frequency Musculoskeletal Musculoskeletal: Denies arthralgias, myalgias or neck pain Integumentary Denies abscess, Abrasions or rash Neurologic Neurologic: Denies headache(s), paresthesias or weakness Psychiatric Psychiatric: Denies anxiety, depression, suicidal ideation or suicidal thoughts Endocrine Endocrinology: Denies polydipsia or polyuria EXAM Physical Exam Const Vital Signs: 04/02/23 19:21 04/02/23 20:10 04/02/23 20:54 Temperature 97.3 F L Temperature Source Oral Pulse Rate 112 H Respiratory Rate 30 H Respiratory Effort Non-Labored Respiratory Depth Normal Respiratory Pattern Normal Blood Pressure 177/105 H Blood Pressure Mean 129 Pulse Ox 94 Oxygen Delivery Method Room Air 04/02/23 20:52 Temperature Temperature Source Pulse Rate 96 Respiratory Rate 18 Respiratory Effort Respiratory Depth Respiratory Pattern Blood Pressure Blood Pressure Mean Pulse Ox Oxygen Delivery Method Positive well nourished General Appearance ED: NAD; Negative for pallor HEENT Reports moist mucous membranes normocephalic and atraumatic Eyes PERRL and EOMs intact bilaterally Chest Wall inspection of chest normal Resp normal respiratory effort and clear to auscultation bilaterally Auscultation: Negative for rales, rhonchi or wheezes Cardio regular rate and regular rhythm Neuro oriented x3 and CN's II-XII intact bilaterally Sensorium / Orientation: awake Psych mental status grossly normal Skin no rashes or lesions noted General Skin Exam: Negative for jaundice or pallor MDM MDM MDM Narrative Medical decision making narrative: 57-year-old male presenting with chest pain and shortness of breath. Differential includes but is not limited to ACS, PE, pneumonia, ,pneumothorax, muscle strain, costochondritis, asthma, COPD, CHF dehydration, electrolyte abnormalities. CBC will be obtained to assess white blood cell count, hemoglobin, platelets. BMP to assess renal function and electrolytes. EKG and high-sensitivity troponin assess for ischemia/dysrhythmia. Chest x-ray to rule out pneumonia or CHF. The patient does not appear to be wheezing on examination but I will give him breathing treatments as he has a history of COPD. He is also given Solu-Medrol. Will reassess. Improved at 10:51 PM. He still has a little bit of breath and is now opened up and is wheezing. We will give him another breathing treatment. CBC shows no white blood cell count elevation at 8.0. Hemoglobin stable 14. Platelets normal at 265. D-dimer negative when age-adjusted. Renal function electrolytes normal. High-sensitivity troponin is 6. BNP 10. Chest x-ray my interpretation shows no acute process. Given the patient is feeling better I will have him discharge home after he received another treatment. Is given a burst of prednisone. Impression: 1. Chest tightness 2. COPD exacerbation Lab Data Attestation: I reviewed the patient's lab results. Labs: Laboratory Results - last 24 hr 04/02/23 20:52 WBC 8.0 RBC 4.79 Hgb 14.0 Hct 41.9 MCV 87.5 MCH 29.2 MCHC 33.4 RDW Std Deviation 40.3 RDW Coeff of Jazzmine 12.6 Plt Count 265 MPV 8.8 Immature Gran % (Auto) 0.200 Neut % (Auto) 52.4 Lymph % (Auto) 29.1 [place] % (Auto) 8.5 Eos % (Auto) 9.2 H Baso % (Auto) 0.6 Absolute Neuts (auto) 4.2 Absolute Lymphs (auto) 2.33 Nucleated RBC % 0 D-Dimer Quant (PE/DVT) 0.52 H* Sodium 139 Potassium 3.6 Chloride 107 Carbon Dioxide 27.0 Anion Gap 5 BUN 12 Creatinine 1.28 Estim Creat Clear Calc 71.57 Est GFR (MDRD) Af Amer 75 Est GFR (MDRD) Non-Af 62 BUN/Creatinine Ratio 9.4 L Glucose 101 Calcium 9.3 Troponin I High Sens 6 B-Natriuretic Peptide 10.0 Radiography Diagnostic Testing: Clinical Impression(s) from Imaging Studies Chest X-Ray 04/02/23 21:00 IMPRESSION: Normal x-ray examination of the chest for age. Electronically Signed: Sonal Garcia MD at 21:29 EDT , Discharge Plan Triage Chief Complaint: Shortness of Breath ED Provider: Sathish Carrillo Dx/Rx/DC Orders Clinical Impression: COPD exacerbation Instructions: ED COPD Flare Prescriptions: New prednisone 50 mg tablet 50 mg PO DAILY 5 Days Qty: 5 0RF No Action cetirizine 10 mg capsule 10 mg PO HS Qty: 90 3RF Trelegy Ellipta 200-62.5-25 mcg blister with device 1 inh inhalation DAILY Qty: 3 3RF montelukast 10 mg tablet 10 mg PO QPM Qty: 90 3RF atorvastatin 80 mg tablet 80 mg PO DAILY Qty: 90 3RF escitalopram oxalate 10 MG tablet 10 mg PO DAILY amlodipine 10 mg Tablet 5 mg PO DAILY lisinopril-hydrochlorothiazide 20-25 mg Tablet 1 tab PO DAILY hydroxyzine pamoate 25 mg Capsule 25 mg PO BID PRN (Reason: Anxiety) prednisone 50 mg tablet 50 mg PO DAILY 4 Days Qty: 4 0RF Hold Instructions: Pt has been DC'd albuterol sulfate 2.5 mg /3 mL (0.083 %) solution for nebulization 2.5 mg INHALATION Q4H PRN PRN (Reason: Sob &/Or Wheezing) Qty: 180 3RF albuterol sulfate [ProAir HFA] 90 mcg/actuation HFA aerosol inhaler 2 puff inhalation Q6H PRN (Reason: shortness of breath or wheezing) Qty: 18 6RF Primary Care Provider: Feliciano Sanz Referrals: Feliciano Sanz MD [Primary Care Provider] - Disposition Disposition: Home, Self Care
[2023-04-02] MEDS: Albuterol 2.5 MG/3 ML VIAL.NEB. INHALATION ×2 (20:46→22:59)
[2023-04-02] MEDS: Ipratropium/Albuterol Sulfate 3 ML AMPUL.NEB INHALATION ×2 (20:46→22:59)
[2023-04-02] MEDS: MethylPREDNISolone 125 MG/2 ML Vial IV (20:49)
[2023-04-02 20:52] VITALS: PULSE 96; RESP 18
--- NOTE | 2023-04-02 21:00 | RAD_ITS ---
STUDY: X-RAY CHEST REASON FOR EXAM: Male, 57 years old. chest pain TECHNIQUE: Single AP portable view of the chest. COMPARISON: 03/05/2023. FINDINGS: The lungs are clear and expanded. There is no demonstrated pleural abnormality. Normal size heart. Normal mediastinum and jonny. Normal visualized pulmonary arteries. Normal visualized aortic arch and descending thoracic aorta. Normal visualized thoracic spine. Normal visualized ribs, clavicles, and shoulders. There is no demonstrated abnormality of the visualized soft tissue structures of the upper abdomen. RAD/Chest 1 View (Portable) IMPRESSION: Normal x-ray examination of the chest for age. Electronically Signed: Sonal Garcia MD at 21:29 EDT ,
[2023-04-02 21:03] LABS: Absolute Lymphocyte Count 2.33 X10^3/uL (0.83-4.51); Absolute Neutrophil Count 4.2 X10^3/uL (2.0-7.7); Basophil# 0.05 X10^3/uL; Basophil% 0.6 % (0-1); Eosinophil# 0.74 X10^3/uL; Eosinophils% 9.2 % (0-5); Hematocrit 41.9 % (40-54); Lymphocyte # 2.33 X10^3/ul (0.83-4.51); Lymphocyte % 29.1 % (19-41); Mean Corp Hgb Conc 33.4 g/dL (32-36); Mean Corpuscular Hgb 29.2 pg (27.0-32.0); Mean Corpuscular Volume 87.5 fL (80-94); Mean Platelet Vol. 8.8 fl (6.2-12.0); Monocyte# 0.68 X10^3/uL; Monocyte% 8.5 % (0-10); NRBC Flagged by Analyzer 0 % (0-5); Neutrophil % 52.4 % (47-70); Platelet Count 265 K/mm3 (150-450); RBC Distribution Width CV 12.6 % (11.6-14.6); RBC Distribution Width SD 40.3 fl (35.1-43.9); Red Blood Count 4.79 M/mm3 (4.6-6.2)
[2023-04-02 21:20] LABS: Anion Gap 5 (5-15); BUN 12 mg/dL (7-18); BUN/Creat Ratio 9.4 RATIO (10-20); Calcium,Total 9.3 mg/dL (8.5-10.1); Chloride 107 mmol/L (98-107); Creatinine, Serum 1.28 mg/dL (0.70-1.30); EST Glomerular Filtration Rate 62 mL/min (>60); Est Glom Filt Rate - Afr Amer 75 mL/min (>60); Estimated Creatinine Clearance 71.57 ml/min; Glucose 101 mg/dL (74-106); Potassium 3.6 mmol/L (3.5-5.1); Sodium Level 139 mmol/L (136-145); Troponin-I HS (w/2H Reflex) 6 pg/mL (3.0-78.0)
[2023-04-02 21:31] LABS: D-Dimer Quantitative (DVT/PE) 0.52 FEU/ug/m (0.27-0.49)
[2023-04-02 23:00] VITALS: PULSE 96; RESP 14
[2023-04-02 23:00] LABS: Reflex Troponin-HS? (from REC) Y
[2023-04-02 23:08] VITALS: PULSE 95; RESP 13; O2SAT 97
[2023-04-03 00:29] VITALS: BP 134/78; PULSE 87; RESP 20; O2SAT 95
== END 2023-04-03 00:30 | disposition home or self-care (01) ==
PROVIDERS: Emergency Provider Student in an Organized Health Care Education/Training Program; PCP Family Medicine; Referring Provider Student in an Organized Health Care Education/Training Program; Visit Provider Student in an Organized Health Care Education/Training Program
DX: J44.1 Chronic obstructive pulmonary disease with (acute) exacerbation (principal); I10 Essential (primary) hypertension; F17.210 Nicotine dependence, cigarettes, uncomplicated; R07.89 Other chest pain; F41.9 Anxiety disorder, unspecified; Z79.899 Other long term (current) drug therapy; Z79.51 Long term (current) use of inhaled steroids
CPT/HCPCS: 71045; 80048; 83880; 84484; 85025; 85379; 93005; 94640; 96374; 99283; A4216

== ENCOUNTER → 2023-05-16 | Outpatient (CLI) | payer OTHER, SELFPAY ==
[2023-05-16 12:49] LABS: Absolute Lymphocyte Count 2.26 X10^3/uL (0.83-4.51); Basophil# 0.03 X10^3/uL; Basophil% 0.5 % (0-1); Eosinophil# 0.43 X10^3/uL; Eosinophils% 6.8 % (0-5); Hemoglobin 14.7 g/dL (13.0-16.5); Lymphocyte # 2.26 X10^3/ul (0.83-4.51); Lymphocyte % 35.5 % (19-41); Mean Corp Hgb Conc 30.6 g/dL (32-36); Mean Corpuscular Hgb 30.2 pg (27.0-32.0); Mean Corpuscular Volume 98.8 fL (80-94); Mean Platelet Vol. 9.8 fl (6.2-12.0); Monocyte# 0.62 X10^3/uL; Monocyte% 9.7 % (0-10); NRBC Flagged by Analyzer 0 % (0-5); Neutrophil % 47.2 % (47-70); Platelet Count 145 K/mm3 (150-450); RBC Distribution Width CV 13.5 % (11.6-14.6); RBC Distribution Width SD 48.6 fl (35.1-43.9); Red Blood Count 4.86 M/mm3 (4.6-6.2); White Blood Count 6.4 K/mm3 (4.4-11.0)
[2023-05-19 20:08] LABS: Aspirgillus flavus Negative (Neg:<1:1); Aspirgillus fumigatus Negative (Neg:<1:1); Aspirgillus niger Negative (Neg:<1:1); Cytoplasmic Ab (C-ANCA) <1:20 titer (Neg:<1:20); Immunoglobulin E 49 IU/mL (6-495); Perinuclear Ab (P-ANCA) <1:20 titer (Neg:<1:20)
[2023-05-20 06:09] LABS: Alternaria tenuis <0.10 kU/L (Class 0); Ash, White <0.10 kU/L (Class 0); Aspergillus fumigatus <0.10 kU/L (Class 0); Bermuda Grass <0.10 kU/L (Class 0); Birch <0.10 kU/L (Class 0); Black Walnut <0.10 kU/L (Class 0); Cat Hair / Dander,Stand <0.10 kU/L (Class 0); Cedar, Mountain <0.10 kU/L (Class 0); Cladosporium herbarum <0.10 kU/L (Class 0); Cockroach, American <0.10 kU/L (Class 0); Cottonwood <0.10 kU/L (Class 0); D farinae Mite <0.10 kU/L (Class 0); D pteronyssinus <0.10 kU/L (Class 0); Dog Epithelia <0.10 kU/L (Class 0); Elm, American White <0.10 kU/L (Class 0); Immunoglobulin E 43 IU/mL (6-495); Maple/Box Elder <0.10 kU/L (Class 0); Mouse Urine <0.10 kU/L (Class 0); Mulberry, White <0.10 kU/L (Class 0); Oak, White <0.10 kU/L (Class 0); Pecan <0.10 kU/L (Class 0); Penicillium Notatum <0.10 kU/L (Class 0); Pigweed, Rough <0.10 kU/L (Class 0); Ragweed, Short/Common <0.10 kU/L (Class 0); Russian Thistle <0.10 kU/L (Class 0); Sheep Sorrel <0.10 kU/L (Class 0); Sycamore, American <0.10 kU/L (Class 0); Timothy Grass <0.10 kU/L (Class 0)
== END | disposition home or self-care (01) ==
LOC: LAB 11:58
PROVIDERS: PCP Family Medicine; Referring Provider Internal Medicine Critical Care Medicine; Visit Provider Internal Medicine Critical Care Medicine
DX: J44.9 Chronic obstructive pulmonary disease, unspecified (principal)
CPT/HCPCS: 36415; 82785; 85025; 86003; 86256; 86606

== ENCOUNTER 2023-07-27 21:52 | Emergency (ER) | payer OTHER, SELFPAY ==
[2023-07-27 21:52] VITALS: BP 177/109; PULSE 111; RESP 24; TEMP 36.4; O2SAT 97; BMI 24.4
--- NOTE | 2023-07-27 21:54 | RAD_ITS ---
STUDY: X-RAY CHEST REASON FOR EXAM: Male, 57 years old. SOB TECHNIQUE: Single AP portable view of the chest. COMPARISON: April 02, 2023 chest x-ray FINDINGS: There is persistent hyperinflation of the lungs some flattening of the hemidiaphragms suggesting a known history of chronic obstructive pulmonary disease. There are scattered lucencies suggesting emphysematous change. There is no demonstrated pleural abnormality. Normal size heart. Normal mediastinum and jonny. Normal visualized pulmonary arteries. There is atherosclerotic calcification of the aortic arch with tortuosity. There are diffuse degenerative changes of the visualized thoracic spine. Normal visualized ribs, clavicles, and shoulders. There is no demonstrated abnormality of the visualized soft tissue structures of the upper abdomen. RAD/Chest 1 View (Portable) IMPRESSION: Stable chest, findings highly suspicious for chronic obstructive pulmonary disease and emphysema. No visualized acute focal infiltrate. Electronically Signed: Shalonda Sadler MD at 22:08 [facility] Reading Location ID and State: [facility] / [place] Tel , Service support ,
[2023-07-27 23:06] VITALS: BP 152/99; PULSE 100; RESP 27; O2SAT 97
[2023-07-27 23:10] VITALS: PULSE 95; RESP 13
--- OUTSIDE RECORDS SUMMARY | 2023-07-27 23:20 | XMS RPT_ITS | CCD ---
Author Name Unknown Address [address] [facility] [address] [place] [address] Organization [facility] Care Team Providers Care Speech Clinician Name Role Phone Jude Villafuerte Unavailable Ashley Shahid Unavailable Ashley Shahid Unavailable Jude Villafuerte Unavailable Medications Completed/Discontinued Medications Medication Drug Class(es) Dates Sig (Normalized) Sig (Original) hydroCHLOROthiazide 12.5 mg / lisinopril 10 mg oral tablet (4 sources) Thiazide Diuretic, Angiotensin Converting Enzyme Inhibitor Start: 06-18-2016 LISINOPRIL-HYDRO CHLOROTHIAZIDE 10-12.5 MG TABS LISINOPRIL-HYDRO CHLOROTHIAZIDE [id number] Jude Vilalfuerte Problems Active Problems Problem Classification Problem Date Documented Da te Episodic/Chronic Joint disorders and dislocations; trauma-related (4 sources) Derangement of knee; Translations: [Other internal derangements of right knee] Onset: 06-18-2016 06-28-2016 Chronic Unclassified (4 sources) Aftercare ; Translations: [Encounter for other orthopedic aftercare] Onset: 07-23-2016 07-30-2016 Past or Other Problems Problem Classification Problem Date Documented Da te Episodic/Chronic Joint disorders and dislocations; trauma-related (4 sources) Other tear of medial meniscus, current injury, right knee, initial encounter; Translations: [Other tear of medial meniscus, current injury, right knee, initial encounter] Onset: 06-18-2016 06-28-2016 Episodic Other non-traumatic joint disorders (7 sources) Effusion, right knee; Translations: [Knee pain] Onset: 06-18-2016 06-28-2016 Episodic Other non-traumatic joint disorders (1 source) Knee pain; Translations: [Pain in right knee] Onset: 06-18-2016 06-18-2016 Episodic Results Test Name Value Interpretation Reference Range Facil ity Vital Signs Date Time Vital Sign Value Performing Clinician Chelle mccabe 06-18-2016 15:48-0500 BMI (Body Mass Index) 20.75 kg/m2 [facility] Work Phone: 06-18-2016 15:48-0500 Height 182.88 cm [facility] Work Phone: 06-18-2016 15:48-0500 Weight 69.4 kg [facility] Work Phone: Procedures Date Procedure Procedure Detail Performing Clinician Start: 01-05-2017 End: 01-12-2017 Drain/inject, joint/bursa Jude Villafuerte Work Phone: Plan of Treatment Date Care Activity Detail Author Start: 01-05-2017 End: 01-05-2017 [facility] Work Phone: Start: 01-05-2017 End: 01-05-2017 X-ray exam, knee, 4 or more X-Ray, Knee [facility] Work Phone: Patient Education [id number] [facility] Medicine [facility] Work Phone: Summary Purpose Family History No Family History Records Found Advance Directives No Advanced Directives Records Found Additional Source Comments (unrecognized sect ion and content) No Status Records Found INFORMATION SOURCE (unrecogn ized section and content) FOR RECORDS PERTAINING TO PATIENTS WHO ARE OR HAVE BEEN ENROLLED IN A CHEMICAL DEPENDENCY/SUBSTANCEABUSE PROGRAM, SOME INFORMATION MAY BE OMITTED. This clinical summary was aggregated from multiple sources. Caution should be exercised in using it in the provision of clinical care. This summary normalizes information from multiple sources, and as a consequence, information in this document may materially change the coding, format and clinical context of patient data. In addition, data may be omitted in some cases. CLINICAL DECISIONS SHOULD BE BASED ON THE PRIMARY CLINICAL RECORDS. [employer] provides no warranty or guarantee of the accuracy or completeness of information in this document.
[2023-07-27] MEDS: Ipratropium/Albuterol Sulfate 3 ML AMPUL.NEB INHALATION ×2 (23:27)
[2023-07-27] MEDS: predniSONE 20 MG Tablet 60 MG PO (23:37)
--- NOTE | 2023-07-28 00:15 | EX.ED.DYSGE1 ---
HPI History of Present Illness Chief Complaint: Shortness of Breath Informant: patient Narrative Narrative: Patient is a 57-year-old male with past medical history of COPD hypertension and asthma. He states he has albuterol inhaler as well as nebulizer treatments at home. He states he has been using these as directed by his waybill clerk but he feels like his breathing has worsened over the last few days. He denies any chest pain nausea vomiting or diaphoresis associated with this. He denies any fevers chills or known sick contacts. He states that this occurs occasionally and he will need steroids in order to prevent any further exacerbation and secondary to this comes in for evaluation [facility] Medical History Anxiety Asthma-COPD overlap syndrome Erectile dysfunction Hypertension Psoriasis Smoker Home Medications escitalopram oxalate 10 mg tablet 10 mg PO DAILY anxiety 04/01/19 [History Last Taken 06/12/19] amlodipine 10 mg tablet 5 mg PO DAILY 11/10/20 [History Last Taken Unknown] hydroxyzine pamoate 25 mg capsule 25 mg PO BID PRN Anxiety 11/30/20 [History Last Taken Unknown] lisinopril 20 mg-hydrochlorothiazide 25 mg tablet 1 tab PO DAILY 11/30/20 [History Last Taken Unknown] cetirizine 10 mg capsule 10 mg PO HS #90 caps 03/11/22 [Rx Last Taken Unknown] atorvastatin 80 mg tablet 80 mg PO DAILY #90 tabs 08/25/22 [Rx Last Taken Unknown] albuterol sulfate 2.5 mg/3 mL (0.083 %) solution for nebulization 2.5 mg (3 mL) inhalation Q4H PRN PRN Sob &/Or Wheezing #180 mL 03/28/23 [Rx Last Taken Unknown] albuterol sulfate 90 mcg/actuation aerosol inhaler (ProAir HFA) 2 puff inhalation Q6H PRN shortness of breath or wheezing #18 grams 04/07/23 [Rx Last Taken Unknown] fluticasone fur. 200 mcg-umeclid 62.5 mcg-vilant 25 mcg inhalat.powder (Trelegy Ellipta) 1 inh inhalation DAILY #3 ea 04/07/23 [Rx Last Taken Unknown] ipratropium 0.5 mg-albuterol 3 mg (2.5 mg base)/3 mL nebulization soln 3 ml inhalation Q4H PRN PRN SOB &/OR WHEEZING #180 mL 05/25/23 [Rx Last Taken Unknown] prednisone 20 mg tablet 40 mg (2 x 20 mg) PO DAILY 5 days #10 tabs 07/28/23 [Rx Last Taken Unknown] Allergy/AdvReac Type Severity Reaction Status Date / Time No Known Allergies Allergy Verified 05/25/23 09:21 Surgical History H/O knee surgery H/O total hip arthroplasty Social History household members: spouse Smoking Status: Current every day smoker tobacco type: cigarettes Tobacco: How many years used: 30 Smokeless tobacco user: other alcohol intake: former substance use type: does not use ROS ROS ED Constitutional Constitutional ED: Denies chills or fever(s) Eyes Eyes: Denies change in vision ENT ENT ED: Denies rhinorrhea or sore throat Cardiovascular Cardiovascular: Denies chest pain, palpitations or racing heartbeat Respiratory/Chest Respiratory/Chest: Reports cough and dyspnea Gastrointestinal Gastrointestinal: Denies abdominal pain, diarrhea, nausea or vomiting Genitourinary Genitourinary ED: Denies dysuria Musculoskeletal Musculoskeletal: Denies myalgias Integumentary Denies rash Neurologic Neurologic: Denies headache(s) Hematologic/Lymphatic Hematologic/Lymphatic: Denies easy bleeding or easy bruising EXAM Physical Exam Const Vital Signs: 07/27/23 21:52 07/27/23 23:06 07/27/23 23:07 Temperature 97.6 F L Temperature Source Temporal Pulse Rate 111 H 100 Respiratory Rate 24 H 27 H Respiratory Effort Short of Breath Respiratory Depth Normal Respiratory Pattern Normal Blood Pressure 177/109 H 152/99 H Blood Pressure Mean 131 116 Pulse Ox 97 97 Oxygen Delivery Method Room Air Room Air 07/27/23 23:10 Temperature Temperature Source Pulse Rate 95 Respiratory Rate 13 Respiratory Effort Respiratory Depth Respiratory Pattern Blood Pressure Blood Pressure Mean Pulse Ox Oxygen Delivery Method Positive well nourished and well developed General Appearance ED: well developed; Negative for pallor HEENT HEENT Narrative: Cobblestoning is noted in the posterior pharynx consistent with sinus drainage However no airway edema or compromise No secondary changes to suggest infection Eyes PERRL and EOMs intact bilaterally General Eye ED: Negative for scleral icterus Neck supple and no JVD Chest Wall palpation of chest normal Resp Resp Narrative: Breath sounds are diminished throughout with diffuse inspiratory and expiratory wheeze and mild tachypnea noted but no retractions nasal flaring or accessory muscle use Cardio regular rate and regular rhythm Extremity normal to inspection Extremity Narrative: No asymmetric edema no pitting edema negative Homans' sign bilaterally Neuro oriented x3, CN's II-XII intact bilaterally and no sensory deficits noted Sensorium / Orientation: alert Motor Exam: strength 5/5 throughout Psych mental status grossly normal Skin no rashes or lesions noted General Skin Exam: Negative for jaundice or pallor MDM MDM MDM Narrative Medical decision making narrative: Patient arrived to the ER hypertensive but has a past medical history of this and with mild increased work of breathing. He denied any chest pains there for my concern for ACS is low and do not feel there is need for EKG or troponin. He also is afebrile and denies any known sick contacts or concern for influenza versus COVID versus RSV is low and I do not feel need for viral swab. In order to rule out pneumothorax versus pleural effusion versus pneumonia chest x-ray was obtained. This also revealed no acute findings. After patient was given steroids and breathing treatments in the ER he reported improvement of symptoms and on reevaluation he has had improvement of his breath sounds as well as work of breathing. He also is not requiring any type of supplemental oxygen and is otherwise safe for discharge History & Record Review Discussion w/independent historian: Patient Radiography Diagnostic Testing: Clinical Impression(s) from Imaging Studies Chest X-Ray 07/27/23 21:54 IMPRESSION: Stable chest, findings highly suspicious for chronic obstructive pulmonary disease and emphysema. No visualized acute focal infiltrate. Electronically Signed: Shalonda Sadler MD at 22:08 [facility] Reading Location ID and State: [facility] / [place] Tel , Service support , Chest x-ray as interpreted by the emergency medicine physician reveals hyperinflated lungs consistent with history of COPD but no acute infiltrate pneumothorax or pleural effusion Discharge Plan Triage Chief Complaint: Shortness of Breath ED Provider: Darell Childress Dx/Rx/DC Orders Clinical Impression: COPD exacerbation, Hypertension Instructions: Asthma COPD Trigger Control, COPD Controlled Breathing Dc Prescriptions: New prednisone 20 mg tablet 40 mg PO DAILY 5 Days Qty: 10 0RF No Action cetirizine 10 mg capsule 10 mg PO HS Qty: 90 3RF Trelegy Ellipta 200-62.5-25 mcg blister with device 1 inh inhalation DAILY Qty: 3 3RF albuterol sulfate [ProAir HFA] 90 mcg/actuation HFA aerosol inhaler 2 puff inhalation Q6H PRN (Reason: shortness of breath or wheezing) Qty: 18 6RF atorvastatin 80 mg tablet 80 mg PO DAILY Qty: 90 3RF ipratropium-albuterol 0.5 mg-3 mg(2.5 mg base)/3 mL solution for nebulization 3 ml inhalation Q4H PRN PRN (Reason: SOB &/OR WHEEZING) Qty: 180 6RF escitalopram oxalate 10 MG tablet 10 mg PO DAILY amlodipine 10 mg Tablet 5 mg PO DAILY lisinopril-hydrochlorothiazide 20-25 mg Tablet 1 tab PO DAILY hydroxyzine pamoate 25 mg Capsule 25 mg PO BID PRN (Reason: Anxiety) albuterol sulfate 2.5 mg /3 mL (0.083 %) solution for nebulization 2.5 mg INHALATION Q4H PRN PRN (Reason: Sob &/Or Wheezing) Qty: 180 3RF Primary Care Provider: Feliciano Sanz Referrals: Feliciano Sanz MD [Primary Care Provider] - Disposition Disposition: Home, Self Care Discharge Date/Time: 07/28/23 00:29
== END 2023-07-28 00:29 | disposition home or self-care (01) ==
PROVIDERS: Emergency Provider Emergency Medicine; PCP Family Medicine; Visit Provider Emergency Medicine
DX: J44.1 Chronic obstructive pulmonary disease with (acute) exacerbation (principal); F17.210 Nicotine dependence, cigarettes, uncomplicated; I10 Essential (primary) hypertension; F41.9 Anxiety disorder, unspecified
CPT/HCPCS: 71045; 94640; 99282

== ENCOUNTER → 2023-08-24 | Outpatient (CLI) | payer OTHER, SELFPAY ==
--- NOTE | 2023-08-24 10:24 | RAD_ITS ---
INDICATION: Pain. History of replacement. EXAMINATION/TECHNIQUE: X-RAY - XR Hips Bilateral with Pelvis when performed; Min 5 Views COMPARISON: Pelvis and hip radiographs dated 08/13/2020. FINDINGS: PELVIC BONES: No displaced fracture, destructive or sclerotic lesions. Note that overlapping bowel shadows may however obscure fine detail. Sacroiliac joints are unremarkable. No widening of the pubic symphysis. HIPS: Again seen are bilateral hip arthroplasties in place. There is no periprosthetic fracture. SOFT TISSUES: There are atherosclerotic calcifications of the pelvic and femoral arteries. No soft tissue swelling or gas. RAD/Hips B/L min 2 views w/ Pelvis IMPRESSION: Bilateral hip arthroplasties, with no periprosthetic fracture. Electronically Signed: Golden Florence MD at 15:57 EST ,
--- OUTSIDE RECORDS SUMMARY | 2023-08-24 10:55 | XMS RPT_ITS | CCD ---
Author Name Unknown Address [address] [facility] [address] [place] [address] Organization [facility] Care Team Providers Care C Programmer Name Role Phone Jude Villafuerte Unavailable Ashley Shahid Unavailable Ashley Shahid Unavailable Jude Villafuerte Unavailable Medications Completed/Discontinued Medications Medication Drug Class(es) Dates Sig (Normalized) Sig (Original) hydroCHLOROthiazide 12.5 mg / lisinopril 10 mg oral tablet (4 sources) Thiazide Diuretic, Angiotensin Converting Enzyme Inhibitor Start: 06-18-2016 LISINOPRIL-HYDRO CHLOROTHIAZIDE 10-12.5 MG TABS LISINOPRIL-HYDRO CHLOROTHIAZIDE [id number] Jude Villafuerte Problems Active Problems Problem Classification Problem Date [...] 15:48-0500 BMI (Body Mass Index) 20.75 kg/m2 [facility] Work Phone: 06-18-2016 15:48-0500 Height 182.88 cm [facility] Orthopa[facility] Work Phone: 06-18-2016 15:48-0500 Weight 69.4 kg [facility] Work Phone: Procedures Date Procedure Procedure Detail Performing Clinician Start: 01-05-2017 End: 01-12-2017 Drain/inject, joint/bursa Jude Villafuerte Work Phone: Plan of Treatment Date Care Activity Detail Author Start: 01-05-2017 End: 01-05-2017 Appointment Appointment [facility] Work Phone: Start: 01-05-2017 End: 01-05-2017 X-ray exam, knee, 4 or more X-Ray, Knee [facility] Medicine and Orthopaedics Work Phone: Patient Education KNEE%20PAIN [facility] Medicine and Orthopaedics Work Phone: Summary [...] BE BASED ON THE PRIMARY CLINICAL RECORDS. [employer] provides no warranty or guarantee of the accuracy or completeness of information in this document.
[2023-08-24 12:29] LABS: Hematocrit 41.6 % (40-54); Hemoglobin 14.2 g/dL (13.0-16.5); Mean Corp Hgb Conc 34.1 g/dL (32-36); Mean Corpuscular Hgb 29.5 pg (27.0-32.0); Mean Corpuscular Volume 86.5 fL (80-94); Mean Platelet Vol. 9.1 fl (6.2-12.0); Platelet Count 215 K/mm3 (150-450); RBC Distribution Width CV 12.9 % (11.6-14.6); RBC Distribution Width SD 40.4 fl (35.1-43.9); Red Blood Count 4.81 M/mm3 (4.6-6.2); White Blood Count 5.8 K/mm3 (4.4-11.0)
[2023-08-24 13:26] LABS: Anion Gap 7 (5-15); BUN 13 mg/dL (7-18); BUN/Creat Ratio 9.9 RATIO (10-20); Chloride 108 mmol/L (98-107); Cholesterol 121 mg/dL (200); Creatinine, Serum 1.31 mg/dL (0.70-1.30); EST Glomerular Filtration Rate 60 mL/min (>60); Est Glom Filt Rate - Afr Amer 73 mL/min (>60); Ferritin 137 ng/mL (26-388); Glucose 106 mg/dL (74-106); High Density Lipoprotein 33 mg/dL; Iron 89 ug/dL (65-175); Potassium 3.7 mmol/L (3.5-5.1); Sodium Level 137 mmol/L (136-145); Triglycerides 105 mg/dL; Very Low Density Lipoprotein 21 mg/dL (5-40)
== END | disposition home or self-care (01) ==
PROVIDERS: PCP Family Medicine; Referring Provider Family Medicine; Visit Provider Family Medicine
DX: M25.559 Pain in unspecified hip (principal); I73.9 Peripheral vascular disease, unspecified; D64.9 Anemia, unspecified; Z12.5 Encounter for screening for malignant neoplasm of prostate; I10 Essential (primary) hypertension
CPT/HCPCS: 36415; 73521; 80048; 80061; 82728; 83540; 84153; 85027; G0103

== ENCOUNTER 2023-10-01 00:16 | Inpatient (IN) | payer OTHER, SELFPAY ==
[2023-10-01] VITALS (40 sets, daily range): BP systolic 84–147; BP diastolic 65–111; PULSE 71–126; RESP 12–25; TEMP 36.3–37; O2SAT 87–98; BMI 25.9; BMI 23.5; BMI 23.4; BMI 23.1
--- NOTE | 2023-10-01 00:27 | EKG12_ITS ---
Test Reason : DYSRHYTHMIA Blood Pressure : / mmHG Vent. Rate : 123 BPM Atrial Rate : 000 BPM P-R Int : 000 ms QRS Dur : 138 ms QT Int : 402 ms P-R-T Axes : 000 -35 094 degrees QTc Int : 575 ms SINUS TACH Left axis deviation Left bundle branch block Abnormal ECG Confirmed by Jude Ward ([id number]), make up editor ERIC LEDESMA ([id number]) on 10/03/2023 6:38:55 AM Referred By: ULISES Confirmed By:Jude Ward
[2023-10-01] MEDS: Aspirin 81 MG TAB.CHEW 324 MG PO (00:36)
--- NOTE | 2023-10-01 00:38 | EDS_ITS ---
HPI History of Present Illness Chief Complaint: Shortness of Breath Informant: patient and EMS Onset/Context/Timing Onset: Hours (2) Context: sudden, onset and activity on onset (getting ready to go to bed) Timing: Continuous Quality: Positive for - (short of breath) Current Severity: Mild Maximum Severity: Severe Worsened by: Nothing Relieved by: - (cpap by EMS) Associated Symptoms Chest Pain: Positive for None Narrative Narrative: Patient suddenly short of breath tonight and called EMS. He has a history of COPD, he states albuterol usually does not help but CPAP does so EMS did that and it helped, told them that he was having a little bit of wheezing but not a lot, for how short of breath he was. Denies any recent illness. Denies having any chest discomfort. No palpitations, lightheadedness, diaphoresis, jaw or arm pain. PFSH PFSH Medical History Anxiety Asthma-COPD overlap syndrome Erectile dysfunction Hypertension Psoriasis Smoker Home Medications escitalopram oxalate 10 mg tablet 10 mg PO DAILY anxiety 04/01/19 [History Last Taken 06/12/19] amlodipine 10 mg tablet 5 mg PO DAILY 11/10/20 [History Last Taken Unknown] hydroxyzine pamoate 25 mg capsule 25 mg PO BID PRN Anxiety 11/30/20 [History Last Taken Unknown] lisinopril 20 mg-hydrochlorothiazide 25 mg tablet 1 tab PO DAILY 11/30/20 [History Last Taken Unknown] cetirizine 10 mg capsule 10 mg PO HS #90 caps 03/11/22 [Rx Last Taken Unknown] albuterol sulfate 2.5 mg/3 mL (0.083 %) solution for nebulization 2.5 mg (3 mL) inhalation Q4H PRN PRN Sob &/Or Wheezing #180 mL 03/28/23 [Rx Last Taken Unknown] albuterol sulfate 90 mcg/actuation aerosol inhaler (ProAir HFA) 2 puff inhalation Q6H PRN shortness of breath or wheezing #18 grams 04/07/23 [Rx Last Taken Unknown] fluticasone fur. 200 mcg-umeclid 62.5 mcg-vilant 25 mcg inhalat.powder (Trelegy Ellipta) 1 inh inhalation DAILY #3 ea 04/07/23 [Rx Last Taken Unknown] ipratropium 0.5 mg-albuterol 3 mg (2.5 mg base)/3 mL nebulization soln 3 ml inhalation Q4H PRN PRN SOB &/OR WHEEZING #180 mL 05/25/23 [Rx Last Taken Unknown] atorvastatin 80 mg tablet 80 mg PO DAILY #90 tabs 08/23/23 [Rx Last Taken Unknown] Allergy/AdvReac Type Severity Reaction Status Date / Time No Known Allergies Allergy Verified 10/01/23 00:38 Family History Other Asthma Surgical History H/O knee surgery H/O total hip arthroplasty Social History household members: spouse Smoking Status: Current every day smoker tobacco type: cigarettes Tobacco: How many years used: 30 Smokeless tobacco user: other alcohol intake: former substance use type: does not use ROS ROS ED Constitutional Constitutional ED: Denies chills or fever(s) Eyes Eyes: Denies change in vision or diplopia ENT ENT ED: Denies rhinorrhea or sore throat Cardiovascular Cardiovascular: Denies chest pain or palpitations Respiratory/Chest Respiratory/Chest: Reports dyspnea; Denies cough Gastrointestinal Gastrointestinal: Denies abdominal pain, diarrhea, nausea or vomiting Genitourinary Genitourinary ED: Denies dysuria or hematuria Musculoskeletal Musculoskeletal: Denies back pain or neck pain Integumentary Denies abscess or rash Neurologic Neurologic: Denies headache(s), paresthesias or weakness Psychiatric Psychiatric: Denies suicidal ideation or suicidal thoughts EXAM Physical Exam Const Vital Signs: 10/01/23 00:17 10/01/23 00:25 10/01/23 00:34 Temperature 98.0 F Temperature Source Temporal Pulse Rate 120 H Respiratory Rate 20 H Respiratory Effort Normal Blood Pressure 147/111 H Blood Pressure Mean 123 Pulse Ox 97 Oxygen Delivery Method Room Air Room Air 10/01/23 01:16 10/01/23 02:00 Temperature Temperature Source Pulse Rate 110 H 113 H Respiratory Rate 20 H 20 H Respiratory Effort Blood Pressure 139/91 H 113/78 Blood Pressure Mean 107 89 Pulse Ox 95 Oxygen Delivery Method Room Air Positive well nourished and well developed General Appearance ED: well developed and NAD HEENT Reports moist mucous membranes normocephalic and atraumatic Eyes PERRL and EOMs intact bilaterally Neck full ROM, supple, no meningeal signs and no JVD Resp Resp Narrative: Tachypneic no distress. Slight end expiratory wheezes throughout, otherwise just diminished everywhere and clear. Equal breath sounds bilaterally. Trachea midline. Cardio regular rate, regular rhythm and no murmurs GI non-tender and non-distended Auscultation: normoactive bowel sounds Palpation: soft Back/Spine no CVA tenderness General Back: other FROM Extremity normal to inspection General Extremety ED: Negative for edema, pulses abnormal or tenderness General Extremity: Negative for edema or pulses abnormal Neuro oriented x3, CN's II-XII intact bilaterally and no sensory deficits noted Sensorium / Orientation: awake and alert Motor Exam: strength 5/5 throughout Psych mental status grossly normal Skin no rashes or lesions noted and no wounds MDM MDM MDM Narrative Medical decision making narrative: Several EMS EKGs were sent, they all look identical, which is essentially a left bundle branch block. On one of them the computer was calling a STEMI, but given that it appeared to be a left bundle, and the patient did not have any chest milly n, I opted to evaluate the patient first given that it is the middle of the night and we did not know if the left bundle was new or old. When the patient arrived we were able to get an old EKG on him, and see that last March he had a normal sinus rhythm without a left bundle branch block, and this does appear to be new. His EKG here does not meet Sgarbossa criteria, but since the LBBB is new, and his symptoms are concerning although not classic for STEMI, I immediately sent the EKG as well as the old one and a description to the STEMI cooky packer on-call, Dr. Nelson. I spoke with him about the EKG and the patient's history, he states that he would not take the patient emergently to the Director Of Clinical Education or treated like a STEMI at this time. 1 view chest x-ray my interpretation shows COPD hyperexpansion but no acute infiltrates or pneumothorax or other acute abnormality. His initial troponin came back within normal limits, he does have a bit of a leukocytosis. Patient states he is breathing better, he declines an offer for nebulizer treatment and CPAP. We observed him. At 1 point to look like maybe his rhythm change but repeat EKG is identical showing a left bundle branch block, no difference in the ST segments and T waves. During this patient states he is continuing to feel even better. Has had no chest discomfort. Pulse down to 112. Awaiting second troponin measurement. Second troponin came back at 1265. Patient doing well clinically. Blood pressure down to 113/78, the only treatment we have given him is aspirin [address] Ward who is on for cardiology. He recommends Nitropaste half-inch, metoprolol tartrate 25 mg orally, heparin drip, he will see the patient in the morning. Discussed with hospitalist for admission. The second EKG does look more like sinus tachycardia rather than a dysrhythmia. Lab Data Attestation: I reviewed the patient's lab results. Labs: Laboratory Results - last 24 hr 10/01/23 10/01/23 10/01/23 00:20 00:37 02:25 WBC 16.2 H RBC 4.59 L Hgb 13.6 Hct 40.9 MCV 89.1 MCH 29.6 MCHC 33.3 RDW Std Deviation 42.7 RDW Coeff of Jazzmine 13.2 Plt Count 283 MPV 9.3 Immature Gran % (Auto) 0.900 Neut % (Auto) 40.4 L Lymph % (Auto) 46.9 H [place] % (Auto) 7.9 Eos % (Auto) 3.6 Baso % (Auto) 0.3 Absolute Neuts (auto) 6.6 Absolute Lymphs (auto) 7.61 H Nucleated RBC % 0 Differential Comment SCANNED Reactive Lymphocytes 2+ PT 13.3 INR 1.0 APTT 32.9 Sodium 135 L Potassium 3.4 L Chloride 104 Carbon Dioxide 21.0 Anion Gap 10 BUN 14 Creatinine 1.66 H Estim Creat Clear Calc 55.19 Est GFR (MDRD) Af Amer 55 L Est GFR (MDRD) Non-Af 46 L BUN/Creatinine Ratio 8.4 L Glucose 175 H Calcium 8.8 Troponin I High Sens 36 1265 H* Radiography Diagnostic Testing: Clinical Impression(s) from Imaging Studies Chest X-Ray 10/01/23 00:40 IMPRESSION: Hyperexpanded lungs compatible with chronic obstructive pulmonary disease. No radiographic evidence of consolidative pneumonia or florid edema. Electronically Signed: Trung Daniels MD at 1:31 EDT , Rhythm Strip Rhythm Strip: Wide-complex tachycardia Rate: 120 Ectopy: None EKG Initial EKG: Attestation: I personally reviewed and interpreted this EKG as follows: Comments: Wide-complex tachycardia around 120, left bundle branch block, discordant ST elevation 4 mm or less, no concordant ST elevation, possibly [address] depression discordant but only in V5-6 and not in V1-3 Follow-up EKG: Attestation: I personally reviewed and interpreted this EKG as follows: Interpretation: Sinus Tachycardia and LBBB Prior: Unchanged Management Discussion w/another healthcare provider: Hospitalist and Lean Process Deployment Consultant (Cardiology Drs. Nelson, Sylvia) Discharge Plan Dx/Rx/DC Orders Clinical Impression: Acute coronary syndrome Disposition Disposition: Acute Care Hospital [facility]
--- NOTE | 2023-10-01 00:40 | RAD_ITS ---
INDICATION: chest pain EXAMINATION/TECHNIQUE: X-RAY - XR Chest 1 View COMPARISON: None. FINDINGS: LINES/DEVICES: None. LUNGS: Lungs symmetrically hyperexpanded. No consolidation or edema. Left costophrenic angle atelectasis or trace effusion. No pneumothorax. MEDIASTINUM AND CARDIOVASCULAR STRUCTURES: Cardiac silhouette not enlarged. Aortic atherosclerosis. BONES AND SOFT TISSUES: Unremarkable. RAD/Chest 1 View (Portable) IMPRESSION: Hyperexpanded lungs compatible with chronic obstructive pulmonary disease. No radiographic evidence of consolidative pneumonia or florid edema. Electronically Signed: Trung Daniels MD at 1:31 EDT ,
[2023-10-01 00:42] LABS: Absolute Lymphocyte Count 7.61 X10^3/uL (0.83-4.51); Absolute Neutrophil Count 6.6 X10^3/uL (2.0-7.7); Basophil# 0.05 X10^3/uL; Basophil% 0.3 % (0-1); Eosinophil# 0.58 X10^3/uL; Eosinophils% 3.6 % (0-5); Hematocrit 40.9 % (40-54); Hemoglobin 13.6 g/dL (13.0-16.5); Lymphocyte # 7.61 X10^3/ul (0.83-4.51); Lymphocyte % 46.9 % (19-41); Mean Corp Hgb Conc 33.3 g/dL (32-36); Mean Corpuscular Hgb 29.6 pg (27.0-32.0); Mean Corpuscular Volume 89.1 fL (80-94); Mean Platelet Vol. 9.3 fl (6.2-12.0); Monocyte# 1.28 X10^3/uL; Monocyte% 7.9 % (0-10); NRBC Flagged by Analyzer 0 % (0-5); Neutrophil # 6.56 X10^3/uL (2.7-7.7); Neutrophil % 40.4 % (47-70); POSITIVE DIFFERENTIAL YES; Platelet Count 283 K/mm3 (150-450); RBC Distribution Width CV 13.2 % (11.6-14.6); RBC Distribution Width SD 42.7 fl (35.1-43.9); Red Blood Count 4.59 M/mm3 (4.6-6.2); White Blood Count 16.2 K/mm3 (4.4-11.0)
[2023-10-01 00:50] LABS: Differential Indicated SCAN CRITERIA MET
[2023-10-01 00:57] LABS: Anion Gap 10 (5-15); BUN 14 mg/dL (7-18); BUN/Creat Ratio 8.4 RATIO (10-20); Calcium,Total 8.8 mg/dL (8.5-10.1); Chloride 104 mmol/L (98-107); Creatinine, Serum 1.66 mg/dL (0.70-1.30); EST Glomerular Filtration Rate 46 mL/min (>60); Est Glom Filt Rate - Afr Amer 55 mL/min (>60); Estimated Creatinine Clearance 55.19 ml/min; Glucose 175 mg/dL (74-106); Potassium 3.4 mmol/L (3.5-5.1); Sodium Level 135 mmol/L (136-145); Troponin-I HS (w/2H Reflex) 36 pg/mL (3.0-78.0)
[2023-10-01 01:27] LABS: Differential Comment SCANNED; Reactive Lymphocyte 2+
[2023-10-01 02:38] LABS: Reflex Troponin-HS? (from REC) Y
--- NOTE | 2023-10-01 02:50 | EKG12_ITS ---
Test Reason : DYSRHYTHMIA Blood Pressure : / mmHG Vent. Rate : 112 BPM Atrial Rate : 112 BPM P-R Int : 156 ms QRS Dur : 136 ms QT Int : 372 ms P-R-T Axes : 089 -40 093 degrees QTc Int : 507 ms Sinus tachycardia Left axis deviation Left bundle branch block Abnormal ECG Confirmed by Jude Ward ([id number]), senior editor ERIC LEDESMA ([id number]) on 10/03/2023 6:39:10 AM Referred By: Confirmed By:Jude Ward
[2023-10-01 03:09] LABS: Troponin-I HS 1265 pg/mL (3.0-78.0)
[2023-10-01 03:24] LABS: Prothrombin Time (Protime)PT. 13.3 SECONDS (11.7-14.9)
[2023-10-01 03:25] LABS: Partial Thromboplast Time 32.9 Seconds (24.1-36.2)
--- NOTE | 2023-10-01 03:26 | PCM.HP.STD ---
[facility] - General General Date of Admission: 10/01/23 Date of Service: 10/01/23 Chief Complaint: SOB. HPI Narrative JAX NUNEZ, is a 57 M with a past medical history of essential hypertension, hyperlipidemia, history of ongoing tobacco abuse (over ~30 years); with subsequent asthma/COPD overlap syndrome, PAD, erectile dysfunction, psoriasis, generalized anxiety and osteoarthritis; status post knee surgery and THR who presents to [facility] ER complaining of shortness of breath. Mr. Nunez reports his symptoms began approximately 2 hours prior to arrival with the abrupt onset of shortness of breath that occurred at rest and then progressively became more severe. EMS was then activated objective EKG that was very suspicious for STEMI with an apparent new left bundle branch block with none of his old EKGs revealing left bundle branch block. He also admits to associated wheezing but he denies related fever, chills, nausea, vomiting, diaphoresis, arm pain or palpitations. In the ER the patient was noted to have an initial troponin of 36 pg/mL followed by a highly elevated second troponin of 1,265 pg/mL with a EKG showing evidence of apparently new left bundle branch block with a wide-complex tachycardia ~[address] elevation 4 mm or less but without meeting Sgarbossa criteria with cardiology recommending IV heparin, Nitropaste, metoprolol, Plavix and statin as patient already received aspirin with plan to evaluate patient in a.m. complicated by clinical evidence of acute exacerbation of asthma/COPD syndrome in the setting of ongoing tobacco abuse compounded by respiratory insufficiency with laboratory evidence of hypokalemia of 3.4 mmol/L present on admission and leukocytosis of 16.2 present on admission with chest x-ray revealing hyperexpanded lungs consistent with COPD with no radiographic evidence of consolidative pneumonia or florid edema and he was then admitted to the PCU for ongoing care for stay that is expected to be greater than 48 hours. [facility] Medical History Anxiety Asthma-COPD overlap syndrome Erectile dysfunction Hypertension Psoriasis Smoker Home Medications escitalopram oxalate 10 mg tablet 10 mg PO DAILY anxiety 04/01/19 [History Last Taken 06/12/19] amlodipine 10 mg tablet 5 mg PO DAILY 11/10/20 [History Last Taken Unknown] hydroxyzine pamoate 25 mg capsule 25 mg PO BID PRN Anxiety 11/30/20 [History Last Taken Unknown] lisinopril 20 mg-hydrochlorothiazide 25 mg tablet 1 tab PO DAILY 11/30/20 [History Last Taken Unknown] cetirizine 10 mg capsule 10 mg PO HS #90 caps 03/11/22 [Rx Last Taken Unknown] albuterol sulfate 2.5 mg/3 mL (0.083 %) solution for nebulization 2.5 mg (3 mL) inhalation Q4H PRN PRN Sob &/Or Wheezing #180 mL 03/28/23 [Rx Last Taken Unknown] albuterol sulfate 90 mcg/actuation aerosol inhaler (ProAir HFA) 2 puff inhalation Q6H PRN shortness of breath or wheezing #18 grams 04/07/23 [Rx Last Taken Unknown] fluticasone fur. 200 mcg-umeclid 62.5 mcg-vilant 25 mcg inhalat.powder (Trelegy Ellipta) 1 inh inhalation DAILY #3 ea 04/07/23 [Rx Last Taken Unknown] ipratropium 0.5 mg-albuterol 3 mg (2.5 mg base)/3 mL nebulization soln 3 ml inhalation Q4H PRN PRN SOB &/OR WHEEZING #180 mL 05/25/23 [Rx Last Taken Unknown] atorvastatin 80 mg tablet 80 mg PO DAILY #90 tabs 08/23/23 [Rx Last Taken Unknown] Allergy/AdvReac Type Severity Reaction Status Date / Time No Known Allergies Allergy Verified 10/01/23 00:38 Family History Other Asthma Surgical History H/O knee surgery H/O total hip arthroplasty Social History household members: spouse Smoking Status: Current every day smoker tobacco type: cigarettes Tobacco: How many years used: 30 Smokeless tobacco user: other alcohol intake: former substance use type: does not use Vital Signs Vital Signs Vital Signs: 10/01/23 00:17 10/01/23 00:25 10/01/23 00:34 Temperature 98.0 F Temperature Source Temporal Pulse Rate 120 H Respiratory Rate 20 H Respiratory Effort Normal Blood Pressure 147/111 H Blood Pressure Mean 123 Pulse Ox 97 Oxygen Delivery Method Room Air Room Air 10/01/23 01:16 10/01/23 02:00 Temperature Temperature Source Pulse Rate 110 H 113 H Respiratory Rate 20 H 20 H Respiratory Effort Blood Pressure 139/91 H 113/78 Blood Pressure Mean 107 89 Pulse Ox 95 Oxygen Delivery Method Room Air Weight Weight: 191 lb 5.78 oz Body Mass Index (BMI) 25.9 Results Lab / Micro Data 10/01/23 00:20 10/01/23 00:20 Labs: Laboratory Results - last 24 hr 10/01/23 00:20: WBC 16.2 H, RBC 4.59 L, Hgb 13.6, Hct 40.9, MCV 89.1, MCH 29.6, MCHC 33.3, RDW Std Deviation 42.7, RDW Coeff of Jazzmine 13.2, Plt Count 283, MPV 9.3, Immature Gran % (Auto) 0.900, Neut % (Auto) 40.4 L, Lymph % (Auto) 46.9 H, [place] % (Auto) 7.9, Eos % (Auto) 3.6, Baso % (Auto) 0.3, Absolute Neuts (auto) 6.6, Absolute Lymphs (auto) 7.61 H, Nucleated RBC % 0, Differential Comment SCANNED, Reactive Lymphocytes 2+, Sodium 135 L, Potassium 3.4 L, Chloride 104, Carbon Dioxide 21.0, Anion Gap 10, BUN 14, Creatinine 1.66 H, Estim Creat Clear Calc 55.19, Est GFR (MDRD) Af Amer 55 L, Est GFR (MDRD) Non-Af 46 L, BUN/Creatinine Ratio 8.4 L, Glucose 175 H, Calcium 8.8, Troponin I High Sens 36 10/01/23 00:37: PT 13.3, INR 1.0, APTT 32.9 10/01/23 02:25: Troponin I High Sens 1265 H* Rhythm Strip Rhythm Strip: Wide-complex tachycardia Rate: 120 Ectopy: None Imaging Radiology Impression Chest X-Ray 10/01/23 00:40 IMPRESSION: Hyperexpanded lungs compatible with chronic obstructive pulmonary disease. No radiographic evidence of consolidative pneumonia or florid edema. Electronically Signed: Trung Daniels MD at 1:31 EDT Reading Location ID and State: [facility] / [place] Tel , Service support , Assessment & Plan Assessment/Plan (1) Acute coronary syndrome: (2) Asthma-COPD overlap syndrome: (3) Smoking greater than 20 pack years: (4) Peripheral arterial disease: PLAN: Plan 1. ACS with a highly elevated second troponin of 1,265 pg/mL with a EKG showing evidence of apparently new Left bundle branch block with a wide-complex tachycardia ~[address] elevation 4 mm or less but without meeting Sgarbossa criteria consistent with suspected NSTEMI - Admit to ICU. Continue IV heparin, aspirin and statin plus add Plavix. Will also resume metoprolol recommended to be started in the ER. Serialize troponin. Check echocardiogram to evaluate LVEF. Continue Nitropaste began in the ER and give morphine IV as needed for severe (level 6-10 out of 10) pain. Finally, we will consult [facility] cardiology to see this patient with help appreciated. 2. Mild acute exacerbation of asthma/COPD syndrome in the setting of ongoing tobacco abuse complicating #1 - Continue IV Solu-Medrol plus add IV doxycycline with scheduled and as needed nebulizers. Tobacco cessation will be strongly encouraged. No nicotine patch will be offered in light of #1 due to potential increased risk of coronary artery vasospasm. 3. Respiratory insufficiency arising from #1 & #2 - Wean supplemental oxygen as tolerated. 4. Hypokalemia of 3.4 mmol/L present on admission - Give supplemental KCl and then recheck BMP in the a.m. to monitor for improvement. 5. Essential hypertension - Continue home medications plus give as needed IV hydralazine for systolic blood pressure greater than 160 mmHg. 6. Hyperlipidemia - Resume statin and check lipid profile this admission in light of #1. 7. PAD - Noted. 8. Erectile dysfunction - Stable. 9. Psoriasis - Stable. 10. Generalized anxiety - Continue escitalopram as previous plus consider giving as needed Xanax for breakthrough symptoms. 11. Osteoarthritis; status post knee surgery and THR - Noted. Give Tylenol as needed. 12. DVT prophylaxis - Patient already on IV heparin for #1. Total time: Approximately 75 minutes. Charges/Coding Visit Charges Inpatient E&M: 00606 Init Hosp L3
[2023-10-01] MEDS: Nitroglycerin Oint 1 INCH PACKET 0.5 INCH TD (03:34)
[2023-10-01] MEDS: Heparin Injection (Vial) 5,000 UNIT/ML VIAL 4000 UNIT IV (03:35)
[2023-10-01] MEDS: HEPARIN/D5w 25,000 UNITS 25,000 UNITS/250 ML IV.SOLN. 10 UNITS CONT INF (03:42)
[2023-10-01] MEDS: Metoprolol Tartrate 25 MG Tablet PO (03:49)
--- NOTE | 2023-10-01 04:09 | EKG12_ITS ---
Test Reason : sob Blood Pressure : / mmHG Vent. Rate : 133 BPM Atrial Rate : 127 BPM P-R Int : 000 ms QRS Dur : 138 ms QT Int : 416 ms P-R-T Axes : 000 -43 087 degrees QTc Int : 619 ms SINUS TACHCYARDIA Left axis deviation Left bundle branch block Abnormal ECG Confirmed by WERNER BROWNE, LINNEA ([id number]), fan mail editor ERIC LEDESMA ([id number]) on 10/03/2023 11:28:12 AM Referred By: Confirmed By:LINNEA CALDERA MD
--- NOTE | 2023-10-01 04:09 | ECHOCS_ITS ---
Reason For Study: S/P PR Procedure This was a 2D Doppler, Color Flow transthoracic echocardiogram. The study was technically difficult. Contrast injection was performed. Exam performed portable in ICU/CCU. Left Ventricle Normal LV size. The estimated ejection fraction is 20 %. The base and apex of the LV are mindy well. Rest of the LV is severely hypokinetic. Wall motion abnormalities are suggestive of Takotsubo cardiomyopathy. Right Ventricle Normal RV size. Normal systolic function. Atria Normal left atrium. Normal right atrium. No doppler evidence for ASD. Mitral Valve There is no mitral valve stenosis. Trivial mitral valve insufficiency. Tricuspid Valve There is no tricuspid stenosis. Trivial tricuspid valve insufficiency. Unable to estimate RV systolic pressure due to insufficient tricuspid regurgitant envelope. Aortic Valve Trisinus/trileaflet aortic valve. There is no aortic stenosis. No aortic valve insufficiency. Pulmonic Valve There is no pulmonic valvular stenosis. No pulmonic valve insufficiency. Great Vessels Normal aortic root. Pericardium/Pleural No pericardial effusion. Medication Diluted definity 3ml given slow IV push to enhance endocardial definition. MMode/2D Measurements & Calculations LVIDd: 5.1 cm IVSd: 0.98 cm LVOT diam: 1.9 cm LVIDs: 4.7 cm LVPWd: 0.85 cm RVDd: 2.1 cm FS: 8.5 % LVOT area: 2.8 cm2 Ao root diam: 3.2 cm LAV(MOD-bp): 22.8 ml LVAd ap4: 42.8 cm2 LAV(MOD-bp) Indexed: 10.9 ml/m2 LVLd ap4: 8.8 cm LAV(MOD-sp2): 37.9 ml EDV(MOD-sp4): 173.8 ml LAV(MOD-sp4): 12.5 ml EDV(sp4-el): 176.2 ml LVAs ap4: 34.3 cm2 LVLs ap4: 7.4 cm ESV(MOD-sp4): 130.7 ml ESV(sp4-el): 134.9 ml EF(MOD-sp4): 24.8 % EF(sp4-el): 23.4 % LVAd ap2: 41.5 cm2 SV(MOD-sp4): 43.2 ml SV(MOD-sp2): 24.0 ml LVLd ap2: 8.0 cm EDV(MOD-sp2): 173.4 ml EDV(sp2-el): 182.8 ml LVAs ap2: 37.8 cm2 LVLs ap2: 7.7 cm ESV(MOD-sp2): 149.4 ml ESV(sp2-el): 156.6 ml EF(MOD-sp2): 13.8 % SV(sp4-el): 41.3 ml LA dimension(2D): 2.3 cm LA A4 area: 8.0 cm2 RA A4 area: 9.2 cm2 TAPSE: 0.76 cm Doppler Measurements & Calculations MV A max tanmay: 95.1 cm/sec Lat Peak E' Tanmay: 6.4 cm/sec Med Peak E' Tanmay: 4.9 cm/sec Ao V2 max: 102.3 cm/sec LV V1 max: 82.5 cm/sec SV(LVOT): 35.1 ml Ao max P.2 mmHg LV V1 max P.7 mmHg Ao V2 mean: 80.1 cm/sec LV V1 mean P.5 mmHg Ao mean P.7 mmHg LV V1 mean: 57.8 cm/sec Ao V2 VTI: 16.5 cm LV V1 VTI: 12.7 cm AV (velocity ratio): 0.77 RAYRAY(I,D): 2.1 cm2 RAYRAY(V,D): 2.2 cm2 PA V2 max: 69.4 cm/sec TR max tanmay: 244.5 cm/sec PA max PG (full): 0.14 mmHg TR max P.9 mmHg ECHO/Echo Complete W/ Contrast Interpretation Summary The estimated ejection fraction is 20 %. The base and apex of the LV are mindy well. Rest of the LV is severely hy pokinetic. Wall motion abnormalities are suggestive of Takotsubo cardiomyopathy Trivial mitral valve insufficiency. Ordering Physician: Bird Hilliard Referring Physician: Demario Sanz MD Performed By: Livier Freeman RDCS
--- NOTE | 2023-10-01 04:40 | ED.RN ---
report called to [facility].
[2023-10-01] MEDS: Potassium Chloride Oral Tablet 20 MEQ 60 MEQ PO (06:05)
[2023-10-01 06:28] LABS: Hematocrit 43.9 % (40-54); Hemoglobin 14.4 g/dL (13.0-16.5); Mean Corp Hgb Conc 32.8 g/dL (32-36); Mean Corpuscular Hgb 29.1 pg (27.0-32.0); Mean Corpuscular Volume 88.9 fL (80-94); Platelet Count 268 K/mm3 (150-450); RBC Distribution Width CV 13.1 % (11.6-14.6); RBC Distribution Width SD 42.9 fl (35.1-43.9); Red Blood Count 4.94 M/mm3 (4.6-6.2); White Blood Count 17.3 K/mm3 (4.4-11.0)
--- NOTE | 2023-10-01 06:48 | NURSING ---
0608-pt c/o not feeling right and SOB w/increased work of breathing; this RN at bedside, O2 applied at 2lpm NC 0610-pt yelling out of room HELP! HELP! 0613-TAXONOMIST called for change in rhythm and increased work of breathing 0618-zofran 4mg given IVP as pt was dry-heaving 0620-morphine 4mg given IVP for resp distress; repeat EKG obtained 0630-second PIV to RAC and labs drawn; placed on BiPAP for rescue; Dr. Nelson called and reviewed events, ordered cath lab radiological technologist to be called in 0640-pt resting back in bed, respiratory effort much improved; Maddy at bedside now.
[2023-10-01] MEDS: Ipratropium/Albuterol Sulfate 3 ML AMPUL.NEB INHALATION ×2 (06:52→19:03)
[2023-10-01] MEDS: Morphine 4 MG/ML Syringe IV (06:55)
[2023-10-01] MEDS: Ondansetron 4 MG/2 ML Vial IV (06:55)
[2023-10-01 07:09] LABS: ALB/GLOB Ratio 1.1 RATIO (0.9-2.4); AST(SGOT) 16 U/L (15-37); Alanine Aminotransfer ALT/SGPT 11 U/L (16-61); Albumin, Serum 3.9 g/dL (3.2-5.0); Alkaline Phosphatase 99 U/L (45-117); Anion Gap 8 (5-15); BUN 14 mg/dL (7-18); BUN/Creat Ratio 9.1 RATIO (10-20); Bilirubin, Direct 0.17 mg/dL (0.00-0.30); Calcium,Total 9.5 mg/dL (8.5-10.1); Chloride 108 mmol/L (98-107); Cholesterol 104 mg/dL (200); Creatinine, Serum 1.54 mg/dL (0.70-1.30); EST Glomerular Filtration Rate 50 mL/min (>60); Est Glom Filt Rate - Afr Amer 60 mL/min (>60); Estimated Creatinine Clearance 59.49 ml/min; Globulin 3.6 g/dL (2.2-4.2); Glucose 144 mg/dL (74-106); High Density Lipoprotein 36 mg/dL; Potassium 4.8 mmol/L (3.5-5.1); Protein, Total 7.5 g/dL (6.4-8.2); Sodium Level 134 mmol/L (136-145); Triglycerides 117 mg/dL; Troponin-I HS 3456 pg/mL (3.0-78.0); Very Low Density Lipoprotein 23 mg/dL (5-40)
[2023-10-01] MEDS: Clopidogrel Bisulfate 75 MG Tablet PO (07:24)
--- NOTE | 2023-10-01 07:37 | EKG12_ITS ---
Test Reason : ACS Blood Pressure : / mmHG Vent. Rate : 104 BPM Atrial Rate : 104 BPM P-R Int : 192 ms QRS Dur : 114 ms QT Int : 356 ms P-R-T Axes : 077 -69 094 degrees QTc Int : 468 ms Sinus tachycardia Left axis deviation Anteroseptal infarct , age undetermined Abnormal ECG When compared with ECG of 01-OCT-2023 02:52, MANUAL COMPARISON REQUIRED, DATA IS UNCONFIRMED Confirmed by WERNER BROWNE, LINNEA ([id number]), editorial cartoonist ERIC LEDESMA ([id number]) on 10/03/2023 11:28:52 AM Referred By: Plascencia Confirmed By:LINNEA CALDERA MD
--- NOTE | 2023-10-01 07:37 | EKG12_ITS ---
Test Reason : sob Blood Pressure : / mmHG Vent. Rate : 132 BPM Atrial Rate : 000 BPM P-R Int : 000 ms QRS Dur : 130 ms QT Int : 384 ms P-R-T Axes : 000 -51 087 degrees QTc Int : 568 ms Poor data quality, interpretation may be adversely affected SINUS TACHYCARDIA with occasional Premature ventricular complexes Left axis deviation Left bundle branch block Abnormal ECG When compared with ECG of 01-OCT-2023 04:59, MANUAL COMPARISON REQUIRED, DATA IS UNCONFIRMED Confirmed by WERNER BROWNE, LINNEA ([id number]), market editor ERIC LEDESMA ([id number]) on 10/03/2023 11:28:35 AM Referred By: Confirmed By:LINNEA CALDERA MD
--- NOTE | 2023-10-01 08:45 | CON.PCM.CA_ITS ---
Assessment & Plan Assessment/Plan (1) Elevated troponin: PLAN: Appears to be related to patient's Takotsubo cardiomyopathy and COPD exace rbation. Recommend discontinuing amlodipine. Start carvedilol 3.125 mg p.o. twice daily and lisinopril 2.5 mg p.o. daily and titrate up based on blood pressure response. Agree with aspirin and statin. HPI Consult Data Date of Consult: 10/01/23 HPI Narrative Reason for Consultation: Elevated troponin HPI Narrative: JAX ROGERS, is a 57 M who presents with shortness of breath. Patient has history of COPD and felt that his symptoms were similar to his prior COPD exacerbations. He denied any chest pain. His EKG revealed new left bundle branch block which is no longer considered a criteria for STEMI. His high-sensitivity troponin was elevated but only in the 1200 range and then went up to the 3000's. This is still very much within type II non-STEMI range. However patient became more short of breath this morning. Decision was made to bring the patient down for urgent coronary angiography to see if there was s ignificant CAD contributing to patient's symptoms. Coronary angiography revealed mild to moderate coronary artery disease. He however had an EF of around 20% by LV gram with wall motion abnormalities suggestive of Takotsubo cardiomyopathy. [facility] Medical History Anxiety Asthma-COPD overlap syndrome Erectile dysfunction Hypertension Psoriasis Smoker Home Medications escitalopram oxalate 10 mg tablet 10 mg PO DAILY anxiety 04/01/19 [History Last Taken 06/12/19] amlodipine 10 mg tablet 5 mg PO DAILY 11/10/20 [History Last Taken Unknown] hydroxyzine pamoate 25 mg capsule 25 mg PO BID PRN Anxiety 11/30/20 [History Last Taken Unknown] lisinopril 20 mg-hydrochlorothiazide 25 mg tablet 1 tab PO DAILY 11/30/20 [History Last Taken Unknown] cetirizine 10 mg capsule 10 mg PO HS #90 caps 03/11/22 [Rx Last Taken Unknown] albuterol sulfate 2.5 mg/3 mL (0.083 %) solution for nebulization 2.5 mg (3 mL) inhalation Q4H PRN PRN Sob &/Or Wheezing #180 mL 03/28/23 [Rx Last Taken Unknown] albuterol sulfate 90 mcg/actuation aerosol inhaler (ProAir HFA) 2 puff inhalation Q6H PRN shortness of breath or wheezing #18 grams 04/07/23 [Rx Last Taken Unknown] fluticasone fur. 200 mcg-umeclid 62.5 mcg-vilant 25 mcg inhalat.powder (Trelegy Ellipta) 1 inh inhalation DAILY #3 ea 04/07/23 [Rx Last Taken Unknown] ipratropium 0.5 mg-albuterol 3 mg (2.5 mg base)/3 mL nebulization soln 3 ml inhalation Q4H PRN PRN SOB &/OR WHEEZING #180 mL 05/25/23 [Rx Last Taken Unknown] atorvastatin 80 mg tablet 80 mg PO DAILY #90 tabs 08/23/23 [Rx Last Taken Unknown] Allergy/AdvReac Type Severity Reaction Status Date / Time No Known Allergies Allergy Verified 10/01/23 00:38 Family History Other Asthma Surgical History H/O knee surgery H/O total hip arthroplasty Social History household members: spouse Smoking Status: Current every day smoker tobacco type: cigarettes Tobacco: How many years used: 30 Smokeless tobacco user: other alcohol intake: former substance use type: does not use Physical Exam Const alert and oriented x3 HEENT normocephalic Eyes no scleral icterus Resp normal respiratory effort Cardio regular rate Risk Stratification Risk Stratification Applicable: No Charges/Coding Visit Charges Inpatient E&M: 14429 Init Hosp L2 Objective Data Vital Signs: Vital Signs Temp Pulse Resp BP Pulse Ox O2 Del Method O2 Flow Rate 97.8 F 104 H 15 127/94 H 93 Room Air 3 10/01/23 05:00 10/01/23 07:30 10/01/23 07:30 10/01/23 07:30 10/01/23 07:30 10/01/23 07:30 10/01/23 06:27 FiO2 35 10/01/23 07:00 Oxygen Flow Rate (L/min) 3 Oxygen Delivery Method Room Air Weight: 173 lb 4.533 oz Body Mass Index (BMI) 23.4 Intake & Output: Intake and Output for Last 24 Hours 04/05/1309/30/23 10/01/23 23:59 23:59 23:59 Intake Total 38.33 / 38.33 Balance 38.33 / 38.33 Lab / Micro Data 10/01/23 06:20 10/01/23 06:20 Labs: Laboratory Results - last 24 hr 10/01/23 00:20: WBC 16.2 H, RBC 4.59 L, Hgb 13.6, Hct 40.9, MCV 89.1, MCH 29.6, MCHC 33.3, RDW Std Deviation 42.7, RDW Coeff of Jazzmine 13.2, Plt Count 283, MPV 9.3, Immature Gran % (Auto) 0.900, Neut % (Auto) 40.4 L, Lymph % (Auto) 46.9 H, [place] % (Auto) 7.9, Eos % (Auto) 3.6, Baso % (Auto) 0.3, Absolute Neuts (auto) 6.6, Absolute Lymphs (auto) 7.61 H, Nucleated RBC % 0, Differential Comment SCANNED, Reactive Lymphocytes 2+, Sodium 135 L, Potassium 3.4 L, Chloride 104, Carbon Dioxide 21.0, Anion Gap 10, BUN 14, Creatinine 1.66 H, Estim Creat Clear Calc 55.19, Est GFR (MDRD) Af Amer 55 L, Est GFR (MDRD) Non-Af 46 L, BUN/Creatinine Ratio 8.4 L, Glucose 175 H, Calcium 8.8, Troponin I High Sens 36 10/01/23 00:37: PT 13.3, INR 1.0, APTT 32.9 10/01/23 02:25: Troponin I High Sens 1265 H* 10/01/23 06:20: WBC 17.3 H, RBC 4.94, Hgb 14.4, Hct 43.9, MCV 88.9, MCH 29.1, MCHC 32.8, RDW Std Deviation 42.9, RDW Coeff of Jazzmine 13.1, Plt Count 268, MPV 9.0, Sodium 134 L, Potassium 4.8, Chloride 108 H, Carbon Dioxide 18.0 L, Anion Gap 8, BUN 14, Creatinine 1.54 H, Estim Creat Clear Calc 59.49, Est GFR (MDRD) Af Amer 60, Est GFR (MDRD) Non-Af 50 L, BUN/Creatinine Ratio 9.1 L, Glucose 144 H, Calcium 9.5, Total Bilirubin 0.60, Direct Bilirubin 0.17, AST 16, ALT 11 L, Alkaline Phosphatase 99, Troponin I High Sens 3456 H*, Total Protein 7.5, Albumin 3.9, Globulin 3.6, Albumin/Globulin Ratio 1.1, Triglycerides 117, Cholesterol 104, LDL Cholesterol 45, VLDL Cholesterol 23, HDL Cholesterol 36 L, TSH 1.70 Rhythm Strip Rhythm Strip: Wide-complex tachycardia Rate: 120 Ectopy: None Cardiology Labs/Tests 10/01/23 00:20: WBC 16.2 H, RBC 4.59 L, Hgb 13.6, Hct 40.9, MCV 89.1, MCH 29.6, MCHC 33.3, Plt Count 283, MPV 9.3, Immature Gran % (Auto) 0.900, Neut % (Auto) 40.4 L, Lymph % (Auto) 46.9 H, [place] % (Auto) 7.9, Eos % (Auto) 3.6, Baso % (Auto) 0.3, Absolute Neuts (auto) 6.6, Nucleated RBC % 0, Sodium 135 L, Potassium 3.4 L, Chloride 104, Carbon Dioxide 21.0, Anion Gap 10, BUN 14, Creatinine 1.66 H, Est GFR (MDRD) Af Amer 55 L, Est GFR (MDRD) Non-Af 46 L, BUN/Creatinine Ratio 8.4 L, Glucose 175 H, Calcium 8.8 10/01/23 00:37: PT 13.3, INR 1.0, APTT 32.9 10/01/23 06:20: WBC 17.3 H, RBC 4.94, Hgb 14.4, Hct 43.9, MCV 88.9, MCH 29.1, MCHC 32.8, Plt Count 268, MPV 9.0, Sodium 134 L, Potassium 4.8, Chloride 108 H, Carbon Dioxide 18.0 L, Anion Gap 8, BUN 14, Creatinine 1.54 H, Est GFR (MDRD) Af Amer 60, Est GFR (MDRD) Non-Af 50 L, BUN/Creatinine Ratio 9.1 L, Glucose 144 H, Calcium 9.5, Total Bilirubin 0.60, Direct Bilirubin 0.17, Triglycerides 117, Cholesterol 104, LDL Cholesterol 45, VLDL Cholesterol 23, HDL Cholesterol 36 L Rhythm: EKG: ECHO: Stress Test: Cardiac Cath: PCI: CT Surgery: Holter monitor: EPS: PPM: CXR: Chest CT Scan: Radiography Diagnostic Testing: Radiology Impression Chest X-Ray 10/01/23 00:40 IMPRESSION: Hyperexpanded lungs compatible with chronic obstructive pulmonary disease. No radiographic evidence of consolidative pneumonia or florid edema. Electronically Signed: Trung Daniels MD at 1:31 EDT ,
[2023-10-01] MEDS: Doxycycline 100 MG in Dextrose 5%-Water (250mL Bag) 250 ML 250 MG IV ×2 (09:27→21:01)
[2023-10-01] MEDS: 0.9% Normal Saline (1000mL) 1,000 ML 60 ML IV (09:27)
[2023-10-01] MEDS: Escitalopram Oxalate 10 MG Tablet PO (09:29)
[2023-10-01] MEDS: MethylPREDNISolone 125 MG/2 ML Vial 60 MG IV ×2 (09:29→21:00)
[2023-10-01] MEDS: Lactobacillis Acidophilus 2 CAP PO ×2 (09:29→21:01)
[2023-10-01] MEDS: Pantoprazole Sodium 40 MG Tablet PO (09:29)
[2023-10-01] MEDS: Carvedilol 3.125 MG TABLET PO ×2 (09:56→21:01)
[2023-10-01] MEDS: hydroCHLOROthiazide 25 MG Tablet PO (09:56)
--- NOTE | 2023-10-01 10:15 | CL.D_ITS ---
Patient Name: JAX ROGERS Study Date: 10/01/2023 Performing: Juancho Nelson MD Ht: 72 inches 182.88 cm : 1965 Wt: 173.5 lbs 78.6 kg Age: 57 Gender: male BSA: 2 PROCEDURE(S) PERFORMED [id number])LHC/COR/LV CLINICAL PROFILE AND INDICATIONS Indications: ACS <= 24 hrs Heart Failure: None CAD Presentations: Non-STEMI. Symptom onset Date/Time: 09/30/23 Time Not Available CONCLUSIONS Non obstructive CAD as described. LVEF is 20% with wall motion abnormalities suggestive of Takotsubo cardiomyopathy. No significant aortic stenosis or mitral regurgitation RECOMMENDATIONS DESCRIPTION OF PROCEDURE The patient arrived to the procedure lab. The risks and benefits of the procedure as well as a full description of our services here and current unavailability of surgical backup were fully explained to the patient and/or their significant other prior to the catheterization. The Timeout was completed, verifying the correct patient and procedure. The patient's procedural site was prepped and draped in the usual fashion. Local anesthetic was given subcutaneously to right radial region with Lidocaine 2%. Using a modified Seldinger technique, arterial access was obtained via the right radial artery, a 6Fr sheath was inserted. Left Coronary Artery selective angiography was performed in multiple views using a 5 Fr. JL3.5 catheter. Left Ventriculography was performed in ACOSTA projection using a 5 Fr. Pigtail catheter. Right Coronary Artery selective angiography was then performed in multiple views using a 5 Fr. JR 4 catheter.The arterial sheath was pulled and a TR Band was applied for hemostasis CORONARY ANGIOGRAPHY DOMINANCE: Co- Dominant LEFT HEART ASSESSMENT Left Ventricular Ejection Fraction: by LV Gram 20 % The base and the LV apex are mindy well. Rest of the LV is akinetic. These findings are suggestive of apical sparing variant of Takotsubo cardiomyopathy LEFT MAIN: Mild luminal irregularities LEFT ANTERIOR DESCENDING ARTERY: PROX LAD: 30-40 % Stenosis CIRCUMFLEX ARTERY: MID CIRC: 30 % Stenosis OM 1: Proximal - 40 % Stenosis RIGHT CORONARY ARTERY: MID RCA: 30 % Stenosis VALVE FINDINGS: No Aortic Valve Stenosis No Mitral Insufficiency COMPLICATIONS No Complications PROCEDURE MEDICATIONS Oxygen: 35 % FiO2 via bi pap Heparin given IA 10/01/2023 07:57:51 Verapamil 2.5mg, Ntg 100mcgs, 3000 units of Heparin given IA 10/01/2023 07:57:51 SUMMARY OF HEMODYNAMIC DATA Time AIR REST ECG 07:44:22 AO 89/74 (81) SA 08:00:16 AO 98/78 (87) 08:03:36 LV 115/15, 20 08:09:23 LV 96/16, 26 08:09:30 LV 100/18, 24 08:10:33 LVp 102/21, 32 08:11:05 AOp 105/85 (95) 08:11:10 Signed By Juancho Nelson MD On 10/01/2023 10:14:33 Juancho Nelson MD
[2023-10-01] MEDS: Lisinopril 2.5 MG Tablet PO (10:46)
[2023-10-01] MEDS: Albuterol 2.5 MG/3 ML VIAL.NEB. INHALATION (11:13)
--- NOTE | 2023-10-01 15:06 | CASEMGMT ---
RN CM Assessment: Face to Face with pt for initial transition planning/care coordination assessment. RN CM introduced self and role at [facility], pt voices understanding and consents to assessment. Pt is A&O x4 and answers all questions appropriately at this time. Care providers, pharmacy, and demographics verified/updated. Admitting Dx: New Left bundle branch block PCP: Demario Sanz Specialists: [facility] Preferred Pharmacy: [facility] Insurance: [facility] [employer] Prescription Benefit: yes LNOK: Spouse Kelsie Living Arrangements: Pt lives at home with spouse. Pt is independent with ADLs and IADLs. Employed. Transportation: Pt drives self and denies concerns with transportation. DME: [employer] HHC/SNF: No history Pt states no concerns with going home at time of dc. Pt states no further concerns/needs. CM to follow. Advised pt to ask CM if any further question/concerns/needs arise, voices understanding. Pt Goal: Home Plan: Home with no needs. Brooke Gandhi MSN, RN, CCM
[2023-10-01] MEDS: Isosorbide Mononitrate 30 MG Tablet PO (15:32)
[2023-10-01] MEDS: Loratadine 10 MG Tablet PO (21:01)
[2023-10-01] MEDS: Atorvastatin Calcium 80 MG Tablet PO (21:01)
[2023-10-02] VITALS (29 sets, daily range): BP systolic 93–143; BP diastolic 65–94; PULSE 66–105; RESP 12–24; TEMP 36.2–36.4; O2SAT 90–98
[2023-10-02] MEDS: Ipratropium/Albuterol Sulfate 3 ML AMPUL.NEB INHALATION ×4 (00:49→18:39)
[2023-10-02] MEDS: Ondansetron 4 MG/2 ML Vial IV (01:19)
[2023-10-02 05:32] LABS: Absolute Lymphocyte Count 1.32 X10^3/uL (0.83-4.51); Absolute Neutrophil Count 13.4 X10^3/uL (2.0-7.7); Basophil# 0.01 X10^3/uL; Basophil% 0.1 % (0-1); Hematocrit 40.8 % (40-54); Hemoglobin 13.7 g/dL (13.0-16.5); Lymphocyte # 1.32 X10^3/ul (0.83-4.51); Lymphocyte % 8.7 % (19-41); Mean Corp Hgb Conc 33.6 g/dL (32-36); Mean Corpuscular Hgb 28.8 pg (27.0-32.0); Mean Corpuscular Volume 85.9 fL (80-94); Mean Platelet Vol. 9.2 fl (6.2-12.0); Monocyte# 0.32 X10^3/uL; Monocyte% 2.1 % (0-10); NRBC Flagged by Analyzer 0 % (0-5); Neutrophil # 13.38 X10^3/uL (2.7-7.7); Neutrophil % 88.6 % (47-70); Platelet Count 248 K/mm3 (150-450); RBC Distribution Width CV 13.2 % (11.6-14.6); RBC Distribution Width SD 41.5 fl (35.1-43.9); Red Blood Count 4.75 M/mm3 (4.6-6.2); White Blood Count 15.1 K/mm3 (4.4-11.0)
[2023-10-02 05:51] LABS: AST(SGOT) 18 U/L (15-37); Alanine Aminotransfer ALT/SGPT 16 U/L (16-61); Albumin, Serum 3.5 g/dL (3.2-5.0); Alkaline Phosphatase 86 U/L (45-117); Anion Gap 5 (5-15); BUN 19 mg/dL (7-18); BUN/Creat Ratio 13.1 RATIO (10-20); Calcium,Total 9.7 mg/dL (8.5-10.1); Chloride 103 mmol/L (98-107); Creatinine, Serum 1.45 mg/dL (0.70-1.30); EST Glomerular Filtration Rate 54 mL/min (>60); Est Glom Filt Rate - Afr Amer 65 mL/min (>60); Estimated Creatinine Clearance 63.02 ml/min; Globulin 3.5 g/dL (2.2-4.2); Glucose 138 mg/dL (74-106); Magnesium 1.9 mg/dL (1.6-2.6); Phosphorus 2.4 mg/dL (2.5-4.9); Potassium 4.3 mmol/L (3.5-5.1); Sodium Level 133 mmol/L (136-145)
[2023-10-02] MEDS: Carvedilol 6.25 MG Tablet PO ×2 (09:07→21:01)
[2023-10-02] MEDS: hydroCHLOROthiazide 25 MG Tablet PO (09:07)
[2023-10-02] MEDS: Escitalopram Oxalate 10 MG Tablet PO (09:08)
[2023-10-02] MEDS: Clopidogrel Bisulfate 75 MG Tablet PO (09:08)
[2023-10-02] MEDS: Lactobacillis Acidophilus 2 CAP PO ×2 (09:11→21:01)
[2023-10-02] MEDS: Pantoprazole Sodium 40 MG Tablet PO (09:11)
[2023-10-02] MEDS: Aspirin E.C. 81 MG Tablet PO (09:11)
[2023-10-02] MEDS: Lisinopril 10 MG Tablet PO (09:12)
[2023-10-02] MEDS: MethylPREDNISolone 125 MG/2 ML Vial 60 MG IV ×2 (09:12→21:00)
[2023-10-02] MEDS: 0.9% Saline Lock 10 ML Syringe IV ×2 (09:13→13:14)
[2023-10-02] MEDS: Doxycycline 100 MG in Dextrose 5%-Water (250mL Bag) 250 ML 250 MG IV ×2 (09:15→21:01)
--- NOTE | 2023-10-02 10:03 | PN.CARD_ITS ---
Subjective Subjective Patient is resting comfortably in recumbent position in bed. His O2 sat is acceptable he did sleep with BiPAP last evening at his request. He had an episode approximately 1:00 this morning where he went into a tachyarrhythmia that appears to be a wide-complex regular tachycardia potentially ventricular tachycardia. This was occurred with a coughing spell that lasted approximately 3 minutes. His O2 sat did not deteriorate. The patient denies any chest symptoms he denies any PND orthopnea. He has not been up ambulating yet. The patient's medications were adjusted today by the primary service increasing his PORSCHE inhibitor and Coreg. Objective Data Vital Signs: Vital Signs Temp Pulse Resp BP Pulse Ox O2 Del Method O2 Flow Rate 97.1 F L 88 19 H 128/91 H 97 Nasal Cannula 2 10/02/23 08:00 10/02/23 09:00 10/02/23 09:00 10/02/23 09:00 10/02/23 09:00 10/02/23 09:00 10/02/23 09:00 FiO2 35 10/02/23 03:00 Oxygen Flow Rate (L/min) 2 Oxygen Delivery Method Nasal Cannula Weight: 170 lb 10.205 oz Body Mass Index (BMI) 23.1 Intake & Output: Intake and Output for Last 24 Hours 09/30/23 10/01/23 10/02/23 23:59 23:59 23:59 Intake Total 1972.33 / 1972.33 240 / 240 Output Total 2350 / 2350 550 / 550 Balance -377.67 / -377.67 -310 / -310 Lab / Micro Data Attestation: I reviewed the patient's lab results. 10/02/23 05:15 10/02/23 05:15 Labs: Laboratory Results - last 24 hr 10/02/23 05:15: WBC 15.1 H, RBC 4.75, Hgb 13.7, Hct 40.8, MCV 85.9, MCH 28.8, MCHC 33.6, RDW Std Deviation 41.5, RDW Coeff of Jazzmine 13.2, Plt Count 248, MPV 9.2, Immature Gran % (Auto) 0.500, Neut % (Auto) 88.6 H, Lymph % (Auto) 8.7 L, Harrison % (Auto) 2.1, Eos % (Auto) 0.0, Baso % (Auto) 0.1, Absolute Neuts (auto) 13.4 H, Absolute Lymphs (auto) 1.32, Nucleated RBC % 0, Sodium 133 L, Potassium 4.3, Chloride 103, Carbon Dioxide 25.0, Anion Gap 5, BUN 19 H, Creatinine 1.45 H , Estim Creat Clear Calc 63.02, Est GFR (MDRD) Af Amer 65, Est GFR (MDRD) Non-Af 54 L, BUN/Creatinine Ratio 13.1, Glucose 138 H, Calcium 9.7, Phosphorus 2.4 L, Magnesium 1.9, Total Bilirubin 0.70, AST 18, ALT 16, Alkaline Phosphatase 86, Total Protein 7.0, Albumin 3.5, Globulin 3.5, Albumin/Globulin Ratio 1.0 Rhythm Strip Rhythm Strip: Sinus Rhythm Rate: 70 Ectopy: PVC(s) (There was a run of what appears to be a wide-complex tachycardia at approximately 0100 hrs. this morning. This lasted approximately 3 minutes with coughing as the symptom.) Cardiology Labs/Tests 10/02/23 05:15: WBC 15.1 H, RBC 4.75, Hgb 13.7, Hct 40.8, MCV 85.9, MCH 28.8, MCHC 33.6, Plt Count 248, MPV 9.2, Immature Gran % (Auto) 0.500, Neut % (Auto) 88.6 H, Lymph % (Auto) 8.7 L, Harrison % (Auto) 2.1, Eos % (Auto) 0.0, Baso % (Auto) 0.1, Absolute Neuts (auto) 13.4 H, Nucleated RBC % 0, Sodium 133 L, Potassium 4.3, Chloride 103, Carbon Dioxide 25.0, Anion Gap 5, BUN 19 H, Creatinine 1.45 H , Est GFR (MDRD) Af Amer 65, Est GFR (MDRD) Non-Af 54 L, BUN/Creatinine Ratio 13.1, Glucose 138 H, Calcium 9.7, Phosphorus 2.4 L, Magnesium 1.9, Total Bilirubin 0.70 Rhythm: EKG: ECHO: Stress Test: Cardiac Cath: PCI: CT Surgery: Holter monitor: EPS: PPM: CXR: Chest CT Scan: Radiography Diagnostic Testing: Radiology Impression Echocardiogram 10/01/23 04:09 Interpretation Summary The estimated ejection fraction is 20 %. The base and apex of the LV are mindy well. Rest of the LV is severely hypokinetic. Wall motion abnormalities are suggestive of Takotsubo cardiomyopathy Trivial mitral valve insufficiency. Ordering Physician: Bird Hilliard Referring Physician: Demario Sanz MD Performed By: Livier Freeman RDCS Physical Exam Const oriented x3 HEENT normocephalic Eyes EOMs intact bilaterally Neck no JVD Chest inspection of chest normal Resp normal respiratory effort Auscultation: wheezes inspiratory wheezes and left lower Cardio regular rate, regular rhythm, S1 normal heart sound, S2 normal heart sound, no murmurs, no rub and no gallops GI soft to palpation Extremity no pedal edema Skin no rashes or lesions noted Neuro Neuro Narrative: Alert and oriented x 3 Psych mental status grossly normal Assessment & Plan Assessment/Plan (1) Takotsubo syndrome: PLAN: The patient's left heart catheterization revealed slow flow in all 3 of his coronary arteries. His LV gram and echocardiogram are consistent with mid cavitary Takotsubo syndrome. The patient's LV recovery medical therapy is being adjusted. His Coreg has been increased as well as his PORSCHE inhibitor therapy. We will change his hydrochlorothiazide to spironolactone for MRA treatment. The patient has been well oxygenated on 2 L nasal cannula at rest. The patient will increase his activity to be up to the bedside into the chair today and progress as tolerated. The patient can be triaged to the progressive coronary care unit if the intensive care bed is needed. (2) Hypertension: QUALIFIERS: Hypertension type: primary hypertension Qualified Code(s): I10 - Essential (primary) hypertension PLAN: Blood pressure is well-controlled and meds are being titrated for LV dysfunction treatment. (3) COPD (chronic obstructive pulmonary disease): QUALIFIERS: COPD type: unspecified COPD Qualified Code(s): J44.9 - Chronic obstructive pulmonary disease, unspecified PLAN: The patient has been requesting BiPAP in the evening hours. He is adequately O2 saturated on 2 L nasal cannula at rest in the bed today. PLAN: Plan 1. Titrate meds as ordered. Will add spironolactone 25 mg daily. 2. Discontinue hydrochlorothiazide. 3. Monitor potassium and renal function his creatinine is 1.45. 4. Progressed to ambulation as tolerated. Monitor O2 saturation with activity. 5. If the patient is tolerating his current medical regiment and up without restrictions he could be discharged home in the next 24 to 48 hours from a cardiovascular standpoint. 6. Will repeat his 2D echocardiogram in 6 to 12 weeks. 7. When discharged please have him follow-up with the [facility] within [address] Mercado will be covering next week if further assistance is needed. Charges/Coding Visit Charges Inpatient E&M: 79126 [facility] Hosp L3
[2023-10-02] MEDS: Spironolactone 25 MG Tablet PO (11:07)
[2023-10-02] MEDS: Isosorbide Mononitrate 60 MG Tablet PO (11:07)
--- NOTE | 2023-10-02 12:02 | PCM.PN.HOSP ---
Reason for Visit Reason for Visit: Diagnoses Nicotine dependence, cigarettes, uncomplicated (10/01/23) Essential (primary) hypertension (10/01/23) Acute ischemic heart disease, unspecified (10/01/23) Takotsubo syndrome (10/01/23) Peripheral vascular disease, unspecified (10/01/23) Chronic obstructive pulmonary disease, unspecified (10/01/23) Other specified abnormal findings of blood chemistry (10/01/23) Subjective Subjective Patient was seen and examined today, he does not complain of any chest pain or shortness of breath. He is currently on room air. I adjusted his cardiac medications, pressures been good. Cardiology stated they would like to have the patient remain in ICU for closer observation. Objective Data Objective Data Vital Signs: Vital Signs Temp Pulse Resp BP Pulse Ox O2 Del Method O2 Flow Rate 97.1 F L 69 20 H 123/77 H 91 Room Air 2 10/02/23 08:00 10/02/23 11:00 10/02/23 11:00 10/02/23 11:00 10/02/23 11:00 10/02/23 11:38 10/02/23 09:00 FiO2 35 10/02/23 03:00 Oxygen Flow Rate (L/min) 2 Oxygen Delivery Method Room Air Weight: 77.4 kg Body Mass Index (BMI) 23.1 Intake & Output: Intake and Output for Last 24 Hours 09/30/23 10/01/23 10/02/23 23:59 23:59 23:59 Intake Total 1972.33 / 1972.33 740 / 740 Output Total 2350 / 2350 850 / 850 Balance -377.67 / -377.67 -110 / -110 Lab / Micro Data 10/02/23 05:15 10/02/23 05:15 Labs: Laboratory Results - last 24 hr 10/02/23 05:15: WBC 15.1 H, RBC 4.75, Hgb 13.7, Hct 40.8, MCV 85.9, MCH 28.8, MCHC 33.6, RDW Std Deviation 41.5, RDW Coeff of Jazzmine 13.2, Plt Count 248, MPV 9.2, Immature Gran % (Auto) 0.500, Neut % (Auto) 88.6 H, Lymph % (Auto) 8.7 L, [place] % (Auto) 2.1, Eos % (Auto) 0.0, Baso % (Auto) 0.1, Absolute Neuts (auto) 13.4 H, Absolute Lymphs (auto) 1.32, Nucleated RBC % 0, Sodium 133 L, Potassium 4.3, Chloride 103, Carbon Dioxide 25.0, Anion Gap 5, BUN 19 H, Creatinine 1.45 H, Estim Creat Clear Calc 63.02, Est GFR (MDRD) Af Amer 65, Est GFR (MDRD) Non-Af 54 L, BUN/Creatinine Ratio 13.1, Glucose 138 H, Calcium 9.7, Phosphorus 2.4 L, Magnesium 1.9, Total Bilirubin 0.70, AST 18, ALT 16, Alkaline Phosphatase 86, Total Protein 7.0, Albumin 3.5, Globulin 3.5, Albumin/Globulin Ratio 1.0 Radiography Diagnostic Testing: Radiology Impression Echocardiogram 10/01/23 04:09 Interpretation Summary The estimated ejection fraction is 20 %. The base and apex of the LV are mindy well. Rest of the LV is severely hypokinetic. Wall motion abnormalities are suggestive of Takotsubo cardiomyopathy Trivial mitral valve insufficiency. Ordering Physician: Bird Hilliard Referring Physician: Demario Sanz MD Performed By: Livier Freeman RDCS Rhythm Strip Rhythm Strip: Sinus Rhythm Rate: 70 Ectopy: PVC(s) (There was a run of what appears to be a wide-complex tachycardia at approximately 0100 hrs. this morning. This lasted approximately 3 minutes with coughing as the symptom.) Physical Exam Const alert, oriented x3, no apparent distress and healthy appearing General Appearance: cooperative, well kempt and well developed Orientation / Consciousness: awake, oriented to person, oriented to place and oriented to time HEENT normocephalic and moist oral mucous membranes Eyes PERRL, EOMs intact bilaterally and conjunctivae normal Neck supple, no JVD, thyroid normal and no carotid bruits General: trachea midline Resp normal respiratory effort and clear to auscultation bilaterally Auscultation: Negative for rales, rhonchi or wheezes Cardio regular rate, regular rhythm, no murmurs, no rub and no gallops GI normal to inspection, nondistended, normoactive bowel sounds, soft to palpation, non-tender and non-distended Extremity no clubbing, cyanosis or edema Skin no rashes or lesions noted General Skin Exam: no breakdown Neuro oriented x3, CN's II-XII intact bilaterally, no focal motor deficits and no sensory deficits noted Sensorium / Orientation: awake and alert Speech: speech normal Psych affect normal Assessment & Plan Assessment/Plan (1) Takotsubo syndrome: PLAN: Plan 1. Takotsubo's cardiomyopathy-patient's cardiac medicines will be adjusted as needed by cardiology, it is likely he could either be discharged to home tomorrow according to cardiology if he remains stable or transfer to PCU if he needs further care. #2 essential hypertension-patient will remain on his present medications #3 chronic obstructive pulmonary disease-complicates care, management, recovery, and prognosis #4 chronic anxiety-patient is on Lexapro #5 nonocclusive coronary artery disease-patient will need to remain on aspirin and a statin Total clinical time spent by myself addressing the patient's medical issues, reviewing all of his data, and collaborating with patient's care team: 35 minutes Charges/Coding Visit Charges Inpatient E&M: 53658 Subs Hosp L2
--- NOTE | 2023-10-02 13:08 | RAD_ITS ---
STUDY: X-RAY CHEST REASON FOR EXAM: Male, 57 years old. Shortness of breath and cough TECHNIQUE: Single AP portable view of the chest. COMPARISON: 10/01/2023 FINDINGS: EKG leads overlie the chest The lungs are clear and expanded. There is no demonstrated pleural abnormality. Normal size heart. Normal mediastinum and jonny. Normal visualized pulmonary arteries. Normal visualized aortic arch and descending thoracic aorta. Normal visualized thoracic spine. Normal visualized ribs, clavicles, and shoulders. There is no demonstrated abnormality of the visualized soft tissue structures of the upper abdomen. RAD/Chest 1 View (Portable) IMPRESSION: No acute pulmonary process, no interval change Electronically Signed: Peng Chang MD at 14:11 EDT ,
[2023-10-02] MEDS: Furosemide 20 MG/2 ML VIAL IV (13:14)
[2023-10-02] MEDS: Loratadine 10 MG Tablet PO (21:01)
[2023-10-02] MEDS: Atorvastatin Calcium 80 MG Tablet PO (21:01)
[2023-10-03] VITALS (15 sets, daily range): BP systolic 104–132; BP diastolic 57–91; PULSE 72–104; RESP 14–20; TEMP 36.4–36.6; O2SAT 92–97; BMI 22.6
[2023-10-03] MEDS: Ipratropium/Albuterol Sulfate 3 ML AMPUL.NEB INHALATION (01:03)
[2023-10-03 05:35] LABS: Absolute Lymphocyte Count 1.25 X10^3/uL (0.83-4.51); Absolute Neutrophil Count 15.6 X10^3/uL (2.0-7.7); Basophil# 0.02 X10^3/uL; Basophil% 0.1 % (0-1); Hematocrit 41.2 % (40-54); Lymphocyte # 1.25 X10^3/ul (0.83-4.51); Lymphocyte % 7.2 % (19-41); Mean Corpuscular Volume 85.5 fL (80-94); Mean Platelet Vol. 9.3 fl (6.2-12.0); Monocyte# 0.41 X10^3/uL; Monocyte% 2.3 % (0-10); NRBC Flagged by Analyzer 0 % (0-5); Neutrophil # 15.64 X10^3/uL (2.7-7.7); Neutrophil % 89.6 % (47-70); Platelet Count 264 K/mm3 (150-450); RBC Distribution Width CV 13.2 % (11.6-14.6); RBC Distribution Width SD 41.1 fl (35.1-43.9); Red Blood Count 4.82 M/mm3 (4.6-6.2); White Blood Count 17.5 K/mm3 (4.4-11.0)
[2023-10-03 05:52] LABS: AST(SGOT) 13 U/L (15-37); Alanine Aminotransfer ALT/SGPT 13 U/L (16-61); Albumin, Serum 3.6 g/dL (3.2-5.0); Alkaline Phosphatase 77 U/L (45-117); Anion Gap 9 (5-15); BUN 33 mg/dL (7-18); Calcium,Total 9.5 mg/dL (8.5-10.1); Chloride 101 mmol/L (98-107); Creatinine, Serum 1.65 mg/dL (0.70-1.30); EST Glomerular Filtration Rate 46 mL/min (>60); Est Glom Filt Rate - Afr Amer 56 mL/min (>60); Estimated Creatinine Clearance 54.09 ml/min; Globulin 3.5 g/dL (2.2-4.2); Glucose 135 mg/dL (74-106); Potassium 4.2 mmol/L (3.5-5.1); Protein, Total 7.1 g/dL (6.4-8.2); Sodium Level 133 mmol/L (136-145)
[2023-10-03] MEDS: Spironolactone 25 MG Tablet PO (07:48)
[2023-10-03] MEDS: predniSONE 20 MG Tablet 40 MG PO (07:48)
[2023-10-03] MEDS: Carvedilol 6.25 MG Tablet PO (07:49)
[2023-10-03] MEDS: Lactobacillis Acidophilus 2 CAP PO (07:49)
[2023-10-03] MEDS: Aspirin E.C. 81 MG Tablet PO (07:49)
[2023-10-03] MEDS: Pantoprazole Sodium 40 MG Tablet PO (07:50)
[2023-10-03] MEDS: Clopidogrel Bisulfate 75 MG Tablet PO (07:50)
[2023-10-03] MEDS: Escitalopram Oxalate 10 MG Tablet PO (07:50)
[2023-10-03] MEDS: Lisinopril 10 MG Tablet PO (07:53)
[2023-10-03] MEDS: Isosorbide Mononitrate 60 MG Tablet PO (07:55)
[2023-10-03] MEDS: Albuterol 2.5 MG/3 ML VIAL.NEB. INHALATION (09:27)
[2023-10-03] MEDS: Doxycycline 100 MG in Dextrose 5%-Water (250mL Bag) 250 ML 250 MG IV (09:43)
--- NOTE | 2023-10-03 09:56 | DCINST_ITS ---
Discharge Instructions Diet Discharge Diet: No restrictions Activity Discharge Activity: No Restrictions Weight Bearing Status: Full weight bearing Follow Up Care Test Results: Test results from this visit will be discussed in further detail at your follow- up appointment, if applicable. Discharge Plan Admission Admit Date/Time: 10/01/23 03:52 Primary Reason for Your Visit: Shortness of breath Attending Provider: Reji Shelton Primary Care Provider: Demario Sanz Consulting Providers: Jude Ward; Bird Hilliard; Jose David Pizano Instructions Additional Instructions / Restrictions: Please see below for all medication changes. Please take doxycycline and prednisone for 2 more days to complete 5-day courses of steroids and antibiotics for COPD exacerbation. The cardiology office will call to schedule you a follow-up appointment in the next week. Discharge Orders/Prescriptions Prescriptions: New aspirin 81 mg Tablet,Delayed Release (Dr/Ec) 81 mg PO BREAKFAST 90 Days Qty: 90 1RF carvedilol 6.25 mg Tablet 6.25 mg PO BID 30 Days Qty: 60 2RF prednisone 20 mg Tablet 40 mg PO BREAKFAST 2 Days Qty: 4 0RF spironolactone 25 mg Tablet 25 mg PO DAILY 30 Days Qty: 30 2RF isosorbide mononitrate 60 mg Tablet Extended Release 24 Hr 60 mg PO DAILY 30 Days Qty: 30 0RF lisinopril 10 mg Tablet 10 mg PO DAILY 30 Days Qty: 30 2RF doxycycline hyclate 100 mg capsule 100 mg PO BID Qty: 5 0RF Continued cetirizine 10 mg capsule 10 mg PO HS Qty: 90 3RF Trelegy Ellipta 200-62.5-25 mcg blister with device 1 inh inhalation DAILY Qty: 3 3RF albuterol sulfate [ProAir HFA] 90 mcg/actuation HFA aerosol inhaler 2 puff inhalation Q6H PRN (Reason: shortness of breath or wheezing) Qty: 18 6RF atorvastatin 80 mg tablet 80 mg PO DAILY Qty: 90 3RF escitalopram oxalate 10 MG tablet 10 mg PO DAILY hydroxyzine pamoate 25 mg Capsule 25 mg PO BID PRN (Reason: Anxiety) albuterol sulfate 2.5 mg /3 mL (0.083 %) solution for nebulization 2.5 mg INHALATION Q4H PRN PRN (Reason: Sob &/Or Wheezing) Qty: 180 3RF Discontinued ipratropium-albuterol 0.5 mg-3 mg(2.5 mg base)/3 mL solution for nebulization 3 ml inhalation Q4H PRN PRN (Reason: SOB &/OR WHEEZING) Qty: 180 6RF amlodipine 10 mg Tablet 5 mg PO DAILY lisinopril-hydrochlorothiazide 20-25 mg Tablet 1 tab PO DAILY Referrals / Follow Up: Demario Sanz MD [Primary Care Provider] - Disposition Disposition (needs filled in before D/C Order can be placed): Home, Self Care
--- NOTE | 2023-10-03 10:03 | DS.PCM_ITS ---
Providers Date of Admission: 10/01/23 Date of Discharge: 10/03/23 Primary Care Physician: Dr. Demario Sanz MD Consultations 10/01/23 04:09 Consult: Cardiology Urgent Consulting Provider: Jude Ward Reason for Consult: Chest Pain EMERGENT Consult: No MD Notified: Yes Date Notified: 10/01/23 Time Notified: 03:56 Method of Notification: ED Physician Initiated Reason For Visit: NEW LEFT BUNDLE BRANCH BLOCK WITH ELEVATED Diagnosis Discharge Diagnosis (1) Takotsubo syndrome: Status: Acute Code(s): I51.81 - Takotsubo syndrome Medications at Discharge Home Medications escitalopram oxalate 10 mg tablet 10 mg PO DAILY anxiety 04/01/19 hydroxyzine pamoate 25 mg capsule 25 mg PO BID PRN Anxiety 11/30/20 cetirizine 10 mg capsule 10 mg PO HS #90 caps 03/11/22 albuterol sulfate 2.5 mg/3 mL (0.083 %) solution for nebulization 2.5 mg (3 mL) inhalation Q4H PRN PRN Sob &/Or Wheezing #180 mL 03/28/23 albuterol sulfate 90 mcg/actuation aerosol inhaler (ProAir HFA) 2 puff inhalation Q6H PRN shortness of breath or wheezing #18 grams 04/07/23 fluticasone fur. 200 mcg-umeclid 62.5 mcg-vilant 25 mcg inhalat.powder (Trelegy Ellipta) 1 inh inhalation DAILY #3 ea 04/07/23 atorvastatin 80 mg tablet 80 mg PO DAILY #90 tabs 08/23/23 aspirin 81 mg tablet,delayed release 81 mg PO BREAKFAST 90 days #90 tabs 10/03/23 carvedilol 6.25 mg tablet 6.25 mg PO BID 30 days #60 tabs 10/03/23 doxycycline hyclate 100 mg capsule 100 mg PO BID #5 caps 10/03/23 isosorbide mononitrate 60 mg tablet,extended release 24 hr 60 mg PO DAILY 30 days #30 tabs 10/03/23 lisinopril 10 mg tablet 10 mg PO DAILY 30 days #30 tabs 10/03/23 prednisone 20 mg tablet 40 mg (2 x 20 mg) PO BREAKFAST 2 days #4 tabs 10/03/23 spironolactone 25 mg tablet 25 mg PO DAILY 30 days #30 tabs 10/03/23 Hospital Course Operations None Procedures Cardiac catheterization, EKG, Transthoracic echo and - (CXR x 2) Summary of Care Provided Minutes Spent on Discharge: 35 Hospital Course: Patient is a 57 year old male who presented to [facility] on 10/01/2023 with acute onset shortness of breath. Hospital course as noted below. Patient was discharged home with no therapy needs in stable condition on 10/02. 1. Acute HFrEF presumed secondary to Takutsubo cardiomyopathy, episodes of V tach - Cardiology followed. Presented w/ acute onset shortness of breath. Initial EKG concerning for STEMI, also had severe uptrend in troponins. Left heart cath showed normal coronaries. TTE showed newly reduced EF 20%, LV base and apex mindy well but rest of LV severely hypokinetic. Meds titrated inpatient per Cards recs. Discharged on Coreg 6.25 mg BID, lisinopril 10 mg daily, spironolactone 25 mg daily, isosorbide mononitrate 60 mg daily, aspirin 81 mg daily. Continued home atorvastatin 80 mg daily. Outpatient cardiology follow up appointment on 10/13. 2. CANDELARIO versus CKD stage 3 - Creatinine 1.66 on admit. Baseline Cr unclear but appears to be around 1.2- 1.4. Cr remained stable around 1.4-1.6 during admit. Did have mild uptrend from 1.45 on 10/01 to 1.65 on 10/02 (day of discharge). Given several new meds were added, recommend repeat BMP in 5-7 days to ensure no development of CANDELARIO. 3. AECOPD with acute hypoxia (resolved), history of asthma-COPD syndrome - Treated for presumed COPD exacerbation while inpatient with IV solumedrol and IV doxycycline. Required low level nasal cannula during admission, weaned to room air by discharge. Discharged on PO doxycycline and prednisone to complete 5 day courses of steroids and antibiotics total. Continue home inhalers. Chronic medical conditions: - Anxiety: Stable. Continue home Lexapro. - OA with history of knee surgery and total hip replacement: Stable. Tylenol as needed for pain relief. Total clinical time spent by myself addressing the patient's medical issues, reviewing all the data, and collaborating with patient's care team: 35 minutes. Physical Exam Const alert, oriented x3, no apparent distress and healthy appearing General Appearance: cooperative, well kempt and well developed Orientation / Consciousness: awake, oriented to person, oriented to place and oriented to time HEENT normocephalic and moist oral mucous membranes Eyes PERRL, EOMs intact bilaterally and conjunctivae normal Neck supple, no JVD, thyroid normal and no carotid bruits General: trachea midline Resp normal respiratory effort and clear to auscultation bilaterally Auscultation: Negative for rales, rhonchi or wheezes Cardio regular rate, regular rhythm, no murmurs, no rub and no gallops GI normal to inspection, nondistended, normoactive bowel sounds, soft to palpation, non-tender and non-distended Extremity no clubbing, cyanosis or edema Skin no rashes or lesions noted General Skin Exam: no breakdown Neuro oriented x3, CN's II-XII intact bilaterally, no focal motor deficits and no sensory deficits noted Sensorium / Orientation: awake and alert Speech: speech normal Psych affect normal Weight / BMI Weight Weight: 75.6 kg Body Mass Index (BMI) 22.6 ABG / Lab / Microbiology Data 10/03/23 05:15 10/03/23 05:15 Laboratory: Laboratory Results - last 24 hr 10/03/23 05:15: WBC 17.5 H, RBC 4.82, Hgb 14.0, Hct 41.2, MCV 85.5, MCH 29.0, MCHC 34.0, RDW Std Deviation 41.1, RDW Coeff of Jazzmine 13.2, Plt Count 264, MPV 9.3, Immature Gran % (Auto) 0.800, Neut % (Auto) 89.6 H, Lymph % (Auto) 7.2 L, [place] % (Auto) 2.3, Eos % (Auto) 0.0, Baso % (Auto) 0.1, Absolute Neuts (auto) 15.6 H, Absolute Lymphs (auto) 1.25, Nucleated RBC % 0, Sodium 133 L, Potassium 4.2, Chloride 101, Carbon Dioxide 23.0, Anion Gap 9, BUN 33 H, Creatinine 1.65 H , Estim Creat Clear Calc 54.09, Est GFR (MDRD) Af Amer 56 L, Est GFR (MDRD) Non- Af 46 L, BUN/Creatinine Ratio 20.0, Glucose 135 H, Calcium 9.5, Total Bilirubin 0.80, AST 13 L, ALT 13 L, Alkaline Phosphatase 77, Total Protein 7.1, Albumin 3.6, Globulin 3.5, Albumin/Globulin Ratio 1.0 Radiography Diagnostic Testing: Radiology Impression Chest X-Ray 10/02/23 13:08 IMPRESSION: No acute pulmonary process, no interval change Electronically Signed: Peng Chang MD at 14:11 EDT Reading Location ID and State: [address] [place] [address] , Service support , D/C Instructions Discharge Diet: No restrictions Weight Bearing Status: Full weight bearing Meaningful Use Info Meaningful Use Diagnoses (Choose all that apply): CHF CHF PORSCHE/ARB ordered at discharge?: Yes Documented LVEF (%): 20 Discharge Plan Admission Admit Date/Time: 10/01/23 03:52 Primary Reason for Your Visit: Shortness of breath Attending Provider: Reji Shelton Primary Care Provider: Demario Sanz Consulting Providers: Jude Ward; Bird Hilliard; Jose David Pizano Instructions Additional Instructions / Restrictions: Please see below for all medication changes. Please take doxycycline and predni sone for 2 more days to complete 5-day courses of steroids and antibiotics for COPD exacerbation. The cardiology office will call to schedule you a follow-up appointment in the next week. Discharge Orders/Prescriptions Prescriptions: New aspirin 81 mg Tablet,Delayed Release (Dr/Ec) 81 mg PO BREAKFAST 90 Days Qty: 90 1RF carvedilol 6.25 mg Tablet 6.25 mg PO BID 30 Days Qty: 60 2RF prednisone 20 mg Tablet 40 mg PO BREAKFAST 2 Days Qty: 4 0RF spironolactone 25 mg Tablet 25 mg PO DAILY 30 Days Qty: 30 2RF isosorbide mononitrate 60 mg Tablet Extended Release 24 Hr 60 mg PO DAILY 30 Days Qty: 30 0RF lisinopril 10 mg Tablet 10 mg PO DAILY 30 Days Qty: 30 2RF doxycycline hyclate 100 mg capsule 100 mg PO BID Qty: 5 0RF Continued cetirizine 10 mg capsule 10 mg PO HS Qty: 90 3RF Trelegy Ellipta 200-62.5-25 mcg blister with device 1 inh inhalation DAILY Qty: 3 3RF albuterol sulfate [ProAir HFA] 90 mcg/actuation HFA aerosol inhaler 2 puff inhalation Q6H PRN (Reason: shortness of breath or wheezing) Qty: 18 6RF atorvastatin 80 mg tablet 80 mg PO DAILY Qty: 90 3RF escitalopram oxalate 10 MG tablet 10 mg PO DAILY hydroxyzine pamoate 25 mg Capsule 25 mg PO BID PRN (Reason: Anxiety) albuterol sulfate 2.5 mg /3 mL (0.083 %) solution for nebulization 2.5 mg INHALATION Q4H PRN PRN (Reason: Sob &/Or Wheezing) Qty: 180 3RF Discontinued ipratropium-albuterol 0.5 mg-3 mg(2.5 mg base)/3 mL solution for nebulization 3 ml inhalation Q4H PRN PRN (Reason: SOB &/OR WHEEZING) Qty: 180 6RF amlodipine 10 mg Tablet 5 mg PO DAILY lisinopril-hydrochlorothiazide 20-25 mg Tablet 1 tab PO DAILY Referrals / Follow Up: Demario Sanz MD [Primary Care Provider] - Jude Ward MD [Med Staff - Active Staff] - 10/14/23 11:30 am (Please arrive 10 min early to complete paperwork. ) Disposition Disposition (needs filled in before D/C Order can be placed): Home, Self Care Charges/Coding Visit Charges Inpatient E&M: 59226 Disch Hosp >30min
--- NOTE | 2023-10-03 10:17 | CASEMGMT ---
Addendum entered by Shawanda Garcia 10/03/23 10:42: Appt placed in pt's discharge instructions and pt made aware of appt. Addendum entered by Shawanda Garcia 10/03/23 10:42: Pt to have f/u appt w/cardiology and pt states he would like to go to [facility]. Call placed to [facility] and she is aware pt to have f/u appt w/in a week. Appt scheduled for 10/13 @ 11:30 AM. Original Note: LUNA MILIAN NOTE: Pt being discharged home. LUNA CM to room. Pt resting in bed, awake/alert. Introduced self and role. O2 in place via N/C. Discussed possibility of need for home o2. Pt states he has home O2 from [facility] [place]-concentrator and portable O2 tanks. He states [facility] [place] delivered it to his home a couple years ago and he does not know how what his liter flow/orders are, but he just wears it as needed. He sees Viky Crook/[employer], pulmonology. Per Cecilia @ [facility] office. He last saw her in August and has a f/u appt scheduled w/her Jan 30. Pt is aware of same. Per LUNA Medrano, home O2 amb pulse ox completed this AM and pt does not qualify for home O2 @ rest or w/amb and she states the O2 is on for comfort only. Call placed to [facility] [place]. Current orders are for 2 l/m continuously. Pt made aware. Per LUNA Medrano, pt has been up ambulating w/out difficulty. Pt denies having further discharge planning needs/concerns. Charmaine OHARA RN CM
== END 2023-10-03 12:00 | disposition home or self-care (01) | DRG 286 ==
LOC: ED 03:14 → PCU 04:01 → ICU 07:03 → PCU 07:43 → ICU 07:45
PROVIDERS: Internal Medicine; Admitting Provider Internal Medicine; Emergency Provider Emergency Medicine; PCP Family Medicine; Visit Provider Hospitalist
DX: I13.0 Hypertensive heart and chronic kidney disease with heart failure and stage 1 through stage 4 chronic kidney disease, or unspecified chronic kidney disease (principal); I50.21 Acute systolic (congestive) heart failure; I47.29 Other ventricular tachycardia; I24.9 Acute ischemic heart disease, unspecified; J44.1 Chronic obstructive pulmonary disease with (acute) exacerbation; N18.30 Chronic kidney disease, stage 3 unspecified; I73.9 Peripheral vascular disease, unspecified; I44.7 Left bundle-branch block, unspecified; E87.6 Hypokalemia; E78.5 Hyperlipidemia, unspecified; F17.210 Nicotine dependence, cigarettes, uncomplicated; M17.10 Unilateral primary osteoarthritis, unspecified knee; L40.9 Psoriasis, unspecified; I25.10 Atherosclerotic heart disease of native coronary artery without angina pectoris; F41.1 Generalized anxiety disorder; Z79.51 Long term (current) use of inhaled steroids; N52.9 Male erectile dysfunction, unspecified; Z79.82 Long term (current) use of aspirin
CPT/HCPCS: 71045; 80048; 80053; 80061; 80076; 83735; 84100; 84443; 84484; 85025; 85027; 85610; 85730; 93005; 93306; 93458; 94002; 94003; 94640; 99285; 99406; J7030; J7040; Q9957; Q9967; A4216; C1769; C1894; C8929; J1940; J2405

== ENCOUNTER → 2023-10-14 | Outpatient (CLI) | payer OTHER, SELFPAY ==
[2023-10-14 15:48] LABS: Anion Gap 3 (5-15); BUN 4 mg/dL (7-18); BUN/Creat Ratio 3.3 RATIO (10-20); Calcium,Total 8.8 mg/dL (8.5-10.1); Chloride 111 mmol/L (98-107); Creatinine, Serum 1.22 mg/dL (0.70-1.30); EST Glomerular Filtration Rate 65 mL/min (>60); Est Glom Filt Rate - Afr Amer 79 mL/min (>60); Glucose 84 mg/dL (74-106); Sodium Level 142 mmol/L (136-145)
== END | disposition home or self-care (01) ==
LOC: LAB 14:16
PROVIDERS: PCP Family Medicine; Referring Provider Internal Medicine Cardiovascular Disease; Visit Provider Internal Medicine Cardiovascular Disease
DX: I51.81 Takotsubo syndrome (principal)
CPT/HCPCS: 36415; 80048

== ENCOUNTER 2023-10-16 18:21 | Emergency (ER) | payer OTHER, SELFPAY ==
[2023-10-16 18:22] VITALS: BP 154/89; PULSE 84; RESP 19; TEMP 36.2; O2SAT 98; BMI 24.0
--- NOTE | 2023-10-16 18:43 | EKG12_ITS ---
Test Reason : SOB Blood Pressure : / mmHG Vent. Rate : 072 BPM Atrial Rate : 072 BPM P-R Int : 174 ms QRS Dur : 074 ms QT Int : 392 ms P-R-T Axes : 072 -18 012 degrees QTc Int : 429 ms Normal sinus rhythm Septal infarct , age undetermined T wave abnormality, consider anterior ischemia Abnormal ECG Confirmed by WERNER BROWNE, LINNEA ([id number]), index editor ERIC LEDESMA ([id number]) on 10/17/2023 9:46:24 AM Referred By: Confirmed By:LINNEA CALDERA MD
--- NOTE | 2023-10-16 18:44 | EDS_ITS ---
HPI History of Present Illness Chief Complaint: Shortness of Breath Narrative Narrative: 57-year-old male with history of COPD, tobacco abuse, Takotsubo syndrome, CAD presenting with shortness of breath. States it started a couple of hours ago. He feels like he was tight like a COPD exacerbation. States he did a couple treatments before coming to the ER and he feels better. Patient reports recent hospitalization and admission to the ICU but he cannot recall the events but initially got up to the emergency room. He states that he was very short of breath and called EMS and by the time he arrived to the ER there was a lot of people in the room and he does not recall much. Patient does state that he followed up with Dr. Ward yesterday or the day before and was told to stay on his medications that he was prescribed in the hospital. He has been taking his meds. He denies fevers or chills. Denies chest pain. Denies nausea or vomiting. PFSH PFSH Medical History Anxiety Asthma-COPD overlap syndrome COPD (chronic obstructive pulmonary disease) Erectile dysfunction Heart attack Hypertension Peripheral arterial disease Psoriasis Smoker Smoking greater than 20 pack years Home Medications escitalopram oxalate 10 mg tablet 10 mg PO DAILY anxiety 04/01/19 [History Last Taken 06/12/19] hydroxyzine pamoate 25 mg capsule 25 mg PO BID PRN Anxiety 11/30/20 [History Last Taken Unknown] cetirizine 10 mg capsule 10 mg PO HS #90 caps 03/11/22 [Rx Last Taken Unknown] albuterol sulfate 90 mcg/actuation aerosol inhaler (ProAir HFA) 2 puff inhalation Q6H PRN shortness of breath or wheezing #18 grams 04/07/23 [Rx Last Taken Unknown] fluticasone fur. 200 mcg-umeclid 62.5 mcg-vilant 25 mcg inhalat.powder (Trelegy Ellipta) 1 inh inhalation DAILY #3 ea 04/07/23 [Rx Last Taken Unknown] atorvastatin 80 mg tablet 80 mg PO DAILY #90 tabs 08/23/23 [Rx Last Taken Unknown] aspirin 81 mg tablet,delayed release 81 mg PO BREAKFAST 90 days #90 tabs 10/03/23 [Rx Last Taken Unknown] carvedilol 6.25 mg tablet 6.25 mg PO BID 30 days #60 tabs 10/03/23 [Rx Last Taken Unknown] doxycycline hyclate 100 mg capsule 100 mg PO BID #5 caps 10/03/23 [Rx Last Taken Unknown] isosorbide mononitrate 60 mg tablet,extended release 24 hr 60 mg PO DAILY 30 days #30 tabs 10/03/23 [Rx Last Taken Unknown] lisinopril 10 mg tablet 10 mg PO DAILY 30 days #30 tabs 10/03/23 [Rx Last Taken Unknown] spironolactone 25 mg tablet 25 mg PO DAILY 30 days #30 tabs 10/03/23 [Rx Last Taken Unknown] albuterol sulfate 2.5 mg/3 mL (0.083 %) solution for nebulization 2.5 mg (3 mL) inhalation Q4H PRN PRN Sob &/Or Wheezing #180 mL 10/14/23 [Rx Last Taken Unknown] prednisone 50 mg tablet 50 mg PO DAILY #5 tabs 10/16/23 [Rx Last Taken Unknown] Allergy/AdvReac Type Severity Reaction Status Date / Time No Known Allergies Allergy Verified 10/16/23 18:24 Family History Other Asthma Surgical History H/O knee surgery H/O total hip arthroplasty Social History household members: spouse Smoking Status: Heavy Smoker (>10/day) Tobacco: How many years used: 30 Smokeless tobacco user: other alcohol intake: former substance use type: does not use ROS ROS ED Constitutional Constitutional ED: Denies chills, fever(s) or sweats Eyes Eyes: Denies blurry vision or change in vision ENT ENT ED: Denies ear pain or sore throat Cardiovascular Cardiovascular: Denies chest pain, palpitations or racing heartbeat Respiratory/Chest Respiratory/Chest: Reports dyspnea and dyspnea on exertion; Denies sputum Gastrointestinal Gastrointestinal: Denies abdominal pain, constipation, diarrhea, nausea or vomiting Genitourinary Genitourinary ED: Denies dysuria, hematuria or urinary frequency Musculoskeletal Musculoskeletal: Denies arthralgias, myalgias or neck pain Integumentary Denies abscess, Abrasions or rash Neurologic Neurologic: Denies headache(s), paresthesias or weakness Psychiatric Psychiatric: Denies anxiety, depression, suicidal ideation or suicidal thoughts Endocrine Endocrinology: Denies polydipsia or polyuria EXAM Physical Exam Const Vital Signs: 10/16/23 18:22 10/16/23 18:40 10/16/23 18:44 Temperature 97.2 F L Temperature Source Temporal Pulse Rate 84 Respiratory Rate 19 H Respiratory Effort Normal Short of Breath Respiratory Depth Normal Respiratory Pattern Tachypnea Tachypnea Blood Pressure 154/89 H Blood Pressure Mean 110 Pulse Ox 98 Oxygen Delivery Method Room Air Room Air 10/16/23 18:45 10/16/23 18:50 10/16/23 20:31 Temperature Temperature Source Pulse Rate 77 78 Respiratory Rate 12 13 Respiratory Effort Respiratory Depth Respiratory Pattern Blood Pressure 135/87 H Blood Pressure Mean 103 Pulse Ox 98 Oxygen Delivery Method Room Air Room Air Positive well nourished HEENT Reports moist mucous membranes atraumatic Eyes PERRL and EOMs intact bilaterally Neck no lymphadenopathy Resp normal respiratory effort Auscultation: wheezes expiratory wheezes Cardio regular rate and regular rhythm Neuro oriented x3 and CN's II-XII intact bilaterally Sensorium / Orientation: alert Motor Exam: strength 5/5 throughout Psych mental status grossly normal Skin no wounds MDM MDM MDM Narrative Medical decision making narrative: Patient presented with shortness of breath. States started a couple hours ago. He think he is having a COPD exacerbation and did give himself a few treatments earlier and feels better. He denies chest pain and he states his shortness of breath currently better. He has not had any recent fevers or chills. Differential includes but is not limited to ACS, pneumonia, , pneumothorax, muscle strain, costochondritis, COPD exacerbation, CHF. CBC shows normal white blood cell count, hemoglobin, lites. BMP shows normal renal function electrolytes. High-sensitivity troponin 37. EKG on my interpretation shows a normal sinus rhythm with a ventricular rate of 72 bpm without sign of ischemic change or ectopy. Chest x-ray my interpretation shows no acute process. Reevaluation patient is feeling much better. He ambulated to maintain pulse ox 98%. 9:04 PM reviewed patient's lab work and imaging with him. Will do a delta troponin and if this is normal he will go home with prednisone burst. He has nebulizers. Patient counseled to discontinue smoking. Delta troponin 31. There is no significant interval change. Patient discharged as per previous plan Impression: 1. COPD exacerbation 2. Tobacco abuse Lab Data Attestation: I reviewed the patient's lab results. Labs: Laboratory Results - last 24 hr 10/16/23 10/16/23 18:30 21:01 WBC 8.3 RBC 4.14 L Hgb 11.8 L Hct 36.9 L MCV 89.1 MCH 28.5 MCHC 32.0 RDW Std Deviation 43.5 RDW Coeff of Jazzmine 13.3 Plt Count 186 MPV 9.2 Immature Gran % (Auto) 0.100 Neut % (Auto) 63.9 Lymph % (Auto) 24.4 [place] % (Auto) 7.1 Eos % (Auto) 4.3 Baso % (Auto) 0.2 Absolute Neuts (auto) 5.3 Absolute Lymphs (auto) 2.03 Nucleated RBC % 0 Sodium 142 Potassium 4.2 Chloride 113 H Carbon Dioxide 27.0 Anion Gap 2 L BUN 3 L Creatinine 1.24 Estim Creat Clear Calc 73.88 Est GFR (MDRD) Af Amer 78 Est GFR (MDRD) Non-Af 64 BUN/Creatinine Ratio 2.4 L Glucose 99 Calcium 8.6 Troponin I High Sens 37 31 TSH 2.48 Radiography Diagnostic Testing: Clinical Impression(s) from Imaging Studies Chest X-Ray 10/16/23 19:04 IMPRESSION: There are no acute findings. Electronically Signed: Ananth Urias MD at 19:21 EDT Reading Location ID and State: [facility] / [place] , Service support , Discharge Plan Triage Chief Complaint: Shortness of Breath ED Provider: Sathish Carrillo Dx/Rx/DC Orders Instructions: ED COPD Flare Prescriptions: New prednisone 50 mg tablet 50 mg PO DAILY Qty: 5 0RF No Action cetirizine 10 mg capsule 10 mg PO HS Qty: 90 3RF Trelegy Ellipta 200-62.5-25 mcg blister with device 1 inh inhalation DAILY Qty: 3 3RF albuterol sulfate [ProAir HFA] 90 mcg/actuation HFA aerosol inhaler 2 puff inhalation Q6H PRN (Reason: shortness of breath or wheezing) Qty: 18 6RF atorvastatin 80 mg tablet 80 mg PO DAILY Qty: 90 3RF albuterol sulfate 2.5 mg /3 mL (0.083 %) solution for nebulization 2.5 mg INHALATION Q4H PRN PRN (Reason: Sob &/Or Wheezing) Qty: 180 3RF escitalopram oxalate 10 MG tablet 10 mg PO DAILY hydroxyzine pamoate 25 mg Capsule 25 mg PO BID PRN (Reason: Anxiety) aspirin 81 mg Tablet,Delayed Release (Dr/Ec) 81 mg PO BREAKFAST 90 Days Qty: 90 1RF carvedilol 6.25 mg Tablet 6.25 mg PO BID 30 Days Qty: 60 2RF spironolactone 25 mg Tablet 25 mg PO DAILY 30 Days Qty: 30 2RF isosorbide mononitrate 60 mg Tablet Extended Release 24 Hr 60 mg PO DAILY 30 Days Qty: 30 0RF lisinopril 10 mg Tablet 10 mg PO DAILY 30 Days Qty: 30 2RF doxycycline hyclate 100 mg capsule 100 mg PO BID Qty: 5 0RF Primary Care Provider: Demario Sanz Referrals: Demario Sanz MD [Primary Care Provider] - Disposition Disposition: Home, Self Care
[2023-10-16] MEDS: MethylPREDNISolone 125 MG/2 ML Vial IV (18:49)
[2023-10-16] MEDS: Albuterol 2.5 MG/3 ML VIAL.NEB. INHALATION (18:49)
[2023-10-16] MEDS: Ipratropium/Albuterol Sulfate 3 ML AMPUL.NEB INHALATION (18:49)
[2023-10-16 18:50] VITALS: PULSE 77; RESP 12
[2023-10-16 18:55] LABS: Absolute Lymphocyte Count 2.03 X10^3/uL (0.83-4.51); Absolute Neutrophil Count 5.3 X10^3/uL (2.0-7.7); Basophil# 0.02 X10^3/uL; Basophil% 0.2 % (0-1); Eosinophil# 0.36 X10^3/uL; Eosinophils% 4.3 % (0-5); Hematocrit 36.9 % (40-54); Hemoglobin 11.8 g/dL (13.0-16.5); Lymphocyte # 2.03 X10^3/ul (0.83-4.51); Lymphocyte % 24.4 % (19-41); Mean Corpuscular Hgb 28.5 pg (27.0-32.0); Mean Corpuscular Volume 89.1 fL (80-94); Mean Platelet Vol. 9.2 fl (6.2-12.0); Monocyte# 0.59 X10^3/uL; Monocyte% 7.1 % (0-10); NRBC Flagged by Analyzer 0 % (0-5); Neutrophil % 63.9 % (47-70); Platelet Count 186 K/mm3 (150-450); RBC Distribution Width CV 13.3 % (11.6-14.6); RBC Distribution Width SD 43.5 fl (35.1-43.9); Red Blood Count 4.14 M/mm3 (4.6-6.2); White Blood Count 8.3 K/mm3 (4.4-11.0)
--- NOTE | 2023-10-16 19:04 | RAD_ITS ---
STUDY: XR Chest 1 View 10/16/2023 7:01 PM REASON FOR EXAM: Male, 57 years old. chest pain COMPARISON: 10/02/2023 TECHNIQUE: XR Chest 1 View FINDINGS: There is no demonstrated pleural abnormality. Normal heart size. Normal mediastinum. Normal jonny. Prominent appearing increased interstitial lung markings. Normal visualized pulmonary arteries. There is atherosclerotic calcification of the aortic arch with tortuosity. There are diffuse degenerative changes of the visualized thoracic spine. There is degenerative osteoarthritis of the bilateral shoulders. There are no acute findings of the upper abdomen. RAD/Chest 1 View (Portable) IMPRESSION: There are no acute findings. Electronically Signed: Ananth Urias MD at 19:21 EDT ,
[2023-10-16 19:17] LABS: Anion Gap 2 (5-15); BUN 3 mg/dL (7-18); BUN/Creat Ratio 2.4 RATIO (10-20); Calcium,Total 8.6 mg/dL (8.5-10.1); Chloride 113 mmol/L (98-107); Creatinine, Serum 1.24 mg/dL (0.70-1.30); EST Glomerular Filtration Rate 64 mL/min (>60); Est Glom Filt Rate - Afr Amer 78 mL/min (>60); Estimated Creatinine Clearance 73.88 ml/min; Glucose 99 mg/dL (74-106); Potassium 4.2 mmol/L (3.5-5.1); Sodium Level 142 mmol/L (136-145); Thyroid Stim Hormone (TSH) 2.48 uIU/mL (0.358-3.74); Troponin-I HS (w/2H Reflex) 37 pg/mL (3.0-78.0)
[2023-10-16 20:31] VITALS: BP 135/87; PULSE 78; RESP 13; O2SAT 93; O2SAT 98
[2023-10-16 20:51] LABS: Reflex Troponin-HS? (from REC) Y
[2023-10-16 21:26] LABS: Troponin-I HS 31 pg/mL (3.0-78.0)
[2023-10-16 21:30] VITALS: BP 140/98; PULSE 71; RESP 12; TEMP 36.8; O2SAT 95
== END 2023-10-16 21:33 | disposition home or self-care (01) ==
PROVIDERS: Emergency Provider Student in an Organized Health Care Education/Training Program; PCP Family Medicine; Visit Provider Student in an Organized Health Care Education/Training Program
DX: J44.1 Chronic obstructive pulmonary disease with (acute) exacerbation (principal); I25.10 Atherosclerotic heart disease of native coronary artery without angina pectoris; I10 Essential (primary) hypertension; F41.9 Anxiety disorder, unspecified; Z79.899 Other long term (current) drug therapy; Z79.51 Long term (current) use of inhaled steroids; Z79.82 Long term (current) use of aspirin; Z96.649 Presence of unspecified artificial hip joint; F17.290 Nicotine dependence, other tobacco product, uncomplicated
CPT/HCPCS: 71045; 80048; 84443; 84484; 85025; 93005; 94640; 96374; 99285; A4216

== ENCOUNTER → 2023-12-07 | Outpatient (CLI) | payer OTHER, SELFPAY ==
--- NOTE | 2023-12-07 13:58 | ART_ITS ---
Reason For Study: BLE Claudication Procedure A bilateral lower extremity continuous wave Doppler with analog waveform analysis,segmental pressures,and ankle brachial indexes without exercise. Left Segmental Pressures Left brachial= 131mmHg. Left thigh = 70mmHg. Left calf = 71mmHg. Left posterior tibial artery = 71mmHg. Left dorsalis pedis artery = 63mmHg. Left digit = 36 mmHg. The left posterior tibial artery waveforms are monophasic. The left dorsalis pedis waveforms are monophasic. Right Segmental Pressures Right brachial= 114mmHg. Right thigh = 152mmHg. Right calf = 108mmHg. Right posterior tibial artery = 114mmHg. Right dorsalis pedis artery = 105mmHg. Right digit = 87 mmHg. The right posterior tibial artery waveforms are triphasic. The right dorsalis pedis waveforms are monophasic. Indices The right ankle brachial index by the posterior tibial artery is 0.87. The right ankle brachial index by the dorsalis pedis is 0.80. The right digital-brachial index is 0.66. The left ankle brachial index by the posterior tibial artery is 0.54. The left ankle brachial index by the dorsalis pedis is 0.48. The left digital-brachial index is 0.27. VL/Lower Ext Art Exam w/o Exercis Interpretation Summary Right JOVAN 0.87, moderate arterial insufficiency. Doppler/PVR waveforms and segm ental pressures reveal distal SFA/popliteal disease Left JOVNA 0.54, moderate arterial insufficiency. Doppler/PVR waveforms and segme ntal pressure reveal [id number] femoral disease. Ordering Physician: Aviva Velasco Referring Physician: Demario Sanz MD Performed By: Cesar Chou RVT and Student
== END | disposition home or self-care (01) ==
LOC: CVS 13:57
PROVIDERS: PCP Family Medicine; Referring Provider Physician Assistant; Visit Provider Physician Assistant
DX: I73.9 Peripheral vascular disease, unspecified (principal)
CPT/HCPCS: 93923; 93924

== ENCOUNTER → 2024-01-04 | Outpatient (CLI) | payer OTHER, SELFPAY ==
--- NOTE | 2024-01-04 13:53 | ECHOL_ITS ---
Reason For Study: TAKOTSUBO SYNDROME Procedure This was a limited 2D transthoracic echocardiogram. Myocardial strain analysis was performed in this exam to aid in the assessment of cardiac function. Exam performed in department. Left Ventricle Normal LV size. The estimated ejection fraction is 60 %. No evidence for diastolic dysfunction. No regional wall motion abnormalities noted. Right Ventricle Normal RV size. Normal systolic function. Atria Normal left atrium. Normal right atrium. No doppler evidence for ASD. Mitral Valve There is no mitral valve stenosis. Trivial mitral valve insufficiency. Tricuspid Valve There is no tricuspid stenosis. Unable to estimate RV systolic pressure due to inadequate jet, pulmonary artery pressure probably normal. Aortic Valve Trisinus/trileaflet aortic valve. There is no aortic stenosis. No aortic valve insufficiency. Pulmonic Valve There is no pulmonic valvular stenosis. No pulmonic valve insufficiency. Great Vessels Normal aortic root. Pericardium/Pleural No pericardial effusion. MMode/2D Measurements & Calculations LVIDd: 4.8 cm IVSd: 1.1 cm LVOT diam: 2.0 cm LVIDs: 3.1 cm LVPWd: 0.94 cm LVOT area: 3.2 cm2 RVDd: 2.6 cm FS: 35.3 % Ao root diam: 3.3 cm LAV(MOD-bp): 25.7 ml LVAd ap4: 24.1 cm2 LAV(MOD-bp) Indexed: 12.8 ml/m2 LVLd ap4: 7.7 cm LAV(MOD-sp2): 32.1 ml EDV(MOD-sp4): 62.1 ml LAV(MOD-sp4): 19.5 ml EDV(sp4-el): 63.8 ml LVAs ap4: 15.2 cm2 LVLs ap4: 7.0 cm ESV(MOD-sp4): 27.8 ml ESV(sp4-el): 28.0 ml EF(MOD-sp4): 55.2 % EF(sp4-el): 56.1 % LVAd ap2: 25.9 cm2 SV(MOD-sp4): 34.3 ml SV(MOD-sp2): 41.9 ml LVLd ap2: 7.8 cm EDV(MOD-sp2): 70.8 ml EDV(sp2-el): 73.2 ml LVAs ap2: 15.6 cm2 LVLs ap2: 7.0 cm ESV(MOD-sp2): 29.0 ml ESV(sp2-el): 29.4 ml EF(MOD-sp2): 59.1 % SV(sp4-el): 35.8 ml LA dimension(2D): 2.9 cm LA A4 area: 9.9 cm2 RA A4 area: 12.0 cm2 Time Measurements MV dec time: 0.21 sec Doppler Measurements & Calculations MV E max tanmay: 84.1 cm/sec Lat Peak E' Tanmay: 8.9 cm/sec Med Peak E' Tanmay: 6.9 cm/sec MV A max tanmay: 75.1 cm/sec E/E' lat: 9.4 E/E' med: 12.1 MV E/A: 1.1 MV dec slope: 396.2 cm/sec2 ECHO/Echo, Limited Study Interpretation Summary The estimated ejection fraction is 60 %. No evidence for diastolic dysfunction. Trivial mitral valve insufficiency. Ordering Physician: Jude Ward Referring Physician: Demario Sanz MD Performed By: Livier Freeman RDCS
== END | disposition home or self-care (01) ==
LOC: CVS 13:51
PROVIDERS: PCP Family Medicine; Referring Provider Internal Medicine Cardiovascular Disease; Visit Provider Internal Medicine Cardiovascular Disease
DX: I51.81 Takotsubo syndrome (principal)
CPT/HCPCS: 93308

== ENCOUNTER → 2024-02-06 | Outpatient (CLI) | payer OTHER, SELFPAY ==
--- NOTE | 2024-02-06 12:25 | RAD_ITS ---
STUDY: X-RAY - LUMBAR SPINE REASON FOR EXAM: Male, 58 years old. Radicular pain. TECHNIQUE: 2 view(s) of the lumbar spine were obtained. COMPARISON: Lumbar spine x-rays dated June 06, 2018 and MRI of the lumbar spine dated October 14, 2018 FINDINGS: Normal lumbar lordosis. No scoliosis. Normal vertebral alignment. Diffuse mild to moderate lower thoracic and lumbosacral facet sclerosis. Minimal intervertebral disc space narrowing at L2-3 and L3-4 with small osteophytes at these levels. Vascular calcification. RAD/Lumbar Spine 2 or 3 Views IMPRESSION: Mild lower lumbosacral spondylosis. Electronically Signed: Elia Asencio MD at 13:37 EDT ,
== END | disposition home or self-care (01) ==
LOC: RAD 12:24
PROVIDERS: PCP Family Medicine; Referring Provider Physician Assistant; Visit Provider Physician Assistant
DX: M54.10 Radiculopathy, site unspecified (principal)
CPT/HCPCS: 72100

== ENCOUNTER → 2024-05-04 | Outpatient (CLI) | payer OTHER, SELFPAY ==
--- NOTE | 2024-05-04 17:47 | CT_ITS ---
CT angiogram of the abdominal aorta with bilateral lower extremity runoff with 3-dimensional reconstructions, with MIP reconstructions Clinical history: PAD with intermittent claudication Technique: Multiple helical CT images were obtained from the domes the diaphragms to level of feet after intravenous administration of 100 cc of Isovue-370 with transaxial, coronal and sagittal multiplanar reconstructions. On a separate workstation, 3-dimensional reconstructions were obtained of the arterial vasculature using volume rendering technique and maximal intensity projection technique as per departmental protocol. The protocol utilizes one or more of the following dose reduction techniques: automated exposure control, adjustment of mA and/or kV according to patient size,and/or use of iterative reconstruction technique. RADIATION DOSAGE (If Supplied By Facility): CTDIvol = ( 7.92 ) mGy, DLP = ( 1176.63 ) mGycm COMPARISON: No relevant prior comparison study available FINDINGS: ABDOMEN / PELVIS: The liver as visualized is grossly unremarkable. No evidence of gallstones.. The visualized portions of the spleen and pancreas appear to be within normal limits. No evidence of hydronephrosis. Probable 2 to 3 mm nonobstructing stones in both kidneys. No evidence of hydronephrosis.. Small hiatal hernia. No evidence of small bowel obstruction. No evidence of acute diverticulitis or acute appendicitis.. Bilateral hip arthroplasty somewhat obscuring the pelvic region.. VASCULAR STRUCTURES: Atherosclerotic calcifications of the abdominal aorta without evidence of aneurysm or dissection.. There appears to be good opacification and patency of the celiac trunk, superior mesenteric artery. Mild eccentric atherosclerotic calcifications at the origin of the right renal artery without evidence of stenosis. 2 patent left renal arteries.. There appears to be good opacification and patency noted of the inferior mesenteric artery. ARTERIAL STRUCTURES OF THE RIGHT LOWER EXTREMITY: Common iliac artery: Diffuse atherosclerotic calcifications with mild to moderate stenosis close to the bifurcation. External iliac artery: Markedly small and calcified. Internal iliac arteries: There are sclerotic calcifications without significant stenosis.. Common femoral artery: Atherosclerotic calcifications without significant stenosis.. Superficial femoral arteries: Scattered atherosclerotic calcifications with focal areas of moderate stenosis in its mid aspect. Popliteal artery: Appears patent with good opacification. Anterior tibial artery: Appears patent with good opacification. Posterior tibial artery: Diffusely calcified with areas of absent flow.. Peroneal artery: Appears patent with opacification. ARTERIAL STRUCTURES OF THE LEFT LOWER EXTREMITY: Common iliac artery: Diffuse atherosclerotic calcifications with moderate stenosis close to the bifurcation.. Calcified with focal area of significant stenosis proximally. External iliac artery: Diffusely calcified with focal areas of significant stenosis. Internal iliac arteries: Atherosclerotic calcifications without aneurysm moderate to severe stenosis.. Common femoral artery: Mild to moderate stenosis. Superficial femoral arteries: Appears to be occluded at its origin reconstituted immediately. Otherwise patent throughout its course with scattered atherosclerotic calcifications and mild stenosis. Popliteal artery: Atherosclerotic calcifications with mild stenosis extending to the trifurcation. Anterior tibial artery: Calcifications at its origin with focal area of moderate to severe stenosis reconstituted distally to the level of the foot. Posterior tibial artery: Scattered areas of calcifications with severe stenosis.. Peroneal artery: Moderate calcifications at its origin, otherwise appears to be patent. CT/CTA Abd w/Runoff W/WO Contrast IMPRESSION: 1. Diffuse atherosclerotic calcifications in the iliac arteries bilaterally with scattered areas of calcifications of both lower extremities. 2. Two-vessel runoff to each lower leg. Electronically Signed: Dom Romo MD at 9:10 EST ,
[2024-05-04 18:15] LABS: CREATININE FINGERSTICK 1.5 mg/dL (0.70-1.30)
== END | disposition home or self-care (01) ==
LOC: CT 17:47
PROVIDERS: PCP Family Medicine; Referring Provider Physician Assistant; Visit Provider Physician Assistant
DX: I73.9 Peripheral vascular disease, unspecified (principal)
CPT/HCPCS: 75635; Q9967

== ENCOUNTER 2024-07-16 16:33 | Inpatient (IN) | payer OTHER, SELFPAY ==
--- NOTE | 2024-07-07 11:46 | PAT.ANESEVAL ---
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 When Was Last Pacemaker Check QUESTION #4 FULL TEXT: You/Your Family Experience fever (hyperthermia) with Anesthesia Last Oral Intake Last Oral intake: Last Oral Intake NPO since Meds taken in AM with sips of water? Meds patient instructed to take am of surgery PONV PONV - production support manager: PONV - production support manager Female No 07/05/24 13:13 HX of Motion Sickness No 07/05/24 13:13 HX of N/V After Surgery No 07/05/24 13:13 Non-Smoker No 07/05/24 13:13 Duration of Surgery greater Yes 07/05/24 13:13 than 60 minutes Number of Risk Factors 1 07/05/24 13:13 PONV Score Low Risk 07/05/24 13:13 Height & Weight Height & Weight: Anesthesia: Height & Weight Height 6 ft 06/14/24 09:56 Respiratory Assessment Respiratory Assessment - production support manager: Respiratory Tract Infection Hx - production support manager Hx Respiratory Tract Infection No 07/05/24 13:13 STOP Sleep Apnea STOP Sleep Apnea - production support manager: STOP Sleep Apnea - production support manager Hx Hypertension Yes: CONTROLLED WITH MED 07/05/24 13:13 Hx Sleep Apnea No 07/05/24 13:13 CPAP No 06/14/24 09:56 BIPAP Do you snore loudly (louder No 07/05/24 13:13 than talking or can be heard Do you often feel tired/ No 07/05/24 13:13 fatigued/ sleepy during daytime? Has anyone observed you stop No 07/05/24 13:13 breathing during sleep? STOP Results Negative 07/05/24 13:13 QUESTION #5 FULL TEXT : Do you snore loudly (louder than talking or can be heard through closed doors)? Tobacco Use History Tobacco Use History - production support manager: Tobacco Use History - production support manager Tobacco Use Cigarettes 06/14/24 09:56 Smoking Status Heavy Smoker (>10/day) 07/05/24 13:13 Hx Tobacco Use Yes 07/05/24 13:13 Years Smoking Packs Smoked per Day 1 07/05/24 13:13 Smoking Cessation Date was within the last 15 years Hx Smoking Cessation Date Hx Smoking Cessation Counseling Hematologic Medial History Hematologic Hx - production support manager: Hematologic Medical Hx - radiation therapy technician Hx of Blood Transfusion No 07/05/24 13:13 Hx of Transfusion in last 3 No 07/05/24 13:13 Months Date of Last Transfusion (if within last 3 months) Ever experience any problems No 07/05/24 13:13 with transfusion(s)? Specify any problems Hx of Preganancy in last 3 N/A 07/05/24 13:13 Months Nurse Filling Out Transfusion NBUCHER 07/05/24 13:13 & Questions: Date: 07/05/24 07/05/24 13:13 Time: 13:14 07/05/24 13:13 Patient unable to answer at this time (ie. confused, unrespo /Reproduction History /Reproductive History - production support manager: /Reproductive Hx- production support manager Hx Now No 07/05/24 13:13 Gestational Age (in weeks): EDC: Hx Hx Para Hx Section SAB No 07/05/24 13:13 [facility] Medical History (Updated 07/05/24 @ 13:18 by Yessi Camp) Wears glasses High cholesterol COPD (chronic obstructive pulmonary disease) Shortness of breath on exertion History of echocardiogram History of heart attack (~09/2023) Cardiology follow-up encounter Hypertension Heart attack Peripheral arterial disease Psoriasis Smoking greater than 20 pack years Asthma-COPD overlap syndrome Anxiety Smoker Erectile dysfunction Hypertension COPD (chronic obstructive pulmonary disease) Home Medications ?Medication ?Instructions ?Recorded ?Last Taken ?Type escitalopram oxalate 10 mg tablet 10 mg PO DAILY anxiety 04/01/19 06/12/19 History hydroxyzine pamoate 25 mg capsule 25 mg PO BID PRN Anxiety 11/30/20 Unknown History atorvastatin 80 mg tablet 80 mg PO DAILY HLD #90 tabs 08/23/23 Unknown Rx aspirin 81 mg tablet,delayed 81 mg PO BREAKFAST [facility] HE[facility] 90 10/03/23 Unknown Rx release days #90 tabs cetirizine 10 mg capsule 10 mg PO HS SEASONAL ALLERIES #90 10/17/23 Unknown Rx caps montelukast 10 mg tablet 10 mg PO QPM COPD #90 tabs 10/17/23 Unknown Rx carvedilol 6.25 mg tablet 6.25 mg PO BID HEART 90 days #180 01/25/24 Unknown Rx tabs lisinopril 10 mg tablet 10 mg PO DAILY HTN 90 days #90 tabs 01/25/24 Unknown Rx spironolactone 25 mg tablet 25 mg PO DAILY HTN 90 days #90 tabs 01/25/24 Unknown Rx fluticasone fur. 200 mcg-umeclid 1 inh inhalation DAILY COPD #3 ea 04/10/24 Unknown Rx 62.5 mcg-vilant 25 mcg inhalat.powder (Trelegy Ellipta) albuterol sulfate 2.5 mg/3 mL 2.5 mg (3 mL) inhalation Q4H PRN 05/22/24 Unknown Rx (0.083 %) solution for nebulization PRN Sob &/Or Wheezing #180 mL albuterol sulfate 90 mcg/actuation 2 puff inhalation Q6H PRN 05/22/24 Unknown Rx aerosol inhaler shortness of breath or wheezing #18 grams Allergy/AdvReac Type Severity Reaction Status Date / Time No Known Allergies Allergy Verified 07/05/24 13:08 Family History Other Asthma Surgical History (Updated 07/05/24 @ 13:18 by Yessi Camp) History of cardiac catheterization (~09/2023) H/O knee surgery H/O total hip arthroplasty Social History household members: spouse Smoking Status: Heavy Smoker (>10/day) Tobacco: How many years used: 30 Smokeless tobacco user: other alcohol intake: former substance use type: does not use caffeine: Yes Audit: Pertinent Findings Pertinent Findings EKG Perinent findings: October 16, 2023. Normal sinus rhythm. Septal infarct age undetermined. T wave abnormality consider anterior ischemia. See follow-up echo and cardiac catheterization. July 02, 2024. Normal sinus rhythm with low voltage in the limb leads. Echo (EF%) pertinent findings: January 04, 2024. Ejection fraction 60%. There is no aortic stenosis. Heart catheterization pertinent findings: October 01, 2023. Nonobstructive coronary artery disease. Ejection fraction is 20% with wall motion abnormalities suggestive of Takotsubo cardiomyopathy. No significant aortic stenosis or mitral regurgitation. Mild coronary artery disease. See follow-up echo in December. Consult pertinent findings: July 02, 2024. Dr. Ward. 1. Takotsubo syndrome-patient had left ventricular dysfunction with cardiac catheterization in September showing ejection fraction 20%. Echo in December showed recovery of the ejection fraction to 60%. Patient has no signs and symptoms of congestive heart failure at this time. He does have significant COPD due to his nicotine dependence. 2. Peripheral arterial disease-patient has significant bilateral peripheral vascular disease of his lower extremities. Being evaluated for a procedure with Dr. Carter. Patient should continue his current medical regimen including aspirin once a day. He is stable from a cardiovascular viewpoint and may proceed with his general anesthetic for his surgery. Recommendation Anesthesia Recommendation Anesthesia recommendation: OPTIMIZED for anesthesia
[2024-07-10 15:43] LABS: Hematocrit 40.4 % (40-54); Hemoglobin 13.4 g/dL (13.0-16.5); Mean Corp Hgb Conc 33.2 g/dL (32-36); Mean Corpuscular Hgb 29.1 pg (27.0-32.0); Mean Corpuscular Volume 87.8 fL (80-94); Mean Platelet Vol. 9.4 fl (6.2-12.0); Platelet Count 184 K/mm3 (150-450); RBC Distribution Width CV 12.9 % (11.6-14.6); RBC Distribution Width SD 41.6 fl (35.1-43.9); White Blood Count 9.5 K/mm3 (4.4-11.0)
[2024-07-10 16:18] LABS: Anion Gap 7 (5-15); BUN 14 mg/dL (7-18); BUN/Creat Ratio 10.8 RATIO (10-20); Calcium,Total 9.2 mg/dL (8.5-10.1); Chloride 107 mmol/L (98-107); EST Glomerular Filtration Rate 61 mL/min (>60); Est Glom Filt Rate - Afr Amer 73 mL/min (>60); Glucose 92 mg/dL (74-106); Sodium Level 138 mmol/L (136-145)
[2024-07-16] VITALS (17 sets, daily range): BP systolic 96–155; BP diastolic 60–92; PULSE 68–99; RESP 12–18; TEMP 36.2–37.4; O2SAT 96–100; BMI 22.7
--- NOTE | 2024-07-16 08:45 | PCM.PRE.AN2 ---
ASA Classification* ASA Classification ASA Classification: 3 Assessment & Plan Anesthesia* Anesthesia Assessment Anesthesia Assessment: Discussed sedation and/or anesthesia options, risks, benefits, and alternatives with patient/parents/legal guardian/POA. Questions invited. The patient/parents/legal guardian/POA seems to understand and agrees to proceed with anesthesia plan. Reviewed the physical assessment, medical history, allergy history and patient home medications list prior to surgery/procedure/anesthetic and documented any changes. Performed airway and anesthesia risk assessments. Anesthesia Type Anesthesia Type: General History Source History Obtained from:: Patient and Chart Anesthesia Focused Assessment* Oxygen Delivery Method: Room Air Airway Assessment Mouth opens: >3 cm Mallampati Score: II Teeth Condition: Intact Neck Range of motion (ROM): Full ROM Focused Labs Anesthesia Preop lab: CBC WBC 14.5 K/mm3 (4.4-11.0) H 07/17/24 06:07/17/24 RBC 3.54 M/mm3 (4.6-6.2) L 07/17/24 06:07/17/24 Hgb 10.6 g/dL (13.0-16.5) L 07/17/24 06:28 07/17/24 Hct 30.2 % (40-54) L 07/17/24 06:07/17/24 Plt Count 159 K/mm3 (150-450) 07/17/24 06:28 07/17/24 CHEMISTRY Potassium 3.6 mmol/L (3.5-5.1) 07/17/24 06:28 07/17/24 Sodium 137 mmol/L (136-145) 07/17/24 06:28 07/17/24 Magnesium 1.9 mg/dL (1.6-2.6) 10/02/23 05:15 10/02/23 Phosphorus 2.4 mg/dL (2.5-4.9) L 10/02/23 05:15 10/02/23 BUN 17 mg/dL (7-18) 07/17/24 06:28 07/17/24 Creatinine 0.96 mg/dL (0.70-1.30) 07/17/24 06:07/17/24 Glucose 122 mg/dL (74-106) H 07/17/24 06:07/17/24 POC Glucose 143 mg/dL (70-110) H 08/13/20 10:40 08/13/20 TSH 2.48 uIU/mL (0.358-3.74) 10/16/23 18:30 10/16/23 COAG PT 14.1 SECONDS (11.7-14.9) 07/16/24 20:01 07/16/24 Pre-Assessment Diagnosis/Proposed Procedure Planned Operative Procedure(s): (B) Bilateral Femoral Endarterectomy, Bilateral Iliac Stents, Bilateral Sartorius Flaps Anesthesia History 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 When Was Last Pacemaker Check QUESTION #4 FULL TEXT: You/Your Family Experience fever (hyperthermia) with Anesthesia Last Oral Intake Last Oral intake: Last Oral Intake NPO since Meds taken in AM with sips of water? Meds patient instructed to take am of surgery PONV PONV - bonding machine setter: PONV - bonding machine setter Female No 07/05/24 13:13 HX of Motion Sickness No 07/05/24 13:13 HX of N/V After Surgery No 07/05/24 13:13 Non-Smoker No 07/05/24 13:13 Duration of Surgery greater Yes 07/05/24 13:13 than 60 minutes Number of Risk Factors 1 07/05/24 13:13 PONV Score Low Risk 07/05/24 13:13 Height & Weight Height & Weight: Anesthesia: Height & Weight Height 6 ft 07/02/24 11:30 Respiratory Assessment Respiratory Assessment - bonding machine setter: Respiratory Tract Infection Hx - bonding machine setter Hx Respiratory Tract Infection No 07/05/24 13:13 STOP Sleep Apnea STOP Sleep Apnea - bonding machine setter: STOP Sleep Apnea - bonding machine setter Hx Hypertension Yes: CONTROLLED WITH MED 07/05/24 13:13 Hx Sleep Apnea No 07/05/24 13:13 CPAP No 06/14/24 09:56 BIPAP Do you snore loudly (louder No 07/05/24 13:13 than talking or can be heard Do you often feel tired/ No 07/05/24 13:13 fatigued/ sleepy during daytime? Has anyone observed you stop No 07/05/24 13:13 breathing during sleep? STOP Results Negative 07/05/24 13:13 QUESTION #5 FULL TEXT : Do you snore loudly (louder than talking or can be heard through closed doors)? Tobacco Use History Tobacco Use History - bonding machine setter: Tobacco Use History - bonding machine setter Tobacco Use Cigarettes 06/14/24 09:56 Smoking Status Heavy Smoker (>10/day) 07/05/24 13:13 Hx Tobacco Use Yes 07/05/24 13:13 Years Smoking Packs Smoked per Day 1 07/05/24 13:13 Smoking Cessation Date was within the last 15 years Hx Smoking Cessation Date Hx Smoking Cessation Counseling Hematologic Medial History Hematologic Hx - bonding machine setter: Hematologic Medical Hx - contact lens blocker Hx of Blood Transfusion No 07/05/24 13:13 Hx of Transfusion in last 3 No 07/05/24 13:13 Months Date of Last Transfusion (if within last 3 months) Ever experience any problems No 07/05/24 13:13 with transfusion(s)? Specify any problems Hx of Preganancy in last 3 N/A 07/05/24 13:13 Months Nurse Filling Out Transfusion NBUCHER 07/05/24 13:13 & Questions: Date: 07/05/24 07/05/24 13:13 Time: 13:14 07/05/24 13:13 Patient unable to answer at this time (ie. confused, unrespo /Reproduction History /Reproductive History - bonding machine setter: /Reproductive Hx- bonding machine setter Hx Now No 07/05/24 13:13 Gestational Age (in weeks): EDC: Hx Hx Para Hx Section SAB No 07/05/24 13:13 Active Medications Active Medications: Current Medications Generic Name Dose Route Start Last Admin Trade Name Freq PRN Reason Stop Dose Admin Cefazolin Sodium 2 gm/ N/A 20 mls @ 400 mls/hr 07/16/24 10:00 IV 07/16/24 10:02 PREOP ONE Sodium Chloride 1,000 mls @ 15 mls/hr 07/16/24 08:45 IV 07/21/24 22:04 .Q48H MARQUIS Protocol Sodium Chloride 1,000 mls @ 1 mls/hr 07/16/24 08:41 IV .Q48H PRN Saline Flush PFSH Medical History Wears glasses High cholesterol COPD (chronic obstructive pulmonary disease) Shortness of breath on exertion History of echocardiogram History of heart attack (~09/2023) Cardiology follow-up encounter Hypertension Heart attack Peripheral arterial disease Psoriasis Smoking greater than 20 pack years Asthma-COPD overlap syndrome Anxiety Smoker Erectile dysfunction Hypertension COPD (chronic obstructive pulmonary disease) Home Medications ?Medication ?Instructions ?Recorded ?Last Taken ?Type escitalopram oxalate 10 mg tablet 10 mg PO DAILY anxiety 04/01/19 06/12/19 History hydroxyzine pamoate 25 mg capsule 25 mg PO BID PRN Anxiety 11/30/20 Unknown History atorvastatin 80 mg tablet 80 mg PO DAILY HLD #90 tabs 08/23/23 Unknown Rx aspirin 81 mg tablet,delayed 81 mg PO [facility]FA[facility] 90 10/03/23 Unknown Rx release days #90 tabs cetirizine 10 mg capsule 10 mg PO HS SEASONAL ALLERIES #90 10/17/23 Unknown Rx caps montelukast 10 mg tablet 10 mg PO QPM COPD #90 tabs 10/17/23 Unknown Rx carvedilol 6.25 mg tablet 6.25 mg PO BID HEART 90 days #180 01/25/24 07/15/24 Rx tabs lisinopril 10 mg tablet 10 mg PO DAILY HTN 90 days #90 tabs 01/25/24 07/15/24 Rx spironolactone 25 mg tablet 25 mg PO DAILY HTN 90 days #90 tabs 01/25/24 Unknown Rx fluticasone fur. 200 mcg-umeclid 1 inh inhalation DAILY COPD #3 ea 04/10/24 Unknown Rx 62.5 mcg-vilant 25 mcg inhalat.powder (Trelegy Ellipta) albuterol sulfate 2.5 mg/3 mL 2.5 mg (3 mL) inhalation Q4H PRN 05/22/24 Unknown Rx (0.083 %) solution for nebulization PRN Sob &/Or Wheezing #180 mL albuterol sulfate 90 mcg/actuation 2 puff inhalation Q6H PRN 05/22/24 Unknown Rx aerosol inhaler shortness of breath or wheezing #18 grams clopidogrel 75 mg tablet 75 mg PO DAILY 90 days #90 tabs 07/17/24 Unknown Rx oxycodone 5 mg tablet 5 mg PO Q8H PRN PRN Pain Score 07/17/24 Unknown Rx 4-10 5 days #15 tabs Allergy/AdvReac Type Severity Reaction Status Date / Time No Known Allergies Allergy Verified 07/16/24 08:52 Family History Other Asthma Surgical History History of cardiac catheterization (~09/2023) H/O knee surgery H/O total hip arthroplasty Social History household members: spouse Smoking Status: Heavy Smoker (>10/day) Tobacco: How many years used: 30 Smokeless tobacco user: other alcohol intake: former substance use type: does not use caffeine: Yes Review of Systems (Anesthesia) ROS Narrative System reviewed and no additional complaints, except as documented.
[2024-07-16] MEDS: 0.9% Normal Saline (1000mL) 1,000 ML 15 ML IV (09:19)
--- NOTE | 2024-07-16 09:34 | PCM.HP.STD ---
HPI - General General Date of Admission: 07/16/24 HPI Narrative JAX ROGERS, is a 58 M who presents with bilateral claudication that is lifestyle limiting and refractory to structured exercise and pletal. CTA revealed bilateral iliac and common femoral disease. He presents for revascularization. [facility] Medical History Wears glasses High cholesterol COPD (chronic obstructive pulmonary disease) Shortness of breath on exertion History of echocardiogram History of heart attack (~09/2023) Cardiology follow-up encounter Hypertension Heart attack Peripheral arterial disease Psoriasis Smoking greater than 20 pack years Asthma-COPD overlap syndrome Anxiety Smoker Erectile dysfunction Hypertension COPD (chronic obstructive pulmonary disease) Home Medications ?Medication ?Instructions ?Recorded ?Last Taken ?Type escitalopram oxalate 10 mg tablet 10 mg PO DAILY anxiety 04/01/19 06/12/19 History hydroxyzine pamoate 25 mg capsule 25 mg PO BID PRN Anxiety 11/30/20 Unknown History atorvastatin 80 mg tablet 80 mg PO DAILY HLD #90 tabs 08/23/23 Unknown Rx aspirin 81 mg tablet,delayed 81 mg PO [facility] 90 10/03/23 Unknown Rx release days #90 tabs cetirizine 10 mg capsule 10 mg PO HS SEASONAL ALLERIES #90 10/17/23 Unknown Rx caps montelukast 10 mg tablet 10 mg PO QPM COPD #90 tabs 10/17/23 Unknown Rx carvedilol 6.25 mg tablet 6.25 mg PO BID HEART 90 days #180 01/25/24 07/15/24 Rx tabs lisinopril 10 mg tablet 10 mg PO DAILY HTN 90 days #90 tabs 01/25/24 07/15/24 Rx spironolactone 25 mg tablet 25 mg PO DAILY HTN 90 days #90 tabs 01/25/24 Unknown Rx fluticasone fur. 200 mcg-umeclid 1 inh inhalation DAILY COPD #3 ea 04/10/24 Unknown Rx 62.5 mcg-vilant 25 mcg inhalat.powder (Trelegy Ellipta) albuterol sulfate 2.5 mg/3 mL 2.5 mg (3 mL) inhalation Q4H PRN 05/22/24 Unknown Rx (0.083 %) solution for nebulization PRN Sob &/Or Wheezing #180 mL albuterol sulfate 90 mcg/actuation 2 puff inhalation Q6H PRN 05/22/24 Unknown Rx aerosol inhaler shortness of breath or wheezing #18 grams Allergy/AdvReac Type Severity Reaction Status Date / Time No Known Allergies Allergy Verified 07/16/24 08:52 Family History Other Asthma Surgical History History of cardiac catheterization (~09/2023) H/O knee surgery H/O total hip arthroplasty Social History household members: spouse Smoking Status: Heavy Smoker (>10/day) Tobacco: How many years used: 30 Smokeless tobacco user: other alcohol intake: former substance use type: does not use caffeine: Yes ROS Constitutional Constitutional: Denies chills, fever(s), frequent falls, lethargy or weakness Eyes Eyes: Denies blind spots, change in vision or loss of vision ENT HEENT: Denies bleeding gums, hoarseness or sore throat Cardiovascular Cardiovascular: Denies abdominal pain, bluish discoloration of hand/feet, chest pain with activity, claudication, cold extremities, cyanosis, dyspnea on exertion, erythema on extremities, irregular heart rhythm, leg edema, leg ulcers, numbness in extremities or weakness in extremities Respiratory/Chest Respiratory/Chest: Denies cough, excessive phlegm production, shortness of breath at rest, shortness of breath with exertion or wheezing Gastrointestinal Gastrointestinal: Denies anorexia, change in stool character, constipation, diarrhea, melena or rectal bleeding Genitourinary Genitourinary: Denies dysuria or hematuria Musculoskeletal Musculoskeletal: Denies abnormal gait Integumentary Integumentary: Reports other Details: ; Denies erythema, non-healing lesions or wounds Neurologic Neurologic: Denies abnormal speech, focal weakness, headache(s), loss of vision, numbness, paresthesias or sensory deficit Hematologic/Lymphatic Hematologic/Lymphatic: Denies easy bleeding, easy bruising or lymphadenopathy Vital Signs Vital Signs Vital Signs: 07/16/24 08:57 07/16/24 08:57 Temperature 97.4 F L Temperature Source Temporal Pulse Rate 90 Respiratory Rate 16 Respiratory Pattern Normal Blood Pressure 115/81 H Blood Pressure Mean 92 Blood Pressure Source Monitor Blood Pressure Position Sitting Blood Pressure Location Left Arm Pulse Ox 100 Oxygen Delivery Method Room Air Weight Weight: 167 lb 8.821 oz Body Mass Index (BMI) 22.7 Physical Exam Const alert, oriented x3, no apparent distress and healthy appearing General Appearance: cooperative; Negative for combative or lethargic Orientation / Consciousness: awake Exam Limitations: no limitations HEENT Head and Scalp: normocephalic and atraumatic Eyes EOMs intact bilaterally General Eye: normal appearance of both eyes Neck full ROM General: trachea midline Resp normal respiratory effort and no use of accessory muscles Effort and Inspection: Negative for labored, stridor or audible wheezes Cardio regular rate and regular rhythm Back/Spine Cervical Spine: cervical ROM normal Extremity full ROM, normal capillary refill and no clubbing, cyanosis or edema Skin no rashes or lesions noted and no wounds Neuro oriented x3, CN's II-XII intact bilaterally, no focal motor deficits and no sensory deficits noted Psych thought process normal, cooperative, affect normal, speech normal and activity/motor behavior normal Results Lab / Micro Data 07/10/24 15:03 07/10/24 15:03 Labs: Laboratory Results - last 24 hr 07/16/24 09:05: Crossmatch See Detail Assessment & Plan Assessment/Plan (1) Atherosclerosis of [place] arteries of extremities with intermittent claudication, bilateral legs: PLAN: -plan bilateral femoral endart, bilateral iliac stents, bilateral sartorius flaps
--- NOTE | 2024-07-16 09:36 | PCM.PRE.AN2 ---
ASA Classification* ASA Classification ASA Classification: 4 Assessment & Plan Anesthesia* Anesthesia Assessment Anesthesia Assessment: Discussed sedation and/or anesthesia options, risks, benefits, and alternatives with patient/parents/legal guardian/POA. Questions invited. The patient/parents/legal guardian/POA seems to understand and agrees to proceed with anesthesia plan. Reviewed the physical assessment, medical history, allergy history and patient home medications list prior to surgery/procedure/anesthetic and documented any changes. Performed airway and anesthesia risk assessments. Anesthesia Type Anesthesia Type: General and MAC History Source History Obtained from:: Patient and Chart Anesthesia Focused Assessment* Temperature: 97.4 F Pulse Rate: 90 Blood Pressure: 115/81 Respiratory Rate: 16 Pulse Ox: 100 Airway Assessment Mouth opens: >3 cm Mallampati Score: II Teeth Condition: Dentures (Edentulous) Neck Range of motion (ROM): Full ROM Focused Labs Anesthesia Preop lab: CBC WBC 9.5 K/mm3 (4.4-11.0) 07/10/24 15:03 RBC 4.60 M/mm3 (4.6-6.2) 07/10/24 15:03 Hgb 13.4 g/dL (13.0-16.5) 07/10/24 15:03 Hct 40.4 % (40-54) 07/10/24 15:03 Plt Count 184 K/mm3 (150-450) 07/10/24 15:03 CHEMISTRY Potassium 4.0 mmol/L (3.5-5.1) 07/10/24 15:03 Sodium 138 mmol/L (136-145) 07/10/24 15:03 Magnesium 1.9 mg/dL (1.6-2.6) 10/02/23 05:15 Phosphorus 2.4 mg/dL (2.5-4.9) L 10/02/23 05:15 BUN 14 mg/dL (7-18) 07/10/24 15:03 Creatinine 1.30 mg/dL (0.70-1.30) 07/10/24 15:03 Glucose 92 mg/dL (74-106) 07/10/24 15:03 POC Glucose 143 mg/dL (70-110) H 08/13/20 10:40 TSH 2.48 uIU/mL (0.358-3.74) 10/16/23 18:30 COAG PT 13.3 SECONDS (11.7-14.9) 10/01/23 00:37 Pre-Assessment Diagnosis/Proposed Procedure Planned Operative Procedure(s): (B) Bilateral Femoral Endarterectomy, Bilateral Iliac Stents, Bilateral Sartorius Flaps Anesthesia History 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 When Was Last Pacemaker Check QUESTION #4 FULL TEXT: You/Your Family Experience fever (hyperthermia) with Anesthesia Last Oral Intake Last Oral intake: Last Oral Intake NPO since 23:30 07/16/24 08:57 Meds taken in AM with sips of No 07/16/24 08:57 water? Meds patient instructed to take am of surgery PONV PONV - audio visual arts director: PONV - audio visual arts director Female No 07/05/24 13:13 HX of Motion Sickness No 07/05/24 13:13 HX of N/V After Surgery No 07/05/24 13:13 Non-Smoker No 07/05/24 13:13 Duration of Surgery greater Yes 07/05/24 13:13 than 60 minutes Number of Risk Factors 1 07/05/24 13:13 PONV Score Low Risk 07/05/24 13:13 Height & Weight Height & Weight: Anesthesia: Height & Weight Height 6 ft 07/16/24 08:57 Weight: 76 kg 07/16/24 08:57 Body Mass Index (BMI) 22.7 07/16/24 08:57 Respiratory Assessment Respiratory Assessment - audio visual arts director: Respiratory Tract Infection Hx - audio visual arts director Hx Respiratory Tract Infection No 07/05/24 13:13 STOP Sleep Apnea STOP Sleep Apnea - audio visual arts director: STOP Sleep Apnea - audio visual arts director Hx Hypertension Yes: CONTROLLED WITH MED 07/05/24 13:13 Hx Sleep Apnea No 07/05/24 13:13 CPAP No 06/14/24 09:56 BIPAP Do you snore loudly (louder No 07/05/24 13:13 than talking or can be heard Do you often feel tired/ No 07/05/24 13:13 fatigued/ sleepy during daytime? Has anyone observed you stop No 07/05/24 13:13 breathing during sleep? STOP Results Negative 07/05/24 13:13 QUESTION #5 FULL TEXT : Do you snore loudly (louder than talking or can be heard through closed doors)? 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 Specify any problems Hx of Preganancy in last 3 N/A 07/05/24 13:13 Months Nurse Filling Out Transfusion NBUCHER 07/05/24 13:13 & Questions: Date: 07/05/24 07/05/24 13:13 Time: 13:14 07/05/24 13:13 Patient unable to answer at this time (ie. confused, unrespo /Reproduction History /Reproductive History - audio visual arts director: /Reproductive Hx- audio visual arts director Hx Now No 07/05/24 13:13 Gestational Age (in weeks): EDC: Hx Hx Para Hx Section SAB No 07/05/24 13:13 Active Medications Active Medications: Current Medications Generic Name Dose Route Start Last Admin Trade Name Freq PRN Reason Stop Dose Admin Cefazolin Sodium 2 gm/ N/A 20 mls @ 400 mls/hr 07/16/24 10:00 IV 07/16/24 10:02 PREOP ONE Sodium Chloride 1,000 mls @ 15 mls/hr 07/16/24 08:45 07/16/24 09:19 IV 07/21/24 22:04 15 mls/hr .Q48H MARQUIS Administration Protocol Sodium Chloride 1,000 mls @ 1 mls/hr 07/16/24 08:41 IV .Q48H PRN Saline Flush PFSH Medical History Wears glasses High cholesterol COPD (chronic obstructive pulmonary disease) Shortness of breath on exertion History of echocardiogram History of heart attack (~09/2023) Cardiology follow-up encounter Hypertension Heart attack Peripheral arterial disease Psoriasis Smoking greater than 20 pack years Asthma-COPD overlap syndrome Anxiety Smoker Erectile dysfunction Hypertension COPD (chronic obstructive pulmonary disease) Home Medications ?Medication ?Instructions ?Recorded ?Last Taken ?Type escitalopram oxalate 10 mg tablet 10 mg PO DAILY anxiety 04/01/19 06/12/19 History hydroxyzine pamoate 25 mg capsule 25 mg PO BID PRN Anxiety 11/30/20 Unknown History atorvastatin 80 mg tablet 80 mg PO DAILY HLD #90 tabs 08/23/23 Unknown Rx aspirin 81 mg tablet,delayed 81 mg PO [facility] 90 10/03/23 Unknown Rx release days #90 tabs cetirizine 10 mg capsule 10 mg PO HS SEASONAL ALLERIES #90 10/17/23 Unknown Rx caps montelukast 10 mg tablet 10 mg PO QPM COPD #90 tabs 10/17/23 Unknown Rx carvedilol 6.25 mg tablet 6.25 mg PO BID HEART 90 days #180 01/25/24 07/15/24 Rx tabs lisinopril 10 mg tablet 10 mg PO DAILY HTN 90 days #90 tabs 01/25/24 07/15/24 Rx spironolactone 25 mg tablet 25 mg PO DAILY HTN 90 days #90 tabs 01/25/24 Unknown Rx fluticasone fur. 200 mcg-umeclid 1 inh inhalation DAILY COPD #3 ea 04/10/24 Unknown Rx 62.5 mcg-vilant 25 mcg inhalat.powder (Trelegy Ellipta) albuterol sulfate 2.5 mg/3 mL 2.5 mg (3 mL) inhalation Q4H PRN 05/22/24 Unknown Rx (0.083 %) solution for nebulization PRN Sob &/Or Wheezing #180 mL albuterol sulfate 90 mcg/actuation 2 puff inhalation Q6H PRN 05/22/24 Unknown Rx aerosol inhaler shortness of breath or wheezing #18 grams Allergy/AdvReac Type Severity Reaction Status Date / Time No Known Allergies Allergy Verified 07/16/24 08:52 Family History Other Asthma Surgical History History of cardiac catheterization (~09/2023) H/O knee surgery H/O total hip arthroplasty Social History household members: spouse Smoking Status: Heavy Smoker (>10/day) Tobacco: How many years used: 30 Smokeless tobacco user: other alcohol intake: former substance use type: does not use caffeine: Yes Review of Systems (Anesthesia) ROS Narrative System reviewed and no additional complaints, except as documented.
--- NOTE | 2024-07-16 10:00 | PLAQ_PTH ---
PATIENT: JAX ROGERS Jr. LOC: ICU U#:[id number] AGE/SX: 58/M ROOM: [place] [address] RE07/16/[address]: Dr. Krish Carter MD : [id number] BED: 1 DIS: 07/17/2024 SPEC #: [id number] RECD: 07/16/24 18:07 STATUS: ABDULLAHI REQ #: [id number] RODRIGO: 07/16/24 10:[address]: Krish Carter DEPT: SURGICAL PATHOLOGY RECD BY: Tasneem David ENTERED: 07/17/24 09:46 SP TYPE: PLAQUE OTHR DR: Dr. Demario Sanz MD Tissues: PLAQUE Procedures: Decalcification bone/plaque Surgery Specimen Level III HEADER OPERATION: Bilateral femoral endarterectomy, bilateral iliac stents PRE-OP DIAGNOSIS: Atherosclerosis of [place] arteries of extremities with intermittent claudication, bilateral legs TISSUE SUBMITTED: Plaque from left and right femoral arteries *stitch in plaque from right side* MICROSCOPIC DIAGNOSIS Plaque from right femoral artery, endarterectomy: Atherosclerotic tissue with moderate calcifications (plaque). Plaque from left femoral artery, endarterectomy: Atherosclerotic tissue with moderate to marked calcifications, chronic inflammation and organization (plaque). 07/20/2024 GROSS DESCRIPTION Received in fixative is one container labeled with the patient's name and designated Plaque from left and right femoral arteries. The specimen consists of a land indurated piece of land-yellow indurated piece of tissue measuring 2.5 x 1.5 x 0.2cm. The specimen is oriented as follows: stitch in plaque from right side. The specimen from left side consists of a tubular piece of land indurated tissue measuring 4cm in length and 1cm in diameter. Lumen from the left side specimen is almost completely blocked. Both specimens cut with gritty sensation. Inside Sales Recruiter sections are submitted in two cassettes as follows: 1- specimen from right side, entirely submitted, 2- specimen from left side after decalcification. 07/17/2024 TC:5 CPT:[id number]
[2024-07-16] MEDS: Cefazolin 2 GM in Syringe IV (10:05)
[2024-07-16] MEDS: Heparin 10,000 UNITS/10 ML Vial 10000 UNITS (12:46)
--- NOTE | 2024-07-16 13:30 | RAD_ITS ---
PROCEDURE: Fluoroscopic guided bilateral iliac stent insertion DATE OF EXAMINATION: July 16, 2024 INDICATION: Male, 58 years old. Peripheral arterial disease FLUOROSCOPY TIME (if supplied): (830 seconds) minutes/seconds RADIATION DOSAGE (If Supplied By Facility): CTDIvol = ( ) mGy, DLP = ( 267.94 ) mGycm . PROCEDURE/TECHNIQUE: (All elements of maximal sterile barrier technique followed, including US elements as applicable) Utilizing fluoroscopic guidance bilateral iliac stents were inserted. Findings: 5 fluoroscopic guided images were obtained during the study to document findings during the exam. For more complete information recommend correlation with procedural notes RAD/Fluoroscopy 1 Hr or Less IMPRESSION: Fluoroscopic guided iliac stent insertions Electronically Signed: Nestor Denton MD at 17:06 EST ,
[2024-07-16] MEDS: Heparin Injection (Vial) 5,000 UNIT/ML VIAL 5000 UNIT (14:45)
--- NOTE | 2024-07-16 16:59 | PCM.POST.ANE ---
Anesthesia: Postop Eval I Current Vital Signs Temperature: 97.3 F Pulse Rate: 89 Blood Pressure: 155/88 Respiratory Rate: 16 Pulse Ox: 100 Oxygen Delivery Method: Room Air Assessment Airway patent: Yes Spontaneous unlabored respirations: Yes Mental status: Awake and Calm nausea: No Vomiting: No Anesthesia Complication: No Fluid Hydration Crystalloid volume administer (ml): 1,600 Total IV fluid infused: 1,600 Progress Note Post-operative progress note: Satisfactory Anesthesia document: Postop Eval 1 completed: Yes
--- NOTE | 2024-07-16 17:20 | PCM.OPRPT ---
Operative Report (Standard) Operative Information Date of Procedure: 07/16/24 Pre-Operative Diagnosis: Atherosclerosis with claudication of bilateral lower extremities Post-Operative Diagnosis: Same Surgery/Procedure Performed: Bilateral common femoral endarterectomies Intravascular ultrasound aorta, right common and external iliac arteries, left common and external iliac arteries Left external iliac artery stent Right common and external iliac artery stent Bilateral sartorius flaps personnel clerks supervisor: Yes Mainframe Software Developer: Isabela Hong Tasks completed by rn first assist: Opening, Closing, Opening & closing, Hemostasis: Tie and Retracting Type of Anesthesia: General RN Documented Start/Stop Times: Operation Date: 07/16/24 10:00 Case Time Into Pre-Op 07/16/24 08:40 Out of Pre-Op 07/16/24 09:45 Anesthesia Start 07/16/24 09:54 Into Room 07/16/24 09:54 Procedure Start 07/16/24 10:38 Procedure End 07/16/24 17:07 Anesthesia End 07/16/24 17:13 Out of Room 07/16/24 17:13 Into Recovery Procedure Start Time: 10:40 Procedure Stop Time: 17:00 Select all DRAINS/GRAFTS/IMPLANTS that apply: Implanted device Implanted device details: Right common iliac: Bard Lifestream 8 x 37 Right external iliac: Cook Zilver PTX 8 x 80, 8 x 60 Left external iliac: Cook Zilver PTX 7 x 60, 8 x 60 Estimated Blood Loss: 250 Specimen collected: Yes Description of specimen(s) removed: Bilateral femoral plaque and thrombus Description of surgery: HPI: Patient is a 58-year-old male with lifestyle limiting claudication of the bilateral extremities which has been refractory to exercise and medical management. 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 This also revealed ulcerated greater than 75% stenosis or focal dissection of the right common femoral artery with long segment moderate to severe stenosis of greater than 50% of the external iliac and a focal area of greater than send 50% stenosis of the right common iliac. He also was noted to have occluded internal iliac arteries bilaterally. He is taken now for endarterectomy with angioplasty and stenting of the iliac vessels as well as sartorius flaps bilateral. Description of procedure: Upon obtaining form consent and verification correct patient procedure site patient taken to the operating was placed in general anesthesia. He was then positioned prepped and draped in usual sterile fashion a time was performed. Oblique incision was made over the right common femoral artery and Bovie electrocautery was dissect down to the subcutaneous tissue. Self-retaining retractors then put in position and further dissection carried down to the femoral sheath. This was then incised vertically and sharp section was dissect free the common number artery proximally into the inguinal ligament we then freed along its inferior border allowing cephalad retraction. Further dissection is carried cephalad to the external leg artery 2 point which was soft and clamp overall in relatively free of plaque. A right angle was then used to place a vessel loop and attention turned distally to the bifurcation. Sharp dissection used dissect free onto the profunda and superficial femoral arteries which had only mild plaque at the origins. A right angle was used to place a vessel loop around each of these individually and we then turned our attention to the left femoral vessels. Oblique incision was made over the common femoral artery and Bovie left cautery was dissect down through the subcutaneous tissue and self-retaining retractors put in position. Further dissection was then carried down the femoral sheath which was incised vertically exposing the femoral vessels. Sharp dissection was then used to dissect free proximally up to the knee and the ligament which was then freed along the inferior border allowing cephalad retraction. Further dissection was carried proximally until the external iliac artery was soft and relatively free of plaque. Rodding was replaced vessel dislocation then turned attention distally onto the bifurcation. Sharp dissection was then used to dissect free distally on the superficial femoral and profundofemoral arteries which were soft and relatively free of plaque. A right angle was then used to place a vessel loop around each of these individually. The patient was in heparinized and allowed to circulate for 3 minutes with subsequent heparin dosing based on ACT results. The right common femoral artery and its bifurcation were then occluded with Vesseloops and longitudinal arteriotomy created with 11 blade extended with Beckford scissors. We then performed our endarterectomy with a freer elevator with satisfactory endpoint distally on the common femoral artery. The distal endpoint was then tacked with 7-0 Prolene erupted sutures in a bovine pericardial patch brought in the field. This was then secured in position using a 6-0 Prolene in a running fashion. Prior to playing suture line vessels are backbled and after completing the suture line clamps removed with satisfactory stasis noted. Next the left common femoral bifurcation were occluded with Vesseloops and longitudinal arteriotomy created with 11 blade extended with Beckford scissors. I was noted that the occlusion of the left common femoral artery was in fact a dissection flap that had thrombosed. Once were able to return to true lumen we extended our arteriotomy with Beckford scissors up to the external iliac artery beyond the area of plaque. We then performed endarterectomy with a freer elevator with satisfactory endpoint distally on the common carotid artery. Distal endpoint was intact with 7-0 Prolene sutures and a bovine pericardial patch brought in the field. This was then secured in position using a 6-0 Prolene running fashion. Prior to bleeding suture line vessels were backbled and when the Vesseloops were released satisfactory stasis was noted. Next using a micropuncture needle wire we accessed the distal patch of the right common femoral artery and exchanged for marker puncture sheath. Through this a Bentson wire was advanced into the abdominal aorta and the micropuncture sheath exchanged for a 7 [place] marker tip sheath. Next the left common femoral artery was accessed with a micropuncture needle wire and exchanged for micropuncture sheath. Through this hand-injection iliofemoral angiography was performed from satisfactory position and the location of the high-grade stenosis just above the tip of the sheath. Using an angled Glidewire we navigated into the lumen lateral to the plaque advancing into the abdominal aorta. The puncture sheath was then exchanged for a 7 [place] sheath which was advanced into position. The Bentson wire Glidewire then exchanged for a 018 wires and intravascular ultrasound probe advanced into the abdominal aorta and recorded pullback performed of the aorta, right common iliac artery, external iliac artery. The ultrasound probe was then withdrawn and advanced via the left femoral access sheath performed to the aorta, left common iliac artery, left external carotid. This confirmed position within true lumen throughout send of lesions needed to be covered as well as reference vessel sizes. The left external iliac artery was predilated with a 6 x 80 angioplasty balloon followed by a 7 mm Cook Zilver PTX self-expanding stent distally followed by a second overlapping 8 mm more proximal. Completion angiography revealed satisfactory stent expansion with full origin of the lesions with no extravasation or dissection. Next the right common iliac artery was treated with a 8 mm Bard Lifestream self-expanding stent advanced into position and inflated to nominal and then withdrawn. The external iliac artery was then treated with a pair of Cook Zilver PTX 8 mm stents. The stented segment was then postdilated with a 7 mm x 80 angioplasty balloon. Completion angiography revealed satisfactory result with no extravasation or dissection. The distal stented segment and plaque just beyond were then reangioplasty with a 7 mm angioplasty balloon with satisfactory result. Wires and sheath were then withdrawn and the arteriotomy repaired with 5-0 Prolene pursestring sutures. Heparin was then reversed with protamine the incision was further inspected for hemostasis. Next the sartorius muscles were mobilized the lateral border up to the insertion and the ASIS and then taken down with Bovie electrocautery femoral vessels and they were secured in position using 2-0 Vicryl. Then closed with 3-0 Vicryl followed by 4 Monocryl and Dermabond. The patient was then taken the recovery room with anticipated admission to the intensive care unit for hemodynamic and vascular monitoring. Surgical Findings: See above Complications Complications: No
[2024-07-16] MEDS: Clopidogrel Bisulfate 300 MG Tablet PO (17:40)
--- NOTE | 2024-07-16 17:45 | POSTOPAN2_ITS ---
Anesthesia Postop Eval I Sum Postop Eval Completion status Anesthesia document: Postop Eval 1 completed: Yes Anesthesia Postop Eval I Summary Anesthesia Postop Eval I Summary: Anesthesia Postop Eval I: Assessment Summary Airway patent Yes 07/16/24 17:26 LINE CAMERA [email or web address] Spontaneous unlabored Yes 07/16/24 17:26 LINE CAMERA OPERATOR.[email or web address] respirations Mental status Awake,Calm 07/16/24 17:26 LINE CAMERA OPERATOR.[email or web address] nausea No 07/16/24 17:26 LINE CAMERA OPERATOR.[email or web address] Vomiting No 07/16/24 17:26 LINE CAMERA [email or web address].[email or web address] Anesthesia Postop Eval I: Fluid Summary Crystalloid volume administer 1,600 07/16/24 17:26 LINE CAMERA [email or web address] (ml) Colloids volume administered ( ml) Blood Product volume administered (ml) Total IV fluid infused 1,600 07/16/24 17:26 LINE CAMERA [email or web address].HBARR Anesthesia Postop Eval I: Summary Notes Anesthesia Complication No 07/16/24 17:26 LINE CAMERA [email or web address].HBARR Anesthesia Complication Comment: Post-operative progress note Satisfactory 07/16/24 17:26 LINE CAMERA [email or web address].[email or web address] Anesthesia: Postop Eval II Evaluation Mental status: Awake and Calm Pain Level: 1 nausea: No Vomiting: No Complications Anesthesia Complication: No
--- NOTE | 2024-07-16 17:45 | PCM.POSTANE2 ---
Anesthesia Postop Eval I Sum Postop Eval Completion status Anesthesia document: Postop Eval 1 completed: Yes Anesthesia Postop Eval I Summary Anesthesia Postop Eval I Summary: Anesthesia Postop Eval I: Assessment Summary Airway patent Yes 07/16/24 17:26 COMMODITIES REQUIREMENTS [email or web address] Spontaneous unlabored Yes 07/16/24 17:26 COMMODITIES REQUIREMENTS ANALYST.[email or web address] respirations Mental status Awake,Calm 07/16/24 17:26 COMMODITIES REQUIREMENTS ANALYST.HBARR nausea No 07/16/24 17:26 COMMODITIES REQUIREMENTS ANALYST.[email or web address] Vomiting No 07/16/24 17:26 COMMODITIES REQUIREMENTS [email or web address] Anesthesia Postop Eval I: Fluid Summary Crystalloid volume administer 1,600 07/16/24 17:26 COMMODITIES REQUIREMENTS ANALYST.HBARR (ml) Colloids volume administered ( ml) Blood Product volume administered (ml) Total IV fluid infused 1,600 07/16/24 17:26 COMMODITIES REQUIREMENTS [email or web address] Anesthesia Postop Eval I: Summary Notes Anesthesia Complication No 07/16/24 17:26 COMMODITIES REQUIREMENTS ANALYST.[email or web address] Anesthesia Complication Comment: Post-operative progress note Satisfactory 07/16/24 17:26 COMMODITIES REQUIREMENTS ANALYST.[email or web address] Anesthesia: Postop Eval II Evaluation Mental status: Awake and Calm Pain Level: 1 nausea: No Vomiting: No Complications Anesthesia Complication: No
[2024-07-16] MEDS: Cefazolin 1 GM/50 ML BAG IV (20:28)
[2024-07-16] MEDS: HEPARIN/D5w 25,000 UNITS 25,000 UNITS/250 ML IV.SOLN. 5 UNITS CONT INF (20:29)
[2024-07-16] MEDS: Loratadine 10 MG Tablet PO (20:34)
[2024-07-16] MEDS: 0.9% Saline Lock 10 ML Syringe IV (20:34)
[2024-07-16] MEDS: Montelukast 10 MG Tablet PO (20:35)
[2024-07-16] MEDS: Acetaminophen 500 MG Tablet 1000 MG PO (20:35)
[2024-07-16 20:46] LABS: International Normalized Ratio 1.1; Partial Thromboplast Time 30.3 Seconds (24.1-36.2); Prothrombin Time (Protime)PT. 14.1 SECONDS (11.7-14.9)
[2024-07-17] VITALS (18 sets, daily range): BP systolic 96–138; BP diastolic 69–86; PULSE 68–105; RESP 11–18; TEMP 36.5–36.9; O2SAT 95–100; BMI 23.4
[2024-07-17] MEDS: Cefazolin 1 GM/50 ML BAG IV (02:45)
[2024-07-17 03:03] LABS: Partial Thromboplast Time 37.7 Seconds (24.1-36.2)
[2024-07-17] MEDS: Acetaminophen 500 MG Tablet 1000 MG PO ×2 (06:29→13:14)
[2024-07-17 06:46] LABS: Absolute Lymphocyte Count 1.84 X10^3/uL (0.83-4.51); Absolute Neutrophil Count 11.4 X10^3/uL (2.0-7.7); Basophil# 0.02 X10^3/uL; Basophil% 0.1 % (0-1); Hematocrit 30.2 % (40-54); Hemoglobin 10.6 g/dL (13.0-16.5); Lymphocyte # 1.84 X10^3/ul (0.83-4.51); Lymphocyte % 12.7 % (19-41); Mean Corp Hgb Conc 35.1 g/dL (32-36); Mean Corpuscular Hgb 29.9 pg (27.0-32.0); Mean Corpuscular Volume 85.3 fL (80-94); Mean Platelet Vol. 9.7 fl (6.2-12.0); Monocyte# 1.19 X10^3/uL; Monocyte% 8.2 % (0-10); NRBC Flagged by Analyzer 0 % (0-5); Neutrophil # 11.35 X10^3/uL (2.7-7.7); Neutrophil % 78.5 % (47-70); Platelet Count 159 K/mm3 (150-450); RBC Distribution Width CV 12.6 % (11.6-14.6); RBC Distribution Width SD 39.3 fl (35.1-43.9); Red Blood Count 3.54 M/mm3 (4.6-6.2); White Blood Count 14.5 K/mm3 (4.4-11.0)
[2024-07-17] MEDS: Budesonide Respules 0.5 MG/2 ML AMPUL.NEB. INHALATION (06:50)
[2024-07-17] MEDS: Albuterol 2.5 MG/3 ML VIAL.NEB. INHALATION (06:50)
[2024-07-17 06:58] LABS: Anion Gap 9 (5-15); BUN 17 mg/dL (7-18); BUN/Creat Ratio 17.6 RATIO (10-20); Calcium,Total 8.5 mg/dL (8.5-10.1); Chloride 108 mmol/L (98-107); Creatinine, Serum 0.96 mg/dL (0.70-1.30); EST Glomerular Filtration Rate 86 mL/min (>60); Est Glom Filt Rate - Afr Amer 104 mL/min (>60); Estimated Creatinine Clearance 94.31 ml/min; Glucose 122 mg/dL (74-106); Potassium 3.6 mmol/L (3.5-5.1); Sodium Level 137 mmol/L (136-145)
[2024-07-17] MEDS: Lisinopril 10 MG Tablet PO (08:37)
[2024-07-17] MEDS: Escitalopram Oxalate 10 MG Tablet PO (08:37)
[2024-07-17] MEDS: Spironolactone 25 MG Tablet PO (08:37)
[2024-07-17] MEDS: Aspirin E.C. 81 MG Tablet PO (08:37)
[2024-07-17] MEDS: Atorvastatin Calcium 80 MG Tablet PO (08:38)
[2024-07-17] MEDS: Clopidogrel Bisulfate 75 MG Tablet PO (08:38)
[2024-07-17] MEDS: Carvedilol 6.25 MG Tablet PO (08:38)
--- NOTE | 2024-07-17 08:38 | PCM.PN.SRG ---
Subjective Subjective Saw patient resting comfortably in bed this morning. He reports minimal pain overall, just expected discomfort at the incision sites. He has not yet been out of bed. Still has only had clear liquids. Reports some burning with urination, but denies abdominal pain, feelings of frequency or hesitancy. Objective Data Objective Data Vital Signs: Vital Signs Temp Pulse Resp BP Pulse Ox O2 Del Method 98.5 F 83 17 118/69 98 Room Air 07/17/24 08:00 07/17/24 08:00 07/17/24 08:00 07/17/24 08:00 07/17/24 08:00 07/17/24 08:00 Oxygen Delivery Method Room Air Weight: 172 lb 13.478 oz Body Mass Index (BMI) 23.4 Intake & Output: Intake and Output for Last 24 Hours 07/15/24 07/16/24 07/17/24 23:59 23:59 23:59 Intake Total 1217 / 1217 50 / 50 Output Total 450 / 450 900 / 900 Balance 767 / 767 -850 / -850 Lab / Micro Data 07/17/24 06:28 07/17/24 06:28 Labs: Laboratory Results - last 24 hr 07/16/24 09:05: Blood Type A POSITIVE, Antibody Screen NEGATIVE, Crossmatch See Detail 07/16/24 20:01: PT 14.1, INR 1.1, APTT 30.3 07/17/24 02:39: APTT 37.7 H 07/17/24 06:28: WBC 14.5 H, RBC 3.54 L, Hgb 10.6 L, Hct 30.2 L, MCV 85.3, MCH 29.9, MCHC 35.1, RDW Std Deviation 39.3, RDW Coeff of Jazzmine 12.6, Plt Count 159, MPV 9.7, Immature Gran % (Auto) 0.500, Neut % (Auto) 78.5 H, Lymph % (Auto) 12.7 L, Dolores % (Auto) 8.2, Eos % (Auto) 0.0, Baso % (Auto) 0.1, Absolute Neuts (auto) 11.4 H, Absolute Lymphs (auto) 1.84, Nucleated RBC % 0, Sodium 137, Potassium 3.6, Chloride 108 H, Carbon Dioxide 20.0 L, Anion Gap 9, BUN 17, Creatinine 0.96, Estim Creat Clear Calc 94.31, Est GFR (MDRD) Af Amer 104, Est GFR (MDRD) Non-Af 86, BUN/Creatinine Ratio 17.6, Glucose 122 H, Calcium 8.5 Radiography Diagnostic Testing: Radiology Impression Fluoroscopy 07/16/24 13:30 IMPRESSION: Fluoroscopic guided iliac stent insertions Electronically Signed: Nestor Denton MD at 17:06 EST Reading Location ID and State: [facility] / [place] Tel , Service support , Physical Exam Const alert, oriented x3 and no apparent distress General Appearance: cooperative and comfortable HEENT normocephalic, head/scalp atraumatic, hearing grossly normal bilaterally, external ears normal and external nose normal Eyes General Eye: normal appearance of both eyes Neck General: normal visual inspection and trachea midline Resp normal respiratory effort, normal air movement, no retractions and no use of accessory muscles Effort and Inspection: able to speak in complete sentences; Negative for labored, grunting, stridor or audible wheezes Cardio regular rate and regular rhythm Extremity Extremity Narrative: Bilateral groin incision sites with prevena vac dressings C/D/I, maintaining good seal. Soft to palpation, no hematoma or drainage. 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 Bilateral incision sites are satisfactory in appearance with Prevena vac dressing in place. Vascular exam is satisfactory and improved from preop. Reassurance provided regarding burning with urination, likely secondary to quiros placed during surgery. Continue to monitor. D/c art line. Progress to normal diet as tolerated. Plan for ambulation with PT/OT. Possible discharge later today.
--- NOTE | 2024-07-17 10:28 | CASEMGMT ---
LUNA MILIAN Assessment Face to Face with patient for initial transition planning/care coordination assessment. LUNA MILIAN introduced self and role at [facility], pt voices understanding. Pt is A&Ox4 and is resting comfortably in the chair and is calm. Care providers, pharmacy, and demographics verified. Admitting dx: BL Femoral Endarterectomy LACE Strata: 2 PCP: Demario Sanz Specialists: Raul (Vascular), Marc Jordan (Pulm) Preferred Pharmacy: [facility] Insurance: [facility] Prescription Benefit: Yes LNOK: Kelsie (W) Living Arrangements: Pt lives with his in a single story home with 4 steps to enter ADLs/IADLs: Ind. 6-click is 24. Therapy is ordered and pending. Transportation: Self, DME: History of oxygen through [facility]. Pt reports that he has a concentrator, portable tanks, nebulizer, inhaler, and pulse ox. Per chart review, pt did not qualify for home oxygen during his last visit and is also 98% on Room air currently. HHC/SNF: Denies Hx or needs Pt?s goal: Home Plan: Home, anticipate no needs. Pt states that he feels safe returning home with his . Per ICU rounds and chart review, pt is projected to DC today vs tomorrow. Current 6-Click score is 24. Pt denies the need for HH, OP Tx, or CCN. Pt has BL Prevena vacs in place. Vascular reports that the pt will have these on for one week and will f/u in office for subsequent removal. Pt states that he has already received education on these and denies further questions or concerns at this time. Zhang Frank RN, CM
[2024-07-17] MEDS: Ipratropium/Albuterol Sulfate 3 ML AMPUL.NEB INHALATION (12:25)
--- NOTE | 2024-07-17 13:53 | DS.PCM_ITS ---
Providers Date of Admission: 07/16/24 Primary Care Physician: Dr. Demario Sanz MD Reason For Visit: Bilateral Femoral Endarterectomy, Bilateral Iliac Diagnosis Discharge Diagnosis (1) Atherosclerosis of [place] arteries of extremities with intermittent claudication, bilateral legs: Status: Chronic Code(s): I70.213 - Atherosclerosis of [place] arteries of extremities with intermittent claudication, bilateral legs Plan: He is s/p bilateral femoral endarterectomies with sartorius flaps, L external iliac artery stent, R common and external iliac artery stents 07/16/24. Bilateral incision sites are satisfactory in appearance with Prevena vac dressing in place. Vascular exam is satisfactory and improved from preop. Reassurance provided regarding burning with urination, likely secondary to quiros placed during surgery. Continue to monitor. D/c art line. Progress to normal diet as tolerated. Plan for ambulation with PT/OT. Possible discharge later today. Medications at Discharge Home Medications escitalopram oxalate 10 mg tablet 10 mg PO DAILY anxiety 04/01/19 hydroxyzine pamoate 25 mg capsule 25 mg PO BID PRN Anxiety 11/30/20 atorvastatin 80 mg tablet 80 mg PO DAILY HLD #90 tabs 08/23/23 aspirin 81 mg tablet,delayed release 81 mg PO BREAKFAST HEART HEALTH 90 days #90 tabs 10/03/23 cetirizine 10 mg capsule 10 mg PO HS SEASONAL ALLERIES #90 caps 10/17/23 montelukast 10 mg tablet 10 mg PO QPM COPD #90 tabs 10/17/23 carvedilol 6.25 mg tablet 6.25 mg PO BID HEART 90 days #180 tabs 01/25/24 lisinopril 10 mg tablet 10 mg PO DAILY HTN 90 days #90 tabs 01/25/24 spironolactone 25 mg tablet 25 mg PO DAILY HTN 90 days #90 tabs 01/25/24 fluticasone fur. 200 mcg-umeclid 62.5 mcg-vilant 25 mcg inhalat.powder (Trelegy Ellipta) 1 inh inhalation DAILY COPD #3 ea 04/10/24 albuterol sulfate 2.5 mg/3 mL (0.083 %) solution for nebulization 2.5 mg (3 mL) inhalation Q4H PRN PRN Sob &/Or Wheezing #180 mL 05/22/24 albuterol sulfate 90 mcg/actuation aerosol inhaler 2 puff inhalation Q6H PRN shortness of breath or wheezing #18 grams 05/22/24 clopidogrel 75 mg tablet 75 mg PO DAILY 90 days #90 tabs 07/17/24 oxycodone 5 mg tablet 5 mg PO Q8H PRN PRN Pain Score 4-10 5 days #15 tabs 07/17/24 Hospital Course Summary of Care Provided Hospital Course: Mr. Gregor Nunez underwent planned bilateral femoral endarterectomies with sartorius flaps, L external iliac artery stent, R common and external iliac artery stents 07/16/24. He tolerated the surgery well and was routinely admitted to ICU for ongoing hemodynamic monitoring postoperative. He has remained hemodynamically stable throughout his admission. He has had only expected postoperative pain which has been well controlled with tylenol. He tolerated a normal diet, was able to void without issue, and ambulated without difficulty. The bilateral groin incision sites were closed with skin glue and covered with Prevena vacuum dressings. He was instructed that these are to remain in place x 7 days postop if possible and was instructed how to remove these at home. He was discharged to home on 07/17/24 with scheduled outpatient follow-up. Physical Exam Const alert, oriented x3 and no apparent distress General Appearance: cooperative and comfortable HEENT normocephalic, head/scalp atraumatic, hearing grossly normal bilaterally, external ears normal and external nose normal Eyes General Eye: normal appearance of both eyes Neck General: normal visual inspection and trachea midline Resp normal respiratory effort, normal air movement, no retractions and no use of accessory muscles Effort and Inspection: able to speak in complete sentences; Negative for labored, grunting, stridor or audible wheezes Cardio regular rate and regular rhythm Extremity Extremity Narrative: Bilateral groin incision sites with prevena vac dressings C/D/I, maintaining good seal. Soft to palpation, no hematoma or drainage. L DP palpable, L PT multiphasic; R DP multiphasic, R PT monophasic Skin no rashes or lesions noted Neuro oriented x3, CN's II-XII intact bilaterally, moves all extremities and no focal motor deficits Speech: speech normal Psych mental status grossly normal Appearance: grossly normal Attitude: calm and engaged Activity / Motor Behavior: appropriate eye contact Speech: normal speech Mood & Affect: euthymic mood Judgement: judgement good Weight / BMI Weight Weight: 172 lb 13.478 oz Body Mass Index (BMI) 23.4 ABG / Lab / Microbiology Data 07/17/24 06:28 07/17/24 06:28 Laboratory: Laboratory Results - last 24 hr 07/16/24 20:01: PT 14.1, INR 1.1, APTT 30.3 07/17/24 02:39: APTT 37.7 H 07/17/24 06:28: WBC 14.5 H, RBC 3.54 L, Hgb 10.6 L, Hct 30.2 L, MCV 85.3, MCH 29.9, MCHC 35.1, RDW Std Deviation 39.3, RDW Coeff of [place] 12.6, Plt Count 159, MPV 9.7, Immature Gran % (Auto) 0.500, Neut % (Auto) 78.5 H, Lymph % (Auto) 12.7 L, [place] % (Auto) 8.2, Eos % (Auto) 0.0, Baso % (Auto) 0.1, Absolute Neuts (auto) 11.4 H, Absolute Lymphs (auto) 1.84, Nucleated RBC % 0, Sodium 137, Potassium 3.6, Chloride 108 H, Carbon Dioxide 20.0 L, Anion Gap 9, BUN 17, Creatinine 0.96, Estim Creat Clear Calc 94.31, Est GFR (MDRD) Af Amer 104, Est GFR (MDRD) Non-Af 86, BUN/Creatinine Ratio 17.6, Glucose 122 H, Calcium 8.5 Radiography Diagnostic Testing: Radiology Impression Fluoroscopy 07/16/24 13:30 IMPRESSION: Fluoroscopic guided iliac stent insertions Electronically Signed: Nestor Denton MD at 17:06 EST Reading Location ID and State: [address] [place] [address] Tel , Service support , D/C Instructions Discharge Diet: No restrictions May shower in (days): 1 Weight Bearing Status: Weight bearing as tolerated Lifting Restricted to (Lbs): 20 Lifting Restrictions: Do not lift greater than 20 pounds for 3 weeks Call your doctor if your incision/area has: Continuous Slow Oozing, Sudden Increased Bleeding, Increased Pain/ Swelling and Foul Smelling Discharge Call your doctor if you observe: Fever of 101 or Higher and Uncontrolled pain Remove Dressing in: 6 days DC O2, CPAP, BIPAP Needs Home O2 Discharge instructions: No Additional Instructions: You have bilateral groin incision sites. Both of these incisions were closed with skin glue and are currently covered by a special dressing called a Prevena vacuum dressing. This dressing should remain in place for 1 week after surgery (until Sunday 07/23) if possible. If the dressing begins to call off or the machine starts to alarm and you cannot get it to stop then it can be removed earlier. If you have any questions about this or have difficulty with the machine, please call the office. You can remove the Prevena vacuum dressings at home. To remove: (1) Hold down the power button until the unit turns off (2) Follow the clear tubing to the white connectors and disconnect them (3) wait for the purple part of the dressing to puff up (4) Gently peel the dressing off (5) Everything can then be thrown away in your trash at home The incision are covered with skin glue so once the dressings are removed you may leave them open to air. You may shower tomorrow. Do not submerge the incision sites in water such as to take a bath, go swimming, etc for 3 weeks. Do not lift greater than 20 pounds for 3 weeks. Otherwise, please proceed with daily activities as tolerated. Walking is encouraged. You have been prescribed an new antiplatelet (blood thinning) medication: Plavix 75mg tablet to be taken by mouth once daily. Please continue to take this in addition to your Aspirin 81mg tablet by mouth once daily. You may continue to take Tylenol 500mg every 4-6 hours at home. I have also prescribed oxycodone 5mg tablets to be taken as needed for pain every 8 hours. This is to be taken only as needed. You can take it with Tylenol. Do not take it in combination with any other prescription pain medications. You are scheduled for follow-up in the office on 08/01/2024 at 10:30 AM. If you need to change this appointment or have any other questions/concerns please call the office at [phone]. Please Follow Up With: Aviva Velasco PA When: 08/01/2024 Meaningful Use Info Meaningful Use Meaningful Use Diagnoses (Choose all that apply): None applicable Ischemic Stroke Statin Dosing Therapy Reference: STATIN DOSE THERAPY REFERENCE: * Patients > 75 years receive moderate or high dose statin therapy. * Patients 75 years or YOUNGER should receive HIGH intensity statin dose unless contraindicated. You will be required to document reason for non-treatment if statin daily dose does not meet guidelines. HIGH DOSE STATIN THERAPY DAILY Atorvastatin > than or = to 40 mg Rosuvastatin > than or = to 20 mg Amlodipine + Atorvastatin > than or = to 2.5/40 mg Ezetimibe + Simvastatin 10/80 mg Simvastatin 80mg Discharge Plan Admission Admit Date/Time: 07/16/24 16:33 Attending Provider: Krish Carter Primary Care Provider: Demario Sanz Instructions Additional Instructions / Restrictions: You have bilateral groin incision sites. Both of these incisions were closed with skin glue and are currently covered by a special dressing called a Prevena vacuum dressing. This dressing should remain in place for 1 week after surgery (until Sunday 07/23) if possible. If the dressing begins to call off or the machine starts to alarm and you cannot get it to stop then it can be removed earlier. If you have any questions about this or have difficulty with the machine, please call the office. You can remove the Prevena vacuum dressings at home. To remove: (1) Hold down the power button until the unit turns off (2) Follow the clear tubing to the white connectors and disconnect them (3) wait for the purple part of the dressing to puff up (4) Gently peel the dressing off (5) Everything can then be thrown away in your trash at home The incision are covered with skin glue so once the dressings are removed you may leave them open to air. You may shower tomorrow. Do not submerge the incision sites in water such as to take a bath, go swimming, etc for 3 weeks. Do not lift greater than 20 pounds for 3 weeks. Otherwise, please proceed with daily activities as tolerated. Walking is encouraged. You have been prescribed an new antiplatelet (blood thinning) medication: Plavix 75mg tablet to be taken by mouth once daily. Please continue to take this in addition to your Aspirin 81mg tablet by mouth once daily. You may continue to take Tylenol 500mg every 4-6 hours at home. I have also prescribed oxycodone 5mg tablets to be taken as needed for pain every 8 hours. This is to be taken only as needed. You can take it with Tylenol. Do not take it in combination with any other prescription pain medications. You are scheduled for follow-up in the office on 08/01/2024 at 10:30 AM. If you need to change this appointment or have any other questions/concerns please call the office at [phone]. Discharge Orders/Prescriptions Prescriptions: New clopidogrel 75 mg Tablet 75 mg PO DAILY 90 Days Qty: 90 0RF oxycodone 5 mg Tablet 5 mg PO Q8H PRN PRN (Reason: Pain Score 4-10) 5 Days Qty: 15 0RF Continued atorvastatin 80 mg tablet 80 mg PO DAILY Qty: 90 3RF escitalopram oxalate 10 MG tablet 10 mg PO DAILY hydroxyzine pamoate 25 mg Capsule 25 mg PO BID PRN (Reason: Anxiety) aspirin 81 mg Tablet,Delayed Release (Dr/Ec) 81 mg PO BREAKFAST 90 Days Qty: 90 1RF montelukast 10 mg tablet 10 mg PO QPM Qty: 90 3RF cetirizine 10 mg capsule 10 mg PO HS Qty: 90 3RF carvedilol 6.25 mg tablet 6.25 mg PO BID 90 Days Qty: 180 3RF lisinopril 10 mg tablet 10 mg PO DAILY 90 Days Qty: 90 3RF spironolactone 25 mg tablet 25 mg PO DAILY 90 Days Qty: 90 3RF Trelegy Ellipta 200-62.5-25 mcg blister with device 1 inh inhalation DAILY Qty: 3 3RF albuterol sulfate 90 mcg/actuation HFA aerosol inhaler 2 puff inhalation Q6H PRN (Reason: shortness of breath or wheezing) Qty: 18 6RF albuterol sulfate 2.5 mg /3 mL (0.083 %) solution for nebulization 2.5 mg INHALATION Q4H PRN PRN (Reason: Sob &/Or Wheezing) Qty: 180 3RF Other Ambulatory Orders: Type & Screen (Routine) Timeframe: [id number] Facility: [facility] - Location: Laboratory Ordered By: Dr. Krish Carter Referrals / Follow Up: Demario Sanz MD [Primary Care Provider] - Disposition Disposition (needs filled in before D/C Order can be placed): Home, Self Care
== END 2024-07-17 15:05 | disposition home or self-care (01) | DRG 254 ==
PROVIDERS: Admitting Provider Surgery Trauma Surgery; PCP Family Medicine; Referring Provider Surgery Trauma Surgery; Visit Provider Surgery Trauma Surgery
PROC: 047D34Z Dilation of Left Common Iliac Artery with Drug-eluting Intraluminal Device, Percutaneous Approach (ICD-10-PCS; principal; 2024-07-16 09:40)
DX: I70.213 Atherosclerosis of native arteries of extremities with intermittent claudication, bilateral legs (principal); E78.00 Pure hypercholesterolemia, unspecified; J44.9 Chronic obstructive pulmonary disease, unspecified; I10 Essential (primary) hypertension; F17.220 Nicotine dependence, chewing tobacco, uncomplicated; I25.2 Old myocardial infarction; Z79.51 Long term (current) use of inhaled steroids; Z79.02 Long term (current) use of antithrombotics/antiplatelets; Z79.899 Other long term (current) drug therapy; Z79.82 Long term (current) use of aspirin; Z96.649 Presence of unspecified artificial hip joint; Z79.891 Long term (current) use of opiate analgesic
CPT/HCPCS: 36415; 76000; 80048; 85025; 85027; 85610; 85730; 86850; 86900; 86901; 88304; 88311; 94640; 94668; 97802; 99406; A4648; C1753; C1769; C1874; C1894; A4216; C1725; J2405

== ENCOUNTER → 2024-08-28 | Outpatient (CLI) | payer OTHER, SELFPAY ==
[2024-08-28 19:36] LABS: Microalbumin,Random Urine < 12.0 mg/L (NO RANGE EST.); Microalbumin:Creatinine Ratio UNABLE TO CALCULATE mg/g CRE
== END | disposition home or self-care (01) ==
LOC: LABSPEC 12:20
PROVIDERS: PCP Family Medicine; Referring Provider Family Medicine; Visit Provider Family Medicine
DX: I73.9 Peripheral vascular disease, unspecified (principal)
CPT/HCPCS: 82043; 82570

== ENCOUNTER → 2024-08-29 | Outpatient (CLI) | payer OTHER, SELFPAY ==
--- NOTE | 2024-08-29 12:50 | ART_ITS ---
Reason For Study Reason For Study: HX BLE FEM A Endart / Iliac Stents Procedure A bilateral lower extremity continuous wave Doppler with analog waveform analysis,segmental pressures,and ankle brachial indexes with exercise. Left Segmental Pressures Left brachial= 109mmHg. Left posterior tibial artery = 120mmHg. Left dorsalis pedis artery = 121mmHg. Left digit = 93 mmHg. The left posterior tibial artery waveforms are triphasic. The left dorsalis pedis waveforms are biphasic. Right Segmental Pressures Right brachial= 111mmHg. Right posterior tibial artery = 98mmHg. Right dorsalis pedis artery = 118mmHg. Right digit = 95 mmHg. The right posterior tibial artery waveforms are biphasic. The right dorsalis pedis waveforms are triphasic. Indices The right ankle brachial index by the posterior tibial artery is 0.88. The right ankle brachial index by the dorsalis pedis is 1.06. The right digital-brachial index is 0.86. The right post exercise ankle brachial index is 0.53. The left ankle brachial index by the posterior tibial artery is 1.08. The left ankle brachial index by the dorsalis pedis is 1.09. The left digital-brachial index is 0.84. The left post exercise ankle brachial index is 0.78. VL/Lower Ext Art Exam w/ Exercise Interpretation Summary Right JOVAN 1.06, normal. TBI and Doppler/PVR waveforms of the right leg normal a t rest. Right lower extremity with abnormal response to exercise and post exercise JOVAN in the moderate category. Left JOVAN 1.09, normal. TBI and Doppler/PVR waveforms of the left leg normal at rest. Left lower extremity with abnormal response to exercise and post exercise JOVAN i n the moderate category. Ordering Physician: Aviva Velasco Referring Physician: Demario Sanz Performed By: Cesar Chou RVAngel
== END | disposition home or self-care (01) ==
LOC: CVS 12:42
PROVIDERS: PCP Family Medicine; Referring Provider Physician Assistant; Visit Provider Physician Assistant
DX: Z48.812 Encounter for surgical aftercare following surgery on the circulatory system (principal); I70.213 Atherosclerosis of native arteries of extremities with intermittent claudication, bilateral legs
CPT/HCPCS: 93924

== ENCOUNTER 2024-11-27 22:10 | Emergency (ER) | payer OTHER, SELFPAY ==
[2024-11-27 22:12] VITALS: BP 172/148; PULSE 93; RESP 24; TEMP 36.6; O2SAT 90
[2024-11-27 22:35] VITALS: PULSE 99; RESP 18
--- NOTE | 2024-11-27 22:35 | EKG12_ITS ---
Test Reason : SOB Blood Pressure : */* mmHG Vent. Rate : 110 BPM Atrial Rate : 110 BPM P-R Int : 184 ms QRS Dur : 140 ms QT Int : 368 ms P-R-T Axes : 69 -8 91 degrees QTcB Int : 498 ms Sinus tachycardia Left bundle branch block Abnormal ECG Confirmed by Jude Ward ([id number]), movie editor RONALD POND ([id number]) on 11/29/2024 6:56:23 AM Referred By: Confirmed By: Jude Ward
--- NOTE | 2024-11-27 22:36 | EDS_ITS ---
HPI History of Present Illness Chief Complaint: Shortness of Breath Informant: patient Narrative Narrative: 58-year-old male presenting to the emergency room with a chief complaint of shortness of breath. Patient states over the past several days she has had a pr ogressive shortness of breath that seems to coincide with a cold. He notes some rhinorrhea cough with some sputum production. He denies fever or chills. He states that he needs prednisone. He states he has a nebulizer at home but does not wear home oxygen. He is a heavy smoker. He denies any chest pain or leg swelling with this. Patient has a history of peripheral vascular disease and is on Plavix. He also has a history of Takotsubo's cardiomyopathy. He was noted to be 87% on room air in triage. [facility] Medical History Wears glasses High cholesterol COPD (chronic obstructive pulmonary disease) Shortness of breath on exertion History of echocardiogram History of heart attack (~09/2023) Cardiology follow-up encounter Hypertension Heart attack Peripheral arterial disease Psoriasis Smoking greater than 20 pack years Asthma-COPD overlap syndrome Anxiety Smoker Erectile dysfunction Hypertension COPD (chronic obstructive pulmonary disease) Home Medications ?Medication ?Instructions ?Recorded ?Last Taken ?Type escitalopram oxalate 10 mg tablet 10 mg PO DAILY anxie ty 04/01/19 06/12/19 History hydroxyzine pamoate 25 mg capsule 25 mg PO BID PRN Anx iety 11/30/20 Unknown History atorvastatin 80 mg tablet 80 mg PO DAILY HLD #90 tabs 08/23/23 Unknown Rx aspirin 81 mg tablet,delayed 81 mg PO BREAKFAST [facility] 90 10/03/23 Unknown Rx release days #90 tabs cetirizine 10 mg capsule 10 mg PO HS SEASONAL ALLERIE S #90 10/17/23 Unknown Rx caps montelukast 10 mg tablet 10 mg PO QPM COPD #90 tabs 0 10/17/23 Unknown Rx carvedilol 6.25 mg tablet 6.25 mg PO BID HEART 90 days #180 01/25/24 07/15/24 Rx tabs lisinopril 10 mg tablet 10 mg PO DAILY HTN 90 days # 90 tabs 01/25/24 07/15/24 Rx spironolactone 25 mg tablet 25 mg PO DAILY HTN 90 days #90 tabs 01/25/24 Unknown Rx fluticasone fur. 200 mcg-umeclid 1 inh inhalation PATI Y COPD #3 ea 04/10/24 Unknown Rx 62.5 mcg-vilant 25 mcg inhalat.powder (Trelegy Ellipta) albuterol sulfate 2.5 mg/3 mL 2.5 mg (3 mL) inhalation Q4H PRN 05/22/24 Unknown Rx (0.083 %) solution for nebulization PRN Sob &/Or Wheez ing #180 mL albuterol sulfate 90 mcg/actuation 2 puff inhalation Q 6H PRN 05/22/24 Unknown Rx aerosol inhaler shortness of breath or wheez ing #18 grams clopidogrel 75 mg tablet 75 mg PO DAILY 90 days #90 t abs 07/17/24 Unknown Rx oxycodone 5 mg tablet 5 mg PO Q8H PRN PRN Pain Sco re 07/17/24 Unknown Rx 4-10 5 days #15 tabs doxycycline monohydrate 100 mg 100 mg PO BID #14 CAPSU LES 11/28/24 Unknown Rx capsule prednisone 20 mg tablet 60 mg (3 x 20 mg) PO DAILY # 15 11/28/24 Unknown Rx TABLETS Allergy/AdvReac Type Severity Reaction Status Date / Time No Known Allergies Allergy Verified 11/27/24 22:17 Family History Other Asthma Surgical History History of cardiac catheterization (~09/2023) H/O knee surgery H/O total hip arthroplasty Social History household members: spouse Smoking Status: Heavy Smoker (>10/day) Tobacco: How many years used: 30 Smokeless tobacco user: other alcohol intake: former substance use type: does not use caffeine: Yes ROS ROS ED Constitutional Constitutional ED: Denies chills, fever(s) or weight loss Eyes Eyes: Denies change in vision or diplopia ENT ENT ED: Reports rhinorrhea; Denies ear pain or sore throat Cardiovascular Cardiovascular: Denies chest pain, orthopnea, palpitations or racing heartbeat Respiratory/Chest Respiratory/Chest: Reports cough, dyspnea, dyspnea on exertion and sputum; Denies orthopnea Gastrointestinal Gastrointestinal: Denies abdominal pain, diarrhea, nausea or vomiting Genitourinary Genitourinary ED: Denies dysuria, hematuria or urinary frequency Musculoskeletal Musculoskeletal: Denies arthralgias or myalgias Integumentary Denies abscess or rash Neurologic Neurologic: Denies headache(s) or weakness Psychiatric Psychiatric: Denies anxiety, depression, suicidal ideation or suicidal thoughts Endocrine Endocrinology: Denies polydipsia, polyphagia or polyuria Allergic/Immunologic Allergic/Immunologic ED: Denies mouth swelling, tongue swelling or urticaria EXAM Physical Exam Narrative Exam Narrative: Patient is bent over sitting on the side of the bed. He has labored breathing. Const Vital Signs: 11/27/24 22:12 11/27/24 22:16 11/27/24 22:35 Temperature 98 F Temperature Source Temporal Pulse Rate 93 99 Respiratory Rate 24 H 18 Respiratory Effort Short of Breath Labored Blood Pressure 172/148 H Blood Pressure Mean 156 Pulse Ox 90 Oxygen Delivery Method Room Air Oxygen Flow Rate (L/min) 11/27/24 23:10 11/28/24 00:00 11/28/24 00:06 Temperature Temperature Source Pulse Rate 97 98 Respiratory Rate 12 Respiratory Effort Blood Pressure 104/86 H 100/81 H Blood Pressure Mean 92 87 Pulse Ox 100 98 Oxygen Delivery Method Nasal Cannula Room Air Oxygen Flow Rate (L/min) 2 11/28/24 00:59 11/28/24 01:02 Temperature 98 F Temperature Source Pulse Rate 86 86 Respiratory Rate 20 H Respiratory Effort Blood Pressure 101/78 101/71 Blood Pressure Mean 85 81 Pulse Ox 98 95 Oxygen Delivery Method Room Air Oxygen Flow Rate (L/min) Positive well nourished and well developed General Appearance ED: well developed HEENT Reports normocephalic, head/scalp atraumatic and moist mucous membranes Eyes PERRL and EOMs intact bilaterally Neck no lymphadenopathy, supple and no JVD Resp Auscultation: wheezes and diminished lung sounds Cardio regular rate, regular rhythm and no murmurs GI normal to inspection, nondistended, normoactive bowel sounds and non-tender Palpation: soft Back/Spine no CVA tenderness and normal ROM Extremity normal to inspection General Extremety ED: Negative for edema General Extremity: Negative for edema Neuro oriented x3 and CN's II-XII intact bilaterally Sensorium / Orientation: alert Motor Exam: strength 5/5 throughout Psych mental status grossly normal Mood & Affect: Negative for depressed or tearful Skin no rashes or lesions noted and no wounds MDM MDM MDM Narrative Medical decision making narrative: Differential diagnosis includes but not limited to COPD exacerbation pneumonia viral syndrome bronchitis pleural effusion congestive heart failure electrolyte abnormalities acute kidney injury sepsis pulmonary embolism pneumothorax acute coronary syndrome My independent interpretation the chest x-ray is no acute process. Patient's EKG is a sinus tachycardia with a left bundle branch block. He has had a left bundle branch block in the past but his most recent EKG did not have that. Initial troponin is 20 the second troponin is 281. White count 13.9 platelet count 243 hemoglobin 13.5 BMP shows a creatinine 1.42. Patient received breathing treatments as well as Solu-Medrol. Repeat examination the patient is off of oxygen is 98%. He has no chest pain no further shortness of breath his expiratory wheezing has resolved. Patient states that he feels like a new man. We talked about his ED workup. Given the left bundle and elevated troponin difficult to make out of this could be rate dependent versus heart strain versus ACS. However the patient has no chest pain and is asymptomatic currently. Could be type II cardiac troponin especially in the light of his work of breathing and his hypoxia. Using shared decision making, I spoke with the patient in anticipation of admission but he states he would prefer to go home as he feels significantly better. He plans on doing breathing treatments as well as some prednisone. I can also add in some doxycycline. I have asked that he follow-up with his PCP. History & Record Review Discussion w/independent historian: Patient Additional record(s) reviewed:: Prior inpatient record, Prior outpatient record, Prior ED visit and Prior labs Lab Data Attestation: I reviewed the patient's lab results. Labs: Laboratory Results - last 24 hr 11/27/24 11/28/24 22:45 00:40 WBC 13.9 H RBC 4.68 Hgb 13.5 Hct 40.2 MCV 85.9 MCH 28.8 MCHC 33.6 RDW Std Deviation 42.2 RDW Coeff of Jazzmine 13.5 Plt Count 243 MPV 9.1 Immature Gran % (Auto) 0.300 Neut % (Auto) 41.9 L Lymph % (Auto) 44.8 H [place] % (Auto) 6.5 Eos % (Auto) 6.1 H Baso % (Auto) 0.4 Absolute Neuts (auto) 5.8 Absolute Lymphs (auto) 6.24 H Nucleated RBC % 0 Sodium 139 Potassium 3.8 Chloride 106 Carbon Dioxide 15.6 L Anion Gap 18 H BUN 11 Creatinine 1.42 H Est GFR (MDRD) Non-Af 58 L BUN/Creatinine Ratio 7.7 L Glucose 195 H Calcium 9.1 Troponin T High Sens 20 Troponin T Hi Sens 2 Hr 281 H* Radiography Diagnostic Testing: Clinical Impression(s) from Imaging Studies Chest X-Ray 11/27/24 23:00 IMPRESSION: No acute cardiopulmonary abnormalities. Reading Location: [place] [address] Discharge Plan Triage Chief Complaint: Shortness of Breath ED Provider: Syed Corbin Dx/Rx/DC Orders Clinical Impression: COPD exacerbation, Acute hypoxic respiratory failure, Left bundle branch block, Elevated troponin Instructions: ED COPD Flare Prescriptions: New prednisone 20 mg tablet 60 mg PO DAILY Qty: 15 0RF doxycycline monohydrate 100 mg capsule 100 mg PO BID Qty: 14 0RF No Action atorvastatin 80 mg tablet 80 mg PO DAILY Qty: 90 3RF escitalopram oxalate 10 MG tablet 10 mg PO DAILY hydroxyzine pamoate 25 mg Capsule 25 mg PO BID PRN (Reason: Anxiety) aspirin 81 mg Tablet,Delayed Release (Dr/Ec) 81 mg PO BREAKFAST 90 Days Qty: 90 1RF clopidogrel 75 mg Tablet 75 mg PO DAILY 90 Days Qty: 90 0RF oxycodone 5 mg Tablet 5 mg PO Q8H PRN PRN (Reason: Pain Score 4-10) 5 Days Qty: 15 0RF montelukast 10 mg tablet 10 mg PO QPM Qty: 90 3RF cetirizine 10 mg capsule 10 mg PO HS Qty: 90 3RF carvedilol 6.25 mg tablet 6.25 mg PO BID 90 Days Qty: 180 3RF lisinopril 10 mg tablet 10 mg PO DAILY 90 Days Qty: 90 3RF spironolactone 25 mg tablet 25 mg PO DAILY 90 Days Qty: 90 3RF Trelegy Ellipta 200-62.5-25 mcg blister with device 1 inh inhalation DAILY Qty: 3 3RF albuterol sulfate 90 mcg/actuation HFA aerosol inhaler 2 puff inhalation Q6H PRN (Reason: shortness of breath or wheezing) Qty: 18 6RF albuterol sulfate 2.5 mg /3 mL (0.083 %) solution for nebulization 2.5 mg INHALATION Q4H PRN PRN (Reason: Sob &/Or Wheezing) Qty: 180 3RF Primary Care Provider: Demario Sanz Referrals: Demario Sanz MD [Primary Care Provider] - 1 Week Activity Restrictions/Additional Instructions: Make sure you are using your albuterol aerosols. You are being prescribed prednisone as well as doxycycline and antibiotic. If you are worsening please return to emergency especially if you develop chest pain worsening breathing or have concerns. Print Language: Romansh Disposition Disposition: Home, Self Care Discharge Date/Time: 11/28/24 01:03
[2024-11-27] MEDS: MethylPREDNISolone 125 MG/2 ML Vial IV (22:43)
[2024-11-27] MEDS: Albuterol 2.5 MG/3 ML VIAL.NEB. INHALATION ×2 (22:44)
[2024-11-27] MEDS: Ipratropium/Albuterol Sulfate 3 ML AMPUL.NEB INHALATION (22:44)
[2024-11-27 22:55] LABS: Absolute Lymphocyte Count 6.24 X10^3/uL (0.83-4.51); Absolute Neutrophil Count 5.8 X10^3/uL (2.0-7.7); Basophil# 0.06 X10^3/uL; Basophil% 0.4 % (0-1); Eosinophil# 0.85 X10^3/uL; Eosinophils% 6.1 % (0-5); Hematocrit 40.2 % (40-54); Hemoglobin 13.5 g/dL (13.0-16.5); Lymphocyte # 6.24 X10^3/ul (0.83-4.51); Lymphocyte % 44.8 % (19-41); Mean Corp Hgb Conc 33.6 g/dL (32-36); Mean Corpuscular Hgb 28.8 pg (27.0-32.0); Mean Corpuscular Volume 85.9 fL (80-94); Mean Platelet Vol. 9.1 fl (6.2-12.0); Monocyte% 6.5 % (0-10); NRBC Flagged by Analyzer 0 % (0-5); Neutrophil # 5.83 X10^3/uL (2.7-7.7); Neutrophil % 41.9 % (47-70); POSITIVE DIFFERENTIAL YES; Platelet Count 243 K/mm3 (150-450); RBC Distribution Width CV 13.5 % (11.6-14.6); RBC Distribution Width SD 42.2 fl (35.1-43.9); Red Blood Count 4.68 M/mm3 (4.6-6.2); White Blood Count 13.9 K/mm3 (4.4-11.0)
--- NOTE | 2024-11-27 23:00 | RAD_ITS ---
PROCEDURE: CHEST 1 VIEW (PORTABLE) 11/27/2024 REASON FOR EXAM: DYSPNEA TECHNIQUE: Frontal view of the chest. COMPARISON: 10/16/2023. FINDINGS: The heart is normal in size. The mediastinum is normal in contour. The lungs are clear. No acute osseous abnormalities. RAD/Chest 1 View (Portable) IMPRESSION: No acute cardiopulmonary abnormalities. Reading Location: [place] [id number]
[2024-11-27 23:10] VITALS: BP 104/86; PULSE 97
[2024-11-27 23:24] LABS: Anion Gap 18 (5-15); BUN 11 mg/dL (4-19); BUN/Creat Ratio 7.7 RATIO (10-20); Calcium,Total 9.1 mg/dL (7.6-11.0); Carbon Dioxide 15.6 mmol/L (21.0-32.0); Chloride 106 mmol/L (98-108); Creatinine, Serum 1.42 mg/dL (0.70-1.20); EST Glomerular Filtration Rate 58 (>60); Glucose 195 mg/dL (70-99); Potassium 3.8 mmol/L (3.3-5.1); Sodium Level 139 mmol/L (133-145)
[2024-11-27 23:55] LABS: Troponin T High Sensitivity 20 ng/L (<=22)
[2024-11-28] VITALS: BP 100/81; PULSE 98; RESP 12; O2SAT 100
[2024-11-28 00:06] VITALS: O2SAT 98
[2024-11-28] MEDS: Doxycycline 100 MG CAPSULE PO (00:57)
[2024-11-28 00:59] VITALS: BP 101/78; PULSE 86; O2SAT 98
[2024-11-28 01:02] VITALS: BP 101/71; PULSE 86; RESP 20; TEMP 36.6; O2SAT 95
[2024-11-28 01:11] LABS: Troponin T High Sens 2 HR 281 ng/L (<=22)
== END 2024-11-28 01:03 | disposition home or self-care (01) ==
PROVIDERS: Emergency Provider Emergency Medicine; PCP Family Medicine; Visit Provider Emergency Medicine
DX: J44.1 Chronic obstructive pulmonary disease with (acute) exacerbation (principal); J96.01 Acute respiratory failure with hypoxia; I10 Essential (primary) hypertension; I51.81 Takotsubo syndrome; E78.00 Pure hypercholesterolemia, unspecified; R79.89 Other specified abnormal findings of blood chemistry; I44.7 Left bundle-branch block, unspecified; I25.2 Old myocardial infarction; F17.210 Nicotine dependence, cigarettes, uncomplicated
CPT/HCPCS: 71045; 80048; 84484; 85025; 87633; 93005; 94640; 96374; 99284; A4216

== ENCOUNTER → 2025-01-09 | Outpatient (CLI) | payer OTHER, SELFPAY | END | disposition home or self-care (01) | LOC: PSN 09:24 | PROVIDERS: PCP Family Medicine; Referring Provider Nurse Practitioner Acute Care; Visit Provider Nurse Practitioner Acute Care | DX: R06.02 Shortness of breath (principal) | CPT/HCPCS: 94060; 94726; 94729 ==

== ENCOUNTER → 2025-01-10 | Outpatient (CLI) | payer OTHER, SELFPAY ==
[2025-01-10 12:24] VITALS: PULSE 100; PULSE 93; PULSE 94; PULSE 95; PULSE 96; PULSE 98; PULSE 99; O2SAT 97; O2SAT 98; O2SAT 99
--- NOTE | 2025-01-11 11:17 | WT_ITS ---
PSN 6 Minute Walk Test 6 Minute Walk Test 6 Minute Walk Test: 6 Minute Walk Test PSN:6-Minute Walk Test Start: 01/10/25 12:36 Freq: Status: Active Protocol: [id number] Document 01/10/25 12:24 WLB (Rec: 01/10/25 12:40 WLB [id number]) 6 Minute Walk Test Date Performed 01/10/25 Time Performed 12:24 Height 6 ft Weight: 170 lb Weight in Pounds 170.[address]: Viky Crook SHORT ORDER FRY COOK FIO2 (% Oxygen) 21 Assistive device None used: Pre-test Oxygen Delivery Room Air Method Pulse Ox (%) 99 Pulse Rate (60-100 93 beats/min) Dyspnea Corry Scale ( 0 0-10) Exertion Corry Scale 6 (6-20) 1st minute Oxygen Delivery Room Air Method Pulse Ox (%) 98 Pulse Rate (60-100 99 beats/min) 2nd minute Oxygen Delivery Room Air Method Pulse Ox (%) 97 Pulse Rate (60-100 95 beats/min) 3rd minute Oxygen Delivery Room Air Method Pulse Ox (%) 99 Pulse Rate (60-100 100 beats/min) 4th minute Oxygen Delivery Room Air Method Pulse Ox (%) 98 Pulse Rate (60-100 96 beats/min) 5th minute Oxygen Delivery Room Air Method Pulse Ox (%) 98 Pulse Rate (60-100 98 beats/min) 6th minute Oxygen Delivery Room Air Method Pulse Ox (%) 99 Pulse Rate (60-100 100 beats/min) Dyspnea Corry Scale ( 2 0-10) Exertion Corry Scale 7 (6-20) Post-test Oxygen Delivery Room Air Method Pulse Ox (%) 98 Pulse Rate (60-100 94 beats/min) Full Laps Walked 20 Partial Lap, Number 0 of Tiles Walked Total Distance 1180 Walked (ft) Interpretation Interpretation: The patient ambulated 1180 feet over the course of 6 minutes beginning on room air without assistive devices. Pretesting oxygen saturation was noted to be 99% on room air. With ambulation, the amadeo oxygen saturation was 97%. There was no significant exertional oxygen desaturation. Recommendations Recommendations: There is no indication for the use of supplemental oxygen at this time.
== END | disposition home or self-care (01) ==
LOC: PSN 12:19
PROVIDERS: PCP Family Medicine; Referring Provider Nurse Practitioner Acute Care; Visit Provider Nurse Practitioner Acute Care
DX: R06.02 Shortness of breath (principal)
CPT/HCPCS: 94618

== ENCOUNTER → 2025-01-18 | Outpatient (CLI) | payer OTHER, SELFPAY ==
--- NOTE | 2025-01-18 13:32 | CT_ITS ---
PROCEDURE: LOW DOSE CT LUNG SCREENING 01/18/2025 REASON FOR EXAM: SMOKER Patient has smoked 1 pack per day for 40 years. COPD. TECHNIQUE: LOW DOSE CT LUNG SCREENING Coronal and Sagittal reconstruction series were provided. One or more dose reduction techniques were used (e.g., Automated exposure control, adjustment of the mA and/or kV according to patient size, use of iterative reconstruction technique). REFERENCE LINK: [facility] Lung-RADS RADIATION DOSE SUMMARY: CTDlvol: 1.59 mGy DLP: 57.58. MGycm COMPARISON: Prior study dated January 14, 2023. FINDINGS: PULMONARY NODULES: (Only nodules >3mm are reported) Nodules described below are on series 1 unless otherwise specified. Pulmonary Nodules: Stable 1.5 cm irregular nodule in the left lung apex suggestive of scarring. Scarring in the posterior aspect of the right upper lobe. Hardware:None Lymph Nodes:No significant lymph nodes are seen. Heart and Vasculature:The heart is nonenlarged. Coronary Artery Calcifications: Present Lungs and Airways: Mild emphysematous changes are present. Pleura:No pleural effusion Upper Abdomen:Unremarkable Bones:Degenerative changes of the thoracic spine. CT/Low Dose CT Lung Screening IMPRESSION: Stable examination. Coronary artery calcification (CAC) is is present Lung-RADS Category: 2 BENIGN (BASED ON IMAGING FEATURES OR INDOLENT BEHAVIOR). RECOMMEND 12-MONTH SCREENING LDCT. Other Significant Findings: Reading Location: [id number]
== END | disposition home or self-care (01) ==
LOC: CT 13:29
PROVIDERS: PCP Family Medicine; Referring Provider Nurse Practitioner Acute Care; Visit Provider Nurse Practitioner Acute Care
DX: Z12.2 Encounter for screening for malignant neoplasm of respiratory organs (principal); F17.210 Nicotine dependence, cigarettes, uncomplicated
CPT/HCPCS: 71271

== ENCOUNTER → 2025-02-26 | Outpatient (CLI) | payer OTHER, SELFPAY ==
--- NOTE | 2025-02-26 09:56 | ART_ITS ---
Reason For Study Reason For Study: AFTERCARE S/P BLE FEM A ENDART & ILIAC STENTS Procedure A bilateral lower extremity continuous wave Doppler with analog waveform analysis,segmental pressures,and ankle brachial indexes with exercise. PT walked 5 minutes @ 2.0 MPH @ 5% incline. PT had no discomfort. Left Segmental Pressures Left brachial= 111mmHg. Left high thigh = 133mmHg. Left low thigh = 132mmHg. Left calf = 137mmHg. Left posterior tibial artery = 117mmHg. Left dorsalis pedis artery = 114mmHg. Left digit = 78 mmHg. The left posterior tibial artery waveforms are triphasic. The left dorsalis pedis waveforms are triphasic. Right Segmental Pressures Right brachial= 127mmHg. Right high thigh = 134mmHg. Right low thigh = 127mmHg. Right calf = 126mmHg. Right posterior tibial artery = 109mmHg. Right dorsalis pedis artery = 105mmHg. Right digit = 76 mmHg. The right posterior tibial artery waveforms are triphasic. The right dorsalis pedis waveforms are triphasic. Indices The right resting ankle brachial index is 0.86. The right ankle brachial index by the posterior tibial artery is 0.86. The right ankle brachial index by the dorsalis pedis is 0.83. The right ankle brachial index by the posterior tibial artery post exercise is 66. The left resting ankle brachial index is 0.92. The left ankle brachial index by the posterior tibial artery is 0.92. The left ankle brachial index by the dorsalis pedis is 0.90. The left posterior tibial artery index post exercise is 118. VL/Lower Ext Art Exam w/ Exercise Interpretation Summary Right JOVAN 0.86, moderate arterial insufficiency. Doppler/PVR waveforms and segm ental pressures reveal no focal segments of stenosis. Right lower extremity with abnormal response to exercise and post exercise JOVAN in the moderate category. Left JOVAN 0.92, mild arterial insufficiency. Doppler/PVR waveforms and segmental pressures reveal infrapopliteal disease. Left lower extremity exhibits no change in response to exercise. Ordering Physician: Aviva Velasco Referring Physician: ISAI CRISTINA Performed By: Maria Isabel Hsu RVT, [facility]
== END | disposition home or self-care (01) ==
LOC: CVS 09:55
PROVIDERS: PCP Family Medicine; Referring Provider Physician Assistant; Visit Provider Physician Assistant
DX: Z48.812 Encounter for surgical aftercare following surgery on the circulatory system (principal); I70.213 Atherosclerosis of native arteries of extremities with intermittent claudication, bilateral legs
CPT/HCPCS: 93924

== ENCOUNTER → 2025-02-27 | Outpatient (CLI) | payer OTHER, SELFPAY ==
[2025-02-27 15:29] LABS: Hematocrit 39.5 % (40-54); Hemoglobin 13.2 g/dL (13.0-16.5); Immature Granulocytes Count 0.020 X10^3/uL (0.0-0.0); Mean Corp Hgb Conc 33.4 g/dL (32-36); Mean Corpuscular Volume 88.2 fL (80-94); Mean Platelet Vol. 9.3 fl (6.2-12.0); NRBC Flagged by Analyzer 0 % (0-5); Platelet Count 197 K/mm3 (150-450); RBC Distribution Width CV 13.5 % (11.6-14.6); RBC Distribution Width SD 43.7 fl (35.1-43.9); Red Blood Count 4.48 M/mm3 (4.6-6.2); White Blood Count 6.2 K/mm3 (4.4-11.0)
[2025-02-27 16:00] LABS: AST(SGOT) 14 U/L (<=37); Alanine Aminotransfer ALT/SGPT 6 U/L (<=46); Albumin, Serum 4.1 g/dL (3.5-5.0); Alkaline Phosphatase 83 U/L (40-129); Anion Gap 11 (5-15); BUN 8 mg/dL (4-19); BUN/Creat Ratio 7.4 RATIO (10-20); Calcium,Total 9.2 mg/dL (7.6-11.0); Carbon Dioxide 21.2 mmol/L (21.0-32.0); Chloride 107 mmol/L (98-108); Cholesterol 171 mg/dL (<=200); Globulin 2.7 g/dL (2.2-4.2); Glucose 105 mg/dL (70-99); Low Density Lipoprotein Calc. 123 mg/dL; Potassium 4.0 mmol/L (3.3-5.1); Triglycerides 78 mg/dL; Very Low Density Lipoprotein 16 mg/dL (5-40); cholesterol:hdl ratio screen 5.23
== END | disposition home or self-care (01) ==
LOC: MFPLAB 11:13
PROVIDERS: PCP Family Medicine; Visit Provider Family Medicine
DX: I73.9 Peripheral vascular disease, unspecified (principal)
CPT/HCPCS: 36415; 80053; 80061; 85025